=== PATIENT | female | born 1935 | race Caucasian/White ===

== ENCOUNTER 2020-08-21 10:43 | Inpatient (IN) | payer MEDICARE ==
[~2020-08-21] VITALS: Ht 160 cm; Wt 81.0 kg
[2020-08-21] MEDS ORDERED: ASPIRIN 81 MG CHEW (CHILDREN'S ASA) ONE (10:57)
[2020-08-21] MEDS ORDERED: NITROGLYCERIN 0.4 MG SL TABS BTL 25'S SL ONE (10:57)
--- NOTE | 2020-08-21 11:13 | ED Dyspnea ---
General Stated Complaint: SHORTNESS OF BREATH Source of Information: Patient Exam Limitations: No Limitations History of Present Illness Date Seen by Provider: Aug 21, 2020 Time Seen by Provider: 11:09 Initial Comments to ER by EMS from home with reports of shortness of breath getting progressively worse over the past 1 week. She has a history of congestive heart failure and states that she gets fluid on her lungs and has to have it drained. Typically her care is at [facility]. She has a history of COPD. She wears oxygen at 4 L per nasal cannula around the clock. No fevers. She has had nausea for the past week. But no vomiting. No cough. She has been to [email or web address] in [facility]. Timing/Duration: 1 Week Severity: Moderate Allergies and Home Medications Allergies Coded Allergies: Tetracyclines (Verified Allergy, Unknown, 08/21/20) Uncoded Allergies: PCN (Allergy, Unknown, 08/21/20) Patient Home Medication List Home Medication List Reviewed: Yes Review of Systems Review of Systems Constitutional: see HPI; No chills, No fever; weakness EENTM: see HPI Respiratory: see HPI, dyspnea on exertion Cardiovascular: see HPI; No chest pain, No edema, No Hx of Intervention, No syncope, No vascular heart diseas Gastrointestinal: No abdominal pain, No diarrhea; nausea; No vomiting Genitourinary: no symptoms reported Musculoskeletal: no symptoms reported Skin: no symptoms reported Psychiatric/Neurological: No Symptoms Reported Endocrine: No Symptoms Reported Physical Exam Vital Signs Vital Signs - First Documented 08/21/20 10:50 Temp 36.3 Pulse 78 Resp 32 B/P (MAP) 209/117 (147) Pulse Ox 98 Capillary Refill : Height, Weight, BMI Height: '" Weight: lbs. oz. kg; BMI Method: General Appearance: No Apparent Distress, WD/WN, Other (speaks in full sentences, alert and oriented very pleasant. Converses appropriately. No distress no accessory muscle use. Diminished and crackles bibasilar. Oxygen saturation 97% on 3 L (her baseline is 4 L). She is afebrile. She is quite hypertensive at about 210/120.) Neck: Full Range of Motion, Normal Inspection Respiratory: No Accessory Muscle Use, No Respiratory Distress Cardiovascular: Regular Rate, Rhythm Gastrointestinal: Non Tender, Soft Neurologic/Psychiatric: Alert, Oriented x3 Skin: Normal Color, Warm/Dry Progress/Results/Core Measures Results/Orders Lab Results Laboratory Tests Test 08/21/20 10:54 Range/Units White Blood Count 7.3 4.3-11.0 10^3/uL Red Blood Count 3.95 3.80-5.11 10^6/uL Hemoglobin 10.8 L 11.5-16.0 g/dL Hematocrit 36 35-52 % Mean Corpuscular Volume 91 80-99 fL Mean Corpuscular Hemoglobin 27 25-34 pg Mean Corpuscular Hemoglobin Concent 30 L 32-36 g/dL Red Cell Distribution Width 14.5 10.0-14.5 % Platelet Count 258 130-400 10^3/uL Mean Platelet Volume 10.1 9.0-12.2 fL Immature Granulocyte % (Auto) 0 % Neutrophils (%) (Auto) 75 42-75 % Lymphocytes (%) (Auto) 20 12-44 % Monocytes (%) (Auto) 5 0-12 % Eosinophils (%) (Auto) 0 0-10 % Basophils (%) (Auto) 0 0-10 % Neutrophils # (Auto) 5.4 1.8-7.8 10^3/uL Lymphocytes # (Auto) 1.5 1.0-4.0 10^3/uL Monocytes # (Auto) 0.3 0.0-1.0 10^3/uL Eosinophils # (Auto) 0.0 0.0-0.3 10^3/uL Basophils # (Auto) 0.0 0.0-0.1 10^3/uL Immature Granulocyte # (Auto) 0.0 0.0-0.1 10^3/uL Sodium Level 137 135-145 MMOL/L Potassium Level 4.7 3.6-5.0 MMOL/L Chloride Level 102 98-107 MMOL/L Carbon Dioxide Level 23 21-32 MMOL/L Anion Gap 12 5-14 MMOL/L Blood Urea Nitrogen 12 7-18 MG/DL Creatinine 0.72 0.60-1.30 MG/DL Estimat Glomerular Filtration Rate > 60 BUN/Creatinine Ratio 17 Glucose Level 106 H 70-105 MG/DL Calcium Level 8.8 8.5-10.1 MG/DL Corrected Calcium 8.8 8.5-10.1 MG/DL Magnesium Level 1.8 1.6-2.4 MG/DL Total Bilirubin 0.6 0.1-1.0 MG/DL Aspartate Amino Transf (AST/SGOT) 36 H 5-34 U/L Alanine Aminotransferase (ALT/SGPT) 22 0-55 U/L Alkaline Phosphatase 81 40-136 U/L Troponin I < 0.028 <0.028 NG/ML B-Type Natriuretic Peptide 1168.9 H <100.0 PG/ML Total Protein 6.6 6.4-8.2 GM/DL Albumin 4.0 3.2-4.5 GM/DL Procalcitonin 0.01 <0.10 NG/ML Coronavirus 2018 (PAUL) Negative Negative My Orders Orders - COLIN DUMAS APRN Covid 19 Inhouse Test (08/21/20 11:07) Coronavirus Sars-Cov-2 So 2019 (08/21/20 11:07) Cbc With Automated Diff (08/21/20 11:07) Comprehensive Metabolic Panel (08/21/20 11:07) Troponin I (08/21/20 11:07) Ekg Tracing (08/21/20 11:07) BNP (08/21/20 11:07) Magnesium (08/21/20 11:07) Chest 1 View, Ap/Pa Only (08/21/20 11:07) Procalcitonin (Pct) (08/21/20 11:50) Hydralazine Injection (Apresoline Inject (08/21/20 12:30) Furosemide Injection (Lasix Injection) (08/21/20 12:30) Medications Given in ED Current Medications Medications Dose Ordered Sig/Duy Route Start Time Stop Time Status Last Admin Dose Admin Aspirin 81 mg STK-MED ONCE .ROUTE 08/21/20 10:57 08/21/20 11:02 DC 08/21/20 11:06 81 MG Nitroglycerin 0.4 mg STK-MED ONCE SL 08/21/20 10:57 08/21/20 11:02 DC 08/21/20 11:06 0.4 MG Vital Signs/I&O 08/21/20 10:50 Temp 36.3 Pulse 78 Resp 32 B/P (MAP) 209/117 (147) Pulse Ox 98 Departure Communication (Admissions) Time/Spoke to Admitting Phy: 12:[address] Edwards, we'll admit, spoke with Abigail from [facility] as Dr. Goodwin was in a procedure. Notified him of consult. I'll go ahead and write for an echocardiogram today since she's never been here before, Lasix 40 mg IV twice a day, supplemental potassium, prophylactic Lovenox, home dose of losartan and when necessary hydralazine. She does feel better after the nitroglycerin sublingual in regards to her shortness of breath. I will also consult Dr. Aguirre in case the right pleural effusion could be tapped. Impression Primary Impression: CHF (congestive heart failure) Qualified Codes: I50.9 - Heart failure, unspecified Disposition: ADMITTED INPATIENT Condition: Stable Admissions Decision to Admit Reason: Admit from ER (General) Decision to Admit/Date: Aug 21, 2020 Time/Decision to Admit Time: 12:47 COLIN DUMAS APRN Aug 21, 2020 11:13
[2020-08-21 11:18] LABS: BASOPHILS % (AUTO) 0 % (0-10); EOSINOPHILS % (AUTO) 0 % (0-10); HEMATOCRIT 36 % (35-52); HEMOGLOBIN 10.8 g/dL (11.5-16.0); LYMPHOCYTES # (AUTO) 1.5 10^3/uL (1.0-4.0); LYMPHOCYTES % (AUTO) 20 % (12-44); MEAN CORPUSCULAR HEMOGLOBIN 27 pg (25-34); MEAN CORPUSCULAR HGB CONC 30 g/dL (32-36); MEAN CORPUSCULAR VOLUME 91 fL (80-99); MEAN PLATELET VOLUME 10.1 fL (9.0-12.2); MONOCYTES # (AUTO) 0.3 10^3/uL (0.0-1.0); MONOCYTES % (AUTO) 5 % (0-12); NEUTROPHILS # (AUTO) 5.4 10^3/uL (1.8-7.8); NEUTROPHILS % (AUTO) 75 % (42-75); PLATELET COUNT 258 10^3/uL (130-400); WHITE BLOOD COUNT 7.3 10^3/uL (4.3-11.0)
[2020-08-21 11:22] LABS: CHLORIDE 102 MMOL/L (98-107); POTASSIUM 4.7 MMOL/L (3.6-5.0); SODIUM 137 MMOL/L (135-145)
[2020-08-21 11:23] LABS: CALCIUM 8.8 MG/DL (8.5-10.1)
[2020-08-21 11:24] LABS: GLUCOSE 106 MG/DL (70-105)
[2020-08-21 11:25] LABS: TOTAL PROTEIN 6.6 GM/DL (6.4-8.2)
[2020-08-21 11:26] LABS: CARBON DIOXIDE 23 MMOL/L (21-32)
[2020-08-21 11:27] LABS: BILIRUBIN,TOTAL 0.6 MG/DL (0.1-1.0)
[2020-08-21 11:28] LABS: ALKALINE PHOSPHATASE 81 U/L (40-136); CREATININE SERUM 0.72 MG/DL (0.60-1.30); GFR ESTIMATED > 60
[2020-08-21 11:29] LABS: BUN/CREATININE RATIO 17
[2020-08-21 11:31] LABS: ALANINE AMINOTRANSFERASE 22 U/L (0-55); MAGNESIUM 1.8 MG/DL (1.6-2.4)
[2020-08-21] MEDS ORDERED: hydrALAZINE (APESOLINE) 20 MG/ML VIAL IV ONE (12:30)
[2020-08-21] MEDS ORDERED: FUROSEMIDE 40 MG/4 ML INJ (LASIX) IVP ONE (12:30)
--- NOTE | 2020-08-21 12:36 | Diagnostic Imaging Report ---
INDICATION: Dyspnea. Shortness of air. COMPARISON: None. FINDINGS: Single frontal radiographic view of the chest was obtained and demonstrates mild cardiomegaly and pulmonary vascular congestion. Pulmonary interstitium is also diffusely prominent. Additionally, there are bibasilar effusions, mild to moderate on the right and small on the left. There is associated compressive atelectasis. No pneumothorax is seen. Osseous structures show no acute abnormalities. IMPRESSION: 1. Cardiomegaly with sequela of CHF including interstitial pulmonary edema and bibasilar pleural effusions, right greater than left. Dictated by: Dictated on workstation # [id number]
--- NOTE | 2020-08-21 12:45 | NUR ---
PT UP TO BSC W ASSISTANCE, O2 INPLACE CALL LIGHT IN PLACE
[2020-08-21] MEDS ORDERED: CATHETER FLUSH 10 ML SYR IV PRN (14:15)
[2020-08-21] MEDS ORDERED: hydrALAZINE (APESOLINE) 20 MG/ML VIAL IV PRN (14:15)
--- NOTE | 2020-08-21 14:20 | NUR ---
JOEL LOW admitted to room 420-1, with an admitting diagnosis of CHF, PLUERAL EFFUSIONS, PUI, on 08/21/20 from AM via , accompanied by STAFF .JOEL LOW introduced to surroundings, call light, bed controls, phone, TV, temperature control, lights, meal times, smoking policy, visitor policy, side rail policy, bathrooms and showers. Patient Rights given to patient in the handbook. JOEL LOW verbalizes understanding that [facility] is not responsible for the loss or damage to any personal effects or valuables that are kept in the patients posession during their hospitalization. JOEL LOW verbalizes understanding of Interdisciplinary Patient Education. Patient and/or family were informed about the Rapid Response Team and its purpose.
[2020-08-21 14:34] VITALS: BP 148/87
[2020-08-21] MEDS ORDERED: FLU QUAD HIGH DOSE 240 MCG/0.7 ML 2020-21 (FLUZONE) IM ONE (15:00)
[2020-08-21] MEDS ORDERED: ENOXAPARIN 40 MG/0.4 ML (LOVENOX) SYR SC SCH (15:00)
[2020-08-21 15:28] VITALS: BP 209/117
[2020-08-21] MEDS ORDERED: RT-ALBUTEROL INHALER HFA (VENTOLIN HFA) 18 GM IH PRN (16:00)
--- NOTE | 2020-08-21 16:02 | Consultation-Cardiology ---
HPI-Cardiology Cardiology Consultation: Date of Consultation 08/21/20 Date of Admission Attending Physician Lady Munoz MD Admitting Physician Consulting Physician Vivi GOODWIN MD HPI: Time Seen by a Provider: 16:02 Chief Complaint: shortness of breath this is a 85-year-old lady who has previous history of chronic diastolic c ongestive heart failure, COPD on oxygen therapy, hypertension, hypothyroidism. She presented to the ER with complains of shortness of breath and weakness. Symptoms were continuing for a week or so. She has previous history of pleural effusions requiring thoracentesis. She denies chest pain syncope, near-syncope. She is an active smoker. Family history is positive for diabetes. Review of Systems-Cardiology Review of Systems Constitutional: As described under HPI; No As described under HPI, No no symptoms reported, No chills, No fever, No lightheadedness; tiredness Eyes: No As described under HPI, No no symptoms reported, No blindness, No blurred vision, No contact lenses, No drainage, No decreased acuity, No foreign body sensation, No pain, No vision change Ears/Nose/Throat: No As described under HPI, No no symptoms reported, No chronic hearing loss, No ear discharge, No ear pain, No nasal drainage, No ulcerations Respiratory: No no symptoms reported; As described under HPI; No As described under HPI, No cough, No orthopnea; shortness of breath; No SOB with excertion Cardiovascular: No no symptoms reported; As described under HPI; No As described under HPI, No chest pain, No edema, No irregular heart rate, No lightheadedness, No palpitations Gastrointestinal: No no symptoms reported, No As described under HPI, No abdomen distended, No abdominal pain, No blood streaked bowels, No constipation, No diarrhea, No nausea, No vomiting, No stool coloration changes Genitourinary: No As described under HPI, No burning, No dysuria, No discharge, No frequency, No flank pain, No hematuria, No urgency : Yes : No Skin: No rash, No skin related problems, No ulcerations Psychiatric/Neurological: No anxiety, No depression, No seizure, No focal weakn ess, No syncope Hematologic: No bleeding abnormalities [id number] Hx Patient Social History Alcohol Use: Denies Use Recreational Drug Use: No Smoking Status: Former Smoker Recent Foreign Travel: No Recent Infectious Disease Expo: No Hospitalization with Isolation: Denies Immunizations Up To Date Date of Pneumonia Vaccine: Jul 29, 2019 Past Medical History PMH As described under Assessment. Allergies and Home Medications Allergies Coded Allergies: Tetracyclines (Verified Allergy, Unknown, 08/21/20) Uncoded Allergies: PCN (Allergy, Unknown, 08/21/20) Patient Home Medication List Home Medication List Reviewed: Yes Physical Exam-Cardiology Physical Exam Vital Signs/I&O 08/22/20 08/22/20 08/22/20 08/22/20 07:00 07:58 08:00 08:15 Temp 36.2 Pulse 65 76 Resp 18 B/P (MAP) 140/64 (89) Pulse Ox 97 95 95 O2 Delivery Nasal Cannula Nasal Cannula Nasal Cannula O2 Flow Rate 3.00 3.00 3.00 08/22/20 08/22/20 08/22/20 08/22/20 11:09 11:57 12:33 15:00 Temp 36.8 Pulse 74 86 Resp 18 B/P (MAP) 127/60 (82) Pulse Ox 94 94 95 O2 Delivery Nasal Cannula Nasal Cannula Nasal Cannula O2 Flow Rate 3.00 3.00 3.00 08/22/20 16:13 Temp 36.2 Pulse 69 Resp 22 B/P (MAP) 135/70 (91) Pulse Ox 96 O2 Delivery Nasal Cannula O2 Flow Rate 3.00 08/22/20 00:00 Intake Total 520 ml Output Total 2300 ml Balance -1780 ml Capillary Refill : Less Than 3 Seconds Constitutional: AAO x 3 HEENT: PERRL; No discharge; hearing is well preserved, oral hygience is good; No ulceration, No xanthelasmas are seen Neck: No carotid bruit; carotid pulses are 2 + bilaterally Respiratory: chest is bilaterally symmetric, lungs clear to auscultation Cardiovascular: regular rate-rhythm, S1 and S2; No diastolic murmur; systolic murmur Gastrointestinal: soft, audible bowel sounds; No spleenomegaly Rectal: deferred Extremities: normal range of motion, non-tender, normal inspection; No clubbing, No cyanosis; no lower extremity edema bilateral; No significant edema Neurologic/Psychiatric: no motor/sensory deficits, alert, normal mood/affect, oriented x 3, power is 5/5 both on sides Skin: normal color, warm/dry; No rash, No ulcerations Data Review Labs Laboratory Tests 08/21/20 18:18: Troponin I < 0.028 08/22/20 00:00: White Blood Count 7.6, Red Blood Count 4.21, Hemoglobin 11.5, Hematocrit 37, Mean Corpuscular Volume 88, Mean Corpuscular Hemoglobin 27, Mean Corpuscular Hemoglobin Concent 31L, Red Cell Distribution Width 14.4, Platelet Count 263, Mean Platelet Volume 9.5, Immature Granulocyte % (Auto) 0, Neutrophils (%) (Auto) 63, Lymphocytes (%) (Auto) 29, Monocytes (%) (Auto) 7, Eosinophils (%) (Auto) 1, Basophils (%) (Auto) 0, Neutrophils # (Auto) 4.8, Lymphocytes # (Auto) 2.2, Monocytes # (Auto) 0.6, Eosinophils # (Auto) 0.1, Basophils # (Auto) 0.0, Immature Granulocyte # (Auto) 0.0, Sodium Level 140, Potassium Level 3.7, Chloride Level 98, Carbon Dioxide Level 31, Anion Gap 11, Blood Urea Nitrogen 16, Creatinine 0.83, Estimat Glomerular Filtration Rate > 60, BUN/Creatinine Ratio 19, Glucose Level 96, Calcium Level 9.2, Corrected Calcium 9.5, Total Bilirubin 0.6, Aspartate Amino Transf (AST/SGOT) 25, Alanine Aminotransferase (ALT/SGPT) 18, Alkaline Phosphatase 69, Total Protein 6.4, Albumin 3.6 A/P-Cardiology Assessment/Admission Diagnosis shortness of breath, weakness, COPD exacerbation, Pleural effusion, acute on Chronic diastolic congestive heart failure, Active smoking, Plan shortness of breath, likely multifactorial with COPD and acute on chronic diastolic congestive heart failure. We'll give Lasix. weakness,defer to the primary team. COPD exacerbation,inhalers. Pleural effusion,general surgery has been consulted for possible thoracentesis if required. acute on Chronic diastolic congestive heart failure,request Lasix. Echocardiogram. Active smoking, Thank you for your consultation. Please call me if you have any questions. Donald Goodwin MD, FACP, FACC, FSCAI, FHRS, CCDS Interventional Cardiology Cardiac Electrophysiology Vascular Medicine and Endovascular Interventions Clinical Quality Measures DVT/VTE Risk/Contraindication: Risk Factor Score Per Nursin RFS Level Per Nursing on Admit: 4+=Very High Vivi GOODWIN MD Aug 21, 2020 16:02
[2020-08-21 16:15] VITALS: BP 148/87
[2020-08-21] MEDS: RT-ALBUTEROL INHALER HFA (VENTOLIN HFA) 18 GM IH SCH ×2 (18:53→21:57)
[2020-08-21] MEDS ORDERED: FUROSEMIDE 40 MG/4 ML INJ (LASIX) IV SCH (19:00)
[2020-08-21 19:14] VITALS: BP 133/83
[2020-08-21] MEDS: ENOXAPARIN 40 MG/0.4 ML (LOVENOX) SYR SC SCH (19:49)
[2020-08-21] MEDS: FUROSEMIDE 40 MG/4 ML INJ (LASIX) IV SCH (19:50)
[2020-08-21] MEDS ORDERED: ONDANSETRON 4 MG/2 ML (SDV) Z0FRAN IV PRN (21:45)
[2020-08-21] MEDS ORDERED: MILK OF MAGNESIA 400 MG/5 ML 30 ML UDC PO PRN (21:45)
[2020-08-21] MEDS ORDERED: ANTACID SUSP 30 ML UDC (MYLANTA) PO PRN (21:45)
[2020-08-21] MEDS ORDERED: ACETAMINOPHEN 325 MG TABLET PO PRN (21:45)
[2020-08-21] MEDS ORDERED: BENZONATATE 100 MG (TESSALON) CAPSULE PO PRN (21:45)
[2020-08-21] MEDS: CATHETER FLUSH 10 ML SYR IV SCH (22:00)
[2020-08-22] VITALS (7 sets, daily range): BP systolic 127–194; BP diastolic 60–84
[2020-08-22] MEDS: MELATONIN 3 MG TABLET PO PRN ×2 (01:28→20:51)
[2020-08-22] MEDS: RT-ALBUTEROL INHALER HFA (VENTOLIN HFA) 18 GM IH SCH ×6 (02:11→23:13)
[2020-08-22] MEDS: LEVOTHYROXINE 88 MCG (LEVOTHORID) TAB PO SCH (06:04)
[2020-08-22] MEDS: KCL 20 MEQ TAB (K-DUR) PO SCH (06:04)
[2020-08-22] MEDS: FUROSEMIDE 40 MG/4 ML INJ (LASIX) IV SCH (06:05)
[2020-08-22] MEDS: CATHETER FLUSH 10 ML SYR IV SCH ×3 (06:05→21:00)
[2020-08-22 06:17] LABS: BASOPHILS % (AUTO) 0 % (0-10); EOSINOPHILS # (AUTO) 0.1 10^3/uL (0.0-0.3); EOSINOPHILS % (AUTO) 1 % (0-10); HEMATOCRIT 37 % (35-52); HEMOGLOBIN 11.5 g/dL (11.5-16.0); LYMPHOCYTES # (AUTO) 2.2 10^3/uL (1.0-4.0); LYMPHOCYTES % (AUTO) 29 % (12-44); MEAN CORPUSCULAR HEMOGLOBIN 27 pg (25-34); MEAN CORPUSCULAR HGB CONC 31 g/dL (32-36); MEAN CORPUSCULAR VOLUME 88 fL (80-99); MEAN PLATELET VOLUME 9.5 fL (9.0-12.2); MONOCYTES # (AUTO) 0.6 10^3/uL (0.0-1.0); MONOCYTES % (AUTO) 7 % (0-12); NEUTROPHILS # (AUTO) 4.8 10^3/uL (1.8-7.8); NEUTROPHILS % (AUTO) 63 % (42-75); PLATELET COUNT 263 10^3/uL (130-400); WHITE BLOOD COUNT 7.6 10^3/uL (4.3-11.0)
[2020-08-22 06:21] LABS: ALBUMIN 3.6 GM/DL (3.2-4.5)
[2020-08-22 06:22] LABS: CHLORIDE 98 MMOL/L (98-107); POTASSIUM 3.7 MMOL/L (3.6-5.0); SODIUM 140 MMOL/L (135-145)
[2020-08-22 06:23] LABS: CALCIUM 9.2 MG/DL (8.5-10.1)
[2020-08-22 06:24] LABS: GLUCOSE 96 MG/DL (70-105); TOTAL PROTEIN 6.4 GM/DL (6.4-8.2)
[2020-08-22 06:25] LABS: CARBON DIOXIDE 31 MMOL/L (21-32)
[2020-08-22 06:26] LABS: BILIRUBIN,TOTAL 0.6 MG/DL (0.1-1.0)
[2020-08-22 06:27] LABS: ALKALINE PHOSPHATASE 69 U/L (40-136)
[2020-08-22 06:28] LABS: CREATININE SERUM 0.83 MG/DL (0.60-1.30); GFR ESTIMATED > 60
[2020-08-22 06:29] LABS: BUN/CREATININE RATIO 19
[2020-08-22 06:31] LABS: ALANINE AMINOTRANSFERASE 18 U/L (0-55)
[2020-08-22] MEDS: LOSARTAN 50 MG (COZAAR) TAB PO SCH (09:03)
[2020-08-22] MEDS ORDERED: BACLOFEN 10 MG (LIORESAL) TAB PO PRN (11:00)
--- NOTE | 2020-08-22 11:32 | Consultation - Surgery ---
History of Present Illness History of Present Illness Patient Consulted On(lita/time) 08/22/20 11:27 Time Seen by Provider: 10:18 History of Present Illness Surgery asked to consult regarding pulmonary effusion, possible thoracentesis. HPI per ED: to ER by EMS from home with reports of shortness of breath getting progressively worse over the past 1 week. She has a history of congestive heart failure and states that she gets fluid on her lungs and has to have it drained. Typically her care is at [place]. She has a history of COPD. She wears oxygen at 4 L per nasal cannula around the clock. No fevers. She has had nausea for the past week. But no vomiting. No cough. [facility]. Timing/Duration: 1 Week Severity: Moderate When I spoke to pt this morning she kept saying she felt so much better when they cara fluid off in [place]; "they got off 800ml and I felt better right away". She states she doesn't want to wait for Lasix to fix the problem. She thinks her breathing is ok today, better than yesterday but slightly worse than normal. She denies chest pain. Allergies and Home Medications Allergies Coded Allergies: Tetracyclines (Verified Allergy, Unknown, 08/21/20) Uncoded Allergies: PCN (Allergy, Unknown, 08/21/20) Patient Home Medication List Home Medication List Reviewed: Yes Past [id number]-[id number]-Ltlbbb Hx Patient Social History Alcohol Use: Denies Use Recreational Drug Use: No Smoking Status: Former Smoker Former Smoker, Quit: Nov 27, 1999 Recent Foreign Travel: No Contact w/Someone Who Travel: No Recent Infectious Disease Expo: No Recent Hopitalizations: No Immunizations Up To Date Date of Pneumonia Vaccine: Jul 29, 2019 Surgeries History of Surgeries: Yes Respiratory History of Respiratory Disorde: Yes Respiratory Disorders: COPD Cardiovascular History of Cardiac Disorders: Yes (CHF) Cardiac Disorders: Atrial Fibrillation, Hypertension Neurological History of Neurological Disord: No Genitourinary History of Genitourinary Disor: No Gastrointestinal History of Gastrointestinal Di: No Musculoskeletal History of Musculoskeletal Dis: No Endocrine History of Endocrine Disorders: No HEENT History of HEENT Disorders: Yes HEENT Disorders: Macular Degeneration Cancer History of Cancer: No Psychosocial History of Psychiatric Problem: No Integumentary History of Skin or Integumenta: No Family Medical History Significant Family History: Diabetes (brother and son) Review of Systems-General Constitutional: malaise, weakness EENTM: No blurred vision, No double vision, No mouth pain, No mouth swelling, No epistaxis Respiratory: No cough; dyspnea on exertion; No hemoptysis; short of breath Cardiovascular: No chest pain; palpitations Gastrointestinal: No abdominal pain, No nausea, No vomiting Genitourinary: No dysuria, No frequency, No hematuria Musculoskeletal: joint pain, joint swelling, muscle stiffness Skin: No change in color, No change in hair/nails Psychiatric/Neurological: Denies Anxiety, Denies Depressed, Denies Seizure; Weakness Other pt denies any hx of abnormal bleeding or bruising Physical Exam-General Problems Physical Exam Vital Signs Vital Signs - First Documented 08/21/20 08/21/20 08/21/20 10:50 13:52 15:28 Temp 36.3 Pulse 78 Resp 32 B/P (MAP) 209/117 (147) Pulse Ox 98 O2 Delivery Nasal Cannula O2 Flow Rate 4.00 FiO2 32 Capillary Refill : Less Than 3 Seconds General Appearance: no apparent distress, thin Eyes: Bilateral Eye PERRL, Bilateral Eye EOMI HEENT: pharynx normal; No scleral icterus (R), No scleral icterus (L) Neck: non-tender, supple Respiratory: no respiratory distress, no accessory muscle use, decreased breath sounds (right base), crackles (right base) Cardiovascular: regular rate, rhythm, no JVD Gastrointestinal: non tender, soft, no organomegaly, no pulsatile mass Back: no CVA tenderness, no vertebral tenderness Extremities: no pedal edema, no calf tenderness, normal capillary refill Neurologic/Psychiatric: dextrine mixer II-XII nml as tested, no motor/sensory deficits, alert, normal mood/affect, oriented x 3 Skin: normal color, warm/dry Lymphatic: no adenopathy (neck, axilla or groin) Data Review Labs Laboratory Tests 08/21/20 18:18: Troponin I < 0.028 08/22/20 00:00: White Blood Count 7.6, Red Blood Count 4.21, Hemoglobin 11.5, Hematocrit 37, Mean Corpuscular Volume 88, Mean Corpuscular Hemoglobin 27, Mean Corpuscular Hemoglobin Concent 31L, Red Cell Distribution Width 14.4, Platelet Count 263, Mean Platelet Volume 9.5, Immature Granulocyte % (Auto) 0, Neutrophils (%) (Auto) 63, Lymphocytes (%) (Auto) 29, Monocytes (%) (Auto) 7, Eosinophils (%) (Auto) 1, Basophils (%) (Auto) 0, Neutrophils # (Auto) 4.8, Lymphocytes # (Auto) 2.2, Monocytes # (Auto) 0.6, Eosinophils # (Auto) 0.1, Basophils # (Auto) 0.0, Immature Granulocyte # (Auto) 0.0, Sodium Level 140, Potassium Level 3.7, Chloride Level 98, Carbon Dioxide Level 31, Anion Gap 11, Blood Urea Nitrogen 16, Creatinine 0.83, Estimat Glomerular Filtration Rate > 60, BUN/Creatinine Rat io 19, Glucose Level 96, Calcium Level 9.2, Corrected Calcium 9.5, Total Bilirubin 0.6, Aspartate Amino Transf (AST/SGOT) 25, Alanine Aminotransferase (ALT/SGPT) 18, Alkaline Phosphatase 69, Total Protein 6.4, Albumin 3.6 Radiology Date of Exam:08/21/20 CHEST 1 VIEW, AP/PA ONLY INDICATION: Dyspnea. Shortness of air. COMPARISON: None. FINDINGS: Single frontal radiographic view of the chest was obtained and demonstrates mild cardiomegaly and pulmonary vascular congestion. Pulmonary interstitium is also diffusely prominent. Additionally, there are bibasilar effusions, mild to moderate on the right and small on the left. There is associated compressive atelectasis. No pneumothorax is seen. Osseous structures show no acute abnormalities. IMPRESSION: 1. Cardiomegaly with sequela of CHF including interstitial pulmonary edema and bibasilar pleural effusions, right greater than left. Dictated by: Dictated on workstation # [id number] Dict: 08/21/20 1233 Trans: 08/21/[address] [place] [id number] Interpreted by: JM DUNN MD Electronically signed by: JM DUNN MD 08/21/20 1030 Assessment/Plan Assessment/Plan Assessment/Plan CHF Pulmonary Effusion Pt does not appear to be in any respiratory distress and the CXR from this am looks better than yesterday. I believe the Lasix is working and feel it is best to avoid tapping pt because of the risk of Pneumothorax. I will follow along if anything changes. Clinical Quality Measures DVT/VTE Risk/Contraindication: Risk Factor Score Per Nursin RFS Level Per Nursing on Admit: 4+=Very High VÍCTOR KURTZ DO Aug 22, 2020 11:32
--- NOTE | 2020-08-22 11:35 | Diagnostic Imaging Report ---
INDICATION: Pleural effusion. TECHNIQUE: Single view chest 10:52 AM. CORRELATION STUDY: 08/21/2020 FINDINGS: Heart size is enlarged. Vasculature overall improved with only mild congestion remaining. There has been some generalized improvement in aeration of the lung nina, likely owing to decreased edema. Opacification in the right lung base, likely a combination of effusion along with consolidation or atelectasis, the lower lung distribution does remain. Small left pleural effusion. Prior kyphoplasty changes of the spine. IMPRESSION: 1. Overall, improved appearance about the chest with what appears to be a decrease in the severity of a congestive heart failure. Combination of effusion along with consolidation and/or edema at the right lung base does persist along with small left pleural effusion. Dictated on workstation # [id number]
--- NOTE | 2020-08-22 12:27 | History & Physical-Hospitalist ---
History of Present Illness HPI/Chief Complaint Pt is an 85yoCF with a PMH of CHF, COPD on chronic oxygen, HTN, hypothyroidism who presented to the ER due to weakness and SOB. She states that her symptoms have been going on for about a week. She had a previous similar episode in March and had a pleural effusion where 800mL was drained. She is requested repeat thoracentesis today. She is currently on 3lpm, down from her baseline of 4lpm. She has no specifics complaints today and thinks her breathing is better. She denies any fevers or cough. She reports compliance with her home medications. She is a former smoker who quit in 1999 but occasionally still smokes 'like Bill Chema, I don't inhale." Source: patient Date Seen 08/22/20 Time Seen by a Provider: 12:22 Attending Physician Dante Navarro MD PCP Referring Physician Date of Admission Aug 21, 2020 at 13:05 Home Medications & Allergies Home Medications Reviewed patient Home Medication Reconciliation performed by pharmacy medication reconciliations technician chemical cleaning and/or nursing. Patients Allergies have been reviewed. Allergies Allergies Coded Allergies Tetracyclines (Verified Allergy, Unknown, 08/21/20) Uncoded Allergies PCN ( Allergy, Unknown, 08/21/20) Past Tlibifb-Oovlgp-Ybzouf Hx Past Med/Social Hx: Reviewed Nursing Past Med/Soc Hx Patient Social History Employed/Student: retired Alcohol Use: Denies Use Recreational Drug Use: No Smoking Status: Current Someday Smoker Former Smoker, Quit: Nov 27, 1999 Recent Foreign Travel: No Contact w/other who traveled: No Recent Hopitalizations: No Recent Infectious Disease Expo: No Immunizations Up To Date Date of Pneumonia Vaccine: Jul 29, 2019 Past Medical History Respiratory: COPD Cardiac: Atrial Fibrillation, Hypertension Endocrine: Hypothyroidsim HEENT: Macular Degeneration Family History Diabetes Review of Systems Constitutional: No chills, No fever; malaise, weakness EENTM: no symptoms reported Respiratory: No cough; dyspnea on exertion, orthopnea; No phlegm; short of breath Cardiovascular: No chest pain, No edema, No palpitations Gastrointestinal: No abdominal pain, No constipation, No diarrhea; nausea; No vomiting Genitourinary: No decreased output, No dysuria Musculoskeletal: muscle cramps, muscle weakness Skin: no symptoms reported Psychiatric/Neurological: No Symptoms Reported Physical Exam Physical Exam Vital Signs Vital Signs - First Documented 08/21/20 08/21/20 08/21/20 10:50 13:52 15:28 Temp 36.3 Pulse 78 Resp 32 B/P (MAP) 209/117 (147) Pulse Ox 98 O2 Delivery Nasal Cannula O2 Flow Rate 4.00 FiO2 32 Capillary Refill : Less Than 3 Seconds Height, Weight, BMI Height: '" Weight: lbs. oz. kg; 31.64 BMI Method: General Appearance: No Apparent Distress, Chronically ill HEENT: PERRL/EOMI, Moist Mucous Membranes Neck: Normal Inspection, Supple; No JVD Respiratory: No Accessory Muscle Use, Decreased Breath Sounds, Other (on 3lpm NC) Cardiovascular: Regular Rate, Rhythm, No Murmur, Normal Peripheral Pulses Gastrointestinal: Normal Bowel Sounds, Non Tender, Soft Extremity: Normal Capillary Refill, No Calf Tenderness, No Pedal Edema Neurologic/Psychiatric: Alert, Oriented x3, Normal Mood/Affect Skin: Normal Color, Warm/Dry Results Results/Procedures Labs Laboratory Tests 08/21/20 10:54 08/22/20 00:00 Patient resulted labs reviewed. Imaging: Reviewed Imaging Films, Reviewed Imaging Report Imaging [facility], [place] NAME: JOEL LOW [facility] REC#: [id number] PT STATUS: ADM IN : 1935 PHYSICIAN: COLIN DUMAS APRN ADMIT DATE: 08/21/20/ Signed Date of Exam:08/21/20 CHEST 1 VIEW, AP/PA ONLY INDICATION: Dyspnea. Shortness of air. COMPARISON: None. FINDINGS: Single frontal radiographic view of the chest was obtained and demonstrates mild cardiomegaly and pulmonary vascular congestion. Pulmonary interstitium is also diffusely prominent. Additionally, there are bibasilar effusions, mild to moderate on the right and small on the left. There is associated compressive atelectasis. No pneumothorax is seen. Osseous structures show no acute abnormalities. IMPRESSION: 1. Cardiomegaly with sequela of CHF including interstitial pulmonary edema and bibasilar pleural effusions, right greater than left. Dictated by: Dictated on workstation # [id number] Dict: 08/21/20 1233 Trans: 08/21/20 6778 [facility] [id number] Interpreted by: JM DUNN MD Electronically signed by: JM DUNN MD 08/21/20 4451 Assessment/Plan Admission Diagnosis CHF exacerbation Admission Status: Inpatient Order (span 2 midnights) Reason for Inpatient Admission: see below Assessment and Plan Acute decompendated CHF Chronic respiratory failure pleural effusion HTN BNP elevated, subjectively SOB CXR with moderate pleural effusion Continue lasix Repeat CXR this morning to assess response to Lasix Discussed with Dr Aguirre- hopefully will be able to hold off on thoracentesis if good response to Lasix Cardiology consulted, appreciate recs Troponin neg x2 Echo pending COVID PCR negative COPD without acute exacerbation Chronic Respiratory Failure Continue home oxygen- actually on less then normal dose Resume home inhalers when med rec done Hypothyroidism Continue home synthroid DVT ppx: Lovenox Diagnosis/Problems Diagnosis/Problems (1) Respiratory failure Qualifiers: Chronicity: chronic Respiratory failure complication: hypoxia Qualified Codes: J96.11 - Chronic respiratory failure with hypoxia (2) Hypothyroidism Status: Chronic Qualifiers: Hypothyroidism type: unspecified Qualified Codes: E03.9 - Hypothyroidism, unspecified (3) Pleural effusion Status: Acute (4) CHF (congestive heart failure) Status: Acute Qualifiers: Heart failure type: unspecified Heart failure chronicity: acute Qualified Codes: I50.9 - Heart failure, unspecified (5) Essential (primary) hypertension (6) Person under investigation for COVID-19 Clinical Quality Measures DVT/VTE Risk/Contraindication: Risk Factor Score Per Nursin RFS Level Per Nursing on Admit: 4+=Very High DANTE NAVARRO MD Aug 22, 2020 12:27
--- NOTE | 2020-08-22 17:25 | Cardiology Progress Note ---
Cardiology SOAP Progress Note Subjective: improved shortness of breath. She does not like Lasix. Objective: I&O/Vital Signs 08/22/20 08/22/20 08/22/20 08/22/20 07:00 07:58 08:00 08:15 Temp 36.2 Pulse 65 76 Resp 18 B/P (MAP) 140/64 (89) Pulse Ox 97 95 95 O2 Delivery Nasal Cannula Nasal Cannula Nasal Cannula O2 Flow Rate 3.00 3.00 3.00 08/22/20 08/22/20 08/22/20 08/22/20 11:09 11:57 12:33 15:00 Temp 36.8 Pulse 74 86 Resp 18 B/P (MAP) 127/60 (82) Pulse Ox 94 94 95 O2 Delivery Nasal Cannula Nasal Cannula Nasal Cannula O2 Flow Rate 3.00 3.00 3.00 08/22/20 16:13 Temp 36.2 Pulse 69 Resp 22 B/P (MAP) 135/70 (91) Pulse Ox 96 O2 Delivery Nasal Cannula O2 Flow Rate 3.00 08/22/20 00:00 Intake Total 520 ml Output Total 2300 ml Balance -1780 ml Constitutional: AAO x 3 Respiratory: chest is bilaterally symmetric, lungs clear to auscultation Cardiovascular: regular rate-rhythm, S1 and S2; No diastolic murmur; systolic murmur Gastrointestional: soft, audible bowel sounds; No spleenomegaly Extremities: normal range of motion, non-tender, normal inspection; No clubbing, No cyanosis; no lower extremity edema bilateral; No significant edema Neurologic/Psychiatric: no motor/sensory deficits, alert, normal mood/affect, oriented x 3, power is 5/5 both on sides Skin: normal color, warm/dry; No rash, No ulcerations Results/Procedures: Labs Laboratory Tests 08/21/20 18:18: Troponin I < 0.028 08/22/20 00:00: White Blood Count 7.6, Red Blood Count 4.21, Hemoglobin 11.5, Hematocrit 37, Mean Corpuscular Volume 88, Mean Corpuscular Hemoglobin 27, Mean Corpuscular Hemoglobin Concent 31L, Red Cell Distribution Width 14.4, Platelet Count 263, Mean Platelet Volume 9.5, Immature Granulocyte % (Auto) 0, Neutrophils (%) (Auto) 63, Lymphocytes (%) (Auto) 29, Monocytes (%) (Auto) 7, Eosinophils (%) (Auto) 1, Basophils (%) (Auto) 0, Neutrophils # (Auto) 4.8, Lymphocytes # (Auto) 2.2, Monocytes # (Auto) 0.6, Eosinophils # (Auto) 0.1, Basophils # (Auto) 0.0, Immature Granulocyte # (Auto) 0.0, Sodium Level 140, Potassium Level 3.7, Chloride Level 98, Carbon Dioxide Level 31, Anion Gap 11, Blood Urea Nitrogen 16, Creatinine 0.83, Estimat Glomerular Filtration Rate > 60, BUN/Creatinine Ratio 19, Glucose Level 96, Calcium Level 9.2, Corrected Calcium 9.5, Total Bilirubin 0.6, Aspartate Amino Transf (AST/SGOT) 25, Alanine Aminotransferase (ALT/SGPT) 18, Alkaline Phosphatase 69, Total Protein 6.4, Albumin 3.6 A/P: Assessment/Dx: shortness of breath, weakness, COPD exacerbation, Pleural effusion, acute on Chronic diastolic congestive heart failure, Active smoking, hypokalemia Plan: shortness of breath, likely multifactorial with COPD and acute on chronic diastolic congestive heart failure. improved with Lasix. weakness,defer to the primary team. COPD exacerbation,inhalers. Pleural effusion,general surgery has been consulted for possible thoracentesis if required. acute on Chronic diastolic congestive heart failure,request Lasix. Echocardiogram shows normal LV function with mild diastolic dysfunction. patient is requesting not to be given Lasix. She is not in florid congestive heart failure. I will hold Lasix for now. Active smoking, hypokalemia, replace. Thank you for your consultation. Please call me if you have any questions. Donald Goodwin MD, FACP, FACC, FSCAI, FHRS, CCDS Interventional Cardiology Cardiac Electrophysiology Vascular Medicine and Endovascular Interventions Vivi GOODWIN MD Aug 22, 2020 17:25
[2020-08-22] MEDS: ENOXAPARIN 40 MG/0.4 ML (LOVENOX) SYR SC SCH (20:52)
[2020-08-23] VITALS (7 sets, daily range): BP systolic 126–164; BP diastolic 48–76
[2020-08-23] MEDS: RT-ALBUTEROL INHALER HFA (VENTOLIN HFA) 18 GM IH SCH ×4 (02:37→19:17)
[2020-08-23] MEDS: KCL 20 MEQ TAB (K-DUR) PO SCH (06:11)
[2020-08-23] MEDS: LEVOTHYROXINE 88 MCG (LEVOTHORID) TAB PO SCH (06:11)
[2020-08-23] MEDS: CATHETER FLUSH 10 ML SYR IV SCH ×3 (06:12→19:34)
[2020-08-23] MEDS: LOSARTAN 50 MG (COZAAR) TAB PO SCH (08:40)
--- NOTE | 2020-08-23 10:14 | Progress Note - Surgery ---
Subjective Time Seen by a Provider: 09:21 Subjective/Events-last exam Pt seen and examined, states she is breathing fine; but still asks about draining the fluid. She also wants to know if she is going home today. Review of Systems General: Fatigue, Malaise Pulmonary: Dyspnea; No Cough Cardiovascular: No: Chest Pain, Palpitations Gastrointestinal: No: Nausea, Vomiting, Abdominal Pain Objective Exam Vital Signs Date Time Temp Pulse Resp B/P (MAP) Pulse Ox O2 Delivery O2 Flow Rate FiO2 08/23/20 08:00 36.2 76 20 158/76 (103) 98 Nasal Cannula 3.00 08/23/20 08:00 Nasal Cannula 3.00 08/23/20 07:00 76 08/23/20 06:33 95 Nasal Cannula 3.00 08/23/20 05:55 36.2 68 98 32 08/23/20 04:00 36.2 68 18 150/68 (95) 98 Nasal Cannula 3.00 08/23/20 02:39 96 Nasal Cannula 3.00 08/23/20 01:00 75 08/22/20 23:30 36.5 70 18 140/68 (92) 96 Nasal Cannula 3.00 08/22/20 23:14 Nasal Cannula 3.00 08/22/20 20:00 96 Nasal Cannula 3.00 08/22/20 19:39 36.5 80 16 167/74 (105) 95 Nasal Cannula 3.00 08/22/20 19:00 80 08/22/20 18:22 98 Nasal Cannula 3.00 08/22/20 16:13 36.2 69 22 135/70 (91) 96 Nasal Cannula 3.00 08/22/20 15:00 95 Nasal Cannula 3.00 08/22/20 12:33 86 08/22/20 11:57 36.8 74 18 127/60 (82) 94 Nasal Cannula 3.00 08/22/20 11:09 94 Nasal Cannula 3.00 I & O 08/23/20 07:00 Intake Total 520 ml Output Total 950 ml Balance -430 ml Capillary Refill : Less Than 3 Seconds General Appearance: No Apparent Distress, Chronically ill HEENT: PERRL/EOMI, Moist Mucous Membranes Respiratory: No Accessory Muscle Use, Crackles, Decreased Breath Sounds (right base), Wheezing Cardiovascular: Regular Rate, Rhythm, No Murmur Gastrointestinal: non tender, soft, no organomegaly, no pulsatile mass Extremity: No Calf Tenderness, No Pedal Edema Neurologic/Psychiatric: Alert, Oriented x3, Normal Mood/Affect Skin: Normal Color, Warm/Dry Assessment/Plan Assessment/Plan Assessment/Plan CHF Pulmonary Effusion Pt does not appear to be in any respiratory distress and the CXR from this am looks better than yesterday. I believe the Lasix is working and feel it is best to avoid tapping pt because of the risk of Pneumothorax. I will sign off. Clinical Quality Measures DVT/VTE Risk/Contraindication: Risk Factor Score Per Nursin RFS Level Per Nursing on Admit: 4+=Very High VÍCTOR KRUTZ DO Aug 23, 2020 10:14
--- NOTE | 2020-08-23 13:12 | Progress Note - Hospitalist ---
Subjective HPI/CC On Admission Date Seen by Provider: Aug 23, 2020 Time Seen by Provider: 13:07 Pt is an 85yoCF with a PMH of CHF, COPD on chronic oxygen, HTN, hypothyroidism who presented to the ER due to weakness and SOB. She states that her symptoms have been going on for about a week. She had a previous similar episode in March and had a pleural effusion where 800mL was drained. She is requested repeat thoracentesis today. She is currently on 3lpm, down from her baseline of 4lpm. She has no specifics complaints today and thinks her breathing is better. She denies any fevers or cough. She reports compliance with her home medications. She is a former smoker who quit in 1999 but occasionally still smokes 'like Bill Chema, I don't inhale. Subjective/Events-last exam Pt reports doing well today. Would actually like to DC home today. Lives alone. has not yet been up much in her room and still has [place]. Objective Exam Vital Signs Vital Signs Date Time Temp Pulse Resp B/P (MAP) Pulse Ox O2 Delivery O2 Flow Rate FiO2 08/23/20 12:31 83 08/23/20 12:00 36.2 20 145/66 (92) 97 Nasal Cannula 3.00 08/23/20 05:55 32 Capillary Refill : Less Than 3 Seconds General Appearance: No Apparent Distress, WD/WN, Chronically ill Respiratory: Lungs Clear, No Accessory Muscle Use, Other (NC 3lpm) Cardiovascular: Regular Rate, Rhythm, No Murmur Neurologic/Psychiatric: Alert, Oriented x3 Results/Procedures Lab Patient resulted labs reviewed. Imaging: Reviewed Imaging Films, Reviewed Imaging Report Assessment/Plan Assessment and Plan Assess & Plan/Chief Complaint Acutely decompensated dCHF Chronic respiratory failure pleural effusion HTN SOB improving, requesting no IV lasix, will give oral CXR improved Repeat CXR in the morning to assess response to Lasix Cardiology consulted, appreciate recs Troponin neg x2 Echo with preserved EF and diastolic function noted COVID PCR negative COPD without acute exacerbation Chronic Respiratory Failure Continue home oxygen- actually on less then normal dose Resume home inhalers Hypothyroidism Continue home synthroid Weakness PT/OT in AM Discussed home health but patient does not seem interested Medical Transcription Radiology DVT ppx: Lovenox Diagnosis/Problems Diagnosis/Problems (1) Respiratory failure Qualifiers: Chronicity: chronic Respiratory failure complication: hypoxia Qualified Codes: J96.11 - Chronic respiratory failure with hypoxia (2) Hypothyroidism Status: Chronic Qualifiers: Hypothyroidism type: unspecified Qualified Codes: E03.9 - Hypothyroidism, unspecified (3) Pleural effusion Status: Acute (4) CHF (congestive heart failure) Status: Acute Qualifiers: Heart failure type: unspecified Heart failure chronicity: acute Qualified Codes: I50.9 - Heart failure, unspecified (5) Essential (primary) hypertension (6) Person under investigation for COVID-19 Clinical Quality Measures DVT/VTE Risk/Contraindication: Risk Factor Score Per Nursin RFS Level Per Nursing on Admit: 4+=Very High DANTE NAVARRO MD Aug 23, 2020 13:12
--- NOTE | 2020-08-23 15:42 | Cardiology Progress Note ---
Cardiology SOAP Progress Note Subjective: no significant shortness of breath. Objective: I&O/Vital Signs 08/23/20 08/23/20 08/23/20 08/23/20 04:00 05:55 06:33 07:00 Temp 36.2 36.2 Pulse 68 68 76 Resp 18 B/P (MAP) 150/68 (95) Pulse Ox 98 98 95 O2 Delivery Nasal Cannula Nasal Cannula O2 Flow Rate 3.00 3.00 FiO2 32 08/23/20 08/23/20 08/23/20 08/23/20 08:00 08:00 12:00 12:31 Temp 36.2 36.2 Pulse 76 75 83 Resp 20 20 B/P (MAP) 158/76 (103) 145/66 (92) Pulse Ox 98 97 O2 Delivery Nasal Cannula Nasal Cannula Nasal Cannula O2 Flow Rate 3.00 3.00 3.00 08/23/20 08/23/20 14:36 15:22 Temp 36.9 Pulse 81 Resp 22 B/P (MAP) 126/59 (81) Pulse Ox 95 94 O2 Delivery Nasal Cannula Nasal Cannula O2 Flow Rate 3.00 3.00 08/23/20 00:00 Intake Total 470 ml Output Total 800 ml Balance -330 ml Constitutional: AAO x 3 Respiratory: chest is bilaterally symmetric, lungs clear to auscultation Cardiovascular: regular rate-rhythm, S1 and S2; No diastolic murmur; systolic murmur Gastrointestional: soft, audible bowel sounds; No spleenomegaly Extremities: normal range of motion, non-tender, normal inspection; No clubbing, No cyanosis; no lower extremity edema bilateral; No significant edema Neurologic/Psychiatric: no motor/sensory deficits, alert, normal mood/affect, oriented x 3, power is 5/5 both on sides Skin: normal color, warm/dry; No rash, No ulcerations A/P: Assessment/Dx: shortness of breath, weakness, COPD exacerbation, Pleural effusion, acute on Chronic diastolic congestive heart failure, Active smoking, hypokalemia Plan: shortness of breath, likely multifactorial with COPD and acute on chronic diastolic congestive heart failure. improved with Lasix. weakness,defer to the primary team. COPD exacerbation,inhalers. Pleural effusion,general surgery has been consulted for possible thoracentesis if required. acute on Chronic diastolic congestive heart failure,request Lasix. Echocardiogram shows normal LV function with mild diastolic dysfunction. patient is requesting not to be given Lasix. She is not in florid congestive heart failure. I will hold Lasix for now. Active smoking, hypokalemia, replace. Thank you for your consultation. Please call me if you have any questions. Donald Goodwin MD, FACP, FACC, FSCAI, FHRS, CCDS Interventional Cardiology Cardiac Electrophysiology Vascular Medicine and Endovascular Interventions Vivi GOODWIN MD Aug 23, 2020 15:42
[2020-08-23] MEDS: ENOXAPARIN 40 MG/0.4 ML (LOVENOX) SYR SC SCH (19:33)
[2020-08-24] MEDS: RT-ALBUTEROL INHALER HFA (VENTOLIN HFA) 18 GM IH SCH ×3 (02:09→14:33)
[2020-08-24] MEDS: LEVOTHYROXINE 88 MCG (LEVOTHORID) TAB PO SCH (05:51)
[2020-08-24] MEDS: KCL 20 MEQ TAB (K-DUR) PO SCH (05:51)
[2020-08-24] MEDS: CATHETER FLUSH 10 ML SYR IV SCH (05:52)
--- NOTE | 2020-08-24 07:30 | Diagnostic Imaging Report ---
EXAMINATION: Chest 1 view HISTORY: Heart failure COMPARISON: 08/22/2020 FINDINGS: There are small pleural effusions with small lung volumes. There is mild edema. Heart is mildly enlarged. No pneumothorax. IMPRESSION: 1. Mild edema and small pleural effusions. Dictated by: Dictated on workstation # [id number]
[2020-08-24 08:00] VITALS: BP 140/70
[2020-08-24] MEDS: LOSARTAN 50 MG (COZAAR) TAB PO SCH (09:05)
--- NOTE | 2020-08-24 09:24 | Cardiology Progress Note ---
Subjective Date Seen by Provider: Aug 24, 2020 Time Seen by Provider: 09:00 Subjective/Events-last exam Patient is sitting up in chair, denies any chest pain or dyspnea. Review of Systems General: No Chills, No Night Sweats, No Fatigue, No Malaise, No Appetite, No Other HEENT: No Head Aches, No Visual Changes, No Eye Pain, No Ear Pain, No Dysphasia, No Sinus Congestion, No Post Nasal Drip, No Sore Throat, No Other Pulmonary: Dyspnea Cardiovascular: No: Chest Pain, Palpitations, Orthopnea, Paroxysmal Noc. Dyspnea, Edema, Lt Headedness, Other Objective-Cardiology Exam Last Set of Vital Signs Vital Signs 08/23/20 08/24/20 08/24/20 05:55 08:00 09:00 Temp 35.8 Pulse 68 Resp 16 B/P (MAP) 140/70 (93) Pulse Ox 98 O2 Delivery Nasal Cannula O2 Flow Rate 3.00 FiO2 32 Capillary Refill : Less Than 3 Seconds I&O Intake and Output 08/24/20 00:00 Intake Total 2515 ml Output Total 1400 ml Balance 1115 ml Intake Oral 2515 ml Output Urine Total 1400 ml # Voids 2 General: Alert, Oriented X3, Cooperative HEENT: Atraumatic, PERRLA Neck: Supple, No JVD, No Thyromegaly Lungs: Other (decreased breath sounds bibasilarly) Heart: Regular Rate, Normal S1, Normal S2 Abdomen: Normal Bowel Sounds, Soft Extremities: No Clubbing, No Edema Skin: No Rashes, No Significant Lesion Neuro: Normal Speech, Cranial Nerves 3-12 NL Psych/Mental Status: Mental Status NL, Mood NL A/P-Cardiology Admission Diagnosis Diastolic CHF AE COPD Pleural effusion HTN Assessment/Plan Shortness of breath, likely multifactorial with COPD and acute on chronic diastolic congestive heart failure. improved with Lasix. Continue to monitor COPD exacerbation, improved, continue to monitor. Pleural effusion, improving. Continue Lasix. Acute on Chronic diastolic congestive heart failure. Echocardiogram shows normal LV function with mild diastolic dysfunction. Responded well to Lasix HTN- continue to monitor. Tobaccoism, Active smoking, discussed smoking cessation Hypokalemia, replaced and improved, continue to monitor. Patient was seen and evaluated with Alicia, examination performed, management plan was discussed, agree with the current scribed note, I made few changes to the note using Italic font Patient is sitting in a chair, using oxygen, reporting that she has been using oxygen at home. Feeling better at this time, breathing is better Discussed with rosana Freeman for discharge, will need to be on Lasix as an outpatient. Clinical Quality Measures DVT/VTE Risk/Contraindication: Risk Factor Score Per Nursin RFS Level Per Nursing on Admit: 4+=Very High ALICIA COPE Aug 24, 2020 09:24 KYRA QUIROZ MD Aug 24, 2020 11:30
--- NOTE | 2020-08-24 09:49 | NUR ---
CM/SS visited with the patient for social service consult. Plan: The patient will return home at time of discharge. No needs. Home: The patient reports that she lives in a 3-level home. She states that she has a electric wheelchair for the stairs that helps her. The patient lives alone and has for the past 2 years. She does not feel that she needs assistance in the home due to her large support system. Home Health: Home health was suggested by physician to patient. The patient denies the need for home health. She states that she had [facility] in the past and was discharged from their services. The patient reports that she does not feel that she needs it at this time. Equipment: The patient reports that she has multiple walkers and has 3 wheelchairs in the home. She does not use them all the time but has them there if she needs it. The patient wears oxygen at baseline. She is unsure of the company name but it is located in [place]. She states that she has multiple tanks, 2 concentrators, and an emergency tank. Supports: The patient reports that she has her younger siblings, grand children, and great grand children that are willing and able to assist when needed. She states that she cannot drive but her grandson lives a couple miles down the road drives her along with her sister Nettie. The patient states that her [employer]ha[employer]-sm-sti Sharon is also involved with her care. Her son passed but she is still close with Sharon. Meals: Patient denies the need for a meal delivery service at this time. She states that family helps with getting groceries and writing out recipes due to her eye condition. No further needs at this time. Addendum: 08/24/20 at 1015 by KOJO CASPER The patient reports that her sister Nettie will bring her portable oxygen tank for discharge. Addendum: 08/24/20 at 1526 by KOJO CASPER MEGHAN/TREMAYNE spoke with Dr. Mac's office. They will approve patient and her appointment is set up for Monday at 1:00 p.m.
--- NOTE | 2020-08-24 10:21 | Physical Therapy Evaluation ---
PT Evaluation-General Medical Diagnosis Admission Date Aug 21, 2020 at 13:05 Medical Diagnosis: CHF/pleural effusion Onset Date: Aug 21, 2020 Therapy Diagnosis Therapy Diagnosis: debility Precautions Precautions/Isolations: Fall Prevention, Standard Precautions Referral Physician: Tammy Reason for Referral: Evaluation/Treatment Medical History Pertinent Medical History: COPD, Heart Failure, HTN, Hypothroidism Current History EMS from home secondary to SOB x 1 week Reviewed History: Yes Social History Home: Multilevel Current Living Status: Alone Entry Into Home: Stairs With Railing PT Steps Into Home: 5 PT Steps Inside Home: 15 Prior Prior Level of Function SCALE: Activities may be completed with or without assistive devices. 9-Xhsxgtposl-zsigycz completes the activity by him/herself with no assistance from a helper. 5-Set-up or Clean-up Assistance-helper sets up or cleans up; patient completes activity. Fowler assists only prior to or following the activity. 4-Supervision or Touching Assistance-helper provides verbal cues and/or touching/steadying and/or contact guard assistance as patient completes activity. Assistance may be provided throughout the activity or intermittently. 3-Partial/Moderate Assistance-helper does LESS THAN HALF the effort. Fowler lifts, holds or supports trunk or limbs, but provides less than half the effort. 2-Substantial/Maximal Assistance-helper does MORE THAN HALF the effort. Fowler lifts or holds trunk or limbs and provides more than half the effort. 4-Fazvaxwcd-symxft does ALL the effort. Patient does none of the effort to complete the activity. Or, the assistance of 2 or more helpers is required for the patient to complete the activity. If activity was not attempted, code reason: 7-Patient Refused. 9-Not Applicable-not attempted and the patient did not perform the activity before the current illness, exacerbation or injury. 10-Not Attempted due to Environmental Limitations-(lack of equipment, weather restraints, etc.). 88-Not Attempted due to Medical Conditions or Safety Concerns. Bed Mobility: 6 Transfers (B,C,W/C): 6 Gait: 6 Stairs: 6 Indoor Mobility (Ambulation): Independent Stairs: Independent Prior Devices Use: Walker Prior Device Use: 4WW occasionally PT Evaluation-Current Subjective Patient agrees to PT. Is up ad cory in room. Objective Patient Orientation: Normal For Age Attachments: Oxygen (4L NC ) ROM/Strength ROM Lower Extremities bilateral LE WFL Strength Lower Extremities 4/5 grossly bilateral LE Integumentary/Posture Integumentary refer to nursing notes Bowel Incontinence: No Bladder Incontinence: No Posture WFL Neuromuscular (Tone, Coordination, Reflexes) grossly intact Sensory Vision: impaired Hearing: Impaired Transfers Roll Left to Right (QC): 6 Sit to Lying (QC): 6 Lying to Sitting/Side of Bed(Q: 6 Sit to Stand (QC): 6 Chair/Baj-zu-Gqioo Xfer(QC): 6 Toilet Transfer (QC): 6 Gait Does the Patient Walk?: Yes Mode of Locomotion: Walk Anticipated Mode of Locomotion: Walk Walk 10 feet (QC): 6 Walk 50 ft with 2 Turns(QC): 6 Walk 150 ft (QC): 6 Distance: 200' Gait Assistive Device: FWW Comments/Gait Description safe and functional with no deviation Stairs #of Steps: 15 1 Step (curb) (QC): 6 4 Steps (QC): 6 12 Steps (QC): 6 step to ascending and descending Balance Sitting Static: Normal Sitting Dynamic: Normal Standing Static: Normal Standing Dynamic: Normal Assessment/Needs 85 y.o. female, is currently at [facility] with all gross motor skills and does not require skilled therapy intervention. Rehab Potential: Fair PT Plan Treatment/Plan Treatment Plan: Discontinue PT, goals met Treatment Duration: Aug 24, 2020 Frequency: 1 time per week Estimated Hrs Per Day: .25 hour per day Patient and/or Family Agrees t: Yes Time/GCodes Time In: 845 Time Out: 901 Total Billed Treatment Time: 16 Total Billed Treatment [facility] min TERENCE KANG PT Aug 24, 2020 10:21
[2020-08-24] MEDS ORDERED: FURO40TA4 PO (11:02)
[2020-08-24] MEDS ORDERED: ALBU1.25 INH (11:02)
[2020-08-24] MEDS ORDERED: LEVO88TA68 PO (11:02)
[2020-08-24] MEDS ORDERED: POTA10TA52 PO (11:02)
[2020-08-24] MEDS ORDERED: LOSA50TA63 PO (11:02)
[2020-08-24] MEDS ORDERED: ASPI-999 PO (11:03)
[2020-08-24] MEDS ORDERED: CALC-250 PO (11:03)
[2020-08-24] MEDS ORDERED: CALC-783 PO (11:03)
[2020-08-24] MEDS ORDERED: ACET160O13 PO (11:03)
[2020-08-24] MEDS ORDERED: ASCO250T55 PO (11:03)
[2020-08-24] MEDS ORDERED: FOLI200T11 PO (11:03)
[2020-08-24] MEDS ORDERED: MELA5TAB14 PO (11:03)
--- NOTE | 2020-08-24 14:35 | NUR ---
I SPOKE WITH THE PATIENT AND WENT THROUGH THE EXTERNAL MED HISTORY TO COMPLETE THE MED REC. PATIENT TRIES TO TAKE CHEWABLE OR GUMMY VITAMINS WHENEVER POSSIBLE OTC: CALCIUM GUMMY VITAMIN C VITAMIN D3 WOMEN'S DAILY VITAMIN MELATONIN TYLENOL LIQUID BABY ASPIRIN
[2020-08-24 15:23] VITALS: BP 140/70
--- NOTE | 2020-08-24 18:14 | Discharge Summary ---
Discharge Summary Hospital Course Was the Problem List Reviewed?: Yes Problems/Dx: (1) CHF (congestive heart failure) Status: Acute Qualifiers: Qualified Codes: I50.33 - Acute on chronic diastolic (congestive) heart failure (2) Respiratory failure Qualifiers: Qualified Codes: J96.11 - Chronic respiratory failure with hypoxia (3) Hypothyroidism Status: Chronic Qualifiers: Qualified Codes: E03.9 - Hypothyroidism, unspecified (4) Pleural effusion Status: Acute (5) Essential (primary) hypertension Hospital Course Date of Admission: Aug 21, 2020 at 13:05 Admission Diagnosis : acute on chronic heart failure with preserved ejection fraction Family Physician/Provider: Date of Discharge: 08/24/20 Discharge Diagnosis: acute on chronic heart failure with preserved ejection fraction Hospital Course: Flakita Chan is an 85-year-old female who presented with shortness of breath and was admitted with acute on chronic heart failure with preserved ejection fraction. Cardiology was consulted and assisted with her care. She underwent an echocardiogram which revealed a normal ejection fraction with type I diastolic dysfunction. She was treated with Lasix and improved. Her oxygen req uirement remained at her baseline. She was tested for COVID and was negative. She will continue Lasix at home. She was encouraged to weigh herself daily. She should follow-up with her primary care physician in about a week. Labs and Pending Lab Test: Home Meds Active Reported Aspirin 81 Mg Tab.chew 81 Mg PO DAILY Children's Tylenol (Acetaminophen) 160 Mg/5 Ml Oral.susp 5 Ml PO PRN PRN Melatonin 5 Mg Tablet 5 Mg PO HS Women's Multivitamin Gummies (Folic Acid/Multivit-Minerals) 200 Mcg Tab.chew 200 Mcg PO DAILY Vitamin D3 (Cholecalciferol (Vitamin D3)) 125 Mcg Tablet 125 Mcg PO DAILY Vitamin C 250 mg Tablet Chew (Ascorbic Acid/Ascorbate Sodium) 250 Mg Tab.chew 250 Mg PO DAILY Calcium Gummies (Calcium Phosphate Trib/Vit D3) 1 Each Tab.chew 1 Each PO DAILY Albuterol Sulfate 1.25 Mg/3 Ml Vial.neb 1.25 Mg INH BID Losartan Potassium 50 Mg Tablet 50 Mg PO 1200 Euthyrox (Levothyroxine Sodium) 88 Mcg Tablet 88 Mcg PO DAILY Furosemide 40 Mg Tablet 40 Mg PO 1200 Effer-K 10 Meq Tablet Eff (Potassium Bicarbonate/Cit AC) 10 Meq Tablet.eff 10 Meq PO Q48H DISSOLVE 1 TABLET IN 3-4 OUNCES OF COLD WATER Assessment/Pt Instructions take medications as prescribed. Continue to take Lasix. Weight herself daily. If you're weight is increasing, contact her primary care physician to consider increasing your Lasix. Follow-up with your primary care physician in about a week. Discharge Planning: <30 minutes discharge planning Discharge Instructions Discharge Diet: Low Sodium Diet Activity as Tolerated: Yes Consultations Cardiology Discharge Physical Examination Vital Signs Vital Signs Date Time Temp Pulse Resp B/P (MAP) Pulse Ox O2 Delivery O2 Flow Rate FiO2 08/24/20 15:23 35.8 68 16 140/70 96 Nasal Cannula 3.00 08/23/20 05:55 32 General Appearance: No Apparent Distress, Obese Respiratory: Lungs Clear, Normal Breath Sounds, No Respiratory Distress Cardiovascular: Regular Rate, Rhythm, No Murmur Gastrointestinal: Normal Bowel Sounds, Non Tender, Soft Extremity: Normal Inspection, Non Tender, Pedal Edema Skin: Normal Color, Warm/Dry Neurologic/Psychiatric: Alert, Oriented x3, No Motor/Sensory Deficits, Normal Mood/Affect Allergies: Coded Allergies: Tetracyclines (Verified Allergy, Unknown, 08/21/20) Uncoded Allergies: PCN (Allergy, Unknown, 08/21/20) Discharge Summary Date of Admission Aug 21, 2020 at 13:05 Date of Discharge Aug 24, 2020 at 15:23 Discharge Date: Aug 24, 2020 Discharge Time: 15:23 Admission Diagnosis CHF exacerbation Consults/Procedures Consulations cardiology Discharge Diagnosis (1) CHF (congestive heart failure) Status: Acute Qualifiers: Qualified Codes: I50.33 - Acute on chronic diastolic (congestive) heart failure (2) Respiratory failure Qualifiers: Qualified Codes: J96.11 - Chronic respiratory failure with hypoxia (3) Hypothyroidism Status: Chronic Qualifiers: Qualified Codes: E03.9 - Hypothyroidism, unspecified (4) Pleural effusion Status: Acute (5) Essential (primary) hypertension Clinical Quality Measures DVT/VTE Risk/Contraindication: Risk Factor Score Per Nursin RFS Level Per Nursing on Admit: 4+=Very High YE DANIELLE MD Aug 24, 2020 18:12
== END 2020-08-24 15:23 | disposition home or self-care (01) | DRG 292 ==
LOC: EDBD 10:47 → ER 10:47 → 4TH 13:05
PROVIDERS: ADMIT Family Medicine; ATTEND Family Medicine
DX: I11.0 Hypertensive heart disease with heart failure (principal); J44.1 Chronic obstructive pulmonary disease with (acute) exacerbation; J96.10 Chronic respiratory failure, unspecified whether with hypoxia or hypercapnia; I50.33 Acute on chronic diastolic (congestive) heart failure; F17.200 Nicotine dependence, unspecified, uncomplicated; I48.91 Unspecified atrial fibrillation; E03.9 Hypothyroidism, unspecified; Z20.828 Contact with and (suspected) exposure to other viral communicable diseases; E87.6 Hypokalemia; F17.210 Nicotine dependence, cigarettes, uncomplicated; H35.30 Unspecified macular degeneration; Z99.81 Dependence on supplemental oxygen; Z83.3 Family history of diabetes mellitus
CPT/HCPCS: 36415; 71045; 80053; 83735; 83880; 84145; 84484; 85025; 87635; 90662; 93005; 93306; 94640; 94760

== ENCOUNTER 2020-12-17 23:28 | Inpatient (IN) | payer MEDICARE ==
[~2020-12-17] VITALS: Ht 160 cm; Wt 84.2 kg
[~2020-12-17 23:28] MED LIST: ACET160O13 PO; ALBU1.25 INH; ASCO250T55 PO; ASPI-999 PO; CALC-250 PO; CALC-783 PO; CETI10TA17 PO; FOLI200T11 PO; FURO40TA4 PO; LEVO125T6 PO; LEVO88TA68 PO; LOSA50TA63 PO; MELA5TAB14 PO; POTA10TA52 PO
[2020-12-17] MEDS ORDERED: ASPIRIN 81 MG CHEW (CHILDREN'S ASA) ONE (23:35)
[2020-12-17] MEDS ORDERED: NITROGLYCERIN 2% OINT 1 GM UNIT DOSE PACKET ONE (23:35)
[2020-12-17] MEDS ORDERED: LORazepam INJ 2 MG/ML (ATIVAN) VIAL ONE (23:49)
[2020-12-18 00:06] LABS: ABG BASE EXCESS -0.2 MMOL/L (-2.5-2.5); ABG OXYGEN SATURATION 90 % (94-100); ABG PCO2 54 MMHG (35-45); ABG PO2 81 MMHG (79-93); ABG TCO2 27.7 MMOL/L (21.0-31.0)
--- NOTE | 2020-12-18 00:06 | ED Respiratory ---
General Chief Complaint: Respiratory Problems Stated Complaint: NAUSEA,COPD Nursing Triage Note: brougth in by [facility] for nausea, increased soa. Source: patient (LIMITED HISTORIAN), old records (ONLY 2 PREVIOUS VISITS HERE --08/21/20 AND 10/24/20 FOR CHF / DYSPNEA / PLEURAL EFFUSIONS) History of Present Illness Date Seen by Provider: Dec 17, 2020 Time Seen by Provider: 23:30 Initial Comments PT AR[facility]IV[facility]--PT LIVES ALONE. C/O NAUSEA, AND DRY HEAVES--EMS GAVE ZOFRAN AND THIS HAS RESOLVED, BEGAN APPROXIMATELY 1 1/2 HOURS AGO C/O SEVERE SHORTNESS OF BREATH--PT HAS COPD AND NORMALLY WEARS HOME O2 AT 4L/NC. PT IS UNABLE TO STATE WHEN HER SHORTNESS OF BREATH GOT WORSE O2 SAT WAS 84% ON 4L/NC AT SCENE--EMS INCREASED TO 6L/NC AND O2 SATS UP TO 94%, BUT STILL WITH LABORED BREATHING C/O CHEST TIGHTNESS C/O LEG SWELLING --IS CHRONIC PROBLEM OFF AND ON, IS UNABLE TO STATE WHEN SWELLING BEGAN THIS TIME PT DENIES FEVER DENIES SIGNIFICANT COUGH DENIES LOSS OF TASTE OR SMELL DENIES HEADACHE DENIES ANY KNOWN SICK CONTACTS OR KNOWN EXPOSURE TO COVID-19 IN ADDITION TO COPD, PT HAS CHF AND HTN PT STATES SHE TOOK ALL OF HER MEDICATIONS TODAY, AND USED ALBUTEROL ONCE THIS MORNING AND IT HELPED, BUT HAS NOT USED IT AGAIN. HAS NOT TAKEN ANYTHING ELSE FOR SYMPTOMS PT VERBALIZED EMPHATICALLY THAT SHE DOES NOT WANT TO BE RESUSCITATED OR PLACED ON VENTILATOR. PCP: DR. BEACH Allergies and Home Medications Allergies Coded Allergies: Tetracyclines (Verified Allergy, Unknown, 08/21/20) Uncoded Allergies: PCN (Allergy, Unknown, 08/21/20) Home Medications Albuterol Sulfate 1.25 Mg/3 Ml Vial.neb, 1.25 MG INH Q4H PRN for SHORTNESS OF BREATH, (Reported) Ascorbic Acid/Ascorbate Sodium 250 Mg Tab.chew, 250 MG PO DAILY, (Reported) Aspirin 81 Mg Tab.chew, 81 MG PO DAILY, (Reported) Calcium Phosphate Trib/Vit D3 1 Each Tab.chew, 1 EACH PO DAILY, (Reported) Cetirizine HCl 10 Mg Tablet, 10 MG PO DAILY, (Reported) Cholecalciferol (Vitamin D3) 125 Mcg Tablet, 125 MCG PO DAILY, (Reported) Folic Acid/Multivit-Minerals 200 Mcg Tab.chew, 200 MCG PO DAILY, (Reported) Furosemide 40 Mg Tablet, 40 MG PO UD 1 TAB MORNING AND 1/2 TAB 4PM Prescribed by: RACHID BEACH on 10/27/20919 Levothyroxine Sodium 125 Mcg Tablet, 125 MCG PO DAILY, (Reported) Losartan Potassium 50 Mg Tablet, 50 MG PO 1200, (Reported) Melatonin 5 Mg Tablet, 5 MG PO HS PRN for SLEEP, (Reported) Potassium Bicarbonate/Cit AC 10 Meq Tablet.eff, 10 MEQ PO DAILY DISSOLVE 1 TABLET IN 3-4 OUNCES OF COLD WATER Prescribed by: RACHID BEACH on 10/27/20919 Patient Home Medication List Home Medication List Reviewed: Yes Review of Systems Review of Systems Constitutional: No chills, No diaphoresis, No fever EENTM: no symptoms reported Respiratory: see HPI, short of breath Cardiovascular: see HPI, chest pain, edema Gastrointestinal: see HPI; No abdominal pain, No diarrhea; nausea Musculoskeletal: no symptoms reported Psychiatric/Neurological: Anxiety Past Hmracdi-Vfglce-Dnivyf Hx Past Med/Social Hx: Reviewed and Corrections made Patient Social History Alcohol Use: Denies Use Smoking Status: Current Everyday Smoker 2nd Hand Smoke Exposure: No Recent Infectious Disease Expo: No Recent Hopitalizations: No Immunizations Up To Date Tetanus Booster (TDap): Unknown Date of Pneumonia Vaccine: Jul 29, 2019 Date of Influenza Vaccine: Aug 24, 2020 Seasonal Allergies Seasonal Allergies: No Past Medical History Surgeries: Yes (THORACENTESIS) Neurological Respiratory: Yes (PLEURAL EFFUSIONS WITH THORACENTESIS) COPD Cardiac: Yes (CHF) Atrial Fibrillation, Chronic Edema/Swelling, Hypertension Neurological: No : No 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 oz. kg; 31.00 BMI Method: General Appearance: moderate distress (VERY DYSPNEIC, ABLE TO TALK IN 2-3 WORD PHRASES. ) Neck: normal inspection Respiratory: respiratory distress, decreased breath sounds, accessory muscle use, rales, other (DECREASED AERATION IN ALL LUNG TAYLOR, RALES IN BILATERAL BASES) Cardiovascular: tachycardia, irregularly irregular Gastrointestinal: non tender, soft Extremities: normal capillary refill, pedal edema (2+ BILATERALLY) Neurologic/Psychiatric: emergency department coordinator II-XII nml as tested, no motor/sensory deficits, alert, oriented x 3, other (ANXIOUS) Skin: normal color, warm/dry Progress/Results/Core Measures Suspected Sepsis Recent Fever Within 48 Hours: No Infection Criteria Present: None New/Unexplained Altered Menta: No Sepsis Screen: No Definite Risk SIRS Temperature: Pulse: 115 Respiratory Rate: 28 Laboratory Tests 12/17/20 23:45: White Blood Count 9.1 Blood Pressure 192 /134 Mean: 153 Laboratory Tests 12/17/20 23:45: Creatinine 0.75, INR Comment 0.9, Platelet Count 171, Total Bilirubin 0.4 Results/Orders Lab Results Laboratory Tests Test 12/17/20 23:45 12/18/20 00:08 Range/Units White Blood Count 9.1 4.3-11.0 10^3/uL Red Blood Count 3.71 L 3.80-5.11 10^6/uL Hemoglobin 10.3 L 11.5-16.0 g/dL Hematocrit 34 L 35-52 % Mean Corpuscular Volume 92 80-99 fL Mean Corpuscular Hemoglobin 28 25-34 pg Mean Corpuscular Hemoglobin Concent 30 L 32-36 g/dL Red Cell Distribution Width 14.8 H 10.0-14.5 % Platelet Count 171 130-400 10^3/uL Mean Platelet Volume 10.0 9.0-12.2 fL Immature Granulocyte % (Auto) 1 % Neutrophils (%) (Auto) 81 H 42-75 % Lymphocytes (%) (Auto) 10 L 12-44 % Monocytes (%) (Auto) 7 0-12 % Eosinophils (%) (Auto) 1 0-10 % Basophils (%) (Auto) 0 0-10 % Neutrophils # (Auto) 7.4 1.8-7.8 10^3/uL Lymphocytes # (Auto) 0.9 L 1.0-4.0 10^3/uL Monocytes # (Auto) 0.6 0.0-1.0 10^3/uL Eosinophils # (Auto) 0.1 0.0-0.3 10^3/uL Basophils # (Auto) 0.0 0.0-0.1 10^3/uL Immature Granulocyte # (Auto) 0.1 0.0-0.1 10^3/uL Erythrocyte Sedimentation Rate 29 0-30 MM/HR Prothrombin Time 12.8 12.2-14.7 SEC INR Comment 0.9 0.8-1.4 Activated Partial Thromboplast Time 20 L 24-35 SEC D-Dimer 2.08 H 0.00-0.49 UG/ML Blood Gas Puncture Site RIGHT RADIAL Blood Gas Patient Temperature 35.2 Arterial Blood pH 7.29 *L 7.37-7.43 Arterial Blood Partial Pressure CO2 54 H 35-45 MMHG Arterial Blood Partial Pressure O2 81 79-93 MMHG Arterial Blood HCO3 26 23-27 MMOL/L Arterial Blood Total CO2 27.7 21.0-31.0 MMOL/L Arterial Blood Oxygen Saturation 90 L 94-100 % Arterial Blood Base Excess -0.2 -2.5-2.5 MMOL/L Zachariah Test YES-POS Blood Gas Ventilator Setting NO Blood Gas Inspired Oxygen 6L Sodium Level 137 135-145 MMOL/L Potassium Level 4.1 3.6-5.0 MMOL/L Chloride Level 103 98-107 MMOL/L Carbon Dioxide Level 24 21-32 MMOL/L Anion Gap 10 5-14 MMOL/L Blood Urea Nitrogen 16 7-18 MG/DL Creatinine 0.75 0.60-1.30 MG/DL Estimat Glomerular Filtration Rate > 60 BUN/Creatinine Ratio 21 Glucose Level 123 H 70-105 MG/DL Calcium Level 8.5 8.5-10.1 MG/DL Corrected Calcium 8.9 8.5-10.1 MG/DL Magnesium Level 2.1 1.6-2.4 MG/DL Total Bilirubin 0.4 0.1-1.0 MG/DL Aspartate Amino Transf (AST/SGOT) 79 H 5-34 U/L Alanine Aminotransferase (ALT/SGPT) 40 0-55 U/L Alkaline Phosphatase 83 40-136 U/L Lactate Dehydrogenase 616 H 125-220 U/L Total Creatine Kinase 67 29-168 U/L Creatine Kinase MB 1.7 <6.6 NG/ML Myoglobin 59.1 10.0-92.0 NG/ML Troponin I 0.039 H <0.028 NG/ML C-Reactive Protein High Sensitivity 0.14 0.00-0.50 MG/DL B-Type Natriuretic Peptide 417.1 H <100.0 PG/ML Total Protein 7.5 6.4-8.2 GM/DL Albumin 3.5 3.2-4.5 GM/DL Amylase Level 71 25-125 U/L Lipase 18 8-78 U/L Procalcitonin 0.01 <0.10 NG/ML Coronavirus 2019 (PAUL) Negative Negative Urine Color YELLOW Urine Clarity CLEAR Urine pH 5.5 5-9 Urine Specific [place] >=1.030 1.016-1.022 Urine Protein 2+ H NEGATIVE Urine Glucose (UA) NEGATIVE NEGATIVE Urine Ketones NEGATIVE NEGATIVE Urine Nitrite NEGATIVE NEGATIVE Urine Bilirubin NEGATIVE NEGATIVE Urine Urobilinogen 1.0 < = 1.0 MG/DL Urine Leukocyte Esterase NEGATIVE NEGATIVE Urine RBC (Auto) NEGATIVE NEGATIVE Urine RBC NONE /HPF Urine WBC NONE /HPF Urine Squamous Epithelial Cells 0-2 /HPF Urine Crystals NONE /LPF Urine Bacteria FEW H /HPF Urine Casts PRESENT /LPF Urine Hyaline Casts 2-5 H /LPF Urine Mucus SMALL H /LPF Urine Yeast FEW H /HPF Urine Culture Indicated YES Micro Results Microbiology 12/17/20 Influenza Types A,B Antigen (AURELIO) - Final, Complete My Orders Orders - KIMBERLY FINNEY DO Ed Iv/Invasive Line Start (12/17/20 23:31) Ekg Tracing (12/17/20 23:31) O2 (12/17/20 23:31) Monitor-Rhythm Ecg Trace Only (12/17/20 23:31) Straight Cath For Spec.-Adult (12/17/20 23:31) Cbc With Automated Diff (12/17/20 23:31) Comprehensive Metabolic Panel (12/17/20 23:31) Fibrin Degradation Products (12/17/20 23:31) Procalcitonin (Pct) (12/17/20 23:31) Hs C Reactive Protein (12/17/20 23:31) Erythrocyte Sedimentation Rate (12/17/20 23:31) LDH (12/17/20 23:31) Blood Culture (12/17/20 23:31) Influenza A And B Antigens (12/17/20 23:31) Coronavirus Sars-Cov-2 So 2019 (12/17/20 23:31) Covid 19 Inhouse Test (12/17/20 23:31) Amylase (12/17/20 23:31) BNP (12/17/20 23:31) Creatine Kinase (12/17/20 23:31) Creatine Kinase Mb (12/17/20 23:31) Lipase (12/17/20 23:31) Magnesium (12/17/20 23:31) Protime With Inr (12/17/20 23:31) Partial Thromboplastin Time (12/17/20 23:31) Ua Culture If Indicated (12/17/20 23:31) Myoglobin Serum (12/17/20 23:31) Troponin I (12/17/20 23:31) Aspirin Chewable Tablet (Baby Aspirin Ch (12/17/20 23:35) Nitroglycerin Ointment (Nitrobid Ointme (12/17/20 23:35) Arterial Blood Gas (12/17/20 23:53) Lorazepam Injection (Ativan Injection) (12/17/20 23:49) Chest 1 View, Ap/Pa Only (12/18/20 00:10) Hydralazine Injection (Apresoline Inject (12/18/20 00:15) Hydralazine Injection (Apresoline Inject (12/18/20 00:08) Ekg Tracing (12/18/20 00:13) Catheter(Urinary) Insert & Ass 03,15 (12/18/20 00:13) Furosemide Injection (Lasix Injection) (12/18/20 00:30) Aspirin Chewable Tablet (Baby Aspirin Ch (12/18/20 00:30) Nitroglycerin Ointment (Nitrobid Ointme (12/18/20 00:30) Lorazepam Injection (Ativan Injection) (12/18/20 00:30) Furosemide Injection (Lasix Injection) (12/18/20 00:25) Urine Culture (12/18/20 00:08) Enoxaparin Injection (Lovenox Injection) (12/18/20 01:00) Medications Given in ED Current Medications Medications Dose Ordered Sig/Duy Route Start Time Stop Time Status Last Admin Dose Admin Aspirin 324 mg ONCE ONCE PO 12/18/20 00:30 12/18/20 00:43 DC 12/17/20 23:50 324 MG Furosemide 80 mg ONCE ONCE IVP 12/18/20 00:30 12/18/20 00:31 DC 12/18/20 00:29 80 MG Hydralazine HCl 10 mg ONCE ONCE IV 12/18/20 00:15 12/18/20 00:16 DC 12/18/20 00:23 10 MG Lorazepam 0.5 mg ONCE ONCE IVP 12/18/20 00:30 12/18/20 00:43 DC 12/17/20 23:53 0.5 MG Nitroglycerin 1 inch ONCE ONCE TOP 12/18/20 00:30 12/18/20 00:43 DC 12/17/20 23:40 1 INCH Vital Signs/I&O 12/17/20 12/17/20 12/17/20 12/18/20 23:30 23:30 23:45 00:02 Temp 35.2 Pulse 115 114 Resp 28 29 B/P (MAP) 192/134 (153) Pulse Ox 96 96 98 97 O2 Delivery Nasal Cannula Nasal Cannula NIV Bilevel O2 Flow Rate 6.00 6.00 40.00 Capillary Refill : Less Than 3 Seconds Blood Pressure Mean: 153 Progress Note : Progress Note PLACED IN ISOLATION ROOM PPE WORN AT ALL TIMES COVID-19 TESTING PERFORMED PLACED ON O2 AT 6L/NC AND O2 SATS IN UPPER 90'S BUT PT C/O INCREASED SHORTNESS OF BREATH AND WAS BECOMING MORE ANXIOUS AND MORE DYSPNEIC PLACED ON BIPAP, WHICH SHE FOUGHT--GAVE SMALL DOSE OF ATIVAN WHICH HELPED RELAX PT, AND TOLERATED THE BIPAP BETTER GIVEN ASPIRIN AND NITROPASTE FOR ELEVATED BLOOD PRESSURE AND FOR CHEST DISCOMFORT. GIVEN HYDRALAZINE FOR ELEVATED BLOOD PRESSURE GIVEN LASIX FOR CHF AND PLEURAL EFFUSION ALL SYMPTOMS IMPROVED AT TIME OF ADMIT. PT RESTING WITH NON-LABORED BREATHING ON BIPAP NO COMPLAINTS OF CHEST PAIN FOR REMAINDER OF ER STAY O2 SATS REMAIN IN HIGH 90'S PULSE RATE DOWN TO 90'S BP DOWN TO 130'S SYSTOLIC. UNABLE TO OBTAIN IV ACCESS LARGE ENOUGH TO OBTAIN CT CHEST ANGIOGRAM AT THIS TIME, VEINS REPEATEDLY BLOW WITH LARGER IV'S. WILL TREAT WITH FULL DOSE LOVENOX AT THIS TIME, DUE TO ELEVATED D-DIMER AND ELEVATED TROPONIN ECG Initial ECG Impression Date: Dec 17, 2020 Initial ECG Impression Time: 23:37 Initial ECG Rate: 119 Initial ECG Rhythm: S.Tach (WITH MULTIFOCAL PAC'S, DIFFUSE ST DEPRESSION ) EKG : EKG Time: 00:04 Rate: 106 Rhythm: S.Tach ECG Impression: Nonspecific Changes Diagnostic Imaging Comments CXR--CHF, RIGHT PLEURAL EFFUSION, PENDING RADIOLOGIST REVIEW Reviewed: Reviewed by Me Departure Communication (Admissions) 0050--SPOKE WITH DR. BEACH, ACCEPTS PT FOR ADMIT. WILL CONSULT CARDIOLOGY IN AM. Impression Primary Impression: Acute on chronic respiratory failure Additional Impressions: CHF (congestive heart failure) COPD (chronic obstructive pulmonary disease) Recurrent right pleural effusion Uncontrolled hypertension Person under investigation for COVID-19 Elevated troponin Disposition: ADMITTED INPATIENT (ERASED) Condition: Improved Admissions Decision to Admit Reason: Admit from ER (General) Decision to Admit/Date: Dec 18, 2020 Time/Decision to Admit Time: 00:50 Departure-Patient Inst. Referrals: RACHID BEACH MD (PCP) Primary Care Physician MARIA ISABEL GALLEGOS (Family) Primary Care Physician KIMBERLY FINNEY DO Dec 18, 2020 00:06
[2020-12-18] MEDS ORDERED: hydrALAZINE (APESOLINE) 20 MG/ML VIAL ONE (00:08)
[2020-12-18 00:11] LABS: ABG PH 7.29 (7.37-7.43); ALLENS TEST YES-POS; INSPIRED O2 6L; VENTILATOR NO
[2020-12-18 00:12] LABS: PATIENT TEMP 35.2
[2020-12-18] MEDS ORDERED: hydrALAZINE (APESOLINE) 20 MG/ML VIAL IV ONE (00:15)
[2020-12-18 00:18] LABS: BILIRUBIN,URINE NEGATIVE (NEGATIVE); CLARITY,URINE CLEAR; COLOR,URINE YELLOW; GLUCOSE, URINE (UA) NEGATIVE (NEGATIVE); KETONES,URINE NEGATIVE (NEGATIVE); LEUKOCYTE ESTERASE ,URINE NEGATIVE (NEGATIVE); NITRITE,URINE NEGATIVE (NEGATIVE); PH,URINE 5.5 (5-9); PROTEIN,URINE 2+ (NEGATIVE)
[2020-12-18 00:19] LABS: ALBUMIN 3.5 GM/DL (3.2-4.5); CHLORIDE 103 MMOL/L (98-107); SODIUM 137 MMOL/L (135-145)
[2020-12-18 00:20] LABS: AMYLASE 71 U/L (25-125); CALCIUM 8.5 MG/DL (8.5-10.1)
[2020-12-18 00:21] LABS: GLUCOSE 123 MG/DL (70-105); TOTAL PROTEIN 7.5 GM/DL (6.4-8.2)
[2020-12-18 00:22] LABS: CARBON DIOXIDE 24 MMOL/L (21-32)
[2020-12-18 00:23] LABS: BASOPHILS % (AUTO) 0 % (0-10); BILIRUBIN,TOTAL 0.4 MG/DL (0.1-1.0); EOSINOPHILS # (AUTO) 0.1 10^3/uL (0.0-0.3); EOSINOPHILS % (AUTO) 1 % (0-10); HEMATOCRIT 34 % (35-52); HEMOGLOBIN 10.3 g/dL (11.5-16.0); LYMPHOCYTES # (AUTO) 0.9 10^3/uL (1.0-4.0); LYMPHOCYTES % (AUTO) 10 % (12-44); MEAN CORPUSCULAR HEMOGLOBIN 28 pg (25-34); MEAN CORPUSCULAR HGB CONC 30 g/dL (32-36); MEAN CORPUSCULAR VOLUME 92 fL (80-99); MONOCYTES # (AUTO) 0.6 10^3/uL (0.0-1.0); MONOCYTES % (AUTO) 7 % (0-12); NEUTROPHILS # (AUTO) 7.4 10^3/uL (1.8-7.8); NEUTROPHILS % (AUTO) 81 % (42-75); PLATELET COUNT 171 10^3/uL (130-400); WHITE BLOOD COUNT 9.1 10^3/uL (4.3-11.0)
[2020-12-18 00:25] LABS: ALKALINE PHOSPHATASE 83 U/L (40-136); CREATININE SERUM 0.75 MG/DL (0.60-1.30); GFR ESTIMATED > 60
[2020-12-18] MEDS ORDERED: FUROSEMIDE 40 MG/4 ML INJ (LASIX) ONE (00:25)
[2020-12-18 00:26] LABS: BUN/CREATININE RATIO 21
[2020-12-18 00:28] LABS: ALANINE AMINOTRANSFERASE 40 U/L (0-55); MAGNESIUM 2.1 MG/DL (1.6-2.4)
[2020-12-18 00:29] LABS: CREATINE KINASE 67 U/L (29-168); LIPASE 18 U/L (8-78)
[2020-12-18] MEDS ORDERED: FUROSEMIDE 40 MG/4 ML INJ (LASIX) IVP ONE (00:30)
[2020-12-18] MEDS ORDERED: NITROGLYCERIN 2% OINT 1 GM UNIT DOSE PACKET TOP ONE (00:30)
[2020-12-18] MEDS ORDERED: ASPIRIN 81 MG CHEW (CHILDREN'S ASA) PO ONE (00:30)
[2020-12-18] MEDS ORDERED: LORazepam INJ 2 MG/ML (ATIVAN) VIAL IVP ONE (00:30)
[2020-12-18 00:32] LABS: FIBRIN DEGRADATION PRODUCTS 2.08 UG/ML (0.00-0.49); INR 0.9 (0.8-1.4); PROTHROMBIN TIME PATIENT 12.8 SEC (12.2-14.7)
[2020-12-18 00:36] LABS: BACTERIA,URINE FEW /HPF; SQUAMOUS EPITHELIAL CELL,UR 0-2 /HPF
[2020-12-18 00:37] LABS: YEAST,URINE FEW /HPF
[2020-12-18 00:37] LABS: CREATINE KINASE MB 1.7 NG/ML (<6.6)
[2020-12-18 00:46] LABS: ERYTHROCYTE SEDIMENTATION RATE 29 MM/HR (0-30)
[2020-12-18] MEDS ORDERED: ENOXAPARIN 80 MG/0.8 ML (LOVENOX) SYR SC ONE (01:00)
[2020-12-18 01:23] LABS: POTASSIUM 4.1 MMOL/L (3.6-5.0)
[2020-12-18 03:31] VITALS: BP 192/134
[2020-12-18] MEDS ORDERED: CATHETER FLUSH 10 ML SYR IV PRN (03:45)
[2020-12-18] MEDS ORDERED: ONDANSETRON 4 MG/2 ML (SDV) Z0FRAN IVP PRN (03:45)
--- NOTE | 2020-12-18 03:52 | Pulmonary Consultation ---
History of Present Illness History of Present Illness Date Seen by Provider: Dec 18, 2020 Time Seen by Provider: 03:47 Date of Admission Allergies and Home Medications Allergies Coded Allergies: Tetracyclines (Verified Allergy, Unknown, 08/21/20) Uncoded Allergies: PCN (Allergy, Unknown, 08/21/20) Home Medications Albuterol Sulfate 1.25 Mg/3 Ml Vial.neb, 1.25 MG INH Q4H PRN for SHORTNESS OF BREATH, (Reported) Ascorbic Acid/Ascorbate Sodium 250 Mg Tab.chew, 250 MG PO DAILY, (Reported) Aspirin 81 Mg Tab.chew, 81 MG PO DAILY, (Reported) Calcium Phosphate Trib/Vit D3 1 Each Tab.chew, 1 EACH PO DAILY, (Reported) Cetirizine HCl 10 Mg Tablet, 10 MG PO DAILY, (Reported) Cholecalciferol (Vitamin D3) 125 Mcg Tablet, 125 MCG PO DAILY, (Reported) Folic Acid/Multivit-Minerals 200 Mcg Tab.chew, 200 MCG PO DAILY, (Reported) Furosemide 40 Mg Tablet, 40 MG PO UD 1 TAB MORNING AND 1/2 TAB 4PM Prescribed by: RACHID MAC on 10/27/20 0920 Levothyroxine Sodium 125 Mcg Tablet, 125 MCG PO DAILY, (Reported) Losartan Potassium 50 Mg Tablet, 50 MG PO 1200, (Reported) Melatonin 5 Mg Tablet, 5 MG PO HS PRN for SLEEP, (Reported) Potassium Bicarbonate/Cit AC 10 Meq Tablet.eff, 10 MEQ PO DAILY DISSOLVE 1 TABLET IN 3-4 OUNCES OF COLD WATER Prescribed by: RACHID MAC on 10/27/20 0920 Past Zxhwtav-Gilveg-Amzfca Hx Past Med/Social Hx: Reviewed and Corrections made Patient Social History Alcohol Use: Denies Use Smoking Status: Current Everyday Smoker 2nd Hand Smoke Exposure: No Recent Infectious Disease Expo: No Recent Hopitalizations: No Immunizations Up To Date Tetanus Booster (TDap): Unknown Date of Pneumonia Vaccine: Jul 29, 2019 Date of Influenza Vaccine: Aug 24, 2020 Seasonal Allergies Seasonal Allergies: No Past Medical History Surgeries: Yes (THORACENTESIS) Neurological Respiratory: Yes (PLEURAL EFFUSIONS WITH THORACENTESIS) COPD Cardiac: Yes (CHF) Atrial Fibrillation, Chronic Edema/Swelling, Hypertension Neurological: No : 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 oz. kg; 31.00 BMI Method: Exam Exam Vital Signs Date Time Temp Pulse Resp B/P (MAP) Pulse Ox O2 Delivery O2 Flow Rate FiO2 12/18/20 02:15 36.0 92 22 141/82 (153) 98 NIV Bilevel 12/18/20 00:02 114 29 97 40.00 12/17/20 23:45 98 NIV Bilevel 12/17/20 23:30 35.2 115 28 192/134 (153) 96 Nasal Cannula 6.00 12/17/20 23:30 96 Nasal Cannula 6.00 Height & Weight Height: '" Weight: lbs. oz. kg; 31.00 BMI Method: Capillary Refill: Less Than 3 Seconds Gastrointestinal: non tender, soft Results Lab Laboratory Tests 12/17/20 23:45 Assessment/Plan Assessment/Plan Acute CHFAE with hypoxia -Continue Lasix -Pt is on home oxygen at 4 liters with Sp02 97% -Lasix given in ED -No fever, No leukocytosis - Doubt PNA -IVF SL -PT is DNR/DNI Uncontrolled hypertension- Currently controlled NSTEMI -Cardiology following - Repeat Troponin pending [facility] if ok with Dr. Mac and Cardiology. GERALDINE ROBLES DO Dec 18, 2020 03:52
--- NOTE | 2020-12-18 03:58 | NUR ---
INITIATE O2 TKS > 90%/BIPAP ON STANDBY PER DR BEACH. START ALBUTEROL MDI 2 PUFFS Q4 AND Q2 PRN FOR SOA. START AEROBIKA QID AND PRN. IS QID AND PRN. RT TO REASSESS IN 72H OR SOONER IF INDICATED. Addendum: 12/18/20 at 0359 by GORGE JUAREZ RT Amended: Links added.
[2020-12-18] MEDS ORDERED: hydrALAZINE (APESOLINE) 20 MG/ML VIAL IV PRN (04:00)
[2020-12-18] MEDS ORDERED: RT-ALBUTEROL INHALER HFA (VENTOLIN HFA) 18 GM IH PRN (04:00)
[2020-12-18] MEDS ORDERED: ONDANSETRON 4 MG/2 ML (SDV) Z0FRAN IV PRN (04:00)
[2020-12-18] MEDS ORDERED: LORazepam INJ 2 MG/ML (ATIVAN) VIAL IVP PRN (04:00)
[2020-12-18] MEDS ORDERED: morphine INJ 4 MG/ML 1 ML (VIAL/SYRINGE) IV PRN (04:15)
[2020-12-18] MEDS: CATHETER FLUSH 10 ML SYR IV SCH ×3 (05:26→20:20)
[2020-12-18] MEDS ORDERED: FUROSEMIDE 40 MG/4 ML INJ (LASIX) IV NR (06:00)
[2020-12-18] MEDS ORDERED: NITROGLYCERIN 2% OINT 1 GM UNIT DOSE PACKET TOP SCH (06:00)
[2020-12-18 06:02] LABS: BASOPHILS % (AUTO) 0 % (0-10); EOSINOPHILS % (AUTO) 0 % (0-10); HEMATOCRIT 33 % (35-52); HEMOGLOBIN 10.1 g/dL (11.5-16.0); LYMPHOCYTES % (AUTO) 23 % (12-44); MEAN CORPUSCULAR HEMOGLOBIN 28 pg (25-34); MEAN CORPUSCULAR HGB CONC 30 g/dL (32-36); MEAN CORPUSCULAR VOLUME 91 fL (80-99); MEAN PLATELET VOLUME 9.5 fL (9.0-12.2); MONOCYTES # (AUTO) 0.6 10^3/uL (0.0-1.0); MONOCYTES % (AUTO) 7 % (0-12); NEUTROPHILS # (AUTO) 6.1 10^3/uL (1.8-7.8); NEUTROPHILS % (AUTO) 70 % (42-75); PLATELET COUNT 286 10^3/uL (130-400); WHITE BLOOD COUNT 8.8 10^3/uL (4.3-11.0)
[2020-12-18 06:03] LABS: CHLORIDE 103 MMOL/L (98-107); POTASSIUM 4.6 MMOL/L (3.6-5.0); SODIUM 141 MMOL/L (135-145)
[2020-12-18 06:04] LABS: ALBUMIN 3.4 GM/DL (3.2-4.5)
[2020-12-18 06:05] LABS: CALCIUM 8.8 MG/DL (8.5-10.1)
[2020-12-18 06:06] LABS: TRIGLYCERIDES 62 MG/DL (<150); VLDL CHOLESTEROL 12 MG/DL (5-40)
[2020-12-18 06:07] LABS: GLUCOSE 102 MG/DL (70-105); TOTAL PROTEIN 6.3 GM/DL (6.4-8.2)
[2020-12-18 06:08] LABS: BILIRUBIN,TOTAL 0.6 MG/DL (0.1-1.0); CARBON DIOXIDE 28 MMOL/L (21-32)
[2020-12-18 06:10] LABS: ALKALINE PHOSPHATASE 81 U/L (40-136); CREATININE SERUM 0.75 MG/DL (0.60-1.30); GFR ESTIMATED > 60; PHOSPHORUS 4.3 MG/DL (2.3-4.7)
[2020-12-18 06:11] LABS: BUN/CREATININE RATIO 20; CHOLESTEROL 185 MG/DL (< 200)
[2020-12-18 06:12] LABS: HDL CHOLESTEROL 49 MG/DL (40-60)
[2020-12-18 06:13] LABS: ALANINE AMINOTRANSFERASE 31 U/L (0-55)
--- NOTE | 2020-12-18 06:40 | Diagnostic Imaging Report ---
EXAMINATION: Chest radiograph, portable AP view. DATE: 12/18/2020 12:28 AM INDICATION: 85-year-old female, dyspnea, hypoxia. COMPARISON: October 27, 2020. FINDINGS: Stable overall appearance of the cardiomediastinal silhouette. There is no identified pneumothorax. There is nonspecific right basilar airspace consolidation. There is also nonspecific left basilar airspace consolidation. There are bilateral interstitial opacities. There are linear opacities in the right midlung. IMPRESSION: 1. Largely unchanged nonspecific bibasilar airspace consolidation with probable right pleural effusion. 2. Bilateral interstitial opacities which may reflect interstitial edema or atypical infectious etiology. Dictated by: Dictated on workstation # [id number]
--- NOTE | 2020-12-18 07:45 | History & Physical ---
History of Present Illness History of Present Illness Reason for visit/HPI PT IS AN 85 Y/O FEMALE WHO IS KNOWN TO ME FROM CLINIC A NEW PATIENT IN MY PRACTICE. SHE STARTED TO HAVE A LOT OF SHORTNESS OF BREATH, AND FELT LIKE HER HEART WAS POUNDING, SHE WAS ALSO ACUTELY NAUSEATED. SHE REPORTS THAT HER OXYGEN LEVEL WAS LOW DESPITE BEING ON 4L O2 AT HOME. SHE WAS ADMITTED FOR CHF WITH ELEVATED TROPONIN Date of Admission Dec 18, 2020 at 00:50 Date Seen by a Provider: Dec 18, 2020 Time Seen by a Provider: 07:10 I consulted on this patient on 12/18/20 07:45 Attending Physician Rachid Mac MD Admitting Physician Rachid Mac MD Consult CARDIOLOGY Allergies and Home Medications Allergies Coded Allergies: Tetracyclines (Verified Allergy, Unknown, 08/21/20) Uncoded Allergies: PCN (Allergy, Unknown, 08/21/20) Home Medications Albuterol Sulfate 1.25 Mg/3 Ml Vial.neb, 1.25 MG INH Q4H PRN for SHORTNESS OF BREATH, (Reported) Ascorbic Acid/Ascorbate Sodium 250 Mg Tab.chew, 250 MG PO DAILY, (Reported) Aspirin 81 Mg Tab.chew, 81 MG PO DAILY, (Reported) Calcium Phosphate Trib/Vit D3 1 Each Tab.chew, 1 EACH PO DAILY, (Reported) Cetirizine HCl 10 Mg Tablet, 10 MG PO DAILY, (Reported) Cholecalciferol (Vitamin D3) 125 Mcg Tablet, 125 MCG PO DAILY, (Reported) Folic Acid/Multivit-Minerals 200 Mcg Tab.chew, 200 MCG PO DAILY, (Reported) Furosemide 40 Mg Tablet, 40 MG PO BID, (Reported) Levothyroxine Sodium 125 Mcg Tablet, 125 MCG PO DAILY, (Reported) Losartan Potassium 50 Mg Tablet, 50 MG PO 1200, (Reported) Melatonin 5 Mg Tablet, 5 MG PO HS PRN for SLEEP, (Reported) Potassium Bicarbonate/Cit AC 10 Meq Tablet.eff, 10 MEQ PO DAILY, (Reported) DISSOLVE IN 3-4 OUNCES Patient Home Medication List Home Medication List Reviewed: Yes Past Nixvoku-Jlepbn-Hnuqos Hx Past Med/Social Hx: Reviewed and Corrections made Patient Social History Marrital Status: Living Status: LIVES AT HOME ALONE Employed/Student: retired Alcohol Use: Denies Use Recreational Drug Use: No Smoking Status: Current Everyday Smoker 2nd Hand Smoke Exposure: No Physical Abuse Screen: No Sexual Abuse: No Recent Foreign Travel: No Contact w/other who traveled: No Recent Hopitalizations: No Recent Infectious Disease Expo: No Immunizations Up To Date Tetanus Booster (TDap): Unknown Date of Pneumonia Vaccine: Jul 29, 2019 Date of Influenza Vaccine: Aug 24, 2021 Seasonal Allergies Seasonal Allergies: No Past Medical History Surgeries: Neurological Respiratory: COPD Cardiac: Atrial Fibrillation, Chronic Edema/Swelling, Hypertension : No Reproductive: No Sexually Transmitted Disease: No HIV/AIDS: No Menopausal Musculoskeletal: Arthritis Endocrine: Hypothyroidsim HEENT: Macular Degeneration Loss of Vision: Denies Hearing Impairment: Hard of Hearing History of Blood Disorders: No Family History Reviewed Nursing Family Hx Heart Disease, Cancer, Diabetes, Hypertension Review of Systems Constitutional: No chills, No fever; malaise, weakness EENTM: hearing loss; No hoarseness, No throat pain Respiratory: No cough; dyspnea on exertion, short of breath Cardiovascular: No chest pain; palpitations Gastrointestinal: No constipation, No diarrhea, No loss of appetite, No melena; nausea; No vomiting Genitourinary: no symptoms reported Musculoskeletal: muscle weakness Skin: no symptoms reported Psychiatric/Neurological: Denies Anxiety, Denies Depressed; Weakness All Other Systems Reviewed Negative Unless Noted: Yes Physical Exam Vital Signs Vital Signs - First Documented 12/17/20 12/18/20 23:30 03:31 Temp 35.2 Pulse 115 Resp 28 B/P (MAP) 192/134 (153) Pulse Ox 96 O2 Delivery Nasal Cannula O2 Flow Rate 6.00 FiO2 28 Capillary Refill : Less Than 3 Seconds Height, Weight, BMI Height: '" Weight: lbs. oz. kg; 33.59 BMI Method: General Appearance: No Apparent Distress, WD/WN Eyes: Bilateral Eye Normal Inspection, Bilateral Eye PERRL, Bilateral Eye EOMI HEENT: PERRL/EOMI, Pharynx Normal Neck: Full Range of Motion, Non Tender, Supple Respiratory: Chest Non Tender, Lungs Clear, Normal Breath Sounds, No Accessory Muscle Use, No Respiratory Distress Cardiovascular: Irregularly Irregular, Tachycardia Gastrointestinal: Normal Bowel Sounds, No Organomegaly, No Pulsatile Mass, Non Tender, Soft Rectal: Deferred Back: Normal Inspection, No Vertebral Tenderness Extremity: Normal Capillary Refill, Normal Inspection, Normal Range of Motion, Non Tender, No Calf Tenderness, Pedal Edema Neurologic/Psychiatric: Alert, Oriented x3, No Motor/Sensory Deficits, Normal 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 HYPOTHYROIDISM - RESUME HOME REGIMEN NSTEMI - DEFER TO CARDIOLOGY - - ELEVATED TROPONIN DUE TO HER SEVERE HYPOXIC EVENT PULMONARY EDEMA - SHOULD IMPROVE WITH LASIX DVT PROPHYLAXIS WITH LOVENOX GI PROPHYLAXIS WITH PPI Admission Diagnosis SINUS TACHYCARDIA HYPERTENSION HYPOXIA COPD HYPOTHYROIDISM NSTEMI PULMONARY EDEMA Admission Status: Inpatient Order (span 2 midnights) Reason for Inpatient Admission: INPT ADMISSION FOR CHF, HYPOXIA AND NSTEMI - ANTICIPATE ADMISSION FOR AT LEAST 72 HOURS FOR MEDICATION ADJUSTMENT RACHID MAC MD Dec 18, 2020 07:45
[2020-12-18] MEDS ORDERED: KCL 20 MEQ TAB (K-DUR) PO ONE (08:00)
--- NOTE | 2020-12-18 08:00 | Consultation-Cardiology ---
HPI-Cardiology Cardiology Consultation: Date of Consultation 12/18/20 Time Seen by a Provider: 08:30 Date of Admission 12-17-20 Attending Physician Rachid Mac MD Admitting Physician Rachid Mac MD Consulting Physician Humphrey Moyer MD HPI: Chief Complaint: Progressive dyspnea Palpitations Ms. Chan is an 85 yr old female admitted to ICU 8 from the ED with increasing SOB. She states she is oxygen dependant at home. She reports 2 days ago she began to have increasing SOB, palpitations, chest heaviness and gen weakness. She reports she was unable to get out of her chair at [facility] and had to call her sister to come help her. She reports the chest discomfort felt like a heaviness across her chest which was mild to mod. It lasted for hours. She reports feeling nauseated. She denies any syncope or near syncope. She states she was unable to walk even across the room d/t worsening SOB. No c/o LE swelling. No c/o fever or chills. She reports chest discomfort and palpitations have resolved. Review of Systems-Cardiology Review of Systems Constitutional: No chills, No fever; malaise, tiredness Eyes: No vision change Ears/Nose/Throat: No epistaxis, No nasal drainage Respiratory: As described under HPI Cardiovascular: As described under HPI Gastrointestinal: No constipation, No diarrhea; nausea; No vomiting Genitourinary: No dysuria, No hematuria Musculoskeletal: no symptoms reported, other (states she uses a cane or walker) Skin: No rash on exposed areas, No ulcerations on exposed areas Psychiatric/Neurological: No anxiety, No depression, No seizure, No focal weakness, No syncope Hematologic: No bleeding abnormalities FZC-Qobiky-Jdjcnp Hx Patient Social History Smoking Status: Current Everyday Smoker 2nd Hand Smoke Exposure: No Have you traveled recently?: No Alcohol Use?: No Pt feels they are or have been: No Tobacco type used: Cigarettes Immunizations Up To Date Tetanus Booster (TDap): Unknown Date of Pneumonia Vaccine: Jul 29, 2019 Date of Influenza Vaccine: Aug 24, 2021 Past Medical History PMH As described under Assessment. Family Medical History Family Medical History: janet Smith reports her mother and father both had "heart trouble" as well as her siblings, but does not know the details. She reports her mother and father both had lung cancer as well. Allergies and Home Medications Allergies Coded Allergies: Tetracyclines (Verified Allergy, Unknown, 08/21/20) Uncoded Allergies: PCN (Allergy, Unknown, 08/21/20) Home Medications Albuterol Sulfate 1.25 Mg/3 Ml Vial.neb, 1.25 MG INH Q4H PRN for SHORTNESS OF BREATH, (Reported) Albuterol Sulfate 18 Gm Hfa.aer.ad, 1 PUFF IH QID Prescribed by: RACHID MAC on 12/21/20911 Ascorbic Acid/Ascorbate Sodium 250 Mg Tab.chew, 250 MG PO DAILY, (Reported) Aspirin 81 Mg Tab.chew, 81 MG PO DAILY, (Reported) Calcium Phosphate Trib/Vit D3 1 Each Tab.chew, 1 EACH PO DAILY, (Reported) Cefdinir 300 Mg Capsule, 300 MG PO BID Prescribed by: RACHID MAC on 12/21/20911 Cetirizine HCl 10 Mg Tablet, 10 MG PO DAILY, (Reported) Cholecalciferol (Vitamin D3) 125 Mcg Tablet, 125 MCG PO DAILY, (Reported) Folic Acid/Multivit-Minerals 200 Mcg Tab.chew, 200 MCG PO DAILY, (Reported) Furosemide 20 Mg Tablet, 20 MG PO DAILY Prescribed by: RACHID MAC on 12/21/20911 Levothyroxine Sodium 125 Mcg Tablet, 125 MCG PO DAILY, (Reported) Melatonin 5 Mg Tablet, 5 MG PO HS PRN for SLEEP, (Reported) Metoprolol Succinate 25 Mg Tab.er.24h, 25 MG PO DAILY Prescribed by: RACHID MAC on 12/21/20911 Potassium Bicarbonate/Cit AC 10 Meq Tablet.eff, 10 MEQ PO DAILY, (Reported) DISSOLVE IN 3-4 OUNCES Physical Exam-Cardiology Physical Exam Vital Signs/I&O Capillary Refill : Less Than 3 Seconds Constitutional: AAO x 3, well-developed, well-nourished HEENT: PERRL, hard of hearing Neck: No carotid bruit; carotid pulses are 2 + bilaterally Respiratory: No accessory muscle use, No respiratory distress; chest expansion is symmetric, chest is bilaterally symmetric, other (diminished lower lobes) Cardiovascular: irregularly irregular; No JVD; S1 and S2 Gastrointestinal: No tender; soft, round, audible bowel sounds Extremities: no lower extremity edema bilateral Neurologic/Psychiatric: grossly intact (moves all extremities) Skin: No rash on exposed areas, No ulcerations on exposed areas Data Review Labs Microbiology 12/18/20 MRSA Screen - Final, Complete MRSA not isolated 12/18/20 Urine Culture - Final, Complete Klebsiella pneumoniae 12/18/20 Blood Culture - Preliminary, Resulted No growth Radiology NAME: JOEL CHAN [facility] REC#: [id number] PT STATUS: ADM IN : 1935 PHYSICIAN: KIMBERLY FINNEY DO ADMIT DATE: 12/18/20/ICU Draft Date of Exam:12/18/20 CHEST 1 VIEW, AP/PA ONLY EXAMINATION: Chest radiograph, portable AP view. DATE: 12/18/2020 12:28 AM INDICATION: 85-year-old female, dyspnea, hypoxia. COMPARISON: October 27, 2020. FINDINGS: Stable overall appearance of the cardiomediastinal silhouette. There is no identified pneumothorax. There is nonspecific right basilar airspace consolidation. There is also nonspecific left basilar airspace consolidation. There are bilateral interstitial opacities. There are linear opacities in the right midlung. IMPRESSION: 1. Largely unchanged nonspecific bibasilar airspace consolidation with probable right pleural effusion. 2. Bilateral interstitial opacities which may reflect interstitial edema or atypical infectious etiology. Dictated on workstation # [id number] Dict: 12/18/20 0637 Trans: 12/18/20 0639 [facility] [phone] Interpreted by: LAY DENNIS MD Electronically signed by: ECG Impression ECG Comment sinus tachycardia with PAC's, PVC's A/P-Cardiology Assessment/Admission Diagnosis Hypoxia - likely multi-factorial r/t pleural effusion, acute on chronic diastolic CHF and acute exacerbation of COPD Mildly elevated troponin, NSTEMI vs Type 2 SD secondary to hypoxia and tachycardia Sinus tachycardia Acute on Chronic diastolic congestive heart failure Echocardiogram in July [address] Goodwin as normal left ventricular size and function, EF 55-65 percent, grade 1 diastolic dysfunction, mildly dilated left atrium, PA pressure 40 mmHg. H/O right pleural effusion in September and October 2020 for which she underwent throracentesis in Sep [address] Newton Acute on chronic exacerbation of COPD Hypertension - uncontrolled Tobaccoism - reports quit last year Discussion and Recomendations Hypoxia - likely multi-factorial (as noted above) Mildly elevated troponin, NSTEMI vs Type 2 SD secondary to hypoxia and tachy cardia Continue ASA Uncontrolled hypertension with sinus tachycardia - add BB Acute on chronic diastolic CHF - treat with diuretics Ac exacerbation of COPD - management per medical/pulmonary services Monitor lab closely Replace electrolytes as indicated We would like to thank medical services for this consult BIPIN MENDEZ Dec 18, 2020 08:00
[2020-12-18] MEDS: FAMOTIDINE 20 MG (PEPCID) TABLET PO SCH ×2 (08:45→20:20)
[2020-12-18] MEDS ORDERED: FUROSEMIDE 40 MG/4 ML INJ (LASIX) IVP SCH (09:00)
[2020-12-18] MEDS ORDERED: ASPIRIN 325 MG (5 GR) TABLET PO SCH (09:00)
[2020-12-18] MEDS: RT-ALBUTEROL INHALER HFA (VENTOLIN HFA) 18 GM IH SCH ×4 (10:49→19:08)
[2020-12-18] MEDS: ENOXAPARIN 80 MG/0.8 ML (LOVENOX) SYR SC SCH (13:21)
[2020-12-18] MEDS ORDERED: ENOXAPARIN 80 MG/0.8 ML (LOVENOX) SYR SC SCH (14:00)
[2020-12-18] MEDS ORDERED: FURO40TA4 PO (15:34)
[2020-12-18] MEDS ORDERED: POTA10TA52 PO (15:34)
--- NOTE | 2020-12-18 15:35 | NUR ---
SPOKE WITH THE PTS SISTER (VICTOR MANUEL) AND WENT THRU THE EXT MED HISTORY TO COMPLETE THE MED REC VICTOR MANUEL WAS ABLE TO NAME ALL THE PTS MEDICATIONS (RX AND OTC) OTC MEDS: VIT C ASPIRIN 81 CALCIUM CETIRIZINE VIT D WM MTV MELATONIN
--- NOTE | 2020-12-18 15:48 | NUR ---
Orders received from Dr. Mac to transfer pt to 4th floor and okay to place in standard precautions. Report called to Mae CARRION. Pt placed on tele box and transferred to [facility] without incident. All belongings sent with pt.
[2020-12-18] MEDS ORDERED: NON-FORMULARY MEDICATION 1 EA EA (Melatonin 5 MG) PO PRN (16:30)
[2020-12-18] MEDS ORDERED: MELATONIN 10 MG TABLET PO PRN (17:00)
--- NOTE | 2020-12-18 17:15 | Consultation-Cardiology ---
HPI-Cardiology Cardiology Consultation: Date of Consultation 12/18/20 Time Seen by a Provider: 17:00 Date of Admission Attending Physician Shantal Mac MD Admitting Physician Shantal Mac MD Consulting Physician ALYSE PAGE MD, MA, FACP, FACC, FSCAI, CCDS HPI: Chief Complaint: CC: Progressive dyspnea, Palpitations HPI Ms. Chan is an 85 yr old female admitted to ICU 8 from the ED with increasing SOB. She states she is oxygen dependant at home. She reports 2 days ago she began to have increasing SOB, palpitations, chest heaviness and gen weakness. She reports she was unable to get out of her chair at [facility] and had to call her sister to come help her. She reports the chest discomfort felt like a heaviness across her chest which was mild to mod. It lasted for hours. She reports feeling nauseated. She denies any syncope or near syncope. She states she was unable to walk even across the room d/t worsening SOB. No c/o LE swelling. No c/o fever or chills. She reports chest discomfort and palpitations have resolved. Review of Systems-Cardiology Review of Systems Constitutional: No chills, No fever; malaise, tiredness Eyes: No vision change Ears/Nose/Throat: No epistaxis, No nasal drainage Respiratory: As described under HPI Cardiovascular: As described under HPI Gastrointestinal: No constipation, No diarrhea; nausea; No vomiting Genitourinary: No dysuria, No hematuria Musculoskeletal: no symptoms reported, other (states she uses a cane or walker) Skin: No rash on exposed areas, No ulcerations on exposed areas Psychiatric/Neurological: No anxiety, No depression, No seizure, No focal weakness, No syncope Hematologic: No bleeding abnormalities All Other Systems Reviewed Negative Unless Noted: Yes [id number] Hx Patient Social History Marrital Status: Living Status: LIVES AT HOME ALONE Employed/Student: retired Smoking Status: Current Everyday Smoker 2nd Hand Smoke Exposure: No Have you traveled recently?: No Alcohol Use?: No Pt feels they are or have been: No Tobacco type used: Cigarettes Immunizations Up To Date Tetanus Booster (TDap): Unknown Date of Pneumonia Vaccine: Jul 29, 2019 Date of Influenza Vaccine: Aug 24, 2021 Past Medical History PMH As described under Assessment. Family Medical History Family Medical History: janet Smith reports her mother and father both had "heart trouble" as well as her siblings, but does not know the details. She reports her mother and father both had lung cancer as well. Allergies and Home Medications Allergies Coded Allergies: Tetracyclines (Verified Allergy, Unknown, 08/21/20) Uncoded Allergies: PCN (Allergy, Unknown, 08/21/20) Home Medications Albuterol Sulfate 1.25 Mg/3 Ml Vial.neb, 1.25 MG INH Q4H PRN for SHORTNESS OF BREATH, (Reported) Ascorbic Acid/Ascorbate Sodium 250 Mg Tab.chew, 250 MG PO DAILY, (Reported) Aspirin 81 Mg Tab.chew, 81 MG PO DAILY, (Reported) Calcium Phosphate Trib/Vit D3 1 Each Tab.chew, 1 EACH PO DAILY, (Reported) Cetirizine HCl 10 Mg Tablet, 10 MG PO DAILY, (Reported) Cholecalciferol (Vitamin D3) 125 Mcg Tablet, 125 MCG PO DAILY, (Reported) Folic Acid/Multivit-Minerals 200 Mcg Tab.chew, 200 MCG PO DAILY, (Reported) Furosemide 40 Mg Tablet, 40 MG PO BID, (Reported) Levothyroxine Sodium 125 Mcg Tablet, 125 MCG PO DAILY, (Reported) Losartan Potassium 50 Mg Tablet, 50 MG PO 1200, (Reported) Melatonin 5 Mg Tablet, 5 MG PO HS PRN for SLEEP, (Reported) Potassium Bicarbonate/Cit AC 10 Meq Tablet.eff, 10 MEQ PO DAILY, (Reported) DISSOLVE IN 3-4 OUNCES Patient Home Medication List Home Medication List Reviewed: Yes Physical Exam-Cardiology Physical Exam Vital Signs/I&O 12/18/20 12/18/20 12/18/20 12/18/20 06:00 07:00 07:00 08:00 Temp 35.2 Pulse 84 76 79 Resp 16 16 B/P (MAP) 129/81 (97) 121/63 (82) Pulse Ox 98 97 O2 Delivery Nasal Cannula Nasal Cannula O2 Flow Rate 4.00 4.00 12/18/20 12/18/20 12/18/20 12/18/20 08:00 09:00 10:00 10:50 Pulse 81 95 88 Resp 11 16 15 B/P (MAP) 124/75 (91) 125/69 (87) 120/70 (87) Pulse Ox 96 100 98 97 O2 Delivery Nasal Cannula Nasal Cannula Nasal Cannula Nasal Cannula O2 Flow Rate 4.00 4.00 4.00 4.00 12/18/20 12/18/20 12/18/20 12/18/20 11:00 12:00 12:33 13:00 Pulse 85 75 90 79 Resp 24 27 16 B/P (MAP) 123/68 (86) 137/73 (94) 135/71 (92) Pulse Ox 95 97 100 O2 Delivery Nasal Cannula Nasal Cannula Nasal Cannula O2 Flow Rate 4.00 4.00 4.00 12/18/20 12/18/20 12/18/20 14:00 15:21 16:36 Temp 36.2 Pulse 75 77 Resp 11 16 B/P (MAP) 119/78 (92) 150/72 (98) Pulse Ox 99 98 94 O2 Delivery Nasal Cannula Nasal Cannula Nasal Cannula O2 Flow Rate 4.00 4.00 4.00 Capillary Refill : Less Than 3 Seconds Constitutional: AAO x 3, well-developed, well-nourished HEENT: PERRL, hard of hearing Neck: No carotid bruit; carotid pulses are 2 + bilaterally Respiratory: No accessory muscle use, No respiratory distress; chest expansion is symmetric, chest is bilaterally symmetric, other (diminished lower lobes) Cardiovascular: irregularly irregular; No JVD; S1 and S2 Gastrointestinal: No tender; soft, round, audible bowel sounds Extremities: no lower extremity edema bilateral Neurologic/Psychiatric: grossly intact (moves all extremities) Skin: No rash on exposed areas, No ulcerations on exposed areas Data Review Labs Laboratory Tests 12/17/20 23:45: White Blood Count 9.1, Red Blood Count 3.71L, Hemoglobin 10.3L, Hematocrit 34L, Mean Corpuscular Volume 92, Mean Corpuscular Hemoglobin 28, Mean Corpuscular Hemoglobin Concent 30L, Red Cell Distribution Width 14.8H, Platelet Count 171, Mean Platelet Volume 10.0, Immature Granulocyte % (Auto) 1, Neutrophils (%) (Auto) 81H, Lymphocytes (%) (Auto) 10L, Monocytes (%) (Auto) 7, Eosinophils (%) (Auto) 1, Basophils (%) (Auto) 0, Neutrophils # (Auto) 7.4, Lymphocytes # (Auto) 0.9L, Monocytes # (Auto) 0.6, Eosinophils # (Auto) 0.1, Basophils # (Auto) 0.0, Immature Granulocyte # (Auto) 0.1, Erythrocyte Sedimentation Rate 29, Prothrombin Time 12.8, INR Comment 0.9, Activated Partial Thromboplast Time 20L, D-Dimer 2.08H, Blood Gas Puncture Site RIGHT RADIAL, Blood Gas Patient Temperature 35.2, Arterial Blood pH 7.29*L, Arterial Blood Partial Pressure CO2 54H, Arterial Blood Partial Pressure O2 81, Arterial Blood HCO3 26, Arterial Blood Total CO2 27.7, Arterial Blood Oxygen Saturation 90L, Arterial Blood Base Excess -0.2, Zachariah Test YES-POS, Blood Gas Ventilator Setting NO, Blood Gas Inspired Oxygen 6L, Sodium Level 137, Potassium Level 4.1, Chloride Level 103, Carbon Dioxide Level 24, Anion Gap 10, Blood Urea Nitrogen 16, Creatinine 0.75, Estimat Glomerular Filtration Rate > 60, BUN/Creatinine Ratio 21, Glucose Level 123H, Calcium Level 8.5, Corrected Calcium 8.9, Magnesium Level 2.1, Total Bilirubin 0.4, Aspartate Amino Transf (AST/SGOT) 79H, Alanine Aminotransferase (ALT/SGPT) 40, Alkaline Phosphatase 83, Lactate Dehydrogenase 616H, Total Creatine Kinase 67, Creatine Kinase MB 1.7, Myoglobin 59.1, Troponin I 0.039H, C-Reactive Protein High Sensitivity 0.14, B-Type Natriuretic Peptide 417.1H, Total Protein 7.5, Albumin 3.5, Amylase Level 71, Lipase 18, Procalcitonin 0.01, Coronavirus (COVID-19)(PCR) Negative, Coronavirus 2019 (PAUL) Negative 12/18/20 00:08: Urine Color YELLOW, Urine Clarity CLEAR, Urine pH 5.5, Urine Specific Crockett >=1.030, Urine Protein 2+H, Urine Glucose (UA) NEGATIVE, Urine Ketones NEGATIVE, Urine Nitrite NEGATIVE, Urine Bilirubin NEGATIVE, Urine Urobilinogen 1.0, Urine Leukocyte Esterase NEGATIVE, Urine RBC (Auto) NEGATIVE, Urine RBC NONE, Urine WBC NONE, Urine Squamous Epithelial Cells 0-2, Urine Crystals NONE, Urine Bacteria FEWH, Urine Casts PRESENT, Urine Hyaline Casts 2-5H, Urine Mucus SMALLH , Urine Yeast FEWH, Urine Culture Indicated YES 12/18/20 05:45: White Blood Count 8.8, Red Blood Count 3.67L, Hemoglobin 10.1L, Hematocrit 33L, Mean Corpuscular Volume 91, Mean Corpuscular Hemoglobin 28, Mean Corpuscular Hemoglobin Concent 30L, Red Cell Distribution Width 14.7H, Platelet Count 286, Mean Platelet Volume 9.5, Immature Granulocyte % (Auto) 0, Neutrophils (%) (Auto) 70, Lymphocytes (%) (Auto) 23, Monocytes (%) (Auto) 7, Eosinophils (%) (Auto) 0, Basophils (%) (Auto) 0, Neutrophils # (Auto) 6.1, Lymphocytes # (Auto) 2.0, Monocytes # (Auto) 0.6, Eosinophils # (Auto) 0.0, Basophils # (Auto) 0.0, Immature Granulocyte # (Auto) 0.0, Sodium Level 141, Potassium Level 4.6, Chloride Level 103, Carbon Dioxide Level 28, Anion Gap 10, Blood Urea Nitrogen 15, Creatinine 0.75, Estimat Glomerular Filtration Rate > 60, BUN/Creatinine Ratio 20, Glucose Level 102, Calcium Level 8.8, Corrected Calcium 9.3, Magnesium Level 2.0, Total Bilirubin 0.6, Aspartate Amino Transf (AST/SGOT) 47H, Alanine Aminotransferase (ALT/SGPT) 31, Alkaline Phosphatase 81, Troponin I 0.290H, Total Protein 6.3L, Albumin 3.4, Phosphorus Level 4.3, Triglycerides Level 62, Cholesterol Level 185, LDL Cholesterol Direct 136H, VLDL Cholesterol 12, HDL Cholesterol 49 Microbiology 12/17/20 Influenza Types A,B Antigen (AURELIO) - Final, Complete A/P-Cardiology Assessment/Admission Diagnosis Hypoxia - likely multi-factorial r/t pleural effusion, acute on chronic diastolic CHF and acute exacerbation of COPD Mildly elevated troponin, Type 2 PA secondary to hypoxia and tachycardia Sinus tachycardia Acute on Chronic diastolic congestive heart failure Echocardiogram in July [address] Goodwin as normal left ventricular size and function, EF 55-65 percent, grade 1 diastolic dysfunction, mildly dilated left atrium, PA pressure 40 mmHg. H/O right pleural effusion in September and October 2020 for which she underwent throracentesis in Sep [address] Newton Acute on chronic exacerbation of COPD Hypertension - uncontrolled Tobaccoism - reports quit last year Discussion and Recomendations Continue ASA Uncontrolled hypertension with sinus tachycardia - add BB Acute on chronic diastolic CHF - treat with diuretics Ac exacerbation of COPD - management per medical/pulmonary services Monitor lab closely Replace electrolytes as indicated We would like to thank medical services for this consult ALYSE PAGE MD FACP FAC CCDS Dec 18, 2020 17:15
[2020-12-18 19:15] VITALS: BP 150/72
[2020-12-19] MEDS: ENOXAPARIN 80 MG/0.8 ML (LOVENOX) SYR SC SCH (02:30)
[2020-12-19] MEDS: LEVOTHYROXINE 125 MCG (LEVOTHROID) TABLET PO SCH (05:57)
[2020-12-19] MEDS: CATHETER FLUSH 10 ML SYR IV SCH ×3 (05:57→19:34)
[2020-12-19 06:20] LABS: BASOPHILS % (AUTO) 0 % (0-10); EOSINOPHILS # (AUTO) 0.2 10^3/uL (0.0-0.3); EOSINOPHILS % (AUTO) 3 % (0-10); HEMATOCRIT 32 % (35-52); HEMOGLOBIN 9.8 g/dL (11.5-16.0); LYMPHOCYTES # (AUTO) 2.5 10^3/uL (1.0-4.0); LYMPHOCYTES % (AUTO) 37 % (12-44); MEAN CORPUSCULAR HEMOGLOBIN 28 pg (25-34); MEAN CORPUSCULAR HGB CONC 31 g/dL (32-36); MEAN CORPUSCULAR VOLUME 90 fL (80-99); MEAN PLATELET VOLUME 10.2 fL (9.0-12.2); MONOCYTES # (AUTO) 0.6 10^3/uL (0.0-1.0); MONOCYTES % (AUTO) 9 % (0-12); NEUTROPHILS # (AUTO) 3.6 10^3/uL (1.8-7.8); NEUTROPHILS % (AUTO) 51 % (42-75); PLATELET COUNT 272 10^3/uL (130-400); WHITE BLOOD COUNT 6.9 10^3/uL (4.3-11.0)
[2020-12-19 06:31] LABS: CHLORIDE 100 MMOL/L (98-107); POTASSIUM 3.8 MMOL/L (3.6-5.0); SODIUM 140 MMOL/L (135-145)
[2020-12-19 06:32] LABS: CALCIUM 9.1 MG/DL (8.5-10.1)
[2020-12-19 06:33] LABS: GLUCOSE 85 MG/DL (70-105)
[2020-12-19 06:34] LABS: CARBON DIOXIDE 29 MMOL/L (21-32)
[2020-12-19 06:36] LABS: PHOSPHORUS 4.5 MG/DL (2.3-4.7)
[2020-12-19 06:37] LABS: CREATININE SERUM 0.79 MG/DL (0.60-1.30); GFR ESTIMATED > 60
[2020-12-19 06:38] LABS: BUN/CREATININE RATIO 19
[2020-12-19] MEDS: RT-ALBUTEROL INHALER HFA (VENTOLIN HFA) 18 GM IH SCH ×4 (08:00→21:56)
--- NOTE | 2020-12-19 08:11 | Diagnostic Imaging Report ---
INDICATION: Respiratory failure EXAMINATION: Chest 12/19/2020 COMPARISON: 12/18/2020 FINDINGS: The heart is enlarged. The pulmonary vasculature is congested. There are findings of edema throughout both lungs with bibasilar infiltrates and effusions. No pneumothorax. IMPRESSION: 1. Pulmonary edema 2. Bibasilar atelectasis or infiltrate with adjacent effusions. Dictated by: Dictated on workstation # [id number]
[2020-12-19] MEDS: ASPIRIN 81 MG CHEW (CHILDREN'S ASA) PO SCH (08:18)
[2020-12-19] MEDS: FAMOTIDINE 20 MG (PEPCID) TABLET PO SCH ×2 (08:18→19:34)
--- NOTE | 2020-12-19 08:33 | Progress Note ---
Subjective Subjective Date Seen by Provider: Dec 19, 2020 Time Seen by Provider: 08:38 PT ADMITTED TO THE HOSPITAL FOR CHF/SINUS TACHYCARDIA, NSTEMI SHE IS IMPROVED, FLUID OUTPUT HAS BEEN ROBUST AND SHE IS FEELING BETTER TODAY. SHE COMPLAINS OF FEELING WEAK. Review of Systems General: Fatigue; No Malaise HEENT: No Head Aches Pulmonary: No Dyspnea, No Cough Cardiovascular: Edema; No: Chest Pain, Palpitations Gastrointestinal: No: Nausea, Abdominal Pain Genitourinary: No Dysuria; Other (MCLAIN IN PLACE) Neurological: Weakness; No: Confusion All Other Systems Reviewed All Other Systems Reviewed: Yes Objective Exam Vital Signs Vital Signs - First Documented 12/17/20 12/18/20 23:30 03:31 Temp 35.2 Pulse 115 Resp 28 B/P (MAP) 192/134 (153) Pulse Ox 96 O2 Delivery Nasal Cannula O2 Flow Rate 6.00 FiO2 28 Capillary Refill : Less Than 3 Seconds General Appearance: No Apparent Distress, WD/WN Eyes: Bilateral Eye Normal Inspection, Bilateral Eye PERRL, Bilateral Eye EOMI HEENT: PERRL/EOMI, Pharynx Normal Neck: Full Range of Motion, Non Tender, Supple Respiratory: Chest Non Tender, No Respiratory Distress, Crackles (RIGHT BASE) Cardiovascular: Irregularly Irregular, Tachycardia Gastrointestinal: Normal Bowel Sounds, No Organomegaly, No Pulsatile Mass, Non Tender, Soft Rectal: Deferred Back: Normal Inspection, No Vertebral Tenderness Extremity: Normal Capillary Refill, Normal Inspection, Normal Range of Motion, Non Tender, No Calf Tenderness, Pedal Edema Neurologic/Psychiatric: Alert, Oriented x3, No Motor/Sensory Deficits, Normal Mood/Affect, bill cutter II-XII Norm as Tested Skin: Warm/Dry Lymphatic: No Adenopathy Results Lab Laboratory Tests 12/19/20 05:28: White Blood Count 6.9, Red Blood Count 3.56L, Hemoglobin 9.8L, Hematocrit 32L, Mean Corpuscular Volume 90, Mean Corpuscular Hemoglobin 28, Mean Corpuscular Hemoglobin Concent 31L, Red Cell Distribution Width 15.0H, Platelet Count 272, Mean Platelet Volume 10.2, Immature Granulocyte % (Auto) 0, Neutrophils (%) (Auto) 51, Lymphocytes (%) (Auto) 37, Monocytes (%) (Auto) 9, Eosinophils (%) (Auto) 3, Basophils (%) (Auto) 0, Neutrophils # (Auto) 3.6, Lymphocytes # (Auto) 2.5, Monocytes # (Auto) 0.6, Eosinophils # (Auto) 0.2, Basophils # (Auto) 0.0, Immature Granulocyte # (Auto) 0.0, Sodium Level 140, Potassium Level 3.8, Chloride Level 100, Carbon Dioxide Level 29, Anion Gap 11, Blood Urea Nitrogen 15, Creatinine 0.79, Estimat Glomerular Filtration Rate > 60, BUN/Creatinine Ratio 19, Glucose Level 85, Calcium Level 9.1, Phosphorus Level 4.5, Magnesium Level 2.0 Microbiology 12/18/20 MRSA Screen - Final, Complete MRSA not isolated 12/18/20 Urine Culture - Preliminary, Resulted Klebsiella pneumoniae 12/18/20 Blood Culture - Preliminary, Resulted No growth Assessment/Plan Assessment/Plan Admission Dx SINUS TACHYCARDIA HYPERTENSION HYPOXIA COPD HYPOTHYROIDISM NSTEMI PULMONARY EDEMA PNEUMONIA SINUS TACHYCARDIA WITH CHF - DEFER TO CARDIOLOGY - - PT ON LOVENOX AT THIS TIME - LOW DOSE OF LASIX HYPERTENSION - RESUME HOME REGIMEN, ADDED BETABLOCKER THERAPY HYPOXIA WITH COPD - MONITOR SYMPTOMS ON OXYGEN THERAPY AFTER DOSING OF LASIX. HYPOTHYROIDISM - RESUME HOME REGIMEN NSTEMI - DEFER TO CARDIOLOGY - - ELEVATED TROPONIN DUE TO HER SEVERE HYPOXIC EVENT PULMONARY EDEMA - SHOULD IMPROVE WITH LASIX COMMUNITY ACQUIRED PNEUMONIA - START ON ROCEPHIN/AZITHROMYCIN THERAPY DVT PROPHYLAXIS WITH LOVENOX GI PROPHYLAXIS WITH PPI Admission Dx ATRIAL FIBRILLATION HYPERTENSION HYPOXIA COPD HYPOTHYROIDISM NSTEMI PULMONARY EDEMA ATRIAL FIBRILLATION - DEFER TO CARDIOLOGY - - PT ON LOVENOX AT THIS TIME HYPERTENSION HYPOXIA COPD HYPOTHYROIDISM NSTEMI PULMONARY EDEMA Clinical Quality Measures Admission Status Admission Dx ATRIAL FIBRILLATION HYPERTENSION HYPOXIA COPD HYPOTHYROIDISM NSTEMI PULMONARY EDEMA ATRIAL FIBRILLATION - DEFER TO CARDIOLOGY - - PT ON LOVENOX AT THIS TIME HYPERTENSION HYPOXIA COPD HYPOTHYROIDISM NSTEMI PULMONARY EDEMA RACHID BEACH MD Dec 19, 2020 08:33
[2020-12-19] MEDS ORDERED: AZITHROMYCIN INJECTION 500 MG in NS (IVPB) 250 ML IV NR (08:45)
[2020-12-19] MEDS ORDERED: ASPIRIN 81 MG CHEW (CHILDREN'S ASA) PO SCH (09:00)
[2020-12-19] MEDS: cefTRIAXone FOR IV USE 1,000 MG in WATER (STERILE) FOR INJECTION 10 ML IV SCH (09:02)
--- NOTE | 2020-12-19 13:55 | Progress Note - Cardiology ---
Cardiology SOAP Progress Note Subjective: Gen malaise and weakness No shortness of breath at rest No cp or palp or syncope No n/v/d Objective: I&O/Vital Signs 12/19/20 12/19/20 12/19/20 12/19/20 04:00 05:35 07:00 08:00 Temp 36.5 36.0 Pulse 71 62 108 Resp 17 19 B/P (MAP) 160/77 (104) 160/77 (104) Pulse Ox 96 95 90 O2 Delivery Nasal Cannula Nasal Cannula Nasal Cannula O2 Flow Rate 4.00 4.00 2.00 12/19/20 12/19/20 12/19/20 12/19/20 08:00 08:00 10:59 11:50 Temp 36.2 36.1 Pulse 84 66 Resp 16 16 B/P (MAP) 129/63 (85) 144/67 (92) Pulse Ox 97 97 99 O2 Delivery Nasal Cannula Nasal Cannula Nasal Cannula Nasal Cannula O2 Flow Rate 2.00 2.00 2.00 2.00 12/19/20 13:00 Pulse 68 12/19/20 00:00 Intake Total 1280 ml Output Total 775 ml Balance 505 ml Constitutional: AAO x 3, well-developed, well-nourished Respiratory: No accessory muscle use, No respiratory distress; chest expansion is symmetric, chest is bilaterally symmetric, other (diminished lower lobes) Cardiovascular: irregularly irregular; No JVD; S1 and S2 Gastrointestional: No tender; soft, round, audible bowel sounds Extremities: no lower extremity edema bilateral Neurologic/Psychiatric: grossly intact (moves all extremities) Skin: No rash on exposed areas, No ulcerations on exposed areas Results/Procedures: Labs Laboratory Tests 12/19/20 05:28: White Blood Count 6.9, Red Blood Count 3.56L, Hemoglobin 9.8L, Hematocrit 32L, Mean Corpuscular Volume 90, Mean Corpuscular Hemoglobin 28, Mean Corpuscular Hemoglobin Concent 31L, Red Cell Distribution Width 15.0H, Platelet Count 272, Mean Platelet Volume 10.2, Immature Granulocyte % (Auto) 0, Neutrophils (%) (Auto) 51, Lymphocytes (%) (Auto) 37, Monocytes (%) (Auto) 9, Eosinophils (%) (Auto) 3, Basophils (%) (Auto) 0, Neutrophils # (Auto) 3.6, Lymphocytes # (Auto) 2.5, Monocytes # (Auto) 0.6, Eosinophils # (Auto) 0.2, Basophils # (Auto) 0.0, Immature Granulocyte # (Auto) 0.0, Sodium Level 140, Potassium Level 3.8, Chloride Level 100, Carbon Dioxide Level 29, Anion Gap 11, Blood Urea Nitrogen 15, Creatinine 0.79, Estimat Glomerular Filtration Rate > 60, BUN/Creatinine Ratio 19, Glucose Level 85, Calcium Level 9.1, Phosphorus Level 4.5, Magnesium Level 2.0 Microbiology 12/18/20 MRSA Screen - Final, Complete MRSA not isolated 12/18/20 Urine Culture - Preliminary, Resulted Klebsiella pneumoniae 12/18/20 Blood Culture - Preliminary, Resulted No growth Laboratory Tests 12/17/20 23:45 12/18/20 05:45 12/19/20 05:28 A/P: Assessment: Hypoxia - likely multi-factorial r/t pleural effusion, acute on chronic diastolic CHF and acute exacerbation of COPD Mildly elevated troponin, Type 2 [place] secondary to hypoxia and tachycardia Acute on chronic diastolic congestive heart failure Echocardiogram in July [address] Goodwin as normal left ventricular size and function, EF 55-65 percent, grade 1 diastolic dysfunction, mildly dilated left atrium, PA pressure 40 mmHg. H/O right pleural effusion in September and October 2020 for which she underwent throracentesis in Sep [address] Newton Acute on chronic exacerbation of COPD Hypertension Tobaccoism - reports quit last year Plan: BP and heart rate are better on bb Continue treatment Monitor lab closely Replace electrolytes as indicated ALYSE PAGE MD FACP FAC CCDS Dec 19, 2020 13:55
[2020-12-20 04:49] LABS: BASOPHILS % (AUTO) 0 % (0-10); EOSINOPHILS # (AUTO) 0.3 10^3/uL (0.0-0.3); EOSINOPHILS % (AUTO) 4 % (0-10); HEMATOCRIT 31 % (35-52); HEMOGLOBIN 9.6 g/dL (11.5-16.0); LYMPHOCYTES # (AUTO) 1.5 10^3/uL (1.0-4.0); LYMPHOCYTES % (AUTO) 19 % (12-44); MEAN CORPUSCULAR HEMOGLOBIN 28 pg (25-34); MEAN CORPUSCULAR HGB CONC 31 g/dL (32-36); MEAN CORPUSCULAR VOLUME 89 fL (80-99); MEAN PLATELET VOLUME 9.9 fL (9.0-12.2); MONOCYTES # (AUTO) 0.7 10^3/uL (0.0-1.0); MONOCYTES % (AUTO) 10 % (0-12); NEUTROPHILS # (AUTO) 5.1 10^3/uL (1.8-7.8); NEUTROPHILS % (AUTO) 67 % (42-75); PLATELET COUNT 267 10^3/uL (130-400); WHITE BLOOD COUNT 7.6 10^3/uL (4.3-11.0)
[2020-12-20 05:04] LABS: CHLORIDE 103 MMOL/L (98-107); POTASSIUM 4.2 MMOL/L (3.6-5.0); SODIUM 138 MMOL/L (135-145)
[2020-12-20 05:05] LABS: CALCIUM 8.6 MG/DL (8.5-10.1)
[2020-12-20 05:06] LABS: GLUCOSE 95 MG/DL (70-105)
[2020-12-20 05:07] LABS: CARBON DIOXIDE 27 MMOL/L (21-32)
[2020-12-20 05:09] LABS: CREATININE SERUM 0.88 MG/DL (0.60-1.30); GFR ESTIMATED > 60; PHOSPHORUS 4.2 MG/DL (2.3-4.7)
[2020-12-20 05:10] LABS: BUN/CREATININE RATIO 28
[2020-12-20 05:12] LABS: MAGNESIUM 2.1 MG/DL (1.6-2.4)
[2020-12-20] MEDS: LEVOTHYROXINE 125 MCG (LEVOTHROID) TABLET PO SCH (06:38)
[2020-12-20] MEDS: CATHETER FLUSH 10 ML SYR IV SCH ×3 (06:38→19:27)
[2020-12-20] MEDS: RT-ALBUTEROL INHALER HFA (VENTOLIN HFA) 18 GM IH SCH ×4 (07:28→18:37)
[2020-12-20] MEDS: ENOXAPARIN 40 MG/0.4 ML (LOVENOX) SYR SC SCH (08:14)
[2020-12-20] MEDS: ASPIRIN 81 MG CHEW (CHILDREN'S ASA) PO SCH (08:14)
[2020-12-20] MEDS: AZITHROMYCIN 250 MG TAB (ZITHROMAX) PO SCH (08:14)
[2020-12-20] MEDS: FAMOTIDINE 20 MG (PEPCID) TABLET PO SCH ×2 (08:14→19:27)
[2020-12-20] MEDS: cefTRIAXone FOR IV USE 1,000 MG in WATER (STERILE) FOR INJECTION 10 ML IV SCH (08:14)
[2020-12-20] MEDS ORDERED: ENOXAPARIN 80 MG/0.8 ML (LOVENOX) SYR SC SCH (09:00)
--- NOTE | 2020-12-20 09:23 | Progress Note ---
Subjective Subjective Date Seen by Provider: Dec 20, 2020 Time Seen by Provider: 09:08 PT ADMITTED TO THE HOSPITAL FOR CHF/SINUS TACHYCARDIA, NSTEMI AND UTI PT REPORTS THAT SHE IS FEELING BETTER TODAY, SHE DENIES CHEST PAIN, SHORTNESS OF BREATH BEYOND HER USUAL. SHE HAD A SHOWER THIS MORNING AND FEELS MUCH BETTER. SHE IS WONDERING ABOUT DISCHARGE TO HOME. Review of Systems General: Fatigue; No Malaise HEENT: No Head Aches Pulmonary: Dyspnea; No Cough Cardiovascular: Edema; No: Chest Pain, Palpitations Gastrointestinal: No: Nausea, Abdominal Pain Genitourinary: No Dysuria; Other (MCLAIN IN PLACE) Neurological: Weakness; No: Confusion All Other Systems Reviewed All Other Systems Reviewed: Yes Objective Exam Vital Signs Vital Signs - First Documented 12/17/20 12/18/20 23:30 03:31 Temp 35.2 Pulse 115 Resp 28 B/P (MAP) 192/134 (153) Pulse Ox 96 O2 Delivery Nasal Cannula O2 Flow Rate 6.00 FiO2 28 Capillary Refill : Less Than 3 Seconds General Appearance: No Apparent Distress, WD/WN Eyes: Bilateral Eye Normal Inspection, Bilateral Eye PERRL, Bilateral Eye EOMI HEENT: PERRL/EOMI, Pharynx Normal Neck: Full Range of Motion, Non Tender, Supple Respiratory: Chest Non Tender, No Accessory Muscle Use, No Respiratory Distress, Crackles (RIGHT BASE) Cardiovascular: Tachycardia Gastrointestinal: Normal Bowel Sounds, No Organomegaly, No Pulsatile Mass, Non Tender, Soft Rectal: Deferred Back: Normal Inspection, No Vertebral Tenderness Extremity: Normal Capillary Refill, Normal Inspection, Normal Range of Motion, Non Tender, No Calf Tenderness, Pedal Edema Neurologic/Psychiatric: Alert, Oriented x3, No Motor/Sensory Deficits, Normal Mood/Affect Skin: Normal Color, Warm/Dry Lymphatic: No Adenopathy Results Lab Laboratory Tests 12/20/20 04:15: White Blood Count 7.6, Red Blood Count 3.49L, Hemoglobin 9.6L, Hematocrit 31L, Mean Corpuscular Volume 89, Mean Corpuscular Hemoglobin 28, Mean Corpuscular Hemoglobin Concent 31L, Red Cell Distribution Width 15.0H, Platelet Count 267, Mean Platelet Volume 9.9, Immature Granulocyte % (Auto) 0, Neutrophils (%) (Auto) 67, Lymphocytes (%) (Auto) 19, Monocytes (%) (Auto) 10, Eosinophils (%) (Auto) 4, Basophils (%) (Auto) 0, Neutrophils # (Auto) 5.1, Lymphocytes # (Auto) 1.5, Monocytes # (Auto) 0.7, Eosinophils # (Auto) 0.3, Basophils # (Auto) 0.0, Immature Granulocyte # (Auto) 0.0, Sodium Level 138, Potassium Level 4.2, Chloride Level 103, Carbon Dioxide Level 27, Anion Gap 8, Blood Urea Nitrogen 25H, Creatinine 0.88, Estimat Glomerular Filtration Rate > 60, BUN/Creatinine Ratio 28, Glucose Level 95, Calcium Level 8.6, Phosphorus Level 4.2, Magnesium Level 2.1 Microbiology 12/18/20 MRSA Screen - Final, Complete MRSA not isolated 12/18/20 Urine Culture - Preliminary, Resulted Klebsiella pneumoniae 12/18/20 Blood Culture - Preliminary, Resulted No growth Assessment/Plan Assessment/Plan Admission Dx SINUS TACHYCARDIA HYPERTENSION HYPOXIA COPD HYPOTHYROIDISM NSTEMI PULMONARY EDEMA PNEUMONIA SINUS TACHYCARDIA WITH CHF - DEFER TO CARDIOLOGY - - PT ON LOVENOX AT THIS TIME - LOW DOSE OF LASIX HYPERTENSION - RESUME HOME REGIMEN, ADDED BETABLOCKER THERAPY HYPOXIA WITH COPD - MONITOR SYMPTOMS ON OXYGEN THERAPY AFTER DOSING OF LASIX. HYPOTHYROIDISM - RESUME HOME REGIMEN NSTEMI - DEFER TO CARDIOLOGY - - ELEVATED TROPONIN DUE TO HER SEVERE HYPOXIC EVENT PULMONARY EDEMA - SHOULD IMPROVE WITH LASIX COMMUNITY ACQUIRED PNEUMONIA - START ON ROCEPHIN/AZITHROMYCIN THERAPY DVT PROPHYLAXIS WITH LOVENOX GI PROPHYLAXIS WITH PPI Assessment and Plan SINUS TACHYCARDIA HYPERTENSION HYPOXIA COPD HYPOTHYROIDISM NSTEMI PULMONARY EDEMA PNEUMONIA KLEBSIELLA UTI SINUS TACHYCARDIA WITH CHF - DEFER TO CARDIOLOGY - - PT ON LOVENOX AT THIS TIME - LOW DOSE OF LASIX HYPERTENSION - RESUME HOME REGIMEN, ADDED BETABLOCKER THERAPY HYPOXIA WITH COPD - MONITOR SYMPTOMS ON OXYGEN THERAPY AFTER DOSING OF LASIX. HYPOTHYROIDISM - RESUME HOME REGIMEN NSTEMI - DEFER TO CARDIOLOGY - - ELEVATED TROPONIN DUE TO HER SEVERE HYPOXIC EVENT PULMONARY EDEMA - IMPROVING WITH LASIX. COMMUNITY ACQUIRED PNEUMONIA - STARTED ON ROCEPHIN/AZITHROMYCIN THERAPY KLEBSIELLA UTI - CONTINUE WITH ROCEPHIN DVT PROPHYLAXIS WITH LOVENOX GI PROPHYLAXIS WITH PPI Admission Dx SINUS TACHYCARDIA HYPERTENSION HYPOXIA COPD HYPOTHYROIDISM NSTEMI PULMONARY EDEMA PNEUMONIA SINUS TACHYCARDIA WITH CHF - DEFER TO CARDIOLOGY - - PT ON LOVENOX AT THIS TIME - LOW DOSE OF LASIX HYPERTENSION - RESUME HOME REGIMEN, ADDED BETABLOCKER THERAPY HYPOXIA WITH COPD - MONITOR SYMPTOMS ON OXYGEN THERAPY AFTER DOSING OF LASIX. HYPOTHYROIDISM - RESUME HOME REGIMEN NSTEMI - DEFER TO CARDIOLOGY - - ELEVATED TROPONIN DUE TO HER SEVERE HYPOXIC EVENT PULMONARY EDEMA - SHOULD IMPROVE WITH LASIX COMMUNITY ACQUIRED PNEUMONIA - START ON ROCEPHIN/AZITHROMYCIN THERAPY DVT PROPHYLAXIS WITH LOVENOX GI PROPHYLAXIS WITH PPI Clinical Quality Measures Admission Status Admission Dx SINUS TACHYCARDIA HYPERTENSION HYPOXIA COPD HYPOTHYROIDISM NSTEMI PULMONARY EDEMA PNEUMONIA SINUS TACHYCARDIA WITH CHF - DEFER TO CARDIOLOGY - - PT ON LOVENOX AT THIS TIME - LOW DOSE OF LASIX HYPERTENSION - RESUME HOME REGIMEN, ADDED BETABLOCKER THERAPY HYPOXIA WITH COPD - MONITOR SYMPTOMS ON OXYGEN THERAPY AFTER DOSING OF LASIX. HYPOTHYROIDISM - RESUME HOME REGIMEN NSTEMI - DEFER TO CARDIOLOGY - - ELEVATED TROPONIN DUE TO HER SEVERE HYPOXIC EVENT PULMONARY EDEMA - SHOULD IMPROVE WITH LASIX COMMUNITY ACQUIRED PNEUMONIA - START ON ROCEPHIN/AZITHROMYCIN THERAPY DVT PROPHYLAXIS WITH LOVENOX GI PROPHYLAXIS WITH PPI RACHID BEACH MD Dec 20, 2020 09:23
--- NOTE | 2020-12-20 09:24 | Progress Note ---
Subjective Subjective Time Seen by Provider: 09:25 PT ADMITTED TO THE HOSPITAL FOR CHF/SINUS TACHYCARDIA, NSTEMI Review of Systems General: Fatigue; No Malaise HEENT: No Head Aches Pulmonary: No Dyspnea, No Cough Cardiovascular: Edema; No: Chest Pain, Palpitations Gastrointestinal: No: Nausea, Abdominal Pain Genitourinary: No Dysuria; Other (MCLAIN IN PLACE) Neurological: Weakness; No: Confusion All Other Systems Reviewed All Other Systems Reviewed: Yes Objective Exam Vital Signs Vital Signs - First Documented 12/17/20 12/18/20 23:30 03:31 Temp 35.2 Pulse 115 Resp 28 B/P (MAP) 192/134 (153) Pulse Ox 96 O2 Delivery Nasal Cannula O2 Flow Rate 6.00 FiO2 28 Capillary Refill : Less Than 3 Seconds General Appearance: No Apparent Distress, WD/WN Eyes: Bilateral Eye Normal Inspection, Bilateral Eye PERRL, Bilateral Eye EOMI HEENT: PERRL/EOMI, Pharynx Normal Neck: Full Range of Motion, Non Tender, Supple Respiratory: Chest Non Tender, No Respiratory Distress, Crackles (RIGHT BASE) Cardiovascular: Irregularly Irregular, Tachycardia Gastrointestinal: Normal Bowel Sounds, No Organomegaly, No Pulsatile Mass, Non Tender, Soft Rectal: Deferred Back: Normal Inspection, No Vertebral Tenderness Extremity: Normal Capillary Refill, Normal Inspection, Normal Range of Motion, Non Tender, No Calf Tenderness, Pedal Edema Neurologic/Psychiatric: Alert, Oriented x3, No Motor/Sensory Deficits, Normal 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, 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 Norm as Tested Skin: Warm/Dry Lymphatic: No Adenopathy Results Lab Laboratory Tests 12/20/20 04:15: White Blood Count 7.6, Red Blood Count 3.49L, Hemoglobin 9.6L, Hematocrit 31L, Mean Corpuscular Volume 89, Mean Corpuscular Hemoglobin 28, Mean Corpuscular Hemoglobin Concent 31L, Red Cell Distribution Width 15.0H, Platelet Count 267, Mean Platelet Volume 9.9, Immature Granulocyte % (Auto) 0, Neutrophils (%) (Auto) 67, Lymphocytes (%) (Auto) 19, Monocytes (%) (Auto) 10, Eosinophils (%) (Auto) 4, Basophils (%) (Auto) 0, Neutrophils # (Auto) 5.1, Lymphocytes # (Auto) 1.5, Monocytes # (Auto) 0.7, Eosinophils # (Auto) 0.3, Basophils # (Auto) 0.0, Immature Granulocyte # (Auto) 0.0, Sodium Level 138, Potassium Level 4.2, Chloride Level 103, Carbon Dioxide Level 27, Anion Gap 8, Blood Urea Nitrogen 25H, Creatinine 0.88, Estimat Glomerular Filtration Rate > 60, BUN/Creatinine Ratio 28, Glucose Level 95, Calcium Level 8.6, Phosphorus Level 4.2, Magnesium Level 2.1 Microbiology 12/18/20 MRSA Screen - Final, Complete MRSA not isolated 12/18/20 Urine Culture - Preliminary, Resulted Klebsiella pneumoniae 12/18/20 Blood Culture - Preliminary, Resulted No growth Assessment/Plan Assessment/Plan Admission Dx SINUS TACHYCARDIA HYPERTENSION HYPOXIA COPD HYPOTHYROIDISM NSTEMI PULMONARY EDEMA PNEUMONIA SINUS TACHYCARDIA WITH CHF - DEFER TO CARDIOLOGY - - PT ON LOVENOX AT THIS TIME - LOW DOSE OF LASIX HYPERTENSION - RESUME HOME REGIMEN, ADDED BETABLOCKER THERAPY HYPOXIA WITH COPD - MONITOR SYMPTOMS ON OXYGEN THERAPY AFTER DOSING OF LASIX. HYPOTHYROIDISM - RESUME HOME REGIMEN NSTEMI - DEFER TO CARDIOLOGY - - ELEVATED TROPONIN DUE TO HER SEVERE HYPOXIC EVENT PULMONARY EDEMA - SHOULD IMPROVE WITH LASIX COMMUNITY ACQUIRED PNEUMONIA - START ON ROCEPHIN/AZITHROMYCIN THERAPY DVT PROPHYLAXIS WITH LOVENOX GI PROPHYLAXIS WITH PPI Admission Dx SINUS TACHYCARDIA HYPERTENSION HYPOXIA COPD HYPOTHYROIDISM NSTEMI PULMONARY EDEMA PNEUMONIA SINUS TACHYCARDIA WITH CHF - DEFER TO CARDIOLOGY - - PT ON LOVENOX AT THIS TIME - LOW DOSE OF LASIX HYPERTENSION - RESUME HOME REGIMEN, ADDED BETABLOCKER THERAPY HYPOXIA WITH COPD - MONITOR SYMPTOMS ON OXYGEN THERAPY AFTER DOSING OF LASIX. HYPOTHYROIDISM - RESUME HOME REGIMEN NSTEMI - DEFER TO CARDIOLOGY - - ELEVATED TROPONIN DUE TO HER SEVERE HYPOXIC EVENT PULMONARY EDEMA - SHOULD IMPROVE WITH LASIX COMMUNITY ACQUIRED PNEUMONIA - START ON ROCEPHIN/AZITHROMYCIN THERAPY DVT PROPHYLAXIS WITH LOVENOX GI PROPHYLAXIS WITH PPI Clinical Quality Measures Admission Status Admission Dx SINUS TACHYCARDIA HYPERTENSION HYPOXIA COPD HYPOTHYROIDISM NSTEMI PULMONARY EDEMA PNEUMONIA SINUS TACHYCARDIA WITH CHF - DEFER TO CARDIOLOGY - - PT ON LOVENOX AT THIS TIME - LOW DOSE OF LASIX HYPERTENSION - RESUME HOME REGIMEN, ADDED BETABLOCKER THERAPY HYPOXIA WITH COPD - MONITOR SYMPTOMS ON OXYGEN THERAPY AFTER DOSING OF LASIX. HYPOTHYROIDISM - RESUME HOME REGIMEN NSTEMI - DEFER TO CARDIOLOGY - - ELEVATED TROPONIN DUE TO HER SEVERE HYPOXIC EVENT PULMONARY EDEMA - SHOULD IMPROVE WITH LASIX COMMUNITY ACQUIRED PNEUMONIA - START ON ROCEPHIN/AZITHROMYCIN THERAPY DVT PROPHYLAXIS WITH LOVENOX GI PROPHYLAXIS WITH PPI RACHID BEACH MD Dec 20, 2020 09:24
--- NOTE | 2020-12-20 10:29 | Diagnostic Imaging Report ---
INDICATION: Pneumonia. Comparison made with prior examination of 12/19/2020. FINDINGS: There is cardiomegaly. There is bibasilar atelectasis and/or pneumonitis right greater than left. There are bilateral pleural effusion right greater than left. No pneumothorax. Mediastinum unremarkable IMPRESSION: Bibasilar atelectasis and/or pneumonitis and bilateral pleural effusions right greater than left. Cardiomegaly. Dictated by: Dictated on workstation # [id number]
--- NOTE | 2020-12-20 16:24 | NUR ---
THIS RT SUGGESTS THAT PATIENT SHOULD NOT HAVE INHALERS. WHILE IN THE HOSPITAL THERAPISTS CAN WATCH HOW MANY PUFFS SHE CAN HAVE. PATIENT HAS BEEN EDUCATED BY SEVERAL RTS ON USE OF INHALER AND THE PRO'S AND CON'S. PATIENT STATES THAT SHE TAKES 100 PUFFS EACH TIME SHE USES INHALER . AFTER FINDING OUT THE CON'S OF OVER USE OF INHALER. PATIENT STATES THAT SHE WILL ONLY USE 50 PUFFS EACH TIME NOW. PATIENT STATES THAT IT HELPS HER FEEL LIKE SHE CAN BE ABLE TO WALK UP STAIRS. Addendum: 12/20/20 at 1631 by JERMAINE ARROYO RT THIS RT SUGGESTS THAT PATIENT SHOULD NOT HAVE INHALERS. WHILE IN THE HOSPITAL THERAPISTS CAN WATCH HOW MANY PUFFS SHE CAN HAVE. PATIENT HAS BEEN EDUCATED BY SEVERAL RTS ON USE OF INHALER AND THE PRO'S AND CON'S. PATIENT STATES THAT SHE TAKES 100 PUFFS EACH TIME SHE USES INHALER . AFTER FINDING OUT THE CON'S OF OVER USE OF INHALER. PATIENT STATES THAT SHE WILL ONLY USE 50 PUFFS EACH TIME AT HOME. PATIENT STATES THAT IT HELPS HER FEEL LIKE SHE CAN BE ABLE TO WALK UP STAIRS.
--- NOTE | 2020-12-20 19:24 | Progress Note - Cardiology ---
Cardiology SOAP Progress Note Subjective: No cp or palp or syncope Shortness of breath improving Malaise improving No swelling No n/v/d Gen weakness present Objective: I&O/Vital Signs 12/20/20 12/20/20 12/20/20 12/20/20 07:29 07:45 08:00 10:52 Temp 35.4 Pulse 70 Resp 16 B/P (MAP) 175/80 (111) Pulse Ox 93 98 97 93 O2 Delivery Nasal Cannula Nasal Cannula Nasal Cannula Nasal Cannula O2 Flow Rate 2.00 2.00 2.00 2.00 2.00 12/20/20 12/20/20 12/20/20 12/20/20 12:00 15:00 15:44 18:37 Temp 36.1 35.9 Pulse 60 62 Resp 24 22 B/P (MAP) 161/70 (100) 151/67 (95) Pulse Ox 96 96 97 95 O2 Delivery Nasal Cannula Nasal Cannula Nasal Cannula Nasal Cannula O2 Flow Rate 2.00 2.00 2.00 2.00 2.00 2.00 12/20/20 00:00 Intake Total 1070 ml Output Total 350 ml Balance 720 ml Constitutional: AAO x 3, well-developed, well-nourished Respiratory: No accessory muscle use, No respiratory distress; chest expansion is symmetric, chest is bilaterally symmetric, other (diminished lower lobes) Cardiovascular: irregularly irregular; No JVD; S1 and S2 Gastrointestional: No tender; soft, round, audible bowel sounds Extremities: no lower extremity edema bilateral Neurologic/Psychiatric: grossly intact (moves all extremities) Skin: No rash on exposed areas, No ulcerations on exposed areas Results/Procedures: Labs Laboratory Tests 12/20/20 04:15: White Blood Count 7.6, Red Blood Count 3.49L, Hemoglobin 9.6L, Hematocrit 31L, Mean Corpuscular Volume 89, Mean Corpuscular Hemoglobin 28, Mean Corpuscular Hemoglobin Concent 31L, Red Cell Distribution Width 15.0H, Platelet Count 267, Mean Platelet Volume 9.9, Immature Granulocyte % (Auto) 0, Neutrophils (%) (Auto) 67, Lymphocytes (%) (Auto) 19, Monocytes (%) (Auto) 10, Eosinophils (%) (Auto) 4, Basophils (%) (Auto) 0, Neutrophils # (Auto) 5.1, Lymphocytes # (Auto) 1.5, Monocytes # (Auto) 0.7, Eosinophils # (Auto) 0.3, Basophils # (Auto) 0.0, Immature Granulocyte # (Auto) 0.0, Sodium Level 138, Potassium Level 4.2, Chloride Level 103, Carbon Dioxide Level 27, Anion Gap 8, Blood Urea Nitrogen 25H, Creatinine 0.88, Estimat Glomerular Filtration Rate > 60, BUN/Creatinine Ratio 28, Glucose Level 95, Calcium Level 8.6, Phosphorus Level 4.2, Magnesium Level 2.1 Microbiology 12/18/20 MRSA Screen - Final, Complete MRSA not isolated 12/18/20 Urine Culture - Final, Complete Klebsiella pneumoniae 12/18/20 Blood Culture - Preliminary, Resulted No growth Laboratory Tests 12/19/20 05:28 12/20/20 04:15 A/P: Assessment: Hypoxia - likely multi-factorial r/t pleural effusion, acute on chronic diastolic CHF and acute exacerbation of COPD Mildly elevated troponin, Type 2 GA secondary to hypoxia and tachycardia Acute on chronic diastolic congestive heart failure Echocardiogram in July [address] Goodwin as normal left ventricular size and function, EF 55-65 percent, grade 1 diastolic dysfunction, mildly dilated left atrium, PA pressure 40 mmHg. H/O right pleural effusion in September and October 2020 for which she underwent throracentesis in Sep [address] Newton Acute on chronic exacerbation of COPD Hypertension Tobaccoism - reports quit in 2020 Plan: BP and heart rate are better on bb Continue treatment Monitor lab closely ALYSE PAEG MD FACP [facility] Dec 20, 2020 19:24
[2020-12-21] MEDS: LEVOTHYROXINE 125 MCG (LEVOTHROID) TABLET PO SCH (05:52)
[2020-12-21] MEDS: CATHETER FLUSH 10 ML SYR IV SCH (05:52)
[2020-12-21 05:56] LABS: BASOPHILS % (AUTO) 0 % (0-10); EOSINOPHILS # (AUTO) 0.6 10^3/uL (0.0-0.3); EOSINOPHILS % (AUTO) 8 % (0-10); HEMATOCRIT 31 % (35-52); HEMOGLOBIN 9.5 g/dL (11.5-16.0); LYMPHOCYTES # (AUTO) 1.5 10^3/uL (1.0-4.0); LYMPHOCYTES % (AUTO) 21 % (12-44); MEAN CORPUSCULAR HEMOGLOBIN 27 pg (25-34); MEAN CORPUSCULAR HGB CONC 31 g/dL (32-36); MEAN CORPUSCULAR VOLUME 90 fL (80-99); MEAN PLATELET VOLUME 9.8 fL (9.0-12.2); MONOCYTES # (AUTO) 0.7 10^3/uL (0.0-1.0); MONOCYTES % (AUTO) 9 % (0-12); NEUTROPHILS # (AUTO) 4.3 10^3/uL (1.8-7.8); NEUTROPHILS % (AUTO) 61 % (42-75); PLATELET COUNT 243 10^3/uL (130-400)
[2020-12-21 06:03] LABS: POTASSIUM 4.3 MMOL/L (3.6-5.0)
[2020-12-21 06:04] LABS: CALCIUM 8.8 MG/DL (8.5-10.1)
[2020-12-21 06:08] LABS: CREATININE SERUM 0.92 MG/DL (0.60-1.30); PHOSPHORUS 3.8 MG/DL (2.3-4.7)
[2020-12-21 06:11] LABS: MAGNESIUM 2.2 MG/DL (1.6-2.4)
[2020-12-21] MEDS: RT-ALBUTEROL INHALER HFA (VENTOLIN HFA) 18 GM IH SCH ×2 (07:36→11:04)
[2020-12-21] MEDS: ASPIRIN 81 MG CHEW (CHILDREN'S ASA) PO SCH (09:01)
[2020-12-21] MEDS: FAMOTIDINE 20 MG (PEPCID) TABLET PO SCH (09:01)
[2020-12-21] MEDS: AZITHROMYCIN 250 MG TAB (ZITHROMAX) PO SCH (09:01)
[2020-12-21] MEDS: ENOXAPARIN 40 MG/0.4 ML (LOVENOX) SYR SC SCH (09:01)
[2020-12-21] MEDS: cefTRIAXone FOR IV USE 1,000 MG in WATER (STERILE) FOR INJECTION 10 ML IV SCH (09:01)
--- NOTE | 2020-12-21 09:07 | Discharge Summary ---
Diagnosis/Chief Complaint Date of Admission Dec 18, 2020 at 00:50 Date of Discharge Reason Hospital Visit PT IS AN 85 Y/O FEMALE WHO IS KNOWN TO ME FROM CLINIC A NEW PATIENT IN MY PRACTICE. SHE STARTED TO HAVE A LOT OF SHORTNESS OF BREATH, AND FELT LIKE HER HEART WAS POUNDING, SHE WAS ALSO ACUTELY NAUSEATED. SHE REPORTS THAT HER OXYGEN LEVEL WAS LOW DESPITE BEING ON 4L O2 AT HOME. SHE WAS ADMITTED FOR CHF WITH ELEVATED TROPONIN Discharge Summary Discharge Physical Examination Allergies: Coded Allergies: Tetracyclines (Verified Allergy, Unknown, 08/21/20) Uncoded Allergies: PCN (Allergy, Unknown, 08/21/20) Vitals & I&Os Vital Signs Date Time Temp Pulse Resp B/P (MAP) Pulse Ox O2 Delivery O2 Flow Rate FiO2 12/21/20 07:40 98 Nasal Cannula 2.00 12/21/20 00:03 35.9 58 20 148/72 (97) 12/18/20 03:31 28 Hospital Course Pending Labs Laboratory Tests 12/21/20 05:34: White Blood Count 7.0, Red Blood Count 3.47, Hemoglobin 9.5, Hematocrit 31, Mean Corpuscular Volume 90, Mean Corpuscular Hemoglobin 27, Mean Corpuscular Hemoglobin Concent 31, Red Cell Distribution Width 14.8, Platelet Count 243, Mean Platelet Volume 9.8, Immature Granulocyte % (Auto) 0, Neutrophils (%) (Auto) 61, Lymphocytes (%) (Auto) 21, Monocytes (%) (Auto) 9, Eosinophils (%) (Auto) 8, Basophils (%) (Auto) 0, Neutrophils # (Auto) 4.3, Lymphocytes # (Auto) 1.5, Monocytes # (Auto) 0.7, Eosinophils # (Auto) 0.6, Basophils # (Auto) 0.0, Immature Granulocyte # (Auto) 0.0, Sodium Level 138, Potassium Level 4.3, Chloride Level 103, Carbon Dioxide Level 27, Anion Gap 8, Blood Urea Nitrogen 24, Creatinine 0.92, Estimat Glomerular Filtration Rate 58, BUN/Creatinine Ratio 26, Glucose Level 89, Calcium Level 8.8, Phosphorus Level 3.8, Magnesium Level 2.2 Discharge Instructions to patient/family Please see electronic discharge instructions given to patient. Discharge Medications Reviewed and agree with Discharge Medication list on patient's Discharge Instruction sheet RACHID BEACH MD Dec 21, 2020 09:07
[2020-12-21] MEDS ORDERED: MTP25TSR PO (09:12)
[2020-12-21] MEDS ORDERED: FURO-125 PO (09:12)
[2020-12-21] MEDS ORDERED: CEFD300C3 PO (09:12)
[2020-12-21] MEDS ORDERED: ALBU18HF2 IH (09:12)
--- NOTE | 2020-12-21 09:15 | D/C HH Face to Face Order ---
D/C Face to Face Orders Reconcile Patient Problems Problems Reviewed?: Yes Instructions for Patient Via [facility] Wearable Security, Patient Instructions/FollowUp: [facility] Physician to follow Patient: [facility] Discharge Diet for Home: Low Sodium Diet Patient Problems: HYPERTENSION CHF, COPD, ADVANCED AGE, HYPOXIA, PNEUMONIA Goals for Patient: IMPROVED STRENGTH, IMPROVED STAMINA Patient Data-Allergies,Ht & Wt Patient Allergies: Coded Allergies: Tetracyclines (Verified Allergy, Unknown, 08/21/20) Uncoded Allergies: PCN (Allergy, Unknown, 08/21/20) Home Health Need/Face to Face Date of Face to Face: Dec 21, 2020 Clinical Findings: Generalized weakness and fatigue, Muscle weakness, Shortness of breath, Unsteady gait I have seen Pt [id number]: Yes Discharged To: Home Diagnosis/Conditions: HYPERTENSION CHF, COPD, ADVANCED AGE, HYPOXIA, PNEUMONIA Patient is Homebound due to: Muscle weakness, Shortness of breath/distress Homebound Status Due to the above stated illness, injury or surgical procedure (medical condition or diagnosis) and associated clinical findings, the patient is homebound because of his/her inability to leave home except with aid of a supportive device and/or person AND leaving the home requires a considerable and taxing effort or is medically contraindicated. Pt req the following assistanc: [facility] Nursing Orders Home Health Services Order: Nursing Services, Physical Therapy-Evaluate & Treat CBC AND CMP ONE DAY PRIOR TO NEXT APPT IN A WEEK Therapy Orders Therapy Orders: Physical Therapy, PT to assess for OT Therapy Specific Orders: Teach enviro modifications/safety, Increase strength/endurance Certify Stmt I certify that this patient is under my care and that I, a nurse practitioner or a physician; a licensed loan officer assistant working with me, had a face to face encounter that - meets the physician face to face encounter requirements with this patient as dated. RACHID BEACH MD Dec 21, 2020 09:15
--- NOTE | 2020-12-21 12:38 | Diagnostic Imaging Report ---
Indication: Followup pneumonia and effusions. Time of exam: 10:54 AM Correlation is made with prior chest from one day earlier. Bilateral effusions, right greater persists. Lungs appear to be fairly clear. A rounded density in the right base is unchanged. Mid and upper lung nina are clear. No pneumothorax is detected. Impression: Stable chest since exam one day earlier. Dictated by: Dictated on workstation # [id number]
--- NOTE | 2020-12-21 13:07 | NUR ---
CM/SS visited with patient for discharge planning. Plan: The patient will discharge home today 12/21/20 with home health. Home Health: The patient is on service with [facility]. MEGHAN/TREMAYNE contacted the agency and spoke with Janeth to inform them of discharge today and faxed finalized home health orders. Oxygen: The patient uses a DME in [place] for her oxygen. The patient wears 4L at baseline. She has 2 concentrators at home. Her sister Nettie is bringing portable to the hospital. No further needs at this time.
[2020-12-22] MEDS ORDERED: FAMOTIDINE 20 MG (PEPCID) TABLET PO SCH (09:00)
== END 2020-12-21 12:30 | disposition home health service (06) | DRG 280 ==
LOC: EDUNIT# 23:28 → ER 23:30 → ICU 12-18 00:50 → 4TH 12-18 15:46
PROVIDERS: ADMIT Family Medicine; ATTEND Family Medicine
DX: I11.0 Hypertensive heart disease with heart failure (principal); J18.9 Pneumonia, unspecified organism; I21.A1 Myocardial infarction type 2; J96.21 Acute and chronic respiratory failure with hypoxia; J44.0 Chronic obstructive pulmonary disease with (acute) lower respiratory infection; J81.1 Chronic pulmonary edema; J44.1 Chronic obstructive pulmonary disease with (acute) exacerbation; N39.0 Urinary tract infection, site not specified; I50.33 Acute on chronic diastolic (congestive) heart failure; Z20.822 Contact with and (suspected) exposure to COVID-19; R00.0 Tachycardia, unspecified; E03.9 Hypothyroidism, unspecified; I48.91 Unspecified atrial fibrillation; F17.210 Nicotine dependence, cigarettes, uncomplicated; Z79.01 Long term (current) use of anticoagulants; Z88.7 Allergy status to serum and vaccine; Z79.82 Long term (current) use of aspirin
CPT/HCPCS: 36415; 51702; 71045; 71046; 80048; 80053; 80061; 81000; 82150; 82550; 82553; 82805; 83615; 83690; 83735; 83874; 83880; 84100; 84145; 84484; 85025; 85379; 85610; 85652; 85730; 86141; 87040; 87077; 87081; 87088; 87186; 87635; 87804; 93005; 93041; 94640; 94660; 94664; 94760; 99291

== ENCOUNTER 2021-09-13 14:57 | Emergency (ER) | payer MEDICARE ==
[~2021-09-13] VITALS: Ht 160 cm; Wt 86.0 kg
[~2021-09-13 14:57] MED LIST changes: +ALBU18HF2 IH; +CEFD300C3 PO; +FURO-125 PO; +MTP25TSR PO
--- OUTSIDE RECORDS SUMMARY | 2021-09-13 15:04 | XMS REPORT | CCD ---
Author Author Flakita Andino Organization Shantal Mac MD, [facility] Address [address] [place] [address] Phone Care Team Providers Care Gizzard Skin Remover Name Role Phone Shantal Mac PP Unavailable CCM Unavailable Summary Purpose Interface Exchange Insurance Providers Payer name Policy type / Coverage type Covered alliance party ID Effective Begin Date Effective End Date WPS Medicare Part B Medicare Part B [id number] Unknown Unkno wn [facility] Medicare Part B [id number] Unkno wn Unknown Family history Sister Diagnosis Age At Onset Arthritis Unknown Hypertension Unknown Anemia Unknown Diabetes mellitus Type 2 Unknown Osteoporosis Unknown Son Diagnosis Age At Onset Myocardial infarction Unknown Hypertension Unknown Diabetes mellitus Type 2 Unknown Father Diagnosis Age At Onset Cancer Unknown Alcoholism Unknown kidney disease Unknown Mother Diagnosis Age At Onset Cancer Unknown Brother Diagnosis Age At Onset Hypertension Unknown Cancer Unknown Alcoholism Unknown Diabetes mellitus Type 2 Unknown kidney disease Unknown Myocardial infarction Unknown Social History Social History Element Codes Description Effective Dates Marital status Unknown 08/26/2020 Employment Unknown Retired 08/26/[address]: 2968514 Quit over 10 years a go 199908/26/[address]: 460897494 Never drinks alcohol 2019 Allergies, Adverse Reactions, Alerts Substance Reaction Codes Entered Date Inactivated Date Status Penicillin rash, Unknown 08/26/2020 No Inactive Date Active * OTHER REACTION - SEE ANSWER BOX Tetracycline- Rash Unknown 0 08/26/2020 No Inactive Date Active Problems Condition Codes Effective Dates Condition Status CHF (congestive heart failure) ICD-10: I50.9 ICD-9: 428.0 08/26/2020 Active On supplemental oxygen therapy ICD-10: Z99.81 ICD-9: V46.2 09/10/2020 Active 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 ICD-9: 244.8 09/10/2020 Active Essential (primary) hypertension ICD-10: I10 ICD-9: 401.1 09/10/2020 Active Vitamin B12 deficiency (dietary) anemia ICD-10: D51.8 ICD-9: 281.1 01/25/2021 Active Localized edema ICD-10: R60.0 ICD-9: 782.3 05/11/2021 Active Acute on chronic diastolic congestive heart failure IC D-10: I50.33 ICD-9: 428.33 12/28/2020 Active Anemia ICD-10: D64.9 ICD-9: 285.9 12/28/2020 Active Dementia without behavioral disturbance, unspecified d ementia type ICD-10: F03.90 ICD-9: 294.20 08/26/2020 Active Medications Medication Codes Instructions Start Date Stop Date Status Fill Instructions levothyroxine 112 mcg tablet RxNorm: 911451 1 Tablet(s) Oral ev vinny day 09/02/2021 09/02/2021 Inactive levothyroxine 112 mcg tablet RxNorm: 480034 1 Tablet(s) Oral ev vinny day 08/20/2021 09/02/2021 Inactive cyanocobalamin (vit B-12) 1,000 mcg/mL injection solution Rx Norm: 513054 Take Milliliter(s) Injection 08/10/2021 08/10/2021 Inactive cyanocobalamin (vit B-12) 1,000 mcg/mL injection solution Rx Norm: 620418 Take Milliliter(s) Injection 06/30/2021 06/30/2021 Inactive albuterol sulfate 2.5 mg/3 mL (0.083 %) solution for n ebulization RxNorm: 609807 1 Unit Dose Inhalation two times a day DX J43.1 04/19/20212020 Inactive losartan 50 mg tablet RxNorm: 840463 1 Tablet(s) Oral two times a day 03/22/2021 03/17/2022 Active albuterol sulfate 2.5 mg/3 mL (0.083 %) solution for n ebulization RxNorm: 515713 1 Unit Dose Inhalation two times a day DX J43.1 03/22/20212020 Inactive albuterol sulfate 2.5 mg/3 mL (0.083 %) solution for n ebulization RxNorm: 937585 1 Unit Dose Inhalation two times a day 03/17/2021 03/16/2021 In active albuterol sulfate 2.5 mg/3 mL (0.083 %) solution for n ebulization RxNorm: 920425 1 Unit Dose Inhalation two times a day 03/17/2021 03/21/2021 In active Norvasc 5 mg tablet RxNorm: 726277 1 Tablet(s) Oral every day 12/3112/26/2021 Active Norvasc 5 mg tablet RxNorm: 958485 1 Tablet(s) Oral every day 12/3112/30/2020 Inactive metoprolol succinate ER 25 mg tablet,extended release 24 hr RxNorm: 956842 1 Tablet(s) Oral every day 12/28/2020 No Stop Date Active Ventolin HFA 90 mcg/actuation aerosol inhaler RxNorm: 536195 1-2 Puff(s) Inhalation Every 4 hrs as needed 12/28/2020 No Stop Date Active furosemide 20 mg tablet RxNorm: 108476 1 Tablet(s) Oral every day 0 12/28/2020 No Stop Date Active furosemide 40 mg tablet RxNorm: 073187 1 Tablet(s) Oral as directed 40mg BID x 5 days then 40mg in am and 20mg afternoon thereafter 11/18/2020 Inactive give qty sufficient potassium chloride ER 10 mEq tablet,extended release RxNorm: 836043 1 Tablet(s) Oral as directed 1 tab bid x 5 days then resume daily 11/18/20202020 Inactive qty sufficient potassium bicarbonate-citric acid 10 mEq effervescent tablet RxNorm: 5891040 1 Tablet(s) Oral every day 09/10/2020 11/17/2020 Inactive levothyroxine 125 mcg tablet RxNorm: 694910 1 Tablet(s) Oral ev vinny day 09/10/2020 08/19/2021 Inactive losartan 50 mg tablet RxNorm: 503205 1 Tablet(s) Oral two times a day 09/10/2020 12/27/2020 Inactive furosemide 40 mg tablet RxNorm: 914181 1 Tablet(s) Oral every day 1 11/17/2020 Inactive Zyrtec 10 mg tablet RxNorm: 5974414 1 Tablet(s) Oral every day 03/202012/28/2020 Inactive levothyroxine 125 mcg tablet RxNorm: 795805 1 Tablet(s) Oral ev vinny day 08/31/2020 09/09/2020 Inactive Zyrtec 10 mg tablet RxNorm: 8064150 1 Tablet(s) Oral every day 03/202008/30/2020 Inactive aspirin 81 mg tablet,delayed release RxNorm: 333531 1 Tablet(s) Oral every day 08/26/2020 No Stop Date Active Vitamin C 250 mg tablet RxNorm: 468868 1 Tablet(s) Oral every day 0 08/26/2020 No Stop Date Active Vitamin D3 50 mcg (2,000 unit) tablet RxNorm: 648981 1 Tablet(s ) Oral every day 08/26/2020 No Stop Date Active levothyroxine 88 mcg tablet RxNorm: 202174 1 Tablet(s) Oral micheal ry day 08/26/2020 08/30/2020 Inactive losartan 50 mg tablet RxNorm: 372582 1 Tablet(s) Oral every day 09/09/2020 Inactive furosemide 40 mg tablet RxNorm: 999304 1 Tablet(s) Oral every day 0 08/26/2020 09/09/2020 Inactive potassium bicarbonate-citric acid 10 mEq effervescent tablet RxNorm: 4029514 1 Tablet(s) Oral every day 08/26/2020 09/09/2020 Inactive Women's Multivitamin oral RxNorm: oral 08/26/2020 Act césar Calcium 600 oral RxNorm: 1897 oral 08/26/2020 Active albuterol sulfate inhalation RxNorm: 480290 inhalation 08/26/2020 Active Medication Administered Medication Codes Instructions Start Date Status cyanocobalamin (vit B-12) 1,000 mcg/mL injection solution Rx Norm: 505604 Milliliter 08/10/2021 No longer Active cyanocobalamin (vit B-12) 1,000 mcg/mL injection solution Rx Norm: 796692 Milliliter 06/30/2021 No longer Active Immunizations Vaccine Codes Date Status Covid-19 CVX: 207 03/06/2021 Covid-19 CVX: 207 02/06/2021 Pneumococcal (Adult) Unknown 05/27/2019 Zoster CVX: 121 05/27/2017 Results Observation Observation Code Item Item Code Result Date S ervice Location Cbc With Differential Ord2 WBC 8.64 K/ul 08/10/20 21 Unknown Cbc With Differential Ord2 RBC 3.76 M/ul 08/10/20 21 Unknown Cbc With Differential Ord2 HGB 9.9 g/dl 08/10/20 21 Unknown Cbc With Differential Ord2 Neut% 61.9 % 08/10/20 21 Unknown Cbc With Differential Ord2 HCT 33.4 % 08/10/20 21 Unknown Cbc With Differential Ord2 MCV 88.8 fl 08/10/20 21 Unknown Cbc With Differential Ord2 Lymph% 28.1 % 08/10/20 21 Unknown Cbc With Differential Ord2 [place]% 8.0 % 08/10/20 21 Unknown Cbc With Differential Ord2 MCH 26.3 pg 08/10/20 21 Unknown Cbc With Differential Ord2 MCHC 29.6 pg 08/10/20 21 Unknown Cbc With Differential Ord2 Eos% 1.9 % 08/10/20 21 Unknown Cbc With Differential Ord2 PLT 332 K/ul 08/10/20 21 Unknown Cbc With Differential Ord2 Baso% 0.1 % 08/10/20 21 Unknown Cbc With Differential Ord2 RDW 15.2 % 08/10/20 21 Unknown Cbc With Differential Ord2 Neut ABS# 5.35 K/ul 08/10/20 21 Unknown Cbc With Differential Ord2 Lymph ABS# 2.43 K/ul 021 Unknown Cbc With Differential Ord2 [place] ABS# 0.7 K/ul 08/10/20 21 Unknown Cbc With Differential Ord2 Eos ABS# 0.2 K/ul 08/10/20 21 Unknown Cbc With Differential Ord2 Baso ABS# 0.0 K/ul 08/10/20 21 Unknown Tsh Ord6 TSH (3rd IS) 0.21 uIU/mL 08/10/2021 Unkn own Comp Metabolic Sic226 NA 141 mEq/L 08/10/2021 Unkn own Comp Metabolic Zdw647 K 4.1 mEq/L 08/10/2021 Unkn own Comp Metabolic Fpv250 CL 104 mEq/L 08/10/2021 Unkn own Comp Metabolic Kdn261 CO2 28.0 mEq/L 08/10/2021 Unk nown Comp Metabolic Piz299 ANION GAP 13 08/10/2021 Unkn own Comp Metabolic Wwj808 GLUCOSE 78 mg/dL 08/10/2021 Unkn own Comp Metabolic Zen144 Creat 0.8 mg/dL 08/10/2021 Unkn own Comp Metabolic Dip632 eGFR 71 ml/min/1.73m2 08/10/20 21 Unknown Comp Metabolic Ktg714 BUN 25 mg/dL 08/10/2021 Unkn own Comp Metabolic Eaa196 B/C Ratio 30.9 Ratio 08/10/2021 Unk nown Comp Metabolic Fxm807 CALCIUM 8.7 mg/dL 08/10/2021 Unkn own Comp Metabolic Ama293 ALK PHOS 61 U/L 08/10/2021 Unkn own Comp Metabolic Tjb384 AST(SGOT) 17 U/L 08/10/2021 Unkn own Comp Metabolic Nys753 ALT(SGPT) 10 U/L 08/10/2021 Unkn own Comp Metabolic Xih091 BILI T 0.6 mg/dL 08/10/2021 Unkn own Comp Metabolic Omg565 ALBUMIN 3.7 g/dL 08/10/2021 Unkn own Comp Metabolic Lyz873 TPRO 6.1 g/dL 08/10/2021 Unkn own Comp Metabolic Gpo122 GLOB 2.4 g/dL 08/10/2021 Unkn own Comp Metabolic Mpr884 A/G Ratio 1.6 Ratio 08/10/2021 Unkn own Comp Metabolic Yqq193 Osmo 285 mOsmo 08/10/2021 Unkn own B12 Vtk791 B12 >1500.00 pg/ml 08/10/2021 Unkn own Free T4 Esm923 FREE T4 1.23 ng/dL 08/10/2021 Unknown Tibc Ord40 Iron 32 ug/dl 12/29/2020 Unknown Tibc Ord40 UIBC 402 ug/dL 12/29/2020 Unknown Tibc Ord40 TIBC 434 ug/dL 12/29/2020 Unknown Tibc Ord40 Fe-%Sat 7.4 % 12/29/2020 Unknown Ferritin Ord22 FERRITIN 27.6 ng/mL 12/29/2020 Unknown B12 Jny106 B12 187.00 pg/ml 12/29/2020 Unknow n Comp Metabolic Rcf428 NA 139 mEq/L 12/28/2020 Unkn own Comp Metabolic Cif634 K 4.1 mEq/L 12/28/2020 Unkn own Comp Metabolic Vbj421 CL 103 mEq/L 12/28/2020 Unkn own Comp Metabolic Ztg117 CO2 27.0 mEq/L 12/28/2020 Unk nown Comp Metabolic Ewa173 ANION GAP 13 12/28/2020 Unkn own Comp Metabolic Ntg396 GLUCOSE 79 mg/dL 12/28/2020 Unkn own Comp Metabolic Vlh672 Creat 0.7 mg/dL 12/28/2020 Unkn own Comp Metabolic Dmj169 eGFR 80 ml/min/1.73m2 12/28/19 21 Unknown Comp Metabolic Jxp153 BUN 21 mg/dL 12/28/2020 Unkn own Comp Metabolic Ggs418 B/C Ratio 28.8 Ratio 12/28/2020 Unk nown Comp Metabolic Imo454 CALCIUM 8.7 mg/dL 12/28/2020 Unkn own Comp Metabolic Oxc022 ALK PHOS 74 U/L 12/28/2020 Unkn own Comp Metabolic Mvm642 AST(SGOT) 15 U/L 12/28/2020 Unkn own Comp Metabolic Jfr950 ALT(SGPT) 17 U/L 12/28/2020 Unkn own Comp Metabolic Skk938 BILI T 0.4 mg/dL 12/28/2020 Unkn own Comp Metabolic Adp834 ALBUMIN 3.5 g/dL 12/28/2020 Unkn own Comp Metabolic Utl794 TPRO 5.9 g/dL 12/28/2020 Unkn own Comp Metabolic Llw506 GLOB 2.4 g/dL 12/28/2020 Unkn own Comp Metabolic Ibu255 A/G Ratio 1.4 Ratio 12/28/2020 Unkn own Comp Metabolic Xte725 Osmo 279 mOsmo 12/28/2020 Unkn own Cbc With Differential Ord2 WBC 7.63 K/ul 12/28/19 21 Unknown Cbc With Differential Ord2 RBC 3.38 M/ul 12/28/19 21 Unknown Cbc With Differential Ord2 HGB 9.4 g/dl 12/28/19 21 Unknown Cbc With Differential Ord2 Neut% 52.6 % 12/28/19 21 Unknown Cbc With Differential Ord2 HCT 31.5 % 12/28/19 21 Unknown Cbc With Differential Ord2 MCV 93.2 fl 12/28/19 21 Unknown Cbc With Differential Ord2 Lymph% 33.8 % 12/28/19 21 Unknown Cbc With Differential Ord2 MCH 27.8 pg 12/28/19 21 Unknown Cbc With Differential Ord2 [place]% 7.9 % 12/28/19 21 Unknown Cbc With Differential Ord2 MCHC 29.8 pg 12/28/19 21 Unknown Cbc With Differential Ord2 Eos% 5.4 % 12/28/19 21 Unknown Cbc With Differential Ord2 Baso% 0.3 % 12/28/19 21 Unknown Cbc With Differential Ord2 PLT 329 K/ul 12/28/19 21 Unknown Cbc With Differential Ord2 Neut ABS# 4.02 K/ul 12/28/19 21 Unknown Cbc With Differential Ord2 RDW 15.2 % 12/28/19 21 Unknown Cbc With Differential Ord2 Lymph ABS# 2.58 K/ul 021 Unknown Cbc With Differential Ord2 [place] ABS# 0.6 K/ul 12/28/19 21 Unknown Cbc With Differential Ord2 Eos ABS# 0.4 K/ul 12/28/19 21 Unknown Cbc With Differential Ord2 Baso ABS# 0.0 K/ul 12/28/19 21 Unknown Procedures Procedure Codes Date THER/PROPH/DIAG INJ SC/IM CPT-4: 22158 08/10/2021 VITAMIN B12 INJECTION 1000 mcg CPT-4: J3420 THER/PROPH/DIAG INJ SC/IM CPT-4: 14236 06/30/2021 Vital Signs Date Vital 08/23/2021 SpO2: 96% SpO2: 87% SpO2: 94% 08/10/2021 Blood Pressure 1: 138/82 Code: 8480-6 BMI: 33.5 Code: 05310-3 Heart Rate 1: 74 bpm Height: 5'3" Code: 8302-2 SpO2: 98% Temperature: 3 6.2 (C) / 97.1 (F) Weight: 189 lbs Code: 77041-2 05/11/2021 Blood Pressure 1: 134/80 Code: 8480-6 Heart Rate 1: 77 bpm Height: 5'3" Code: 8302-2 SpO2: 93% Temperature: 36.3 (C) / 97.3 (F) 01/25/2021 Blood Pressure 1: 136/88 Code: 8480-6 Heart Rate 1: 60 bpm Height: Code: 8302-2 SpO2: 93% Temperature: 36.3 (C) / 97.3 (F) Weight: 174 lbs Code: 14597-3 12/28/2020 Blood Pressure 1: 164/92 Code: 8480-6 BMI: 31.4 Code: 16063-1 Heart Rate 1: 67 bpm Height: 5'3" Code: 8302-2 SpO2: 94% Temperature: 3 6.2 (C) / 97.1 (F) Weight: 177 lbs Code: 86725-9 12/10/2020 Blood Pressure 1: 134/72 Code: 8480-6 BMI: 30.8 Code: 80008-5 Heart Rate 1: 74 bpm Height: 5'3" Code: 8302-2 Respiratory Rate: 18 bpm SpO2: 95% Temperature: 36.3 (C) / 97.4 (F) Weight: 174 lbs Code: 72270-8 09/10/2020 Blood Pressure 1: 202/94 Code: 8480-6 BMI: 30.6 Code: 36296-4 Heart Rate 1: 73 bpm Height: 5'3" Code: 8302-2 Respiratory Rate: 17 bpm SpO2: 91% Temperature: 36.8 (C) / 98.2 (F) Weight: 173 lbs Code: 05603-6 08/26/2020 Blood Pressure 1: 144/90 Code: 8480-6 BMI: 29.4 Code: 54322-3 Heart Rate 1: 72 bpm Height: 5'3" Code: 8302-2 SpO2: 98% Temperature: 3 6.7 (C) / 98.0 (F) Weight: 166 lbs Code: 00702-9 Functional Status No Functional Status data Reason For Visit Reason For Visit Effective Dates Notes hypertension 08/10/2021 hypertension 05/11/2021 hypertension 01/25/2021 Hospital Follow Up 12/28/2020 shortness of breath 12/10/2020 shortness of breath 09/10/2020 Hospital Follow Up 08/26/2020 Encounters Encounter Performer Location Codes [id number] EST. PATIENT, LEVEL I Diagnosis: CHF (congestive heart failure)[ICD10: I50.9] Diagnosis: On supplemental oxygen therapy[ICD10: Z99.81] [facility] CPT-4: 29653 08/23/2021 [id number]) 19508 EST. PATIENT, LEVEL IV Diagnosis: Vitamin B12 deficiency (dietary) anemia[ICD10: D51.8] Diagnosis: Essential (primary) hypertension[ICD10: I10] Diagnosis: Atrophy of thyroid (acquired)[ICD10: E03.4] [facility] CPT-4: 05253 08/10/2021 ([id number]) 94465 EST. PATIENT, LEVEL IV Diagnosis: Essential (primary) hypertension[ICD10: I10] Diagnosis: Vitamin B12 deficiency (dietary) anemia[ICD10: D51.8] Diagnosis: Atrophy of thyroid (acquired)[ICD10: E03.4] Diagnosis: Localized edema[ICD10: R60.0] Rena white MD, [facility] CPT-4: 24350 05/11/2021 ([id number]) 85982 EST. PATIENT, LEVEL IV Diagnosis: CHF (congestive heart failure)[ICD10: I50.9] Diagnosis: Essential (primary) hypertension[ICD10: I10] Diagnosis: Vitamin B12 deficiency (dietary) anemia[ICD10: D51.8] Rena Mac MD, [facility] CPT-4: 62877 01/25/2021 ([id number]) 71287 EST. PATIENT, LEVEL IV Diagnosis: Acute on chronic diastolic congestive heart failure[ICD10: I50.33] Diagnosis: Anemia[ICD10: D64.9] Diagnosis: Essential (primary) hypertension[ICD10: I10] Rena Mac MD, [facility] CPT-4: 44786 12/28/2020 ([id number]) 55037 EST. PATIENT, LEVEL IV Diagnosis: Essential (primary) hypertension[ICD10: I10] Diagnosis: CHF (congestive heart failure)[ICD10: I50.9] Diagnosis: Atrophy of thyroid (acquired)[ICD10: E03.4] Shantal Mac MD, [facility] CPT-4: 70002 12/10/2020 ([id number]) 64394 EST. PATIENT, LEVEL IV Diagnosis: Essential (primary) hypertension[ICD10: I10] Diagnosis: CHF (congestive heart failure)[ICD10: I50.9] Diagnosis: On supplemental oxygen therapy[ICD10: Z99.81] Diagnosis: Atrophy of thyroid (acquired)[ICD10: E03.4] Shantal Mac MD, [facility] CPT-4: 05210 09/10/2020 OFFICE VISIT, NEW - LEVEL 3 Diagnosis: CHF (congestive heart failure)[ICD10: I50.9] Diagnosis: Dementia without behavioral disturbance, unspecified dementia type[ICD10: F03.90] [facility] CPT-4: 83394 08/26 Plan of Care Planned Activity Notes Codes Status Date Appointment: Nurse Visit 08/23/2021 Patient Education: Patient Medication Summary Completed 08/23/2021 Visit Plan: Hypertension - well controll ed - continue with current medications, continue with no added salt diet. Pt has been encouraged to exercise daily. The pt has been advised to call the office if there are any acute concerns about change in blood pressure readings at home. Hypothyroidism - pt with chronic hypothyroidism, continue with current medication, will monitor pt for signs or symptoms of lack of adequate supplementation. Pt is to continue with current dose of medication unless directed otherwise. Check labs at regular intervals q 3 months or q 6 months based on previous levels of control. B12 def -injection today 08/10/2021 Appointment: Rena Livingston WPtel: [facility] (30 min) Complex 08/10/2021 Patient Education: Patient Medication Summary Completed 08/10/2021 Appointment: Injection 06/30/2021 Patient Education: Patient Medication Summary Completed 06/30/2021 Patient Education: Patient Medication Summary Completed 2021 Care Plan: Cbc With Differential Pending 2021 Care Plan: Comp Metabolic Pending Care Plan: Tsh Pending 2021 Care Plan: Magnesium Pending 021 Care Plan: Free T4 Pending Visit Plan: Hypertension - well controll ed - continue with current medications, continue with no added salt diet. Pt has been encouraged to exercise daily. The pt has been advised to call the office if there are any acute concerns about change in blood pressure readings at home. Anemia- recheck labs -continue b12 injections Edema - pt has been advised to elevate legs to prevent dependent edema, compression has been recommended to help to naturally decrease peripheral edema. Diuretic use has been discussed and pt has been instructed in appropriate use of such medication as necessary to further attempt to reduce peripheral edema. Hypothyroidism -check levels with next labs 05/11/2021 Appointment: Rena Livingston WPtel: [address] [phone] (30 min) Complex 05/11/2021 Patient Education: Patient Medication Summary Completed 05/11/2021 [facility]ment: [phone] (30 min) Complex 04/27/2021 Appointment: [facility] (15 min) Moderate 03/11/2021 Visit Plan: Hypertension - well controll ed - continue with current medications, continue with no added salt diet. Pt has been encouraged to exercise daily. The pt has been advised to call the office if there are any acute concerns about change in blood pressure readings at home. CHF - congestive heart failure - Pt has Chronic congestive heart failure - and is currently fairly well maintained on the current medications. Today there is no change in the treatment course. If symptoms worsen, increase edema or more that 2-3 pound weight gain over a week without improvement in the symptoms with a decrease in the sodium of the diet, then the pt is to have the office alerted. Anemia- continue with B12 injections per 01/25/2021 Appointment: Rena Livingston WPtel: [address] [place], [place] [phone] (30 min) Complex 01/25/2021 Patient Education: Patient Medication Summary Completed 01/25/2021 Visit Plan: Acute on chronic CHF - patie nt refuses cardiology -continue with oxygen at all times- patient did not wear oxygen to appt- patient and sister verbalized understanding of plan. Did recommend follow up with cardiology due to recurrent hospitalizations for CHF and patient continues to refuse Anemia- repeat labs today HTN -controlled- no change in medications today 12/28/2020 Appointment: Rena Livingston WPtel: [phone] (30 min) Complex 12/28/2020 Patient Education: Patient Medication Summary Completed 12/28/2020 Patient Education: Patient Medication Summary Completed 12/28/2020 Visit Plan: Chronic Congestive heart han lure - symptoms stable on lasix -pt has refused referral to Cardiology - she is not interested in any other physician and will not go to another specialist per her report - pt to continue with chronic oxygen therapy. Hypertension - well controlled - continue with current medications, continue with no added salt diet. Pt has been encouraged to exercise daily. The pt has been advised to call the office if there are any acute concerns about change in blood pressure readings at home. Hypothyroidism - pt with chronic hypothyroidism, continue with current medication, will monitor pt for signs or symptoms of lack of adequate supplementation. Pt is to continue with current dose of medication unless directed otherwise. Check labs at regular intervals q 3 months or q 6 months based on previous levels of control. 12/10/2020 Patient Education: Patient Medication Summary Completed 12/10/2020 Appointment: Shantal Mac WPtel: [address] [place], [place] [phone] (30 min) Complex 11/03/2020 Visit Plan: Chronic Congestive heart han lure - symptoms stable on lasix - need to initiate referral to Dr. Sanchez - if not already done - pt to continue with chronic oxygen therapy - due to her weakness and need for easier to transport of the oxygen from place to place, I have recommended that she needs a portable oxygen concentrator. She is too weak to transport large oxygen bottles from place to place and is too weak to move them up the stairs in her home. She has tripped over her oxygen tubing from the large oxygen concentrator in her house, therefore the extra long tubing is not safe to have in her home. She also has trouble getting the oxygen tanks moved from house to vehicles and around places if she goes shopping. Hypertension - uncontrolled - the patient's medications have been modified as documented in the visit note. The patient has been counseled to cut back on salt in diet for a no added salt diet, low fat diet, start an exercise program with low weight bearing exercises and higher aerobic activity for heart health. The patient is to check blood pressure readings as an outpatient and either fax, call, or email the readings to the office next week for practitioner to review. The pt is to call for acute concerns. Increase losartan from 50mg daily to 50mg twice daily. Hypothyroidism - pt with chronic hypothyroidism, continue with current medication, will monitor pt for signs or symptoms of lack of adequate supplementation. Pt is to continue with current dose of medication unless directed otherwise. Check labs at regular intervals q 3 months or q 6 months based on previous levels of control. Fasting labs to be done to be drawn by home health. 09/10/2020 Appointment: Shantal Mac [facility]Ptel[phone] [facility] [place] (15 min) Moderate 09/10/2020 Patient Education: Patient Medication Summary Completed 09/10/2020 Visit Plan: CHF - congestive heart failu re - Pt has Chronic congestive heart failure - and is currently fairly well maintained on the current medications. Today there is no change in the treatment course. If symptoms worsen, increase edema or more that 2-3 pound weight gain over a week without improvement in the symptoms with a decrease in the sodium of the diet, then the pt is to have the office alerted. Dementia - Pt with slowly progressive pattern. I have discussed with pt and family the prognosis of this disease state and the need for the family to anticipate further decline with behavior changes. Continue with current plan of treatment. 08/26/2020 Patient Education: Patient Medication Summary Completed 08/26/2020 Instructions Comment . Hypertension - well controlled - chelsi nue with current medications, continue with no added salt diet. Pt has been encouraged to exercise daily. The pt has been advised to call the office if there are any acute concerns about change in blood pressure readings at home. Hypothyroidism - pt with chronic hypothyroidism, continue with current medication, will monitor pt for signs or symptoms of lack of adequate supplementation. Pt is to continue with current dose of medication unless directed otherwise. Check labs at regular intervals q 3 months or q 6 months based on previous levels of control. B12 def -injection today HAVE HOME HEALTH DRAW LABS WHEN THEY DO NEXT B12 INJECTION - CBC, CMP, TSH, FREE T4, BNP, MAGNESIUM . Hypertension - well controlled - continue with current medications, continue with no added salt diet. Pt has been encouraged to exercise daily. The pt has been advised to call the office if there are any acute concerns about change in blood pressure readings at home. Anemia- recheck labs -continue b12 injections Edema - pt has been advised to elevate legs to prevent dependent edema, compression has been recommended to help to naturally decrease peripheral edema. Diuretic use has been discussed and pt has been instructed in appropriate use of such medication as necessary to further attempt to reduce peripheral edema. Hypothyroidism -check levels with next labs CONTINUE LOW SODIUM DIET CONTINUE HOME HEALTH WITH ANDRÉS VITAMIN B12 INJECTIONS FOLLOW UP WITH DR ROBLES FOR PFTS AND CT SCAN . Hypertension - well controlled - chelsi nue with current medications, continue with no added salt diet. Pt has been encouraged to exercise daily. The pt has been advised to call the office if there are any acute concerns about change in blood pressure readings at home. CHF - congestive heart failure - Pt has Chronic congestive heart failure - and is currently fairly well maintained on the current medications. Today there is no change in the treatment course. If symptoms worsen, increase edema or more that 2-3 pound weight gain over a week without improvement in the symptoms with a decrease in the sodium of the diet, then the pt is to have the office alerted. Anemia- continue with B12 injections per . Acute on chronic CHF - patient refuses cardiology -continue with oxygen at all times- patient did not wear oxygen to appt- patient and sister verbalized understanding of plan. Did recommend follow up with cardiology due to recurrent hospitalizations for CHF and patient continues to refuse Anemia- repeat labs today HTN -controlled- no change in medications today . Chronic Congestive heart failure - sym ptoms stable on lasix -pt has refused referral to Cardiology - she is not interested in any other physician and will not go to another specialist per her report - pt to continue with chronic oxygen therapy. Hypertension - well controlled - continue with current medications, continue with no added salt diet. Pt has been encouraged to exercise daily. The pt has been advised to call the office if there are any acute concerns about change in blood pressure readings at home. Hypothyroidism - pt with chronic hypothyroidism, continue with current medication, will monitor pt for signs or symptoms of lack of adequate supplementation. Pt is to continue with current dose of medication unless directed otherwise. Check labs at regular intervals q 3 months or q 6 months based on previous levels of control. . Chronic Congestive heart failure - sym ptoms stable on lasix - need to initiate referral to Dr. Sanchez - if not already done - pt to continue with chronic oxygen therapy - due to her weakness and need for easier to transport of the oxygen from place to place, I have recommended that she needs a portable oxygen concentrator. She is too weak to transport large oxygen bottles from place to place and is too weak to move them up the stairs in her home. She has tripped over her oxygen tubing from the large oxygen concentrator in her house, therefore the extra long tubing is not safe to have in her home. She also has trouble getting the oxygen tanks moved from house to vehicles and around places if she goes shopping. Hypertension - uncontrolled - the patient's medications have been modified as documented in the visit note. The patient has been counseled to cut back on salt in diet for a no added salt diet, low fat diet, start an exercise program with low weight bearing exercises and higher aerobic activity for heart health. The patient is to check blood pressure readings as an outpatient and either fax, call, or email the readings to the office next week for practitioner to review. The pt is to call for acute concerns. Increase losartan from 50mg daily to 50mg twice daily. Hypothyroidism - pt with chronic hypothyroidism, continue with current medication, will monitor pt for signs or symptoms of lack of adequate supplementation. Pt is to continue with current dose of medication unless directed otherwise. Check labs at regular intervals q 3 months or q 6 months based on previous levels of control. Fasting labs to be done to be drawn by [facility]. Will set up with [facility] pt is to consider moving to assisted living pt is to get a life alert bracelet. CHF - congestive heart failure - Pt has Chronic congestive heart failure - and is currently fairly well maintained on the current medications. Today there is no change in the treatment course. If symptoms worsen, increase edema or more that 2-3 pound weight gain over a week without improvement in the symptoms with a decrease in the sodium of the diet, then the pt is to have the office alerted. Dementia - Pt with slowly progressive pattern. I have discussed with pt and family the prognosis of this disease state and the need for the family to anticipate further decline with behavior changes. Continue with current plan of treatment. Medical Equipment No Medical Equipment data Health Concerns Section Health Concerns data not found Goals Section Goals data not found Interventions Section Interventions data not found Health Status Evaluations/Outcomes Section Health Status Evaluations/Outcomes data not found Advance Directives No Advance Directive data
--- OUTSIDE RECORDS SUMMARY | 2021-09-13 15:04 | XMS REPORT | CCD ---
Author Author Flakita Andino Organization Shantal Mac MD, [facility] Address [address] [place] [address] Phone Care Team Providers Care Credit Front Office Developer Name Role Phone Shantal Mac PP Unavailable CCM Unavailable Summary Purpose Interface Exchange Insurance Providers Payer name Policy type / Coverage type Covered republican ID Effective Begin Date Effective End Date WPS Medicare Part B Medicare Part B [id number] Unknown Unkno wn [facility] Medicare Part B [id number] Unkno wn Unknown Family history Sister Diagnosis [...] Unknown Retired 08/26/[address]: 3763614 Quit over 10 years a go 199908/26/[address]: 156823704 Never drinks alcohol 2019 Allergies, Adverse Reactions, [...] Fill Instructions levothyroxine 112 mcg tablet RxNorm: 379992 1 Tablet(s) Oral 08/20/2021 No Stop Date Active cyanocobalamin (vit B-12) 1,000 mcg/mL injection solution Rx Norm: 317243 Take Milliliter(s) Injection 08/10/2021 08/10/2021 Inactive cyanocobalamin (vit B-12) 1,000 mcg/mL injection solution Rx Norm: 533964 Take Milliliter(s) Injection 06/30/2021 06/30/2021 Inactive albuterol sulfate 2.5 mg/3 mL (0.083 %) solution for n ebulization RxNorm: 630386 1 Unit Dose Inhalation two times a day DX J43.1 04/19/20212020 Inactive losartan 50 mg tablet RxNorm: 094707 1 Tablet(s) Oral two times a day 03/22/2021 03/17/2022 Active albuterol sulfate 2.5 mg/3 mL (0.083 %) solution for n ebulization RxNorm: 029631 1 Unit Dose Inhalation two times a day DX J43.1 03/22/20212020 Inactive albuterol sulfate 2.5 mg/3 mL (0.083 %) solution for n ebulization RxNorm: 038565 1 Unit Dose Inhalation two times a day 03/17/2021 03/16/2021 In active albuterol sulfate 2.5 mg/3 mL (0.083 %) solution for n ebulization RxNorm: 861296 1 Unit Dose Inhalation two times a day 03/17/2021 03/21/2021 In active Norvasc 5 mg tablet RxNorm: 999774 1 Tablet(s) Oral every day 12/3112/26/2021 Active Norvasc 5 mg tablet RxNorm: 432586 1 Tablet(s) Oral every day 12/3112/30/2020 Inactive metoprolol succinate ER 25 mg tablet,extended release 24 hr RxNorm: 861811 1 Tablet(s) Oral every day 12/28/2020 No Stop Date Active Ventolin HFA 90 mcg/actuation aerosol inhaler RxNorm: 530808 1-2 Puff(s) Inhalation Every 4 hrs as needed 12/28/2020 No Stop Date Active furosemide 20 mg tablet RxNorm: 415169 1 Tablet(s) Oral every day 0 12/28/2020 No Stop Date Active furosemide 40 mg tablet RxNorm: 400113 1 Tablet(s) Oral as directed 40mg BID x 5 days then 40mg in am and 20mg afternoon thereafter 11/18/2020 Inactive give qty sufficient potassium chloride ER 10 mEq tablet,extended release RxNorm: 884743 1 Tablet(s) Oral as directed 1 tab bid x 5 days then resume daily 11/18/20202020 Inactive qty sufficient potassium bicarbonate-citric acid 10 mEq effervescent tablet RxNorm: 8246721 1 Tablet(s) Oral every day 09/10/2020 11/17/2020 Inactive levothyroxine 125 mcg tablet RxNorm: 725228 1 Tablet(s) Oral ev vinny day 09/10/2020 08/19/2021 Inactive losartan 50 mg tablet RxNorm: 389807 1 Tablet(s) Oral two times a day 09/10/2020 12/27/2020 Inactive furosemide 40 mg tablet RxNorm: 973656 1 Tablet(s) Oral every day 1 11/17/2020 Inactive Zyrtec 10 mg tablet RxNorm: 1436843 1 Tablet(s) Oral every day 03/202012/28/2020 Inactive levothyroxine 125 mcg tablet RxNorm: 925887 1 Tablet(s) Oral ev vinny day 08/31/2020 09/09/2020 Inactive Zyrtec 10 mg tablet RxNorm: 4659740 1 Tablet(s) Oral every day 03/202008/30/2020 Inactive aspirin 81 mg tablet,delayed release RxNorm: 287830 1 Tablet(s) Oral every day 08/26/2020 No Stop Date Active Vitamin C 250 mg tablet RxNorm: 111607 1 Tablet(s) Oral every day 0 08/26/2020 No Stop Date Active Vitamin D3 50 mcg (2,000 unit) tablet RxNorm: 244855 1 Tablet(s ) Oral every day 08/26/2020 No Stop Date Active levothyroxine 88 mcg tablet RxNorm: 928841 1 Tablet(s) Oral micheal ry day 08/26/2020 08/30/2020 Inactive losartan 50 mg tablet RxNorm: 566312 1 Tablet(s) Oral every day 09/09/2020 Inactive furosemide 40 mg tablet RxNorm: 115318 1 Tablet(s) Oral every day 0 08/26/2020 09/09/2020 Inactive potassium bicarbonate-citric acid 10 mEq effervescent tablet RxNorm: 6516531 1 Tablet(s) Oral every day 08/26/2020 09/09/2020 Inactive Women's Multivitamin oral RxNorm: oral 08/26/2020 Act césar Calcium 600 oral RxNorm: 1897 oral 08/26/2020 Active albuterol sulfate inhalation RxNorm: 194579 inhalation 08/26/2020 Active Medication Administered Medication Codes Instructions Start Date Status cyanocobalamin (vit B-12) 1,000 mcg/mL injection solution Rx Norm: 119774 Milliliter 08/10/2021 No longer Active cyanocobalamin (vit B-12) 1,000 mcg/mL injection solution Rx Norm: 023645 Milliliter 06/30/2021 No longer Active Immunizations Vaccine Codes Date Status Covid-19 CVX: 03/06/2021 Covid-19 CVX: 207 02/06/2021 Pneumococcal (Adult) [...] 08/10/20 21 Unknown Cbc With Differential Ord2 Pine% 8.0 % 08/10/20 21 Unknown Cbc With [...] K/ul 021 Unknown Cbc With Differential Ord2 Pine ABS# 0.7 K/ul 08/10/20 21 Unknown Cbc With Differential Ord2 Eos ABS# 0.2 K/ul 08/10/20 21 Unknown Cbc With Differential Ord2 Baso ABS# 0.0 K/ul 08/10/20 21 Unknown Tsh Ord6 TSH (3rd IS) 0.21 uIU/mL 08/10/2021 Unkn own Comp Metabolic Pfe612 NA 141 mEq/L 08/10/2021 Unkn own Comp Metabolic Rdj114 K 4.1 mEq/L 08/10/2021 Unkn own Comp Metabolic Xmh001 CL 104 mEq/L 08/10/2021 Unkn own Comp Metabolic Mni699 CO2 28.0 mEq/L 08/10/2021 Unk nown Comp Metabolic Fkg409 ANION GAP 13 08/10/2021 Unkn own Comp Metabolic Rge247 GLUCOSE 78 mg/dL 08/10/2021 Unkn own Comp Metabolic Ons158 Creat 0.8 mg/dL 08/10/2021 Unkn own Comp Metabolic Vrp507 eGFR 71 ml/min/1.73m2 08/10/20 21 Unknown Comp Metabolic Jdl504 BUN 25 mg/dL 08/10/2021 Unkn own Comp Metabolic Rir745 B/C Ratio 30.9 Ratio 08/10/2021 Unk nown Comp Metabolic Lcw431 CALCIUM 8.7 mg/dL 08/10/2021 Unkn own Comp Metabolic Qfj568 ALK PHOS 61 U/L 08/10/2021 Unkn own Comp Metabolic Sdc375 AST(SGOT) 17 U/L 08/10/2021 Unkn own Comp Metabolic Qvq920 ALT(SGPT) 10 U/L 08/10/2021 Unkn own Comp Metabolic Iic756 BILI T 0.6 mg/dL 08/10/2021 Unkn own Comp Metabolic Chn335 ALBUMIN 3.7 g/dL 08/10/2021 Unkn own Comp Metabolic Rkc892 TPRO 6.1 g/dL 08/10/2021 Unkn own Comp Metabolic Ses209 GLOB 2.4 g/dL 08/10/2021 Unkn own Comp Metabolic Fzg996 A/G Ratio 1.6 Ratio 08/10/2021 Unkn own Comp Metabolic Clm002 Osmo 285 mOsmo 08/10/2021 Unkn own B12 Kpy021 B12 >1500.00 pg/ml 08/10/2021 Unkn own Free T4 Bec672 FREE T4 1.23 ng/dL 08/10/2021 Unknown Tibc Ord40 Iron 32 ug/dl 12/29/2020 Unknown Tibc Ord40 UIBC 402 ug/dL 12/29/2020 Unknown Tibc Ord40 TIBC 434 ug/dL 12/29/2020 Unknown Tibc Ord40 Fe-%Sat 7.4 % 12/29/2020 Unknown Ferritin Ord22 FERRITIN 27.6 ng/mL 12/29/2020 Unknown B12 Xkp934 B12 187.00 pg/ml 12/29/2020 Unknow n Comp Metabolic Yxu034 NA 139 mEq/L 12/28/2020 Unkn own Comp Metabolic Nzu482 K 4.1 mEq/L 12/28/2020 Unkn own Comp Metabolic Rcf327 CL 103 mEq/L 12/28/2020 Unkn own Comp Metabolic Maf125 CO2 27.0 mEq/L 12/28/2020 Unk nown Comp Metabolic Vlg098 ANION GAP 13 12/28/2020 Unkn own Comp Metabolic Ptv355 GLUCOSE 79 mg/dL 12/28/2020 Unkn own Comp Metabolic Rfo381 Creat 0.7 mg/dL 12/28/2020 Unkn own Comp Metabolic Eds581 eGFR 80 ml/min/1.73m2 12/28/19 21 Unknown Comp Metabolic Xxy816 BUN 21 mg/dL 12/28/2020 Unkn own Comp Metabolic Qou821 B/C Ratio 28.8 Ratio 12/28/2020 Unk nown Comp Metabolic Ruo491 CALCIUM 8.7 mg/dL 12/28/2020 Unkn own Comp Metabolic Tlz193 ALK PHOS 74 U/L 12/28/2020 Unkn own Comp Metabolic Lcj795 AST(SGOT) 15 U/L 12/28/2020 Unkn own Comp Metabolic Hcm947 ALT(SGPT) 17 U/L 12/28/2020 Unkn own Comp Metabolic Wre334 BILI T 0.4 mg/dL 12/28/2020 Unkn own Comp Metabolic Huw268 ALBUMIN 3.5 g/dL 12/28/2020 Unkn own Comp Metabolic Hvf660 TPRO 5.9 g/dL 12/28/2020 Unkn own Comp Metabolic Vsx868 GLOB 2.4 g/dL 12/28/2020 Unkn own Comp Metabolic Amf064 A/G Ratio 1.4 Ratio 12/28/2020 Unkn own Comp Metabolic Mpx685 Osmo 279 mOsmo 12/28/2020 Unkn own Cbc [...] 12/28/19 21 Unknown Cbc With Differential Ord2 Pine% 7.9 % 12/28/19 21 Unknown Cbc With [...] K/ul 021 Unknown Cbc With Differential Ord2 Pine ABS# 0.6 K/ul 12/28/19 21 Unknown Cbc With Differential Ord2 Eos ABS# 0.4 K/ul 12/28/19 21 Unknown Cbc With Differential Ord2 Baso ABS# 0.0 K/ul 12/28/19 21 Unknown Procedures Procedure Codes Date THER/PROPH/DIAG INJ SC/IM CPT-4: 29576 08/10/2021 VITAMIN B12 INJECTION 1000 mcg CPT-4: J3420 THER/PROPH/DIAG INJ SC/IM CPT-4: 47885 06/30/2021 Vital Signs Date Vital 08/23/2021 SpO2: 96% SpO2: 94% SpO2: 87% 08/10/2021 Blood Pressure 1: 138/82 Code: 8480-6 BMI: 33.5 Code: 40637-2 Heart Rate 1: 74 bpm Height: 5'3" Code: 8302-2 SpO2: 98% Temperature: 3 6.2 (C) / 97.1 (F) Weight: 189 lbs Code: 28706-2 05/11/2021 Blood Pressure 1: 134/80 Code: 8480-6 Heart Rate 1: 77 bpm Height: 5'3" Code: 8302-2 SpO2: 93% Temperature: 36.3 (C) / 97.3 (F) 01/25/2021 Blood Pressure 1: 136/88 Code: 8480-6 Heart Rate 1: 60 bpm Height: Code: 8302-2 SpO2: 93% Temperature: 36.3 (C) / 97.3 (F) Weight: 174 lbs Code: 89818-1 12/28/2020 Blood Pressure 1: 164/92 Code: 8480-6 BMI: 31.4 Code: 50125-3 Heart Rate 1: 67 bpm Height: 5'3" Code: 8302-2 SpO2: 94% Temperature: 3 6.2 (C) / 97.1 (F) Weight: 177 lbs Code: 56079-8 12/10/2020 Blood Pressure 1: 134/72 Code: 8480-6 BMI: 30.8 Code: 99588-6 Heart Rate 1: 74 bpm Height: 5'3" Code: 8302-2 Respiratory Rate: 18 bpm SpO2: 95% Temperature: 36.3 (C) / 97.4 (F) Weight: 174 lbs Code: 21184-5 09/10/2020 Blood Pressure 1: 202/94 Code: 8480-6 BMI: 30.6 Code: 60390-4 Heart Rate 1: 73 bpm Height: 5'3" Code: 8302-2 Respiratory Rate: 17 bpm SpO2: 91% Temperature: 36.8 (C) / 98.2 (F) Weight: 173 lbs Code: 70605-0 08/26/2020 Blood Pressure 1: 144/90 Code: 8480-6 BMI: 29.4 Code: 67405-2 Heart Rate 1: 72 bpm Height: 5'3" Code: 8302-2 SpO2: 98% Temperature: 3 6.7 (C) / 98.0 (F) Weight: 166 lbs Code: 32948-7 Functional Status No Functional Status data Reason For Visit Reason For Visit Effective Dates Notes hypertension 08/10/2021 hypertension 05/11/2021 hypertension 01/25/2021 Hospital Follow Up 12/28/2020 shortness of breath 12/10/2020 shortness of breath 09/10/2020 Hospital Follow Up 08/26/2020 Encounters Encounter Performer Location Codes Date ) 97916 EST. PATIENT, LEVEL I Diagnosis: CHF (congestive heart failure)[ICD10: I50.9] Diagnosis: On supplemental oxygen therapy[ICD10: Z99.81] Shantal Mac MD, [facility] CPT-4: 84331 08/23/2021 [id number]) 35930 EST. PATIENT, LEVEL IV Diagnosis: Vitamin B12 deficiency (dietary) anemia[ICD10: D51.8] Diagnosis: Essential (primary) hypertension[ICD10: I10] Diagnosis: Atrophy of thyroid (acquired)[ICD10: E03.4] [facility] CPT-4: 34770 08/10/2021 [id number]) 09191 EST. PATIENT, LEVEL IV Diagnosis: Essential (primary) hypertension[ICD10: I10] Diagnosis: Vitamin B12 deficiency (dietary) anemia[ICD10: D51.8] Diagnosis: Atrophy of thyroid (acquired)[ICD10: E03.4] Diagnosis: Localized edema[ICD10: R60.0] Rena white MD, [facility] CPT-4: 62229 05/11/2021 ([id number]) 55828 EST. PATIENT, LEVEL IV Diagnosis: CHF (congestive heart failure)[ICD10: I50.9] Diagnosis: Essential (primary) hypertension[ICD10: I10] Diagnosis: Vitamin B12 deficiency (dietary) anemia[ICD10: D51.8] Rena Mac MD, [facility] CPT-4: 13632 01/25/2021 ([id number]) 55165 EST. PATIENT, LEVEL IV Diagnosis: Acute on chronic diastolic congestive heart failure[ICD10: I50.33] Diagnosis: Anemia[ICD10: D64.9] Diagnosis: Essential (primary) hypertension[ICD10: I10] Rena Mac MD, [facility] CPT-4: 96110 12/28/2020 ([id number]) 20049 EST. PATIENT, LEVEL IV Diagnosis: Essential (primary) hypertension[ICD10: I10] Diagnosis: CHF (congestive heart failure)[ICD10: I50.9] Diagnosis: Atrophy of thyroid (acquired)[ICD10: E03.4] Shantal Mac MD, [facility] CPT-4: 59785 12/10/2020 ([id number]) 30412 EST. PATIENT, LEVEL IV Diagnosis: Essential (primary) hypertension[ICD10: I10] Diagnosis: CHF (congestive heart failure)[ICD10: I50.9] Diagnosis: On supplemental oxygen therapy[ICD10: Z99.81] Diagnosis: Atrophy of thyroid (acquired)[ICD10: E03.4] Shantal Mac MD, [facility] CPT-4: 65384 09/10/2020 OFFICE VISIT, NEW - LEVEL 3 Diagnosis: CHF (congestive heart failure)[ICD10: I50.9] Diagnosis: Dementia without behavioral disturbance, unspecified dementia type[ICD10: F03.90] Gabriela Mac MD, [facility] CPT-4: 47033 08/26 Plan of Care Planned Activity Notes Codes Status Date Patient Education: Patient Medication Summary Completed 08/23/2021 [...] -injection today 08/10/2021 [facility] [phone] [phone] [place] (30 min) Complex 08/10/2021 Patient Education: Patient [...] next labs 05/11/2021 [facility]ment[facility] [phone] [phone] [place] (30 min) Complex 05/11/2021 Patient Education: Patient Medication Summary Completed 05/11/2021 App[facility]ment: Rena Livingston [phone] (30 min) Complex 04/27/2021 [facility]ant[facility] Mac [facility] (15 min) Moderate 03/11/2021 Visit Plan: Hypertension [...] injections per 01/25/2021 Appointment: Rena Livingston [phone] (30 min) Complex 01/25/2021 Patient Education: Patient [...] medications today 12/28/2020 App[facility]ment: Rena Livingston [phone] (30 min) Complex 12/28/2020 Patient Education: Patient [...] Summary Completed 12/10/2020 Appointment: Shantal Mac [facility] ([facility] min) Complex 11/03/2020 Visit Plan: Chronic Congestive heart han donita - symptoms stable on lasix - need [...] to be done to be drawn by [facility]. 09/10/2020 App[facility]ment: [facility] [phone] [facility] [place] (15 min) Moderate 09/10/2020 Patient Education: [...] LOW SODIUM DIET CONTINUE HOME HEALTH WITH [place] VITAMIN B12 INJECTIONS FOLLOW UP WITH DR [...] alerted. Anemia- continue with B12 injections per HH . Acute on chronic CHF - patient [...] to be done to be drawn by [place] [facility]. Will set up with [facility] pt is to consider moving to assisted [...]
--- OUTSIDE RECORDS SUMMARY | 2021-09-13 15:04 | XMS REPORT | CCD ---
Author Author Flakita Andino Organization Shantal Mac MD, [facility] Address [address] [place] [address] Phone Care Team Providers Care Clerical Coordinator Name Role Phone Shantal Mac PP Unavailable CCM Unavailable Summary Purpose Interface Exchange Insurance Providers Payer name Policy type / Coverage type Covered alliance party ID Effective Begin Date Effective End Date WPS Medicare Part B Medicare Part B [id number] Unknown Unkno wn [facility] Medicare Part B [id number] Unkno wn Unknown Family history Sister Diagnosis [...] Unknown Retired 08/26/[address]: 7785641 Quit over 10 years a go 199908/26/[address]: 981212766 Never drinks alcohol 2019 Allergies, Adverse Reactions, [...] Fill Instructions levothyroxine 112 mcg tablet RxNorm: 317295 1 Tablet(s) Oral ev vinny day 09/02/2021 02/28/2022 Active levothyroxine 112 mcg tablet RxNorm: 886290 1 Tablet(s) Oral ev vinny day 09/02/2021 09/02/2021 Inactive levothyroxine 112 mcg tablet RxNorm: 523261 1 Tablet(s) Oral ev vinny day 08/20/2021 09/02/2021 Inactive cyanocobalamin (vit B-12) 1,000 mcg/mL injection solution Rx Norm: 501761 Take Milliliter(s) Injection 08/10/2021 08/10/2021 Inactive cyanocobalamin (vit B-12) 1,000 mcg/mL injection solution Rx Norm: 626014 Take Milliliter(s) Injection 06/30/2021 06/30/2021 Inactive albuterol sulfate 2.5 mg/3 mL (0.083 %) solution for n ebulization RxNorm: 360697 1 Unit Dose Inhalation two times a day DX J43.1 04/19/20212020 Inactive losartan 50 mg tablet RxNorm: 512679 1 Tablet(s) Oral two times a day 03/22/2021 03/17/2022 Active albuterol sulfate 2.5 mg/3 mL (0.083 %) solution for n ebulization RxNorm: 971766 1 Unit Dose Inhalation two times a day DX J43.1 03/22/20212020 Inactive albuterol sulfate 2.5 mg/3 mL (0.083 %) solution for n ebulization RxNorm: 944518 1 Unit Dose Inhalation two times a day 03/17/2021 03/16/2021 In active albuterol sulfate 2.5 mg/3 mL (0.083 %) solution for n ebulization RxNorm: 436063 1 Unit Dose Inhalation two times a day 03/17/2021 03/21/2021 In active Norvasc 5 mg tablet RxNorm: 664010 1 Tablet(s) Oral every day 12/3112/26/2021 Active Norvasc 5 mg tablet RxNorm: 616881 1 Tablet(s) Oral every day 12/3112/30/2020 Inactive metoprolol succinate ER 25 mg tablet,extended release 24 hr RxNorm: 161016 1 Tablet(s) Oral every day 12/28/2020 No Stop Date Active Ventolin HFA 90 mcg/actuation aerosol inhaler RxNorm: 945521 1-2 Puff(s) Inhalation Every 4 hrs as needed 12/28/2020 No Stop Date Active furosemide 20 mg tablet RxNorm: 298682 1 Tablet(s) Oral every day 0 12/28/2020 No Stop Date Active furosemide 40 mg tablet RxNorm: 835139 1 Tablet(s) Oral as directed 40mg BID x 5 days then 40mg in am and 20mg afternoon thereafter 11/18/2020 Inactive give qty sufficient potassium chloride ER 10 mEq tablet,extended release RxNorm: 698384 1 Tablet(s) Oral as directed 1 tab bid x 5 days then resume daily 11/18/20202020 Inactive qty sufficient potassium bicarbonate-citric acid 10 mEq effervescent tablet RxNorm: 4565011 1 Tablet(s) Oral every day 09/10/2020 11/17/2020 Inactive levothyroxine 125 mcg tablet RxNorm: 773280 1 Tablet(s) Oral ev vinny day 09/10/2020 08/19/2021 Inactive losartan 50 mg tablet RxNorm: 657893 1 Tablet(s) Oral two times a day 09/10/2020 12/27/2020 Inactive furosemide 40 mg tablet RxNorm: 458235 1 Tablet(s) Oral every day 1 11/17/2020 Inactive Zyrtec 10 mg tablet RxNorm: 1297103 1 Tablet(s) Oral every day 03/202012/28/2020 Inactive levothyroxine 125 mcg tablet RxNorm: 604607 1 Tablet(s) Oral ev vinny day 08/31/2020 09/09/2020 Inactive Zyrtec 10 mg tablet RxNorm: 4362070 1 Tablet(s) Oral every day 03/202008/30/2020 Inactive aspirin 81 mg tablet,delayed release RxNorm: 659842 1 Tablet(s) Oral every day 08/26/2020 No Stop Date Active Vitamin C 250 mg tablet RxNorm: 505154 1 Tablet(s) Oral every day 0 08/26/2020 No Stop Date Active Vitamin D3 50 mcg (2,000 unit) tablet RxNorm: 687989 1 Tablet(s ) Oral every day 08/26/2020 No Stop Date Active levothyroxine 88 mcg tablet RxNorm: 904656 1 Tablet(s) Oral micheal ry day 08/26/2020 08/30/2020 Inactive losartan 50 mg tablet RxNorm: 113921 1 Tablet(s) Oral every day 09/09/2020 Inactive furosemide 40 mg tablet RxNorm: 886782 1 Tablet(s) Oral every day 0 08/26/2020 09/09/2020 Inactive potassium bicarbonate-citric acid 10 mEq effervescent tablet RxNorm: 9825122 1 Tablet(s) Oral every day 08/26/2020 09/09/2020 Inactive Women's Multivitamin oral RxNorm: oral 08/26/2020 Act césar Calcium 600 oral RxNorm: 1897 oral 08/26/2020 Active albuterol sulfate inhalation RxNorm: 097675 inhalation 08/26/2020 Active Medication Administered Medication Codes Instructions Start Date Status cyanocobalamin (vit B-12) 1,000 mcg/mL injection solution Rx Norm: 308913 Milliliter 08/10/2021 No longer Active cyanocobalamin (vit B-12) 1,000 mcg/mL injection solution Rx Norm: 820033 Milliliter 06/30/2021 No longer Active Immunizations Vaccine [...] 08/10/20 21 Unknown Cbc With Differential Ord2 Harvey% 8.0 % 08/10/20 21 Unknown Cbc With [...] K/ul 021 Unknown Cbc With Differential Ord2 Harvey ABS# 0.7 K/ul 08/10/20 21 Unknown Cbc With Differential Ord2 Eos ABS# 0.2 K/ul 08/10/20 21 Unknown Cbc With Differential Ord2 Baso ABS# 0.0 K/ul 08/10/20 21 Unknown Tsh Ord6 TSH (3rd IS) 0.21 uIU/mL 08/10/2021 Unkn own Comp Metabolic Hwe636 NA 141 mEq/L 08/10/2021 Unkn own Comp Metabolic Qzb283 K 4.1 mEq/L 08/10/2021 Unkn own Comp Metabolic Ewk442 CL 104 mEq/L 08/10/2021 Unkn own Comp Metabolic Eqo844 CO2 28.0 mEq/L 08/10/2021 Unk nown Comp Metabolic Qsp187 ANION GAP 13 08/10/2021 Unkn own Comp Metabolic Juj938 GLUCOSE 78 mg/dL 08/10/2021 Unkn own Comp Metabolic Bib817 Creat 0.8 mg/dL 08/10/2021 Unkn own Comp Metabolic Qfe321 eGFR 71 ml/min/1.73m2 08/10/20 21 Unknown Comp Metabolic Ipz161 BUN 25 mg/dL 08/10/2021 Unkn own Comp Metabolic Wdr652 B/C Ratio 30.9 Ratio 08/10/2021 Unk nown Comp Metabolic Laq312 CALCIUM 8.7 mg/dL 08/10/2021 Unkn own Comp Metabolic Hfi727 ALK PHOS 61 U/L 08/10/2021 Unkn own Comp Metabolic Tba312 AST(SGOT) 17 U/L 08/10/2021 Unkn own Comp Metabolic Rcf626 ALT(SGPT) 10 U/L 08/10/2021 Unkn own Comp Metabolic Quh559 BILI T 0.6 mg/dL 08/10/2021 Unkn own Comp Metabolic Eef364 ALBUMIN 3.7 g/dL 08/10/2021 Unkn own Comp Metabolic Ofn909 TPRO 6.1 g/dL 08/10/2021 Unkn own Comp Metabolic Mzl544 GLOB 2.4 g/dL 08/10/2021 Unkn own Comp Metabolic Vsd408 A/G Ratio 1.6 Ratio 08/10/2021 Unkn own Comp Metabolic Abx029 Osmo 285 mOsmo 08/10/2021 Unkn own B12 Mad732 B12 >1500.00 pg/ml 08/10/2021 Unkn own Free T4 Anl083 FREE T4 1.23 ng/dL 08/10/2021 Unknown Tibc Ord40 Iron 32 ug/dl 12/29/2020 Unknown Tibc Ord40 UIBC 402 ug/dL 12/29/2020 Unknown Tibc Ord40 TIBC 434 ug/dL 12/29/2020 Unknown Tibc Ord40 Fe-%Sat 7.4 % 12/29/2020 Unknown Ferritin Ord22 FERRITIN 27.6 ng/mL 12/29/2020 Unknown B12 Qyq655 B12 187.00 pg/ml 12/29/2020 Unknow n Comp Metabolic Leg225 NA 139 mEq/L 12/28/2020 Unkn own Comp Metabolic Blj213 K 4.1 mEq/L 12/28/2020 Unkn own Comp Metabolic Mwv411 CL 103 mEq/L 12/28/2020 Unkn own Comp Metabolic Zmg363 CO2 27.0 mEq/L 12/28/2020 Unk nown Comp Metabolic Fsd011 ANION GAP 13 12/28/2020 Unkn own Comp Metabolic Yif366 GLUCOSE 79 mg/dL 12/28/2020 Unkn own Comp Metabolic Awc163 Creat 0.7 mg/dL 12/28/2020 Unkn own Comp Metabolic Swz175 eGFR 80 ml/min/1.73m2 12/28/19 21 Unknown Comp Metabolic Hyi917 BUN 21 mg/dL 12/28/2020 Unkn own Comp Metabolic Qwh270 B/C Ratio 28.8 Ratio 12/28/2020 Unk nown Comp Metabolic Qjz730 CALCIUM 8.7 mg/dL 12/28/2020 Unkn own Comp Metabolic Kgo612 ALK PHOS 74 U/L 12/28/2020 Unkn own Comp Metabolic Jpl889 AST(SGOT) 15 U/L 12/28/2020 Unkn own Comp Metabolic Twl636 ALT(SGPT) 17 U/L 12/28/2020 Unkn own Comp Metabolic Kva767 BILI T 0.4 mg/dL 12/28/2020 Unkn own Comp Metabolic Mly435 ALBUMIN 3.5 g/dL 12/28/2020 Unkn own Comp Metabolic Lso556 TPRO 5.9 g/dL 12/28/2020 Unkn own Comp Metabolic Ryh218 GLOB 2.4 g/dL 12/28/2020 Unkn own Comp Metabolic Ami674 A/G Ratio 1.4 Ratio 12/28/2020 Unkn own Comp Metabolic Qsx893 Osmo 279 mOsmo 12/28/2020 Unkn own Cbc [...] 12/28/19 21 Unknown Cbc With Differential Ord2 Harvey% 7.9 % 12/28/19 21 Unknown Cbc With [...] K/ul 021 Unknown Cbc With Differential Ord2 Harvey ABS# 0.6 K/ul 12/28/19 21 Unknown Cbc With Differential Ord2 Eos ABS# 0.4 K/ul 12/28/19 21 Unknown Cbc With Differential Ord2 Baso ABS# 0.0 K/ul 12/28/19 21 Unknown Procedures Procedure Codes Date THER/PROPH/DIAG INJ SC/IM CPT-4: 81605 08/10/2021 VITAMIN B12 INJECTION 1000 mcg CPT-4: J3420 THER/PROPH/DIAG INJ SC/IM CPT-4: 78238 06/30/2021 Vital Signs Date Vital 08/23/2021 SpO2: 96% SpO2: 87% SpO2: 94% 08/10/2021 Blood Pressure 1: 138/82 Code: 8480-6 BMI: 33.5 Code: 10677-8 Heart Rate 1: 74 bpm Height: 5'3" Code: 8302-2 SpO2: 98% Temperature: 3 6.2 (C) / 97.1 (F) Weight: 189 lbs Code: 28959-9 05/11/2021 Blood Pressure 1: 134/80 Code: 8480-6 Heart Rate 1: 77 bpm Height: 5'3" Code: 8302-2 SpO2: 93% Temperature: 36.3 (C) / 97.3 (F) 01/25/2021 Blood Pressure 1: 136/88 Code: 8480-6 Heart Rate 1: 60 bpm Height: Code: 8302-2 SpO2: 93% Temperature: 36.3 (C) / 97.3 (F) Weight: 174 lbs Code: 17936-3 12/28/2020 Blood Pressure 1: 164/92 Code: 8480-6 BMI: 31.4 Code: 64366-5 Heart Rate 1: 67 bpm Height: 5'3" Code: 8302-2 SpO2: 94% Temperature: 3 6.2 (C) / 97.1 (F) Weight: 177 lbs Code: 01628-6 12/10/2020 Blood Pressure 1: 134/72 Code: 8480-6 BMI: 30.8 Code: 69068-7 Heart Rate 1: 74 bpm Height: 5'3" Code: 8302-2 Respiratory Rate: 18 bpm SpO2: 95% Temperature: 36.3 (C) / 97.4 (F) Weight: 174 lbs Code: 37176-2 09/10/2020 Blood Pressure 1: 202/94 Code: 8480-6 BMI: 30.6 Code: 02436-9 Heart Rate 1: 73 bpm Height: 5'3" Code: 8302-2 Respiratory Rate: 17 bpm SpO2: 91% Temperature: 36.8 (C) / 98.2 (F) Weight: 173 lbs Code: 64843-8 08/26/2020 Blood Pressure 1: 144/90 Code: 8480-6 BMI: 29.4 Code: 77234-1 Heart Rate 1: 72 bpm Height: 5'3" Code: 8302-2 SpO2: 98% Temperature: 3 6.7 (C) / 98.0 (F) Weight: 166 lbs Code: 38408-9 Functional Status No Functional Status data Reason For Visit Reason For Visit Effective Dates Notes hypertension 08/10/2021 hypertension 05/11/2021 hypertension 01/25/2021 Hospital Follow Up 12/28/2020 shortness of breath 12/10/2020 shortness of breath 09/10/2020 Hospital Follow Up 08/26/2020 Encounters Encounter Performer Location Codes Date ([id number]) 10270 EST. PATIENT, LEVEL I Diagnosis: CHF (congestive heart failure)[ICD10: I50.9] Diagnosis: On supplemental oxygen therapy[ICD10: Z99.81] [facility] CPT-4: 67788 08/23/2021 [id number]) [id number] EST. PATIENT, LEVEL IV Diagnosis: Vitamin B12 deficiency (dietary) anemia[ICD10: D51.8] Diagnosis: Essential (primary) hypertension[ICD10: I10] Diagnosis: Atrophy of thyroid (acquired)[ICD10: E03.4] Rena Mac MD, [facility] CPT-4: 95428 08/10/2021 ([id number]) 51143 EST. PATIENT, LEVEL IV Diagnosis: Essential (primary) hypertension[ICD10: I10] Diagnosis: Vitamin B12 deficiency (dietary) anemia[ICD10: D51.8] Diagnosis: Atrophy of thyroid (acquired)[ICD10: E03.4] Diagnosis: Localized edema[ICD10: R60.0] Rena white MD, [facility] CPT-4: 85741 05/11/2021 ([id number]) 62906 EST. PATIENT, LEVEL IV Diagnosis: CHF (congestive heart failure)[ICD10: I50.9] Diagnosis: Essential (primary) hypertension[ICD10: I10] Diagnosis: Vitamin B12 deficiency (dietary) anemia[ICD10: D51.8] Rena Mac MD, [facility] CPT-4: 56861 01/25/2021 ([id number]) 32952 EST. PATIENT, LEVEL IV Diagnosis: Acute on chronic diastolic congestive heart failure[ICD10: I50.33] Diagnosis: Anemia[ICD10: D64.9] Diagnosis: Essential (primary) hypertension[ICD10: I10] Rena Mac MD, [facility] CPT-4: 57115 12/28/2020 ([id number]) 03889 EST. PATIENT, LEVEL IV Diagnosis: Essential (primary) hypertension[ICD10: I10] Diagnosis: CHF (congestive heart failure)[ICD10: I50.9] Diagnosis: Atrophy of thyroid (acquired)[ICD10: E03.4] Shantal Mac MD, [facility] CPT-4: 54594 12/10/2020 ([id number]) 37991 EST. PATIENT, LEVEL IV Diagnosis: Essential (primary) hypertension[ICD10: I10] Diagnosis: CHF (congestive heart failure)[ICD10: I50.9] Diagnosis: On supplemental oxygen therapy[ICD10: Z99.81] Diagnosis: Atrophy of thyroid (acquired)[ICD10: E03.4] Shantal Mac MD, [facility] CPT-4: 66573 09/10/2020 OFFICE VISIT, NEW - LEVEL 3 Diagnosis: CHF (congestive heart failure)[ICD10: I50.9] Diagnosis: Dementia without behavioral disturbance, unspecified dementia type[ICD10: F03.90] [facility] CPT-4: 77721 08/26 Plan of Care Planned Activity Notes [...] -injection today 08/10/2021 Appointment: Rena Livingston [facility]el[phone] [facility] 08/10/2021 Patient Education: Patient Medication Summary Completed [...] next labs 05/11/2021 Appointment: Rena Livingston WPtel: [phone] [phone] [place] (30 min) Complex 05/11/2021 Patient Education: Patient Medication Summary Completed 05/11/2021 Appointment: Rena Livingston WPtel: [phone] [phone] [place] (30 min) Complex 04/27/2021 [facility]ment[facility] [phone] [facility] [place] (15 min) Moderate 03/11/2021 Visit Plan: Hypertension [...] Anemia- continue with B12 injections per HH 01/25/2021 Appointment: [facility] [phone] [facility] [place] (30 min) Complex 01/25/2021 Patient Education: Patient [...] medications today 12/28/2020 App[facility]ment: [facility] [phone] [phone] [place] (30 min) Complex 12/28/2020 Patient Education: Patient [...] Summary Completed 12/10/2020 Appointment: Shantal Mac WPtel: [facility] ([facility] min) Complex 11/03/2020 Visit Plan: Chronic [...] home health. 09/10/2020 App[facility]ment: [facility] [phone] [facility] [place] (15 min) Moderate 09/10/2020 Patient Education: [...] to be done to be drawn by [place]. Will set up with [facility] pt is to consider moving to assisted [...]
--- OUTSIDE RECORDS SUMMARY | 2021-09-13 15:04 | XMS REPORT | CCD ---
Author Author Flakita Andino Organization Shantal Mac MD, [facility] Address [address] [place] [address] Phone Care Team Providers Care Financial Developer Name Role Phone Shantal Mac PP Unavailable CCM Unavailable Summary Purpose Interface Exchange Insurance Providers Payer name Policy type / Coverage type Covered green party ID Effective Begin Date Effective End Date WPS Medicare Part B Medicare Part B [id number] Unknown Unkno wn [facility] Medicare Part B [id number] Unkno wn Unknown Family history Sister Diagnosis [...] Unknown Retired 08/26/[address]: 9456436 Quit over 10 years a go 199908/26/[address]: 421561439 Never drinks alcohol 2019 Allergies, Adverse Reactions, Alerts Substance Reaction Codes Entered Date Inactivated Date Status Penicillin rash, Unknown 08/26/2020 No Inactive Date Active * OTHER REACTION - SEE ANSWER BOX Tetracycline- Rash Unknown 0 08/26/2020 No Inactive Date Active Problems Condition Codes Effective Dates Condition Status 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 ICD-9: 244.8 09/10/2020 Active Essential (primary) hypertension ICD-10: I10 ICD-9: 401.1 09/10/2020 Active Vitamin B12 deficiency (dietary) anemia ICD-10: D51.8 ICD-9: 281.1 01/25/2021 Active CHF (congestive heart failure) ICD-10: I50.9 ICD-9: 428.0 08/26/2020 Active Localized edema ICD-10: R60.0 ICD-9: 782.3 05/11/2021 Active Acute on chronic diastolic congestive heart failure IC D-10: I50.33 ICD-9: 428.33 12/28/2020 Active Anemia ICD-10: D64.9 ICD-9: 285.9 12/28/2020 Active On supplemental oxygen therapy ICD-10: Z99.81 ICD-9: V46.2 09/10/2020 Active Dementia without behavioral disturbance, unspecified d ementia type ICD-10: F03.90 ICD-9: 294.20 08/26/2020 Active Medications Medication Codes Instructions Start Date Stop Date Status Fill Instructions cyanocobalamin (vit B-12) 1,000 mcg/mL injection solution Rx Norm: 761031 Take Milliliter(s) Injection 08/10/2021 08/10/2021 Inactive cyanocobalamin (vit B-12) 1,000 mcg/mL injection solution Rx Norm: 581957 Take Milliliter(s) Injection 06/30/2021 06/30/2021 Inactive albuterol sulfate 2.5 mg/3 mL (0.083 %) solution for n ebulization RxNorm: 780989 1 Unit Dose Inhalation two times a day DX J43.1 04/19/20212020 Active losartan 50 mg tablet RxNorm: 500844 1 Tablet(s) Oral two times a day 03/22/2021 03/17/2022 Active albuterol sulfate 2.5 mg/3 mL (0.083 %) solution for n ebulization RxNorm: 682407 1 Unit Dose Inhalation two times a day DX J43.1 03/22/20212020 Inactive albuterol sulfate 2.5 mg/3 mL (0.083 %) solution for n ebulization RxNorm: 058781 1 Unit Dose Inhalation two times a day 03/17/2021 03/16/2021 In active albuterol sulfate 2.5 mg/3 mL (0.083 %) solution for n ebulization RxNorm: 918999 1 Unit Dose Inhalation two times a day 03/17/2021 03/21/2021 In active Norvasc 5 mg tablet RxNorm: 495840 1 Tablet(s) Oral every day 12/3112/26/2021 Active Norvasc 5 mg tablet RxNorm: 486501 1 Tablet(s) Oral every day 12/3112/30/2020 Inactive metoprolol succinate ER 25 mg tablet,extended release 24 hr RxNorm: 513621 1 Tablet(s) Oral every day 12/28/2020 No Stop Date Active Ventolin HFA 90 mcg/actuation aerosol inhaler RxNorm: 437099 1-2 Puff(s) Inhalation Every 4 hrs as needed 12/28/2020 No Stop Date Active furosemide 20 mg tablet RxNorm: 507132 1 Tablet(s) Oral every day 0 12/28/2020 No Stop Date Active furosemide 40 mg tablet RxNorm: 859323 1 Tablet(s) Oral as directed 40mg BID x 5 days then 40mg in am and 20mg afternoon thereafter 11/18/2020 Inactive give qty sufficient potassium chloride ER 10 mEq tablet,extended release RxNorm: 658872 1 Tablet(s) Oral as directed 1 tab bid x 5 days then resume daily 11/18/20202020 Inactive qty sufficient levothyroxine 125 mcg tablet RxNorm: 814674 1 Tablet(s) Oral ev vinny day 09/10/2020 09/05/2021 Active potassium bicarbonate-citric acid 10 mEq effervescent tablet RxNorm: 8320757 1 Tablet(s) Oral every day 09/10/2020 11/17/2020 Inactive losartan 50 mg tablet RxNorm: 891375 1 Tablet(s) Oral two times a day 09/10/2020 12/27/2020 Inactive furosemide 40 mg tablet RxNorm: 481799 1 Tablet(s) Oral every day 1 11/17/2020 Inactive Zyrtec 10 mg tablet RxNorm: 9170354 1 Tablet(s) Oral every day 03/202012/28/2020 Inactive levothyroxine 125 mcg tablet RxNorm: 632472 1 Tablet(s) Oral ev vinny day 08/31/2020 09/09/2020 Inactive Zyrtec 10 mg tablet RxNorm: 7910788 1 Tablet(s) Oral every day 03/202008/30/2020 Inactive aspirin 81 mg tablet,delayed release RxNorm: 950562 1 Tablet(s) Oral every day 08/26/2020 No Stop Date Active Vitamin C 250 mg tablet RxNorm: 993815 1 Tablet(s) Oral every day 0 08/26/2020 No Stop Date Active Vitamin D3 50 mcg (2,000 unit) tablet RxNorm: 513374 1 Tablet(s ) Oral every day 08/26/2020 No Stop Date Active levothyroxine 88 mcg tablet RxNorm: 509550 1 Tablet(s) Oral micheal ry day 08/26/2020 08/30/2020 Inactive losartan 50 mg tablet RxNorm: 014896 1 Tablet(s) Oral every day 09/09/2020 Inactive furosemide 40 mg tablet RxNorm: 828529 1 Tablet(s) Oral every day 0 08/26/2020 09/09/2020 Inactive potassium bicarbonate-citric acid 10 mEq effervescent tablet RxNorm: 5275802 1 Tablet(s) Oral every day 08/26/2020 09/09/2020 Inactive Women's Multivitamin oral RxNorm: oral 08/26/2020 Act césar Calcium 600 oral RxNorm: 1897 oral 08/26/2020 Active albuterol sulfate inhalation RxNorm: 968291 inhalation 08/26/2020 Active Medication Administered Medication Codes Instructions Start Date Status cyanocobalamin (vit B-12) 1,000 mcg/mL injection solution Rx Norm: 638474 Milliliter 08/10/2021 Active cyanocobalamin (vit B-12) 1,000 mcg/mL injection solution Rx Norm: 058986 Milliliter 06/30/2021 No longer Active Immunizations Vaccine Codes Date Status Covid-19 CVX: 207 03/06/2021 Covid-19 CVX: 207 02/06/2021 Pneumococcal (Adult) Unknown 05/27/2019 Zoster CVX: 121 05/27/2017 Results Observation Observation Code Item Item Code Result Date S ervice Location Tibc Ord40 Iron 32 ug/dl 12/29/2020 Unknown Tibc Ord40 UIBC 402 ug/dL 12/29/2020 Unknown Tibc Ord40 TIBC 434 ug/dL 12/29/2020 Unknown Tibc Ord40 Fe-%Sat 7.4 % 12/29/2020 Unknown Ferritin Ord22 FERRITIN 27.6 ng/mL 12/29/2020 Unknown B12 Tdl789 B12 187.00 pg/ml 12/29/2020 Unknow n Comp Metabolic Xti399 NA 139 mEq/L 12/28/2020 Unkn own Comp Metabolic Tdm924 K 4.1 mEq/L 12/28/2020 Unkn own Comp Metabolic Ors620 CL 103 mEq/L 12/28/2020 Unkn own Comp Metabolic Cle383 CO2 27.0 mEq/L 12/28/2020 Unk nown Comp Metabolic Cfx351 ANION GAP 13 12/28/2020 Unkn own Comp Metabolic Izs787 GLUCOSE 79 mg/dL 12/28/2020 Unkn own Comp Metabolic Isw021 Creat 0.7 mg/dL 12/28/2020 Unkn own Comp Metabolic Cxa809 eGFR 80 ml/min/1.73m2 12/28/19 21 Unknown Comp Metabolic Jxz105 BUN 21 mg/dL 12/28/2020 Unkn own Comp Metabolic Szx917 B/C Ratio 28.8 Ratio 12/28/2020 Unk nown Comp Metabolic Odx620 CALCIUM 8.7 mg/dL 12/28/2020 Unkn own Comp Metabolic Zdp239 ALK PHOS 74 U/L 12/28/2020 Unkn own Comp Metabolic Bze259 AST(SGOT) 15 U/L 12/28/2020 Unkn own Comp Metabolic Zus949 ALT(SGPT) 17 U/L 12/28/2020 Unkn own Comp Metabolic Kwm124 BILI T 0.4 mg/dL 12/28/2020 Unkn own Comp Metabolic Seu791 ALBUMIN 3.5 g/dL 12/28/2020 Unkn own Comp Metabolic Cjk423 TPRO 5.9 g/dL 12/28/2020 Unkn own Comp Metabolic Swe873 GLOB 2.4 g/dL 12/28/2020 Unkn own Comp Metabolic Ibp288 A/G Ratio 1.4 Ratio 12/28/2020 Unkn own Comp Metabolic Unf161 Osmo 279 mOsmo 12/28/2020 Unkn own Cbc [...] 12/28/19 21 Unknown Cbc With Differential Ord2 [place]% 7.9 % 12/28/19 21 Unknown Cbc With [...] K/ul 021 Unknown Cbc With Differential Ord2 [place] ABS# 0.6 K/ul 12/28/19 21 Unknown Cbc With Differential Ord2 Eos ABS# 0.4 K/ul 12/28/19 21 Unknown Cbc With Differential Ord2 Baso ABS# 0.0 K/ul 12/28/19 21 Unknown Procedures Procedure Codes Date THER/PROPH/DIAG INJ SC/IM CPT-4: 60930 08/10/2021 VITAMIN B12 INJECTION 1000 mcg CPT-4: J3420 THER/PROPH/DIAG INJ SC/IM CPT-4: 65887 06/30/2021 Vital Signs Date Vital 08/10/2021 Blood Pressure 1: 138/82 Code: 8480-6 BMI: 33.5 Code: 96467-9 Heart Rate 1: 74 bpm Height: 5'3" Code: 8302-2 SpO2: 98% Temperature: 3 6.2 (C) / 97.1 (F) Weight: 189 lbs Code: 31302-0 05/11/2021 Blood Pressure 1: 134/80 Code: 8480-6 Heart Rate 1: 77 bpm Height: 5'3" Code: 8302-2 SpO2: 93% Temperature: 36.3 (C) / 97.3 (F) 01/25/2021 Blood Pressure 1: 136/88 Code: 8480-6 Heart Rate 1: 60 bpm Height: Code: 8302-2 SpO2: 93% Temperature: 36.3 (C) / 97.3 (F) Weight: 174 lbs Code: 80824-5 12/28/2020 Blood Pressure 1: 164/92 Code: 8480-6 BMI: 31.4 Code: 99208-4 Heart Rate 1: 67 bpm Height: 5'3" Code: 8302-2 SpO2: 94% Temperature: 3 6.2 (C) / 97.1 (F) Weight: 177 lbs Code: 40054-7 12/10/2020 Blood Pressure 1: 134/72 Code: 8480-6 BMI: 30.8 Code: 97429-5 Heart Rate 1: 74 bpm Height: 5'3" Code: 8302-2 Respiratory Rate: 18 bpm SpO2: 95% Temperature: 36.3 (C) / 97.4 (F) Weight: 174 lbs Code: 70983-0 09/10/2020 Blood Pressure 1: 202/94 Code: 8480-6 BMI: 30.6 Code: 46029-7 Heart Rate 1: 73 bpm Height: 5'3" Code: 8302-2 Respiratory Rate: 17 bpm SpO2: 91% Temperature: 36.8 (C) / 98.2 (F) Weight: 173 lbs Code: 89596-3 08/26/2020 Blood Pressure 1: 144/90 Code: 8480-6 BMI: 29.4 Code: 06398-4 Heart Rate 1: 72 bpm Height: 5'3" Code: 8302-2 SpO2: 98% Temperature: 3 6.7 (C) / 98.0 (F) Weight: 166 lbs Code: 29641-9 Functional Status No Functional Status data Reason For Visit Reason For Visit Effective Dates Notes hypertension 08/10/2021 hypertension 05/11/2021 hypertension 01/25/2021 Hospital Follow Up 12/28/2020 shortness of breath 12/10/2020 shortness of breath 09/10/2020 Hospital Follow Up 08/26/2020 Encounters Encounter Performer Location Codes Date ([id number]) 11566 EST. PATIENT, LEVEL IV Diagnosis: Vitamin B12 deficiency (dietary) anemia[ICD10: D51.8] Diagnosis: Essential (primary) hypertension[ICD10: I10] Diagnosis: Atrophy of thyroid (acquired)[ICD10: E03.4] Rena Mac MD, [facility] CPT-4: 47201 08/10/2021 ([id number]) 49800 EST. PATIENT, LEVEL IV Diagnosis: Essential (primary) hypertension[ICD10: I10] Diagnosis: Vitamin B12 deficiency (dietary) anemia[ICD10: D51.8] Diagnosis: Atrophy of thyroid (acquired)[ICD10: E03.4] Diagnosis: Localized edema[ICD10: R60.0] Rena white MD, [facility] CPT-4: 10788 05/11/2021 ([id number]) 44435 EST. PATIENT, LEVEL IV Diagnosis: CHF (congestive heart failure)[ICD10: I50.9] Diagnosis: Essential (primary) hypertension[ICD10: I10] Diagnosis: Vitamin B12 deficiency (dietary) anemia[ICD10: D51.8] Rena Mac MD, [facility] CPT-4: 41213 01/25/2021 ([id number]) 22368 EST. PATIENT, LEVEL IV Diagnosis: Acute on chronic diastolic congestive heart failure[ICD10: I50.33] Diagnosis: Anemia[ICD10: D64.9] Diagnosis: Essential (primary) hypertension[ICD10: I10] Rena Mac MD, [facility] CPT-4: 01023 12/28/2020 ([id number]) 39256 EST. PATIENT, LEVEL IV Diagnosis: Essential (primary) hypertension[ICD10: I10] Diagnosis: CHF (congestive heart failure)[ICD10: I50.9] Diagnosis: Atrophy of thyroid (acquired)[ICD10: E03.4] Shantal Mac MD, [facility] CPT-4: 30545 12/10/2020 ([id number]) 16567 EST. PATIENT, LEVEL IV Diagnosis: Essential (primary) hypertension[ICD10: I10] Diagnosis: CHF (congestive heart failure)[ICD10: I50.9] Diagnosis: On supplemental oxygen therapy[ICD10: Z99.81] Diagnosis: Atrophy of thyroid (acquired)[ICD10: E03.4] Shantal Mac MD, [facility] CPT-4: 81471 09/10/2020 OFFICE VISIT, NEW - LEVEL 3 Diagnosis: CHF (congestive heart failure)[ICD10: I50.9] Diagnosis: Dementia without behavioral disturbance, unspecified dementia type[ICD10: F03.90] [facility] CPT-4: 54372 08/26 Plan of Care Planned Activity Notes Codes Status Date Visit Plan: Hypertension - well controll ed [...] of control. B12 def -injection today 08/10/2021 Patient Education: Patient Medication Summary Completed 08/10/2021 Care Plan: Cbc With Differential Pending 08/10/2021 Care Plan: Comp Metabolic Pending Care Plan: B12 Pending 08/10/2021 Care Plan: Tsh Pending 08/10/2021 Care Plan: Free T4 Pending Appointment: Injection 06/30/2021 Patient Education: Patient Medication [...] levels with next labs 05/11/2021 Appointment: Rena Livingstontel: [phone] [phone] [place] (30 min) Complex 05/11/2021 Patient Education: Patient Medication Summary Completed 05/11/2021 Appointment: Rena Livingston WPtel: [phone] [phone] [place] (30 min) Complex 04/27/2021 Appointment: Shantal Mac WPtel: [phone] [facility] [place] (15 min) Moderate 03/11/2021 Visit Plan: [...] per HH 01/25/2021 [phone] [place] ([place]) Complex 01/25/2021 Patient Education: [...] medications today 12/28/2020 [facility]ment: [facility] [phone] [phone] [place] (30 min) Complex 12/28/2020 Patient Education: [...] Summary Completed 12/10/2020 [facility] ([facility] Complex 11/03/2020 Visit Plan: [...] home health. 09/10/2020 App[facility]ment[facility]ant[facility] [place] (15 min) Moderate 09/10/2020 Patient [...] . Hypertension - well controlled - chelsi ambrocioe with current medications, continue with no added [...] to be done to be drawn by [facility] [employer]. Will set up with [employer] [facility] pt is to consider moving to assisted [...]
--- OUTSIDE RECORDS SUMMARY | 2021-09-13 15:04 | XMS REPORT | CCD ---
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 Name Role Phone Shantal Mac PP Unavailable CCM Unavailable Summary Purpose Interface Exchange Insurance Providers Payer name Policy type / Coverage type Covered republican ID Effective Begin Date Effective End Date WPS Medicare Part B Medicare Part B [id number] Unknown Unkno wn [facility] Medicare Part B [id number] Unkno wn Unknown Family history Sister Diagnosis [...] Unknown Retired 08/26/[address]: 8973877 Quit over 10 years a go 199908/26/[address]: 135929536 Never drinks alcohol 2019 Allergies, Adverse Reactions, [...] Fill Instructions levothyroxine 112 mcg tablet RxNorm: 403093 1 Tablet(s) Oral 08/20/2021 No Stop Date Active cyanocobalamin (vit B-12) 1,000 mcg/mL injection solution Rx Norm: 812883 Take Milliliter(s) Injection 08/10/2021 08/10/2021 Inactive cyanocobalamin (vit B-12) 1,000 mcg/mL injection solution Rx Norm: 170208 Take Milliliter(s) Injection 06/30/2021 06/30/2021 Inactive albuterol sulfate 2.5 mg/3 mL (0.083 %) solution for n ebulization RxNorm: 181728 1 Unit Dose Inhalation two times a day DX J43.1 04/19/20212020 Inactive losartan 50 mg tablet RxNorm: 161350 1 Tablet(s) Oral two times a day 03/22/2021 03/17/2022 Active albuterol sulfate 2.5 mg/3 mL (0.083 %) solution for n ebulization RxNorm: 588395 1 Unit Dose Inhalation two times a day DX J43.1 03/22/20212020 Inactive albuterol sulfate 2.5 mg/3 mL (0.083 %) solution for n ebulization RxNorm: 934672 1 Unit Dose Inhalation two times a day 03/17/2021 03/16/2021 In active albuterol sulfate 2.5 mg/3 mL (0.083 %) solution for n ebulization RxNorm: 766972 1 Unit Dose Inhalation two times a day 03/17/2021 03/21/2021 In active Norvasc 5 mg tablet RxNorm: 137360 1 Tablet(s) Oral every day 12/3112/26/2021 Active Norvasc 5 mg tablet RxNorm: 646024 1 Tablet(s) Oral every day 12/3112/30/2020 Inactive metoprolol succinate ER 25 mg tablet,extended release 24 hr RxNorm: 846053 1 Tablet(s) Oral every day 12/28/2020 No Stop Date Active Ventolin HFA 90 mcg/actuation aerosol inhaler RxNorm: 028756 1-2 Puff(s) Inhalation Every 4 hrs as needed 12/28/2020 No Stop Date Active furosemide 20 mg tablet RxNorm: 985761 1 Tablet(s) Oral every day 0 12/28/2020 No Stop Date Active furosemide 40 mg tablet RxNorm: 484959 1 Tablet(s) Oral as directed 40mg BID x 5 days then 40mg in am and 20mg afternoon thereafter 11/18/2020 Inactive give qty sufficient potassium chloride ER 10 mEq tablet,extended release RxNorm: 803809 1 Tablet(s) Oral as directed 1 tab bid x 5 days then resume daily 11/18/20202020 Inactive qty sufficient potassium bicarbonate-citric acid 10 mEq effervescent tablet RxNorm: 2960465 1 Tablet(s) Oral every day 09/10/2020 11/17/2020 Inactive levothyroxine 125 mcg tablet RxNorm: 846491 1 Tablet(s) Oral ev vinny day 09/10/2020 08/19/2021 Inactive losartan 50 mg tablet RxNorm: 296816 1 Tablet(s) Oral two times a day 09/10/2020 12/27/2020 Inactive furosemide 40 mg tablet RxNorm: 570755 1 Tablet(s) Oral every day 1 11/17/2020 Inactive Zyrtec 10 mg tablet RxNorm: 9377387 1 Tablet(s) Oral every day 03/202012/28/2020 Inactive levothyroxine 125 mcg tablet RxNorm: 829799 1 Tablet(s) Oral ev vinny day 08/31/2020 09/09/2020 Inactive Zyrtec 10 mg tablet RxNorm: 0424237 1 Tablet(s) Oral every day 03/202008/30/2020 Inactive aspirin 81 mg tablet,delayed release RxNorm: 337993 1 Tablet(s) Oral every day 08/26/2020 No Stop Date Active Vitamin C 250 mg tablet RxNorm: 218128 1 Tablet(s) Oral every day 0 08/26/2020 No Stop Date Active Vitamin D3 50 mcg (2,000 unit) tablet RxNorm: 162631 1 Tablet(s ) Oral every day 08/26/2020 No Stop Date Active levothyroxine 88 mcg tablet RxNorm: 666251 1 Tablet(s) Oral micheal ry day 08/26/2020 08/30/2020 Inactive losartan 50 mg tablet RxNorm: 003197 1 Tablet(s) Oral every day 09/09/2020 Inactive furosemide 40 mg tablet RxNorm: 953741 1 Tablet(s) Oral every day 0 08/26/2020 09/09/2020 Inactive potassium bicarbonate-citric acid 10 mEq effervescent tablet RxNorm: 4176429 1 Tablet(s) Oral every day 08/26/2020 09/09/2020 Inactive Women's Multivitamin oral RxNorm: oral 08/26/2020 Act césar Calcium 600 oral RxNorm: 1897 oral 08/26/2020 Active albuterol sulfate inhalation RxNorm: 589677 inhalation 08/26/2020 Active Medication Administered Medication Codes Instructions Start Date Status cyanocobalamin (vit B-12) 1,000 mcg/mL injection solution Rx Norm: 573428 Milliliter 08/10/2021 No longer Active cyanocobalamin (vit B-12) 1,000 mcg/mL injection solution Rx Norm: 152623 Milliliter 06/30/2021 No longer Active Immunizations Vaccine [...] 08/10/20 21 Unknown Cbc With Differential Ord2 [place]% 8.0 % 08/10/20 21 Unknown Cbc With [...] K/ul 021 Unknown Cbc With Differential Ord2 [place] ABS# 0.7 K/ul 08/10/20 21 Unknown Cbc With Differential Ord2 Eos ABS# 0.2 K/ul 08/10/20 21 Unknown Cbc With Differential Ord2 Baso ABS# 0.0 K/ul 08/10/20 21 Unknown Tsh Ord6 TSH (3rd IS) 0.21 uIU/mL 08/10/2021 Unkn own Comp Metabolic Chi448 NA 141 mEq/L 08/10/2021 Unkn own Comp Metabolic Mql783 K 4.1 mEq/L 08/10/2021 Unkn own Comp Metabolic Uut480 CL 104 mEq/L 08/10/2021 Unkn own Comp Metabolic Irk845 CO2 28.0 mEq/L 08/10/2021 Unk nown Comp Metabolic Buu779 ANION GAP 13 08/10/2021 Unkn own Comp Metabolic Uyn221 GLUCOSE 78 mg/dL 08/10/2021 Unkn own Comp Metabolic Kcv860 Creat 0.8 mg/dL 08/10/2021 Unkn own Comp Metabolic Kyw435 eGFR 71 ml/min/1.73m2 08/10/20 21 Unknown Comp Metabolic Jta097 BUN 25 mg/dL 08/10/2021 Unkn own Comp Metabolic Ema679 B/C Ratio 30.9 Ratio 08/10/2021 Unk nown Comp Metabolic Xtx762 CALCIUM 8.7 mg/dL 08/10/2021 Unkn own Comp Metabolic Csw233 ALK PHOS 61 U/L 08/10/2021 Unkn own Comp Metabolic Dqr030 AST(SGOT) 17 U/L 08/10/2021 Unkn own Comp Metabolic Lwa336 ALT(SGPT) 10 U/L 08/10/2021 Unkn own Comp Metabolic Xhf092 BILI T 0.6 mg/dL 08/10/2021 Unkn own Comp Metabolic Nvo123 ALBUMIN 3.7 g/dL 08/10/2021 Unkn own Comp Metabolic Hle258 TPRO 6.1 g/dL 08/10/2021 Unkn own Comp Metabolic Dvu140 GLOB 2.4 g/dL 08/10/2021 Unkn own Comp Metabolic Vod115 A/G Ratio 1.6 Ratio 08/10/2021 Unkn own Comp Metabolic Mkv005 Osmo 285 mOsmo 08/10/2021 Unkn own B12 Dcm846 B12 >1500.00 pg/ml 08/10/2021 Unkn own Free T4 Jkl470 FREE T4 1.23 ng/dL 08/10/2021 Unknown Tibc Ord40 Iron 32 ug/dl 12/29/2020 Unknown Tibc Ord40 UIBC 402 ug/dL 12/29/2020 Unknown Tibc Ord40 TIBC 434 ug/dL 12/29/2020 Unknown Tibc Ord40 Fe-%Sat 7.4 % 12/29/2020 Unknown Ferritin Ord22 FERRITIN 27.6 ng/mL 12/29/2020 Unknown B12 Grl352 B12 187.00 pg/ml 12/29/2020 Unknow n Comp Metabolic Jxi476 NA 139 mEq/L 12/28/2020 Unkn own Comp Metabolic Mzd354 K 4.1 mEq/L 12/28/2020 Unkn own Comp Metabolic Gpo400 CL 103 mEq/L 12/28/2020 Unkn own Comp Metabolic Fqc159 CO2 27.0 mEq/L 12/28/2020 Unk nown Comp Metabolic Nwh051 ANION GAP 13 12/28/2020 Unkn own Comp Metabolic Faa067 GLUCOSE 79 mg/dL 12/28/2020 Unkn own Comp Metabolic Egf811 Creat 0.7 mg/dL 12/28/2020 Unkn own Comp Metabolic Qva954 eGFR 80 ml/min/1.73m2 12/28/19 21 Unknown Comp Metabolic Fvj092 BUN 21 mg/dL 12/28/2020 Unkn own Comp Metabolic Ypx778 B/C Ratio 28.8 Ratio 12/28/2020 Unk nown Comp Metabolic Luy867 CALCIUM 8.7 mg/dL 12/28/2020 Unkn own Comp Metabolic Rhp023 ALK PHOS 74 U/L 12/28/2020 Unkn own Comp Metabolic Cav678 AST(SGOT) 15 U/L 12/28/2020 Unkn own Comp Metabolic Uco056 ALT(SGPT) 17 U/L 12/28/2020 Unkn own Comp Metabolic Jab116 BILI T 0.4 mg/dL 12/28/2020 Unkn own Comp Metabolic Keo399 ALBUMIN 3.5 g/dL 12/28/2020 Unkn own Comp Metabolic Jfm107 TPRO 5.9 g/dL 12/28/2020 Unkn own Comp Metabolic Btr913 GLOB 2.4 g/dL 12/28/2020 Unkn own Comp Metabolic Tja310 A/G Ratio 1.4 Ratio 12/28/2020 Unkn own Comp Metabolic Myg914 Osmo 279 mOsmo 12/28/2020 Unkn own Cbc [...] 12/28/19 21 Unknown Cbc With Differential Ord2 [place]% 7.9 % 12/28/19 21 Unknown Cbc With [...] K/ul 021 Unknown Cbc With Differential Ord2 [place] ABS# 0.6 K/ul 12/28/19 21 Unknown Cbc With Differential Ord2 Eos ABS# 0.4 K/ul 12/28/19 21 Unknown Cbc With Differential Ord2 Baso ABS# 0.0 K/ul 12/28/19 21 Unknown Procedures Procedure Codes Date THER/PROPH/DIAG INJ SC/IM CPT-4: 93905 08/10/2021 VITAMIN B12 INJECTION 1000 mcg CPT-4: J3420 THER/PROPH/DIAG INJ SC/IM CPT-4: 52429 06/30/2021 Vital Signs Date Vital 08/23/2021 SpO2: 96% SpO2: 87% SpO2: 94% 08/10/2021 Blood Pressure 1: 138/82 Code: 8480-6 BMI: 33.5 Code: 28511-8 Heart Rate 1: 74 bpm Height: 5'3" Code: 8302-2 SpO2: 98% Temperature: 3 6.2 (C) / 97.1 (F) Weight: 189 lbs Code: 75497-0 05/11/2021 Blood Pressure 1: 134/80 Code: 8480-6 Heart Rate 1: 77 bpm Height: 5'3" Code: 8302-2 SpO2: 93% Temperature: 36.3 (C) / 97.3 (F) 01/25/2021 Blood Pressure 1: 136/88 Code: 8480-6 Heart Rate 1: 60 bpm Height: Code: 8302-2 SpO2: 93% Temperature: 36.3 (C) / 97.3 (F) Weight: 174 lbs Code: 70467-4 12/28/2020 Blood Pressure 1: 164/92 Code: 8480-6 BMI: 31.4 Code: 54197-2 Heart Rate 1: 67 bpm Height: 5'3" Code: 8302-2 SpO2: 94% Temperature: 3 6.2 (C) / 97.1 (F) Weight: 177 lbs Code: 11076-5 12/10/2020 Blood Pressure 1: 134/72 Code: 8480-6 BMI: 30.8 Code: 33266-8 Heart Rate 1: 74 bpm Height: 5'3" Code: 8302-2 Respiratory Rate: 18 bpm SpO2: 95% Temperature: 36.3 (C) / 97.4 (F) Weight: 174 lbs Code: 21494-1 09/10/2020 Blood Pressure 1: 202/94 Code: 8480-6 BMI: 30.6 Code: 81714-7 Heart Rate 1: 73 bpm Height: 5'3" Code: 8302-2 Respiratory Rate: 17 bpm SpO2: 91% Temperature: 36.8 (C) / 98.2 (F) Weight: 173 lbs Code: 41848-9 08/26/2020 Blood Pressure 1: 144/90 Code: 8480-6 BMI: 29.4 Code: 06580-8 Heart Rate 1: 72 bpm Height: 5'3" Code: 8302-2 SpO2: 98% Temperature: 3 6.7 (C) / 98.0 (F) Weight: 166 lbs Code: 01016-8 Functional Status No Functional Status data Reason For Visit Reason For Visit Effective Dates Notes hypertension 08/10/2021 hypertension 05/11/2021 hypertension 01/25/2021 Hospital Follow Up 12/28/2020 shortness of breath 12/10/2020 shortness of breath 09/10/2020 Hospital Follow Up 08/26/2020 Encounters Encounter Performer Location Codes Date ) 12914 EST. PATIENT, LEVEL I Diagnosis: CHF (congestive heart failure)[ICD10: I50.9] Diagnosis: On supplemental oxygen therapy[ICD10: Z99.81] Shantal Mac MD, [facility] CPT-4: 06977 08/23/2021 [id number]) 94946 EST. PATIENT, LEVEL IV Diagnosis: Vitamin B12 deficiency (dietary) anemia[ICD10: D51.8] Diagnosis: Essential (primary) hypertension[ICD10: I10] Diagnosis: Atrophy of thyroid (acquired)[ICD10: E03.4] [facility] CPT-4: 31248 08/10/[id number]) 60597 EST. PATIENT, LEVEL IV Diagnosis: Essential (primary) hypertension[ICD10: I10] Diagnosis: Vitamin B12 deficiency (dietary) anemia[ICD10: D51.8] Diagnosis: Atrophy of thyroid (acquired)[ICD10: E03.4] Diagnosis: Localized edema[ICD10: R60.0] Rena white MD, [facility] CPT-4: 10920 05/11/2021 ([id number]) 47125 EST. PATIENT, LEVEL IV Diagnosis: CHF (congestive heart failure)[ICD10: I50.9] Diagnosis: Essential (primary) hypertension[ICD10: I10] Diagnosis: Vitamin B12 deficiency (dietary) anemia[ICD10: D51.8] Rena Mac MD, [facility] CPT-4: 99694 01/25/2021 ([id number]) 79904 EST. PATIENT, LEVEL IV Diagnosis: Acute on chronic diastolic congestive heart failure[ICD10: I50.33] Diagnosis: Anemia[ICD10: D64.9] Diagnosis: Essential (primary) hypertension[ICD10: I10] Rena Mac MD, [facility] CPT-4: 96417 12/28/2020 ([id number]) 03868 EST. PATIENT, LEVEL IV Diagnosis: Essential (primary) hypertension[ICD10: I10] Diagnosis: CHF (congestive heart failure)[ICD10: I50.9] Diagnosis: Atrophy of thyroid (acquired)[ICD10: E03.4] Shantal Mac MD, [facility] CPT-4: 90627 12/10/2020 ([id number]) 83730 EST. PATIENT, LEVEL IV Diagnosis: Essential (primary) hypertension[ICD10: I10] Diagnosis: CHF (congestive heart failure)[ICD10: I50.9] Diagnosis: On supplemental oxygen therapy[ICD10: Z99.81] Diagnosis: Atrophy of thyroid (acquired)[ICD10: E03.4] Shantal Mac MD, [facility] CPT-4: 88309 09/10/2020 OFFICE VISIT, NEW - LEVEL 3 Diagnosis: CHF (congestive heart failure)[ICD10: I50.9] Diagnosis: Dementia without behavioral disturbance, unspecified dementia type[ICD10: F03.90] Gabriela Mac MD, [facility] CPT-4: 51176 08/26 Plan of Care Planned Activity Notes [...] -injection today 08/10/2021 Appointment: Rena Livingston WPtel: [phone] [phone] (30 min) Complex 08/10/2021 Patient Education: Patient [...] next labs 05/11/2021 Appointment: Rena Livingston WPtel: [phone] [phone] (30 min) Complex 05/11/2021 Patient Education: Patient Medication Summary Completed 05/11/2021 App[facility]ment: [phone] ([facility] min[facility] Complex 04/27/2021 [facility] [phone] [facility] (15 min) Moderate 03/11/2021 Visit Plan: Hypertension [...] injections per 01/25/2021 Appointment: Rena Livingston WPtel: [phone] (30 min) Complex 01/25/2021 Patient Education: Patient [...] medications today 12/28/2020 Appointment: Rena Livingston WPtel: [phone] (30 min) Complex 12/28/2020 Patient Education: Patient [...] Summary Completed 12/10/2020 Appointment: Shantal Mac [facility]el[facility] ([facility] min) Complex 11/03/2020 Visit Plan: [...] to be done to be drawn by [facility]. 09/10/2020 Appointment: [facility]antal [facility] [phone] [facility] [place] (15 min) Moderate 09/10/2020 Patient [...] to be done to be drawn by [facility]. Will set up with [facility] pt is to consider moving to assisted [...]
[2021-09-13] MEDS ORDERED: KETOROLAC 30 MG/ML VIAL IM ONE (15:15)
[2021-09-13] MEDS ORDERED: HYDROcodone/APAP 5 MG/325 MG (LORTAB) TAB PO ONE (15:15)
--- NOTE | 2021-09-13 15:23 | ED Back Pain ---
General Chief Complaint: Back Problems Stated Complaint: BACK PAIN Source of Information: Patient Exam Limitations: No Limitations History of Present Illness Date Seen by Provider: Sep 13, 2021 Time Seen by Provider: 15:00 Initial Comments To ER with reports of mid back pain and low back pain since of last week. No fall or known injury. She does have a history about 1.5 years ago of kyphoplasty by Dr. Ca from neurosurgery at [facility] in [place]. Has been taking Tylenol without much relief. The pain does not radiate. No fever or chills. No abdominal pain. She has been using some topical lidocaine patches to the low back over the sacrum. No loss of bowel or bladder control no loss of sensation of genitals. She states that she just wants to get her pain under control and go home. She is agreeable to imaging. Location: Lumbar Spine Timing/Duration: 1-2 Days Severity: Moderate Method of Injury: Unknown Associated Symptoms: lower back pain Allergies and Home Medications Allergies Coded Allergies: Tetracyclines (Verified Allergy, Unknown, 08/21/20) Uncoded Allergies: PCN (Allergy, Unknown, 08/21/20) Patient Home Medication List Home Medication List Reviewed: Yes Albuterol Sulfate (Albuterol Sulfate) 1.25 Mg/3 Ml Vial.neb, 1.25 MG INH Q4H PRN for SHORTNESS OF BREATH, (Reported) Entered as Reported by: CONSTANTINE CHURCH on 08/24/20 110 Albuterol Sulfate (Ventolin Hfa) 18 Gm Hfa.aer.ad, 1 PUFF IH QID Prescribed by: RACHID MAC on 12/21/20 0912 Ascorbic Acid/Ascorbate Sodium (Vitamin C 250 mg Tablet Chew) 250 Mg Tab.chew, 250 MG PO DAILY, (Reported) Entered as Reported by: CONSTANTINE CHURCH on 08/24/20 1103 Aspirin (Aspirin) 81 Mg Tab.chew, 81 MG PO DAILY, (Reported) Entered as Reported by: CONSTANTINE CHURCH on 08/24/20 1103 Calcium Phosphate Trib/Vit D3 (Calcium Gummies) 1 Each Tab.chew, 1 EACH PO DAILY, (Reported) Entered as Reported by: CONSTANTINE CHURCH on 08/24/20 1103 Cefdinir (Cefdinir) 300 Mg Capsule, 300 MG PO BID Prescribed by: RACHID MAC on 12/21/20 0912 Cetirizine HCl (Cetirizine HCl) 10 Mg Tablet, 10 MG PO DAILY, (Reported) Entered as Reported by: CONSTANTINE CHURCH on 10/26/20 1013 Cholecalciferol (Vitamin D3) (Vitamin D3) 125 Mcg Tablet, 125 MCG PO DAILY, (Reported) Entered as Reported by: CONSTANTINE CHURCH on 08/24/20 1103 Folic Acid/Multivit-Minerals (Women's Multivitamin Gummies) 200 Mcg Tab.chew, 200 MCG PO DAILY, (Reported) Entered as Reported by: CONSTANTINE CHURCH on 08/24/20 1103 Furosemide (Lasix) 20 Mg Tablet, 20 MG PO DAILY Prescribed by: RACHID MAC on 12/21/20 09 Levothyroxine Sodium (Levothyroxine Sodium) 125 Mcg Tablet, 125 MCG PO DAILY, (Reported) Entered as Reported by: CONSTANTINE CHURCH on 10/26/20 1013 Melatonin (Melatonin) 5 Mg Tablet, 5 MG PO HS PRN for SLEEP, (Reported) Entered as Reported by: CONSTANTINE CHURCH on 08/24/20 1103 Metoprolol Succinate (Metoprolol Succinate) 25 Mg Tab.er.24h, 25 MG PO DAILY Prescribed by: RACHID MAC on 12/21/20 09 Potassium Bicarbonate/Cit AC (Effer-K 10 Meq Tablet Eff) 10 Meq Tablet.eff, 10 MEQ PO DAILY, (Reported) Entered as Reported by: PAIGE FUENTES on 12/18/20 1534 Review of Systems Constitutional: see HPI EENTM: see HPI Respiratory: no symptoms reported Cardiovascular: no symptoms reported Genitourinary: no symptoms reported Musculoskeletal: see HPI, back pain Skin: no symptoms reported Psychiatric/Neurological: No Symptoms Reported Past Zxcudtf-Nitkuj-Apfdam Hx Immunizations Up To Date Tetanus Booster (TDap): Unknown 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 Disorders: No 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 oz. kg; 33.59 BMI Method: General Appearance: No Apparent Distress, WD/WN Neck: Full Range of Motion, Normal Inspection Respiratory: No Accessory Muscle Use, No Respiratory Distress Gastrointestinal: Normal Bowel Sounds, Non Tender, Soft Back: Normal Inspection, Vertebral Tenderness Extremity: Normal Capillary Refill, Normal Inspection Neurologic/Psychiatric: Alert, Oriented x3 Skin: Normal Color, Warm/Dry Progress/Results/Core Measures Results/Orders Lab Results Laboratory Tests Test 09/13/21 16:20 Range/Units Urine Color YELLOW Urine Clarity SL CLOUDY Urine pH 6.0 5-9 Urine Specific [place] 1.025 H 1.016-1.022 Urine Protein NEGATIVE NEGATIVE Urine Glucose (UA) NEGATIVE NEGATIVE Urine Ketones NEGATIVE NEGATIVE Urine Nitrite NEGATIVE NEGATIVE Urine Bilirubin NEGATIVE NEGATIVE Urine Urobilinogen 1.0 < = 1.0 MG/DL Urine Leukocyte Esterase NEGATIVE NEGATIVE Urine RBC (Auto) NEGATIVE NEGATIVE Urine RBC NONE /HPF Urine WBC NONE /HPF Urine Squamous Epithelial Cells 2-5 /HPF Urine Crystals NONE /LPF Urine Bacteria MODERATE H /HPF Urine Casts NONE /LPF Urine Mucus SMALL H /LPF Urine Culture Indicated NO My Orders Orders - COLIN DUMAS APRN Ct Thoracic/Lumbar Spine Wo (09/13/21 15:14) Ketorolac Injection (Toradol Injection) (09/13/21 15:15) Hydrocodone/Apap 5/325 Tablet (Lortab 5 (09/13/21 15:15) Ua Culture If Indicated (09/13/21 16:12) Clonidine Tablet (Catapres Tablet) (09/13/21 16:30) Medications Given in ED Current Medications Medications Dose Ordered Sig/Duy Route Start Time Stop Time Status Last Admin Dose Admin Acetaminophen/ Hydrocodone Bitart 1 ea ONCE ONCE PO 09/13/21 15:15 09/13/21 15:19 DC 10/18/21 15:25 1 EA Clonidine HCl 0.1 mg ONCE ONCE PO 09/13/21 16:30 09/13/21 16:31 DC 09/13/21 16:26 0.1 MG Ketorolac Tromethamine 30 mg ONCE ONCE IM 09/13/21 15:15 09/13/21 15:19 DC 09/13/21 15:25 30 MG Vital Signs/I&O 09/13/21 15:07 Temp 36.0 Pulse 78 Resp 20 B/P (MAP) 201/106 (137) Pulse Ox 97 O2 Delivery Room Air Departure Communication (Admissions) NAME: [facility] REC#: [id number] PT STATUS: REG ER : 1935 PHYSICIAN: COLIN DUMAS APRN ADMIT DATE: 09/13/21/ER Draft Date of Exam:09/13/21 CT THORACIC/LUMBAR SPINE WO PROCEDURE: CT thoracic and lumbar spine without contrast. TECHNIQUE: Multiple contiguous axial images were obtained through the thoracic and lumbar spine without the use of intravenous contrast. Sagittal and coronal reformations were then performed. All CT scans use one or more of the following dose optimizing techniques: Automated exposure control, MA and/or KvP adjustment based on a patient size and exam type, or iterative reconstruction. INDICATION: Back pain. No known injury. COMPARISON: None available. FINDINGS: THORACIC SPINE: Normal kyphosis of the thoracic spine. No vertebral body compression. Diffuse osseous demineralization is present and likely due to osteoporosis. No fracture within the posterior elements. Small right pleural effusion is present. Emphysema is noted in the lung apices. Otherwise, lungs are clear. LUMBAR SPINE: Status post vertebral augmentation of L4 superior endplate fracture which involves two columns as there is disruption of the posterior endplate. No acute fracture within the lumbar spine. Diffuse osseous demineralization is compatible with osteoporosis. The retropulsed endplate of L2 causes zgbe-ym-yyukxybr spinal stenosis. At L4-L5, there is disc bulge, facet osteoarthritis, and ligamentum flavum hypertrophy causing dnmtsyqu-sa-gobepu spinal stenosis. No sacral insufficiency fracture. IMPRESSION: 1. Osteoporosis without acute compression fracture in the thoracic or lumbar spine. 2. Prior vertebral augmentation of the two-column fracture of L2. The retropulsed fragment causes nvui-bs-qalcyvsw spinal stenosis. 3. Utcyctpn-dm-ajrmlr spinal stenosis at L4-L5 due to disc bulge, facet osteoarthritis, and ligamentum flavum hypertrophy. Dictated on workstation # [id number] Dict: 09/13/21 1602 Trans: 09/13/21 1609 [id number] Interpreted by: JENNIFER MOYA MD Electronically signed by: Impression Primary Impression: Back pain Disposition: 01 HOME, SELF-CARE Condition: Stable Departure-Patient Inst. Decision time for Depature: 16:12 Referrals: RACHID MAC MD (PCP/Family) Primary Care Physician Patient Instructions: Low Back Pain (DC) Add. Discharge Instructions: 1. Take the pain medication as directed. Follow-up with Dr. Mac next week. The pain medication can be constipating so take this as infrequently as possible and increase your water intake and take the stool softener with it. All discharge instructions reviewed with patient and/or family. Voiced understanding. Scripts Docusate Sodium (Colace) 100 Mg Capsule 100 MG PO DAILY, #10 CAP Prov: COLIN DUMAS APRN 09/13/21 Hydrocodone/Acetaminophen (Hydrocodone-Acetamin 5-325 mg) 1 Each Tablet 1 TAB PO Q4H PRN for PAIN-MODERATE (5-7), #10 TAB Prov: COLIN DUMAS APRN 09/13/21 COLIN DUMAS APRN Sep 13, 2021 15:23
--- NOTE | 2021-09-13 16:09 | Diagnostic Imaging Report ---
PROCEDURE: CT thoracic and lumbar spine without contrast. TECHNIQUE: Multiple contiguous axial images were obtained through the thoracic and lumbar spine without the use of intravenous contrast. Sagittal and coronal reformations were then performed. All CT scans use one or more of the following dose optimizing techniques: Automated exposure control, MA and/or KvP adjustment based on a patient size and exam type, or iterative reconstruction. INDICATION: Back pain. No known injury. COMPARISON: None available. FINDINGS: THORACIC SPINE: Normal kyphosis of the thoracic spine. No vertebral body compression. Diffuse osseous demineralization is present and likely due to osteoporosis. No fracture within the posterior elements. Small right pleural effusion is present. Emphysema is noted in the lung apices. Otherwise, lungs are clear. LUMBAR SPINE: Status post vertebral augmentation of L4 superior endplate fracture which involves two columns as there is disruption of the posterior endplate. No acute fracture within the lumbar spine. Diffuse osseous demineralization is compatible with osteoporosis. The retropulsed endplate of L2 causes poro-ou-ymbullln spinal stenosis. At L4-L5, there is disc bulge, facet osteoarthritis, and ligamentum flavum hypertrophy causing dtooeqlm-mu-qcteuy spinal stenosis. No sacral insufficiency fracture. IMPRESSION: 1. Osteoporosis without acute compression fracture in the thoracic or lumbar spine. 2. Prior vertebral augmentation of the two-column fracture of L2. The retropulsed fragment causes ivyr-sg-xhdksttl spinal stenosis. 3. Iahndasu-up-bhqutr spinal stenosis at L4-L5 due to disc bulge, facet osteoarthritis, and ligamentum flavum hypertrophy. Dictated by: Dictated on workstation # [id number]
[2021-09-13 16:28] LABS: BILIRUBIN,URINE NEGATIVE (NEGATIVE); CLARITY,URINE SL CLOUDY; COLOR,URINE YELLOW; GLUCOSE, URINE (UA) NEGATIVE (NEGATIVE); KETONES,URINE NEGATIVE (NEGATIVE); LEUKOCYTE ESTERASE ,URINE NEGATIVE (NEGATIVE); NITRITE,URINE NEGATIVE (NEGATIVE); PROTEIN,URINE NEGATIVE (NEGATIVE)
[2021-09-13] MEDS ORDERED: cloNIDine 0.1 MG (CATAPRES) TAB PO ONE (16:30)
[2021-09-13 16:36] LABS: BACTERIA,URINE MODERATE /HPF
[2021-09-13] MEDS ORDERED: ACHD5005 PO (16:43)
[2021-09-13] MEDS ORDERED: DOCU-143 PO (16:43)
[2021-09-13 17:02] VITALS: BP 167/94
== END 2021-09-13 16:55 | disposition home or self-care (01) ==
LOC: EDUNIT# 14:57 → ER 14:58
DX: M54.50 Low back pain, unspecified (principal); J44.9 Chronic obstructive pulmonary disease, unspecified; I11.0 Hypertensive heart disease with heart failure; I50.9 Heart failure, unspecified; E03.9 Hypothyroidism, unspecified; Z79.82 Long term (current) use of aspirin; Z79.890 Hormone replacement therapy; Z79.899 Other long term (current) drug therapy
CPT/HCPCS: 72128; 72131; 81000

== ENCOUNTER 2021-11-29 15:47 | Emergency (ER) | payer MEDICARE ==
[~2021-11-29] VITALS: Ht 162 cm; Wt 87.7 kg
[~2021-11-29 15:47] MED LIST changes: +ACHD5005 PO; +DOCU-143 PO
--- OUTSIDE RECORDS SUMMARY | 2021-11-29 16:00 | XMS REPORT | CCD ---
Author Author Flakita Andino Organization Shantal Mac MD, [facility] Address [address] [place] [address] Phone Care Team Providers Care Roller Skater Name Role Phone Shantal Mac PP Unavailable CCM Unavailable Summary Purpose Interface Exchange Insurance Providers Payer name Policy type / Coverage type Covered libertarian ID Effective Begin Date Effective End Date WPS Medicare Part B Medicare Part B [id number] Unknown Unkno wn [facility] Medicare Part B [id number] Unkno wn Unknown Family history Sister Diagnosis [...] Unknown Retired 08/26/[address]: 0712938 Quit over 10 years a go 199908/26/[address]: 396972110 Never drinks alcohol 2019 Allergies, Adverse Reactions, Alerts Substance Reaction Codes Entered Date Inactivated Date Status Penicillin rash, Unknown 08/26/2020 No Inactive Date Active * OTHER REACTION - SEE ANSWER BOX Tetracycline- Rash Unknown 0 08/26/2020 No Inactive Date Active Problems Condition Codes Effective Dates Condition Status Anemia ICD-10: D64.9 ICD-9: 285.9 12/28/2020 Active spinal stenosis Unknown 09/20/2021 Active 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 ICD-10: M48.062 ICD-9: 724.03 09/20/2021 Active CHF (congestive heart failure) ICD-10: I50.9 ICD-9: 428.0 08/26/2020 Active On supplemental oxygen therapy ICD-10: Z99.81 ICD-9: V46.2 09/10/2020 Active 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 ICD-9: 492.8 08/23/2021 Active 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 ICD-9: 244.8 09/10/2020 Active Essential (primary) hypertension ICD-10: I10 ICD-9: 401.1 09/10/2020 Active Vitamin B12 deficiency (dietary) anemia ICD-10: D51.8 ICD-9: 281.1 01/25/2021 Active Localized edema ICD-10: R60.0 ICD-9: 782.3 05/11/2021 Active Acute on chronic diastolic congestive heart failure IC D-10: I50.33 ICD-9: 428.33 12/28/2020 Active Dementia without behavioral disturbance, unspecified d ementia type ICD-10: F03.90 ICD-9: 294.20 08/26/2020 Active Medications Medication Codes Instructions Start Date Stop Date Status Fill Instructions losartan 50 mg tablet RxNorm: 869560 Take 1 Tablet(s) Oral two times a day 11/05/2021 10/30/2022 Active cyanocobalamin (vit B-12) 1,000 mcg/mL injection solution Rx Norm: 484098 1 Milliliter(s) Injection monthly 11/02/2021 12/01/2021 Active will need syringe/needle for monthly injection dx b12 deficiency levothyroxine 112 mcg tablet RxNorm: 329275 Take 1 Tablet(s) Or al every day 11/02/2021 01/30/2022 Active hydrocodone 5 mg-acetaminophen 325 mg tablet RxNorm: 867302 Take 1 Tablet(s) Oral three times a day as needed for pain 11/02/2021 12/01/2021 Active cyanocobalamin (vit B-12) 1,000 mcg/mL injection solution Rx Norm: 411570 1 Milliliter(s) Injection monthly 10/27/2021 10/27/2021 Inactive will need syringe/needle for monthly injection dx b12 deficiency cyanocobalamin (vit B-12) 1,000 mcg/mL injection solution Rx Norm: 531468 1 Milliliter(s) Injection monthly 10/27/2021 10/27/2021 Inactive will need syringe/needle for monthly injection dx b12 deficiency levothyroxine 112 mcg tablet RxNorm: 634240 1 Tablet(s) Oral ev vinny day 10/27/2021 10/27/2021 Inactive hydrocodone 5 mg-acetaminophen 325 mg tablet RxNorm: 087156 Take 1 Tablet(s) Oral three times a day as needed for pain 09/20/2021 09/20/2021 Inacti ve albuterol sulfate 2.5 mg/3 mL (0.083 %) solution for n ebulization RxNorm: 057601 USE 1 VIAL IN NEBULIZER TWICE DAILY 09/14/2021 11/04/2021 Inact césar albuterol sulfate 2.5 mg/3 mL (0.083 %) solution for n ebulization RxNorm: 632314 USE 1 VIAL IN NEBULIZER TWICE DAILY 09/14/2021 09/14/2021 Inact césar levothyroxine 112 mcg tablet RxNorm: 169459 1 Tablet(s) Oral ev vinny day 09/02/2021 09/02/2021 Inactive levothyroxine 112 mcg tablet RxNorm: 921707 1 Tablet(s) Oral ev vinny day 09/02/2021 09/02/2021 Inactive levothyroxine 112 mcg tablet RxNorm: 711469 1 Tablet(s) Oral ev vinny day 08/20/2021 09/02/2021 Inactive cyanocobalamin (vit B-12) 1,000 mcg/mL injection solution Rx Norm: 751067 Take Milliliter(s) Injection 08/10/2021 08/10/2021 Inactive cyanocobalamin (vit B-12) 1,000 mcg/mL injection solution Rx Norm: 350671 Take Milliliter(s) Injection 06/30/2021 06/30/2021 Inactive albuterol sulfate 2.5 mg/3 mL (0.083 %) solution for n ebulization RxNorm: 474356 1 Unit Dose Inhalation two times a day DX J43.1 04/19/20212020 Inactive losartan 50 mg tablet RxNorm: 566108 1 Tablet(s) Oral two times a day 03/22/2021 03/22/2021 Inactive albuterol sulfate 2.5 mg/3 mL (0.083 %) solution for n ebulization RxNorm: 148440 1 Unit Dose Inhalation two times a day DX J43.1 03/22/20212020 Inactive albuterol sulfate 2.5 mg/3 mL (0.083 %) solution for n ebulization RxNorm: 510939 1 Unit Dose Inhalation two times a day 03/17/2021 03/16/2021 In active albuterol sulfate 2.5 mg/3 mL (0.083 %) solution for n ebulization RxNorm: 703513 1 Unit Dose Inhalation two times a day 03/17/2021 03/21/2021 In active Norvasc 5 mg tablet RxNorm: 428035 1 Tablet(s) Oral every day 12/3112/26/2021 Active Norvasc 5 mg tablet RxNorm: 742624 1 Tablet(s) Oral every day 12/3112/30/2020 Inactive metoprolol succinate ER 25 mg tablet,extended release 24 hr RxNorm: 904352 1 Tablet(s) Oral every day 12/28/2020 No Stop Date Active Ventolin HFA 90 mcg/actuation aerosol inhaler RxNorm: 348097 1-2 Puff(s) Inhalation Every 4 hrs as needed 12/28/2020 No Stop Date Active furosemide 20 mg tablet RxNorm: 407823 1 Tablet(s) Oral every day 0 12/28/2020 No Stop Date Active furosemide 40 mg tablet RxNorm: 400516 1 Tablet(s) Oral as directed 40mg BID x 5 days then 40mg in am and 20mg afternoon thereafter 11/18/2020 Inactive give qty sufficient potassium chloride ER 10 mEq tablet,extended release RxNorm: 597953 1 Tablet(s) Oral as directed 1 tab bid x 5 days then resume daily 11/18/20202020 Inactive qty sufficient potassium bicarbonate-citric acid 10 mEq effervescent tablet RxNorm: 5624749 1 Tablet(s) Oral every day 09/10/2020 11/17/2020 Inactive levothyroxine 125 mcg tablet RxNorm: 290789 1 Tablet(s) Oral ev vinny day 09/10/2020 08/19/2021 Inactive losartan 50 mg tablet RxNorm: 944183 1 Tablet(s) Oral two times a day 09/10/2020 12/27/2020 Inactive furosemide 40 mg tablet RxNorm: 078868 1 Tablet(s) Oral every day 1 11/17/2020 Inactive Zyrtec 10 mg tablet RxNorm: 4178919 1 Tablet(s) Oral every day 03/202012/28/2020 Inactive levothyroxine 125 mcg tablet RxNorm: 274846 1 Tablet(s) Oral ev vinny day 08/31/2020 09/09/2020 Inactive Zyrtec 10 mg tablet RxNorm: 6782596 1 Tablet(s) Oral every day 03/202008/30/2020 Inactive aspirin 81 mg tablet,delayed release RxNorm: 570528 1 Tablet(s) Oral every day 08/26/2020 No Stop Date Active Vitamin C 250 mg tablet RxNorm: 339468 1 Tablet(s) Oral every day 0 08/26/2020 No Stop Date Active Vitamin D3 50 mcg (2,000 unit) tablet RxNorm: 419419 1 Tablet(s ) Oral every day 08/26/2020 No Stop Date Active levothyroxine 88 mcg tablet RxNorm: 383856 1 Tablet(s) Oral micheal ry day 08/26/2020 08/30/2020 Inactive losartan 50 mg tablet RxNorm: 613592 1 Tablet(s) Oral every day 09/09/2020 Inactive furosemide 40 mg tablet RxNorm: 619397 1 Tablet(s) Oral every day 0 08/26/2020 09/09/2020 Inactive potassium bicarbonate-citric acid 10 mEq effervescent tablet RxNorm: 5672358 1 Tablet(s) Oral every day 08/26/2020 09/09/2020 Inactive Women's Multivitamin oral RxNorm: oral 08/26/2020 Act césar Calcium 600 oral RxNorm: 1897 oral 08/26/2020 Active albuterol sulfate inhalation RxNorm: 422532 inhalation 08/26/2020 Active Medication Administered Medication Codes Instructions Start Date Status cyanocobalamin (vit B-12) 1,000 mcg/mL injection solution Rx Norm: 853729 Milliliter 08/10/2021 No longer Active cyanocobalamin (vit B-12) 1,000 mcg/mL injection solution Rx Norm: 632963 Milliliter 06/30/2021 No longer Active Immunizations Vaccine Codes Dose Date Status Covid-19 CVX: 03/06/2021 Covid-19 CVX: 02/06/2021 Pneumococcal (Adult) Unknown 05/27/2019 Zoster CVX: 121 05/27/2017 Results Observation Observation Code Item Item Code Result Date S ervice Location Cbc With Differential Ord2 WBC 8.78 K/ul 11/16/20 Unknown Cbc With Differential Ord2 RBC 3.36 M/ul 11/16/20 Unknown Cbc With Differential Ord2 HGB 8.8 g/dl 11/16/20 Unknown Cbc With Differential Ord2 Neut% 57.3 % 11/16/20 Unknown Cbc With Differential Ord2 HCT 29.6 % 11/16/20 Unknown Cbc With Differential Ord2 Lymph% 32.8 % 11/16/20 Unknown Cbc With Differential Ord2 MCV 88.1 fl 11/16/20 Unknown Cbc With Differential Ord2 MCH 26.2 pg 11/16/20 Unknown Cbc With Differential Ord2 Cataño% 7.2 % 11/16/20 Unknown Cbc With Differential Ord2 MCHC 29.7 pg 11/16/20 Unknown Cbc With Differential Ord2 Eos% 2.6 % 11/16/20 Unknown Cbc With Differential Ord2 PLT 343 K/ul 11/16/20 Unknown Cbc With Differential Ord2 Baso% 0.1 % 11/16/20 Unknown Cbc With Differential Ord2 RDW 14.8 % 11/16/20 Unknown Cbc With Differential Ord2 Neut ABS# 5.03 K/ul 11/16/20 Unknown Cbc With Differential Ord2 Lymph ABS# 2.88 K/ul 021 Unknown Cbc With Differential Ord2 [place]ata[place] ABS# 0.6 K/ul 11/16/20 Unknown Cbc With Differential Ord2 Eos ABS# 0.2 K/ul 11/16/20 Unknown Cbc With Differential Ord2 Baso ABS# 0.0 K/ul 11/16/20 Unknown Tsh Ord6 TSH (3rd IS) 1.03 uIU/mL 11/16/2021 Unkn own Free T4 Aaq281 FREE T4 1.11 ng/dL 11/16/2021 Unknown Cbc With Differential Ord2 WBC 8.64 K/ul [...] 08/10/20 21 Unknown Cbc With Differential Ord2 Cataño% 8.0 % 08/10/20 21 Unknown Cbc With [...] K/ul 021 Unknown Cbc With Differential Ord2 [place] ABS# 0.7 K/ul 08/10/20 21 Unknown Cbc With Differential Ord2 Eos ABS# 0.2 K/ul 08/10/20 21 Unknown Cbc With Differential Ord2 Baso ABS# 0.0 K/ul 08/10/20 21 Unknown Tsh Ord6 TSH (3rd IS) 0.21 uIU/mL 08/10/2021 Unkn own Comp Metabolic Nsf761 NA 141 mEq/L 08/10/2021 Unkn own Comp Metabolic Vzn878 K 4.1 mEq/L 08/10/2021 Unkn own Comp Metabolic Nhr626 CL 104 mEq/L 08/10/2021 Unkn own Comp Metabolic Chc911 CO2 28.0 mEq/L 08/10/2021 Unk nown Comp Metabolic Vdn205 ANION GAP 13 08/10/2021 Unkn own Comp Metabolic Swh554 GLUCOSE 78 mg/dL 08/10/2021 Unkn own Comp Metabolic Vca096 Creat 0.8 mg/dL 08/10/2021 Unkn own Comp Metabolic Byo237 eGFR 71 ml/min/1.73m2 08/10/20 21 Unknown Comp Metabolic Rbf495 BUN 25 mg/dL 08/10/2021 Unkn own Comp Metabolic Bqr450 B/C Ratio 30.9 Ratio 08/10/2021 Unk nown Comp Metabolic Fzo744 CALCIUM 8.7 mg/dL 08/10/2021 Unkn own Comp Metabolic Kfv725 ALK PHOS 61 U/L 08/10/2021 Unkn own Comp Metabolic Zvf598 AST(SGOT) 17 U/L 08/10/2021 Unkn own Comp Metabolic Aqo374 ALT(SGPT) 10 U/L 08/10/2021 Unkn own Comp Metabolic Gak258 BILI T 0.6 mg/dL 08/10/2021 Unkn own Comp Metabolic Mcg285 ALBUMIN 3.7 g/dL 08/10/2021 Unkn own Comp Metabolic Uao509 TPRO 6.1 g/dL 08/10/2021 Unkn own Comp Metabolic Udh258 GLOB 2.4 g/dL 08/10/2021 Unkn own Comp Metabolic Huo863 A/G Ratio 1.6 Ratio 08/10/2021 Unkn own Comp Metabolic Phv414 Osmo 285 mOsmo 08/10/2021 Unkn own B12 Wjv682 B12 >1500.00 pg/ml 08/10/2021 Unkn own Free T4 Gmj409 FREE T4 1.23 ng/dL 08/10/2021 Unknown Tibc Ord40 Iron 32 ug/dl 12/29/2020 Unknown Tibc Ord40 UIBC 402 ug/dL 12/29/2020 Unknown Tibc Ord40 TIBC 434 ug/dL 12/29/2020 Unknown Tibc Ord40 Fe-%Sat 7.4 % 12/29/2020 Unknown Ferritin Ord22 FERRITIN 27.6 ng/mL 12/29/2020 Unknown B12 Oby625 B12 187.00 pg/ml 12/29/2020 Unknow n Comp Metabolic Idx135 NA 139 mEq/L 12/28/2020 Unkn own Comp Metabolic Fqt472 K 4.1 mEq/L 12/28/2020 Unkn own Comp Metabolic Ujy217 CL 103 mEq/L 12/28/2020 Unkn own Comp Metabolic Aqg385 CO2 27.0 mEq/L 12/28/2020 Unk nown Comp Metabolic Srp956 ANION GAP 13 12/28/2020 Unkn own Comp Metabolic Wvb299 GLUCOSE 79 mg/dL 12/28/2020 Unkn own Comp Metabolic Ztt724 Creat 0.7 mg/dL 12/28/2020 Unkn own Comp Metabolic Swh908 eGFR 80 ml/min/1.73m2 12/28/19 21 Unknown Comp Metabolic Nzp242 BUN 21 mg/dL 12/28/2020 Unkn own Comp Metabolic Ief571 B/C Ratio 28.8 Ratio 12/28/2020 Unk nown Comp Metabolic Pfd062 CALCIUM 8.7 mg/dL 12/28/2020 Unkn own Comp Metabolic Axd480 ALK PHOS 74 U/L 12/28/2020 Unkn own Comp Metabolic Sii014 AST(SGOT) 15 U/L 12/28/2020 Unkn own Comp Metabolic Ewx214 ALT(SGPT) 17 U/L 12/28/2020 Unkn own Comp Metabolic Xcj037 BILI T 0.4 mg/dL 12/28/2020 Unkn own Comp Metabolic Tsh962 ALBUMIN 3.5 g/dL 12/28/2020 Unkn own Comp Metabolic Qpu565 TPRO 5.9 g/dL 12/28/2020 Unkn own Comp Metabolic Lho312 GLOB 2.4 g/dL 12/28/2020 Unkn own Comp Metabolic Xdu648 A/G Ratio 1.4 Ratio 12/28/2020 Unkn own Comp Metabolic Efo873 Osmo 279 mOsmo 12/28/2020 Unkn own Cbc [...] 12/28/19 21 Unknown Cbc With Differential Ord2 [place]ata[place]% 7.9 % 12/28/19 21 Unknown Cbc With [...] K/ul 021 Unknown Cbc With Differential Ord2 [place]ata[place] ABS# 0.6 K/ul 12/28/19 21 Unknown Cbc With Differential Ord2 Eos ABS# 0.4 K/ul 12/28/19 21 Unknown Cbc With Differential Ord2 Baso ABS# 0.0 K/ul 12/28/19 21 Unknown Procedures Procedure Codes Date THER/PROPH/DIAG INJ SC/IM CPT-4: 20866 08/10/2021 VITAMIN B12 INJECTION 1000 mcg CPT-4: J3420 THER/PROPH/DIAG INJ SC/IM CPT-4: 96404 06/30/2021 Vital Signs Date Vital 08/23/2021 SpO2: 94% SpO2: 87% SpO2: 96% 08/10/2021 Blood Pressure 1: 138/82 Code: 8480-6 BMI: 33.5 Code: 06830-9 Heart Rate 1: 74 bpm Height: 5'3" Code: 8302-2 SpO2: 98% Temperature: 3 6.2 (C) / 97.1 (F) Weight: 189 lbs Code: 56055-7 05/11/2021 Blood Pressure 1: 134/80 Code: 8480-6 Heart Rate 1: 77 bpm Height: 5'3" Code: 8302-2 SpO2: 93% Temperature: 36.3 (C) / 97.3 (F) 01/25/2021 Blood Pressure 1: 136/88 Code: 8480-6 Heart Rate 1: 60 bpm Height: Code: 8302-2 SpO2: 93% Temperature: 36.3 (C) / 97.3 (F) Weight: 174 lbs Code: 83429-3 12/28/2020 Blood Pressure 1: 164/92 Code: 8480-6 BMI: 31.4 Code: 71876-6 Heart Rate 1: 67 bpm Height: 5'3" Code: 8302-2 SpO2: 94% Temperature: 3 6.2 (C) / 97.1 (F) Weight: 177 lbs Code: 61527-5 12/10/2020 Blood Pressure 1: 134/72 Code: 8480-6 BMI: 30.8 Code: 65394-1 Heart Rate 1: 74 bpm Height: 5'3" Code: 8302-2 Respiratory Rate: 18 bpm SpO2: 95% Temperature: 36.3 (C) / 97.4 (F) Weight: 174 lbs Code: 72731-1 09/10/2020 Blood Pressure 1: 202/94 Code: 8480-6 BMI: 30.6 Code: 40332-1 Heart Rate 1: 73 bpm Height: 5'3" Code: 8302-2 Respiratory Rate: 17 bpm SpO2: 91% Temperature: 36.8 (C) / 98.2 (F) Weight: 173 lbs Code: 41181-9 08/26/2020 Blood Pressure 1: 144/90 Code: 8480-6 BMI: 29.4 Code: 09917-5 Heart Rate 1: 72 bpm Height: 5'3" Code: 8302-2 SpO2: 98% Temperature: 3 6.7 (C) / 98.0 (F) Weight: 166 lbs Code: 07257-6 Functional Status No Functional Status data Reason For Visit Reason For Visit Effective Dates Notes hypertension 08/10/2021 hypertension 05/11/2021 hypertension 01/25/2021 Hospital Follow Up 12/28/2020 shortness of breath 12/10/2020 shortness of breath 09/10/2020 Hospital Follow Up 08/26/2020 Encounters Encounter Performer Location Codes Date ([id number]) 23083 EST. PATIENT, LEVEL I Diagnosis: CHF (congestive heart failure)[ICD10: I50.9] Diagnosis: On supplemental oxygen therapy[ICD10: Z99.81] Diagnosis: Panlobular emphysema[ICD10: J43.1] [facility] CPT-4: 40540 08/23/2021 ([id number]) 87400 EST. PATIENT, LEVEL IV Diagnosis: Vitamin B12 deficiency (dietary) anemia[ICD10: D51.8] Diagnosis: Essential (primary) hypertension[ICD10: I10] Diagnosis: Atrophy of thyroid (acquired)[ICD10: E03.4] [facility] CPT-4: 71185 08/10/2021 ([id number]) 14783 EST. PATIENT, LEVEL IV Diagnosis: Essential (primary) hypertension[ICD10: I10] Diagnosis: Vitamin B12 deficiency (dietary) anemia[ICD10: D51.8] Diagnosis: Atrophy of thyroid (acquired)[ICD10: E03.4] Diagnosis: Localized edema[ICD10: R60.0] Rena white MD, [facility] CPT-4: 27462 05/11/2021 ([id number]) 11259 EST. PATIENT, LEVEL IV Diagnosis: CHF (congestive heart failure)[ICD10: I50.9] Diagnosis: Essential (primary) hypertension[ICD10: I10] Diagnosis: Vitamin B12 deficiency (dietary) anemia[ICD10: D51.8] Rena Mac MD, [facility] CPT-4: 68874 01/25/2021 ([id number]) 86546 EST. PATIENT, LEVEL IV Diagnosis: Acute on chronic diastolic congestive heart failure[ICD10: I50.33] Diagnosis: Anemia[ICD10: D64.9] Diagnosis: Essential (primary) hypertension[ICD10: I10] Rena Mac MD, [facility] CPT-4: 11796 12/28/2020 ([id number]) 77258 EST. PATIENT, LEVEL IV Diagnosis: Essential (primary) hypertension[ICD10: I10] Diagnosis: CHF (congestive heart failure)[ICD10: I50.9] Diagnosis: Atrophy of thyroid (acquired)[ICD10: E03.4] Shantal Mac MD, [facility] CPT-4: 76389 12/10/2020 ([id number]) 28568 EST. PATIENT, LEVEL IV Diagnosis: Essential (primary) hypertension[ICD10: I10] Diagnosis: CHF (congestive heart failure)[ICD10: I50.9] Diagnosis: On supplemental oxygen therapy[ICD10: Z99.81] Diagnosis: Atrophy of thyroid (acquired)[ICD10: E03.4] Shantal Mac MD, [facility] CPT-4: 55282 09/10/2020 OFFICE VISIT, NEW - LEVEL 3 Diagnosis: CHF (congestive heart failure)[ICD10: I50.9] Diagnosis: Dementia without behavioral disturbance, unspecified dementia type[ICD10: F03.90] [facility] CPT-4: 70029 08/26 Plan of Care Planned Activity Notes Codes Status Date Patient Education: Patient Medication Summary Completed 11/17/2021 Care Plan: Ferritin Pending 11/17/20 Care Plan: TIBC (This includes FE) Pendin g 11/17/2021 Patient Education: Patient Medication Summary Completed 09/20/2021 Appointment: Nurse Visit 08/23/2021 Patient Education: Patient [...] -injection today 08/10/2021 Appointment[phone] [facility] 08/10/2021 Patient Education: Patient Medication Summary Completed [...] next labs 05/11/2021 Appointment: Rena Livingston WPtel: [phone] [phone] (30 min) Complex 05/11/2021 Patient Education: Patient Medication Summary Completed 05/11/2021 Appointment: Rena Livingston WPtel: [phone] [phone] [place] (30 min) Complex 04/27/2021 Appointment: Shantal Mac WPtel: [phone] [facility] [place] (15 min) Moderate 03/11/2021 Visit Plan: [...] HH 01/25/2021 Appointment: Rena Livingston WPtel: [phone] [phone] (30 min) Complex 01/25/2021 Patient Education: Patient [...] medications today 12/28/2020 Appointment: Rena Livingston WPtel: [phone] [phone] [place] (30 min) Complex 12/28/2020 Patient Education: [...] Summary Completed 12/10/2020 [phone] [facility] ([facility] 11/03/2020 Visit Plan: Chronic [...] health. 09/10/2020 Appointment: [phone] [facility] [place] (15 min) Moderate 09/10/2020 Patient Education: [...] Patient Medication Summary Completed 08/26/2020 Instructions Comment Date . Hypertension - well controlled - chelsi [...] of control. B12 def -injection today 08/10/2021 HAVE HOME HEALTH DRAW LABS WHEN THEY [...] Hypothyroidism -check levels with next labs 05/11/2021 CONTINUE LOW SODIUM DIET CONTINUE HOME HEALTH [...] Anemia- continue with B12 injections per 01/25/2021 . Acute on chronic CHF - patient refuses cardiology -continue with oxygen at all times- patient did not wear oxygen to appt- patient and sister verbalized understanding of plan. Did recommend follow up with cardiology due to recurrent hospitalizations for CHF and patient continues to refuse Anemia- repeat labs today HTN -controlled- no change in medications today 12/28/2020 . Chronic Congestive heart failure - sym [...] based on previous levels of control. 12/10/2020 . Chronic Congestive heart failure - sym [...] to be done to be drawn by [facility]. 09/10/2020 Will set up with [facility] pt is to consider moving to assisted [...] Continue with current plan of treatment. 08/26/2020 Medical Equipment No Medical Equipment data Health Concerns Section Health Concerns data not found Goals Section Goals data not found Interventions Section Interventions data not found Health Status Evaluations/Outcomes Section Health Status Evaluations/Outcomes data not found Advance Directives No Advance Directive data
--- OUTSIDE RECORDS SUMMARY | 2021-11-29 16:00 | XMS REPORT | CCD ---
Author Author Flakita Andino Organization Shantal Mac MD, [facility] Address [address] [place] [address] Phone Care Team Providers Care Test Preparer Name Role Phone Shantal Mac PP Unavailable CCM Unavailable Summary Purpose Interface Exchange Insurance Providers Payer name Policy type / Coverage type Covered green party ID Effective Begin Date Effective End Date WPS Medicare Part B Medicare Part B [id number] Unknown Unkno wn [facility] Medicare Part B [id number] Unkno wn Unknown Family history Sister Diagnosis [...] Unknown Retired 08/26/[address]: 4065199 Quit over 10 years a go 199908/26/[address]: 482979687 Never drinks alcohol 2019 Allergies, Adverse Reactions, [...] Start Date Stop Date Status Fill Instructions albuterol sulfate 2.5 mg/3 mL (0.083 %) solution for n ebulization RxNorm: 183167 USE 1 VIAL IN NEBULIZER TWICE DAILY 11/25/2021 12/07/2021 Activ e albuterol sulfate 2.5 mg/3 mL (0.083 %) solution for n ebulization RxNorm: 908718 USE 1 VIAL IN NEBULIZER TWICE DAILY 11/25/2021 12/07/2021 Activ e losartan 50 mg tablet RxNorm: 648668 Take 1 Tablet(s) Oral two times a day 11/05/2021 10/30/2022 Active cyanocobalamin (vit B-12) 1,000 mcg/mL injection solution Rx Norm: 469816 1 Milliliter(s) Injection monthly 11/02/2021 12/01/2021 Active will need syringe/needle for monthly injection dx b12 deficiency levothyroxine 112 mcg tablet RxNorm: 623325 Take 1 Tablet(s) Or al every day 11/02/2021 01/30/2022 Active hydrocodone 5 mg-acetaminophen 325 mg tablet RxNorm: 799871 Take 1 Tablet(s) Oral three times a day as needed for pain 11/02/2021 12/01/2021 Active cyanocobalamin (vit B-12) 1,000 mcg/mL injection solution Rx Norm: 701512 1 Milliliter(s) Injection monthly 10/27/2021 10/27/2021 Inactive will need syringe/needle for monthly injection dx b12 deficiency cyanocobalamin (vit B-12) 1,000 mcg/mL injection solution Rx Norm: 050877 1 Milliliter(s) Injection monthly 10/27/2021 10/27/2021 Inactive will need syringe/needle for monthly injection dx b12 deficiency levothyroxine 112 mcg tablet RxNorm: 046975 1 Tablet(s) Oral ev vinny day 10/27/2021 10/27/2021 Inactive hydrocodone 5 mg-acetaminophen 325 mg tablet RxNorm: 731539 Take 1 Tablet(s) Oral three times a day as needed for pain 09/20/2021 09/20/2021 Inacti ve albuterol sulfate 2.5 mg/3 mL (0.083 %) solution for n ebulization RxNorm: 797339 USE 1 VIAL IN NEBULIZER TWICE DAILY 09/14/2021 09/14/2021 Inact césar albuterol sulfate 2.5 mg/3 mL (0.083 %) solution for n ebulization RxNorm: 708663 USE 1 VIAL IN NEBULIZER TWICE DAILY 09/14/2021 09/14/2021 Inact césar levothyroxine 112 mcg tablet RxNorm: 206707 1 Tablet(s) Oral ev vinny day 09/02/2021 09/02/2021 Inactive levothyroxine 112 mcg tablet RxNorm: 979253 1 Tablet(s) Oral ev vinny day 09/02/2021 09/02/2021 Inactive levothyroxine 112 mcg tablet RxNorm: 245983 1 Tablet(s) Oral ev vinny day 08/20/2021 09/02/2021 Inactive cyanocobalamin (vit B-12) 1,000 mcg/mL injection solution Rx Norm: 450455 Take Milliliter(s) Injection 08/10/2021 08/10/2021 Inactive cyanocobalamin (vit B-12) 1,000 mcg/mL injection solution Rx Norm: 893353 Take Milliliter(s) Injection 06/30/2021 06/30/2021 Inactive albuterol sulfate 2.5 mg/3 mL (0.083 %) solution for n ebulization RxNorm: 994690 1 Unit Dose Inhalation two times a day DX J43.1 04/19/20212020 Inactive losartan 50 mg tablet RxNorm: 224255 1 Tablet(s) Oral two times a day 03/22/2021 03/22/2021 Inactive albuterol sulfate 2.5 mg/3 mL (0.083 %) solution for n ebulization RxNorm: 930948 1 Unit Dose Inhalation two times a day DX J43.1 03/22/20212020 Inactive albuterol sulfate 2.5 mg/3 mL (0.083 %) solution for n ebulization RxNorm: 258557 1 Unit Dose Inhalation two times a day 03/17/2021 03/16/2021 In active albuterol sulfate 2.5 mg/3 mL (0.083 %) solution for n ebulization RxNorm: 362954 1 Unit Dose Inhalation two times a day 03/17/2021 03/21/2021 In active Norvasc 5 mg tablet RxNorm: 049190 1 Tablet(s) Oral every day 12/3112/26/2021 Active Norvasc 5 mg tablet RxNorm: 656266 1 Tablet(s) Oral every day 12/3112/30/2020 Inactive metoprolol succinate ER 25 mg tablet,extended release 24 hr RxNorm: 379726 1 Tablet(s) Oral every day 12/28/2020 No Stop Date Active Ventolin HFA 90 mcg/actuation aerosol inhaler RxNorm: 829796 1-2 Puff(s) Inhalation Every 4 hrs as needed 12/28/2020 No Stop Date Active furosemide 20 mg tablet RxNorm: 516409 1 Tablet(s) Oral every day 0 12/28/2020 No Stop Date Active furosemide 40 mg tablet RxNorm: 348811 1 Tablet(s) Oral as directed 40mg BID x 5 days then 40mg in am and 20mg afternoon thereafter 11/18/2020 Inactive give qty sufficient potassium chloride ER 10 mEq tablet,extended release RxNorm: 649215 1 Tablet(s) Oral as directed 1 tab bid x 5 days then resume daily 11/18/20202020 Inactive qty sufficient potassium bicarbonate-citric acid 10 mEq effervescent tablet RxNorm: 6232684 1 Tablet(s) Oral every day 09/10/2020 11/17/2020 Inactive levothyroxine 125 mcg tablet RxNorm: 584382 1 Tablet(s) Oral ev vinny day 09/10/2020 08/19/2021 Inactive losartan 50 mg tablet RxNorm: 224349 1 Tablet(s) Oral two times a day 09/10/2020 12/27/2020 Inactive furosemide 40 mg tablet RxNorm: 483229 1 Tablet(s) Oral every day 1 11/17/2020 Inactive Zyrtec 10 mg tablet RxNorm: 0297157 1 Tablet(s) Oral every day 03/202012/28/2020 Inactive levothyroxine 125 mcg tablet RxNorm: 315072 1 Tablet(s) Oral ev vinny day 08/31/2020 09/09/2020 Inactive Zyrtec 10 mg tablet RxNorm: 3828722 1 Tablet(s) Oral every day 03/202008/30/2020 Inactive aspirin 81 mg tablet,delayed release RxNorm: 379683 1 Tablet(s) Oral every day 08/26/2020 No Stop Date Active Vitamin C 250 mg tablet RxNorm: 149928 1 Tablet(s) Oral every day 0 08/26/2020 No Stop Date Active Vitamin D3 50 mcg (2,000 unit) tablet RxNorm: 578963 1 Tablet(s ) Oral every day 08/26/2020 No Stop Date Active levothyroxine 88 mcg tablet RxNorm: 336987 1 Tablet(s) Oral micheal ry day 08/26/2020 08/30/2020 Inactive losartan 50 mg tablet RxNorm: 498732 1 Tablet(s) Oral every day 09/09/2020 Inactive furosemide 40 mg tablet RxNorm: 245074 1 Tablet(s) Oral every day 0 08/26/2020 09/09/2020 Inactive potassium bicarbonate-citric acid 10 mEq effervescent tablet RxNorm: 2279036 1 Tablet(s) Oral every day 08/26/2020 09/09/2020 Inactive Women's Multivitamin oral RxNorm: oral 08/26/2020 Act césar Calcium 600 oral RxNorm: 1897 oral 08/26/2020 Active albuterol sulfate inhalation RxNorm: 890447 inhalation 08/26/2020 Active Medication Administered Medication Codes Instructions Start Date Status cyanocobalamin (vit B-12) 1,000 mcg/mL injection solution Rx Norm: 147282 Milliliter 08/10/2021 No longer Active cyanocobalamin (vit B-12) 1,000 mcg/mL injection solution Rx Norm: 305944 Milliliter 06/30/2021 No longer Active Immunizations Vaccine Codes Dose Date Status Covid-19 CVX: 03/06/2021 Covid-19 CVX: 207 02/06/2021 Pneumococcal (Adult) Unknown 05/27/2019 Zoster CVX: 121 05/27/2017 Results Observation Observation Code Item Item Code Result Date S ervice Location Ferritin Ord22 FERRITIN 16.7 ng/mL 11/17/2021 Unknown Tibc Ord40 Iron 28 ug/dl 11/17/2021 Unknown Tibc Ord40 UIBC 491 ug/dL 11/17/2021 Unknown Tibc Ord40 TIBC 519 ug/dL 11/17/2021 Unknown Tibc Ord40 Fe-%Sat 5.4 % 11/17/2021 Unknown Cbc With Differential Ord2 WBC 8.78 K/ul [...] pg 11/16/20 Unknown Cbc With Differential Ord2 [place]% 7.2 % 11/16/20 Unknown Cbc With Differential Ord2 MCHC 29.7 pg 11/16/20 Unknown Cbc With Differential Ord2 Eos% 2.6 % 11/16/20 Unknown Cbc With Differential Ord2 PLT 343 K/ul 12/21/20 21 Unknown Cbc With Differential Ord2 Baso% 0.1 % 11/16/20 21 Unknown Cbc With Differential Ord2 RDW 14.8 % 11/16/20 21 Unknown Cbc With Differential Ord2 Neut ABS# 5.03 K/ul 11/16/20 21 Unknown Cbc With Differential Ord2 Lymph ABS# 2.88 K/ul 021 Unknown Cbc With Differential Ord2 [place] ABS# 0.6 K/ul 11/16/20 21 Unknown Cbc With Differential Ord2 Eos ABS# 0.2 K/ul 11/16/20 21 Unknown Cbc With Differential Ord2 Baso ABS# 0.0 K/ul 11/16/20 21 Unknown Tsh Ord6 TSH (3rd IS) 1.03 uIU/mL 11/16/2021 Unkn own Free T4 Wao459 FREE T4 1.11 ng/dL 11/16/2021 Unknown Cbc [...] 08/10/20 21 Unknown Cbc With Differential Ord2 [place]% 8.0 % 08/10/20 21 Unknown Cbc With [...] K/ul 021 Unknown Cbc With Differential Ord2 [place] ABS# 0.7 K/ul 08/10/20 21 Unknown Cbc With Differential Ord2 Eos ABS# 0.2 K/ul 08/10/20 21 Unknown Cbc With Differential Ord2 Baso ABS# 0.0 K/ul 08/10/20 21 Unknown Tsh Ord6 TSH (3rd IS) 0.21 uIU/mL 08/10/2021 Unkn own Comp Metabolic Xyy035 NA 141 mEq/L 08/10/2021 Unkn own Comp Metabolic Wmc290 K 4.1 mEq/L 08/10/2021 Unkn own Comp Metabolic Uwb875 CL 104 mEq/L 08/10/2021 Unkn own Comp Metabolic Blq174 CO2 28.0 mEq/L 08/10/2021 Unk nown Comp Metabolic Usx007 ANION GAP 13 08/10/2021 Unkn own Comp Metabolic Mxf144 GLUCOSE 78 mg/dL 08/10/2021 Unkn own Comp Metabolic Irn151 Creat 0.8 mg/dL 08/10/2021 Unkn own Comp Metabolic Ngn989 eGFR 71 ml/min/1.73m2 08/10/20 21 Unknown Comp Metabolic Hfv429 BUN 25 mg/dL 08/10/2021 Unkn own Comp Metabolic Lua301 B/C Ratio 30.9 Ratio 08/10/2021 Unk nown Comp Metabolic Eyx362 CALCIUM 8.7 mg/dL 08/10/2021 Unkn own Comp Metabolic Wwn346 ALK PHOS 61 U/L 08/10/2021 Unkn own Comp Metabolic Skb366 AST(SGOT) 17 U/L 08/10/2021 Unkn own Comp Metabolic Luf503 ALT(SGPT) 10 U/L 08/10/2021 Unkn own Comp Metabolic Nxj216 BILI T 0.6 mg/dL 08/10/2021 Unkn own Comp Metabolic Nih027 ALBUMIN 3.7 g/dL 08/10/2021 Unkn own Comp Metabolic Sje981 TPRO 6.1 g/dL 08/10/2021 Unkn own Comp Metabolic Vrp462 GLOB 2.4 g/dL 08/10/2021 Unkn own Comp Metabolic Bqr143 A/G Ratio 1.6 Ratio 08/10/2021 Unkn own Comp Metabolic Qbm109 Osmo 285 mOsmo 08/10/2021 Unkn own B12 Jaq785 B12 >1500.00 pg/ml 08/10/2021 Unkn own Free T4 Qyr518 FREE T4 1.23 ng/dL 08/10/2021 Unknown Tibc Ord40 Iron 32 ug/dl 12/29/2020 Unknown Tibc Ord40 UIBC 402 ug/dL 12/29/2020 Unknown Tibc Ord40 TIBC 434 ug/dL 12/29/2020 Unknown Tibc Ord40 Fe-%Sat 7.4 % 12/29/2020 Unknown Ferritin Ord22 FERRITIN 27.6 ng/mL 12/29/2020 Unknown B12 Ivj402 B12 187.00 pg/ml 12/29/2020 Unknow n Comp Metabolic Utm175 NA 139 mEq/L 12/28/2020 Unkn own Comp Metabolic Mhf826 K 4.1 mEq/L 12/28/2020 Unkn own Comp Metabolic Zwy476 CL 103 mEq/L 12/28/2020 Unkn own Comp Metabolic Iea346 CO2 27.0 mEq/L 12/28/2020 Unk nown Comp Metabolic Rso057 ANION GAP 13 12/28/2020 Unkn own Comp Metabolic Czn076 GLUCOSE 79 mg/dL 12/28/2020 Unkn own Comp Metabolic Cwf206 Creat 0.7 mg/dL 12/28/2020 Unkn own Comp Metabolic Kvj060 eGFR 80 ml/min/1.73m2 12/28/19 21 Unknown Comp Metabolic Art640 BUN 21 mg/dL 12/28/2020 Unkn own Comp Metabolic Jdl210 B/C Ratio 28.8 Ratio 12/28/2020 Unk nown Comp Metabolic Mrg390 CALCIUM 8.7 mg/dL 12/28/2020 Unkn own Comp Metabolic Ljt803 ALK PHOS 74 U/L 12/28/2020 Unkn own Comp Metabolic Auz491 AST(SGOT) 15 U/L 12/28/2020 Unkn own Comp Metabolic Odb669 ALT(SGPT) 17 U/L 12/28/2020 Unkn own Comp Metabolic Akz432 BILI T 0.4 mg/dL 12/28/2020 Unkn own Comp Metabolic Dlg571 ALBUMIN 3.5 g/dL 12/28/2020 Unkn own Comp Metabolic Avi424 TPRO 5.9 g/dL 12/28/2020 Unkn own Comp Metabolic Qwk946 GLOB 2.4 g/dL 12/28/2020 Unkn own Comp Metabolic Rqw419 A/G Ratio 1.4 Ratio 12/28/2020 Unkn own Comp Metabolic Ewo545 Osmo 279 mOsmo 12/28/2020 Unkn own Cbc [...] 12/28/19 21 Unknown Cbc With Differential Ord2 [place]% 7.9 % 12/28/19 21 Unknown Cbc With [...] K/ul 021 Unknown Cbc With Differential Ord2 [place] ABS# 0.6 K/ul 12/28/19 21 Unknown Cbc With Differential Ord2 Eos ABS# 0.4 K/ul 12/28/19 21 Unknown Cbc With Differential Ord2 Baso ABS# 0.0 K/ul 12/28/19 21 Unknown Procedures Procedure Codes Date THER/PROPH/DIAG INJ SC/IM CPT-4: 04705 08/10/2021 VITAMIN B12 INJECTION 1000 mcg CPT-4: J3420 THER/PROPH/DIAG INJ SC/IM CPT-4: 94343 06/30/2021 Vital Signs Date Vital 08/23/2021 SpO2: 96% SpO2: 87% SpO2: 94% 08/10/2021 Blood Pressure 1: 138/82 Code: 8480-6 BMI: 33.5 Code: 97998-3 Heart Rate 1: 74 bpm Height: 5'3" Code: 8302-2 SpO2: 98% Temperature: 3 6.2 (C) / 97.1 (F) Weight: 189 lbs Code: 51807-9 05/11/2021 Blood Pressure 1: 134/80 Code: 8480-6 Heart Rate 1: 77 bpm Height: 5'3" Code: 8302-2 SpO2: 93% Temperature: 36.3 (C) / 97.3 (F) 01/25/2021 Blood Pressure 1: 136/88 Code: 8480-6 Heart Rate 1: 60 bpm Height: Code: 8302-2 SpO2: 93% Temperature: 36.3 (C) / 97.3 (F) Weight: 174 lbs Code: 23812-7 12/28/2020 Blood Pressure 1: 164/92 Code: 8480-6 BMI: 31.4 Code: 75624-0 Heart Rate 1: 67 bpm Height: 5'3" Code: 8302-2 SpO2: 94% Temperature: 3 6.2 (C) / 97.1 (F) Weight: 177 lbs Code: 10778-3 12/10/2020 Blood Pressure 1: 134/72 Code: 8480-6 BMI: 30.8 Code: 93947-8 Heart Rate 1: 74 bpm Height: 5'3" Code: 8302-2 Respiratory Rate: 18 bpm SpO2: 95% Temperature: 36.3 (C) / 97.4 (F) Weight: 174 lbs Code: 46459-8 09/10/2020 Blood Pressure 1: 202/94 Code: 8480-6 BMI: 30.6 Code: 99033-8 Heart Rate 1: 73 bpm Height: 5'3" Code: 8302-2 Respiratory Rate: 17 bpm SpO2: 91% Temperature: 36.8 (C) / 98.2 (F) Weight: 173 lbs Code: 52058-3 08/26/2020 Blood Pressure 1: 144/90 Code: 8480-6 BMI: 29.4 Code: 40560-2 Heart Rate 1: 72 bpm Height: 5'3" Code: 8302-2 SpO2: 98% Temperature: 3 6.7 (C) / 98.0 (F) Weight: 166 lbs Code: 77028-8 Functional Status No Functional Status data Reason For Visit Reason For Visit Effective Dates Notes hypertension 08/10/2021 hypertension 05/11/2021 hypertension 01/25/2021 Hospital Follow Up 12/28/2020 shortness of breath 12/10/2020 shortness of breath 09/10/2020 Hospital Follow Up 08/26/2020 Encounters Encounter Performer Location Codes Date EST. 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 PATIENT, LEVEL IV Diagnosis: Vitamin B12 deficiency (dietary) anemia[ICD10: D51.8] Diagnosis: Essential (primary) hypertension[ICD10: I10] Diagnosis: Atrophy of thyroid (acquired)[ICD10: E03.4] Rena Mac MD, [facility] CPT-4: 90566 08/10/2021 ([id number]) [id number] EST. PATIENT, LEVEL IV Diagnosis: Essential (primary) hypertension[ICD10: I10] Diagnosis: Vitamin B12 deficiency (dietary) anemia[ICD10: D51.8] Diagnosis: Atrophy of thyroid (acquired)[ICD10: E03.4] Diagnosis: Localized edema[ICD10: R60.0] Rnea white MD, [facility] CPT-4: 46289 05/11/2021 ([id number]) [id number] EST. PATIENT, LEVEL IV Diagnosis: CHF (congestive heart failure)[ICD10: I50.9] Diagnosis: Essential (primary) hypertension[ICD10: I10] Diagnosis: Vitamin B12 deficiency (dietary) anemia[ICD10: D51.8] Rena Mac MD, [facility] CPT-4: 46756 01/25/2021 ([id number]) [id number] EST. PATIENT, LEVEL IV Diagnosis: Acute on chronic diastolic congestive heart failure[ICD10: I50.33] Diagnosis: Anemia[ICD10: D64.9] Diagnosis: Essential (primary) hypertension[ICD10: I10] Rena Mac MD, [facility] CPT-4: 19217 12/28/2020 ([id number]) 78214 EST. PATIENT, LEVEL IV Diagnosis: Essential (primary) hypertension[ICD10: I10] Diagnosis: CHF (congestive heart failure)[ICD10: I50.9] Diagnosis: Atrophy of thyroid (acquired)[ICD10: E03.4] [facility] CPT-4: 01277 12/10/2020 ([id number] EST. PATIENT, LEVEL IV Diagnosis: Essential (primary) hypertension[ICD10: I10] Diagnosis: CHF (congestive heart failure)[ICD10: I50.9] Diagnosis: On supplemental oxygen therapy[ICD10: Z99.81] Diagnosis: Atrophy of thyroid (acquired)[ICD10: E03.4] [facility] CPT-4: 36986 09/10/2020 OFFICE VISIT, NEW - LEVEL 3 Diagnosis: CHF (congestive heart failure)[ICD10: I50.9] Diagnosis: Dementia without behavioral disturbance, unspecified dementia type[ICD10: F03.90] [facility] CPT-4: 22273 08/26 Plan of Care Planned Activity Notes Codes Status Date Patient Education: Patient Medication Summary Completed 11/17/2021 Patient Education: Patient Medication Summary Completed [...] -injection today 08/10/2021 Appointment: Rena [facility]ston [facility]el[phone] ([facility] 08/10/2021 Patient Education: Patient Medication Summary Completed [...] labs 05/11/2021 Appointment: Rena Livingston WPtel: [phone] [phone] (30 min) Complex 05/11/2021 Patient Education: Patient Medication Summary Completed 05/11/2021 App[facility]ment: [phone] [phone] (30 min) Complex 04/27/2021 [phone] ([facility] Moderate 03/11/2021 Visit Plan: [...] injections per 01/25/2021 App[facility]ment: [facility] [phone] [phone] (30 min) Complex 01/25/2021 Patient Education: [...] medications today 12/28/2020 [facility]ment: [facility] [phone] [phone] (30 min) Complex 12/28/2020 Patient Education: [...] Summary Completed 12/10/2020 [facility] [phone] [facility] [place] (30 min) Complex 11/03/2020 Visit Plan: Chronic [...] to be done to be drawn by [facility]. 09/10/2020 Appointment: Shantal Mac WPtel: [address] [place], [place] [id number] (15 min) Moderate 09/10/2020 Patient Education: Patient [...] to be done to be drawn by [employer] 09/10/2020 Will set up with [facility] pt is to consider moving to assisted [...]
--- OUTSIDE RECORDS SUMMARY | 2021-11-29 16:00 | XMS REPORT | CCD ---
Author Author Flakita Andino Organization Shantal Mac MD, [facility] Address [address] [place] [address] Phone Care Team Providers Care Triage Rn Name Role Phone Shantal Mac PP Unavailable CCM Unavailable Summary Purpose Interface Exchange Insurance Providers Payer name Policy type / Coverage type Covered republican ID Effective Begin Date Effective End Date WPS Medicare Part B Medicare Part B [id number] Unknown Unkno wn [facility] Medicare Part B [id number] Unkno wn Unknown Family history Sister Diagnosis [...] Unknown Retired 08/26/[address]: 7822847 Quit over 10 years a go 199908/26/[address]: 868917495 Never drinks alcohol 2019 Allergies, Adverse Reactions, [...] (0.083 %) solution for n ebulization RxNorm: 083831 USE 1 VIAL IN NEBULIZER TWICE DAILY 11/26/2021 04/30/2022 Activ e albuterol sulfate 2.5 mg/3 mL (0.083 %) solution for n ebulization RxNorm: 927409 USE 1 VIAL IN NEBULIZER TWICE DAILY 11/25/2021 12/07/2021 Activ e albuterol sulfate 2.5 mg/3 mL (0.083 %) solution for n ebulization RxNorm: 994412 USE 1 VIAL IN NEBULIZER TWICE DAILY 11/25/2021 12/07/2021 Activ e losartan 50 mg tablet RxNorm: 212701 Take 1 Tablet(s) Oral two times a day 11/05/2021 10/30/2022 Active cyanocobalamin (vit B-12) 1,000 mcg/mL injection solution Rx Norm: 359597 1 Milliliter(s) Injection monthly 11/02/2021 12/01/2021 Active will need syringe/needle for monthly injection dx b12 deficiency levothyroxine 112 mcg tablet RxNorm: 006205 Take 1 Tablet(s) Or al every day 11/02/2021 01/30/2022 Active hydrocodone 5 mg-acetaminophen 325 mg tablet RxNorm: 281269 Take 1 Tablet(s) Oral three times a day as needed for pain 11/02/2021 12/01/2021 Active cyanocobalamin (vit B-12) 1,000 mcg/mL injection solution Rx Norm: 956892 1 Milliliter(s) Injection monthly 10/27/2021 10/27/2021 Inactive will need syringe/needle for monthly injection dx b12 deficiency cyanocobalamin (vit B-12) 1,000 mcg/mL injection solution Rx Norm: 680472 1 Milliliter(s) Injection monthly 10/27/2021 10/27/2021 Inactive will need syringe/needle for monthly injection dx b12 deficiency levothyroxine 112 mcg tablet RxNorm: 209686 1 Tablet(s) Oral ev vinny day 10/27/2021 10/27/2021 Inactive hydrocodone 5 mg-acetaminophen 325 mg tablet RxNorm: 016976 Take 1 Tablet(s) Oral three times a day as needed for pain 09/20/2021 09/20/2021 Inacti ve albuterol sulfate 2.5 mg/3 mL (0.083 %) solution for n ebulization RxNorm: 754168 USE 1 VIAL IN NEBULIZER TWICE DAILY 09/14/2021 09/14/2021 Inact césar albuterol sulfate 2.5 mg/3 mL (0.083 %) solution for n ebulization RxNorm: 197875 USE 1 VIAL IN NEBULIZER TWICE DAILY 09/14/2021 09/14/2021 Inact césar levothyroxine 112 mcg tablet RxNorm: 610427 1 Tablet(s) Oral ev vinny day 09/02/2021 09/02/2021 Inactive levothyroxine 112 mcg tablet RxNorm: 328558 1 Tablet(s) Oral ev vinny day 09/02/2021 09/02/2021 Inactive levothyroxine 112 mcg tablet RxNorm: 697002 1 Tablet(s) Oral ev vinny day 08/20/2021 09/02/2021 Inactive cyanocobalamin (vit B-12) 1,000 mcg/mL injection solution Rx Norm: 777751 Take Milliliter(s) Injection 08/10/2021 08/10/2021 Inactive cyanocobalamin (vit B-12) 1,000 mcg/mL injection solution Rx Norm: 532746 Take Milliliter(s) Injection 06/30/2021 06/30/2021 Inactive albuterol sulfate 2.5 mg/3 mL (0.083 %) solution for n ebulization RxNorm: 699154 1 Unit Dose Inhalation two times a day DX J43.1 04/19/20212020 Inactive losartan 50 mg tablet RxNorm: 736254 1 Tablet(s) Oral two times a day 03/22/2021 03/22/2021 Inactive albuterol sulfate 2.5 mg/3 mL (0.083 %) solution for n ebulization RxNorm: 307261 1 Unit Dose Inhalation two times a day DX J43.1 03/22/20212020 Inactive albuterol sulfate 2.5 mg/3 mL (0.083 %) solution for n ebulization RxNorm: 796523 1 Unit Dose Inhalation two times a day 03/17/2021 03/16/2021 In active albuterol sulfate 2.5 mg/3 mL (0.083 %) solution for n ebulization RxNorm: 500361 1 Unit Dose Inhalation two times a day 03/17/2021 03/21/2021 In active Norvasc 5 mg tablet RxNorm: 671499 1 Tablet(s) Oral every day 12/3112/26/2021 Active Norvasc 5 mg tablet RxNorm: 897192 1 Tablet(s) Oral every day 12/3112/30/2020 Inactive metoprolol succinate ER 25 mg tablet,extended release 24 hr RxNorm: 260784 1 Tablet(s) Oral every day 12/28/2020 No Stop Date Active Ventolin HFA 90 mcg/actuation aerosol inhaler RxNorm: 573747 1-2 Puff(s) Inhalation Every 4 hrs as needed 12/28/2020 No Stop Date Active furosemide 20 mg tablet RxNorm: 306172 1 Tablet(s) Oral every day 0 12/28/2020 No Stop Date Active furosemide 40 mg tablet RxNorm: 142113 1 Tablet(s) Oral as directed 40mg BID x 5 days then 40mg in am and 20mg afternoon thereafter 11/18/2020 Inactive give qty sufficient potassium chloride ER 10 mEq tablet,extended release RxNorm: 477812 1 Tablet(s) Oral as directed 1 tab bid x 5 days then resume daily 11/18/20202020 Inactive qty sufficient potassium bicarbonate-citric acid 10 mEq effervescent tablet RxNorm: 7338537 1 Tablet(s) Oral every day 09/10/2020 11/17/2020 Inactive levothyroxine 125 mcg tablet RxNorm: 974651 1 Tablet(s) Oral ev vinny day 09/10/2020 08/19/2021 Inactive losartan 50 mg tablet RxNorm: 823961 1 Tablet(s) Oral two times a day 09/10/2020 12/27/2020 Inactive furosemide 40 mg tablet RxNorm: 400706 1 Tablet(s) Oral every day 1 11/17/2020 Inactive Zyrtec 10 mg tablet RxNorm: 0066679 1 Tablet(s) Oral every day 03/202012/28/2020 Inactive levothyroxine 125 mcg tablet RxNorm: 274128 1 Tablet(s) Oral ev vinny day 08/31/2020 09/09/2020 Inactive Zyrtec 10 mg tablet RxNorm: 3874922 1 Tablet(s) Oral every day 03/202008/30/2020 Inactive aspirin 81 mg tablet,delayed release RxNorm: 708965 1 Tablet(s) Oral every day 08/26/2020 No Stop Date Active Vitamin C 250 mg tablet RxNorm: 789066 1 Tablet(s) Oral every day 0 08/26/2020 No Stop Date Active Vitamin D3 50 mcg (2,000 unit) tablet RxNorm: 920620 1 Tablet(s ) Oral every day 08/26/2020 No Stop Date Active levothyroxine 88 mcg tablet RxNorm: 514692 1 Tablet(s) Oral micheal ry day 08/26/2020 08/30/2020 Inactive losartan 50 mg tablet RxNorm: 793987 1 Tablet(s) Oral every day 09/09/2020 Inactive furosemide 40 mg tablet RxNorm: 367607 1 Tablet(s) Oral every day 0 08/26/2020 09/09/2020 Inactive potassium bicarbonate-citric acid 10 mEq effervescent tablet RxNorm: 1254097 1 Tablet(s) Oral every day 08/26/2020 09/09/2020 Inactive Women's Multivitamin oral RxNorm: oral 08/26/2020 Act césar Calcium 600 oral RxNorm: 1897 oral 08/26/2020 Active albuterol sulfate inhalation RxNorm: 003171 inhalation 08/26/2020 Active Medication Administered Medication Codes Instructions Start Date Status cyanocobalamin (vit B-12) 1,000 mcg/mL injection solution Rx Norm: 974595 Milliliter 08/10/2021 No longer Active cyanocobalamin (vit B-12) 1,000 mcg/mL injection solution Rx Norm: 639493 Milliliter 06/30/2021 No longer Active Immunizations Vaccine Codes Dose Date Status Covid-19 CVX: 207 03/06/2021 Covid-19 [...] pg 11/16/20 Unknown Cbc With Differential Ord2 Elbert% 7.2 % 12/21/20 21 Unknown Cbc With Differential Ord2 Eos% 2.6 % 11/16/20 21 Unknown Cbc With Differential Ord2 MCHC 29.7 pg 11/16/20 21 Unknown Cbc With Differential Ord2 Baso% 0.1 % 11/16/20 21 Unknown Cbc With Differential Ord2 PLT 343 K/ul 11/16/20 21 Unknown Cbc With Differential Ord2 RDW 14.8 % 11/16/20 21 Unknown Cbc With Differential Ord2 Neut ABS# 5.03 K/ul 11/16/20 21 Unknown Cbc With Differential Ord2 Lymph ABS# 2.88 K/ul 021 Unknown Cbc With Differential Ord2 Elbert ABS# 0.6 K/ul 11/16/20 21 Unknown Cbc With Differential Ord2 Eos ABS# 0.2 K/ul 11/16/20 21 Unknown Cbc With Differential Ord2 Baso ABS# 0.0 K/ul 11/16/20 21 Unknown Tsh Ord6 TSH (3rd IS) 1.03 uIU/mL 11/16/2021 Unkn own Free T4 Fxk286 FREE T4 1.11 ng/dL 11/16/2021 Unknown Cbc [...] 08/10/20 21 Unknown Cbc With Differential Ord2 Elbert% 8.0 % 08/10/20 21 Unknown Cbc With [...] K/ul 021 Unknown Cbc With Differential Ord2 Elbert ABS# 0.7 K/ul 08/10/20 21 Unknown Cbc With Differential Ord2 Eos ABS# 0.2 K/ul 08/10/20 21 Unknown Cbc With Differential Ord2 Baso ABS# 0.0 K/ul 08/10/20 21 Unknown Tsh Ord6 TSH (3rd IS) 0.21 uIU/mL 08/10/2021 Unkn own Comp Metabolic Ubr674 NA 141 mEq/L 08/10/2021 Unkn own Comp Metabolic Fqx568 K 4.1 mEq/L 08/10/2021 Unkn own Comp Metabolic Pry253 CL 104 mEq/L 08/10/2021 Unkn own Comp Metabolic Rgo640 CO2 28.0 mEq/L 08/10/2021 Unk nown Comp Metabolic Mmx902 ANION GAP 13 08/10/2021 Unkn own Comp Metabolic Zdi602 GLUCOSE 78 mg/dL 08/10/2021 Unkn own Comp Metabolic Wtx781 Creat 0.8 mg/dL 08/10/2021 Unkn own Comp Metabolic Hgg529 eGFR 71 ml/min/1.73m2 08/10/20 21 Unknown Comp Metabolic Hby313 BUN 25 mg/dL 08/10/2021 Unkn own Comp Metabolic Jov072 B/C Ratio 30.9 Ratio 08/10/2021 Unk nown Comp Metabolic See644 CALCIUM 8.7 mg/dL 08/10/2021 Unkn own Comp Metabolic Ghn254 ALK PHOS 61 U/L 08/10/2021 Unkn own Comp Metabolic Eoe992 AST(SGOT) 17 U/L 08/10/2021 Unkn own Comp Metabolic Pkg385 ALT(SGPT) 10 U/L 08/10/2021 Unkn own Comp Metabolic Arf758 BILI T 0.6 mg/dL 08/10/2021 Unkn own Comp Metabolic Kgo440 ALBUMIN 3.7 g/dL 08/10/2021 Unkn own Comp Metabolic Hsr150 TPRO 6.1 g/dL 08/10/2021 Unkn own Comp Metabolic Dsh627 GLOB 2.4 g/dL 08/10/2021 Unkn own Comp Metabolic Hcb515 A/G Ratio 1.6 Ratio 08/10/2021 Unkn own Comp Metabolic Afy407 Osmo 285 mOsmo 08/10/2021 Unkn own B12 Npw183 B12 >1500.00 pg/ml 08/10/2021 Unkn own Free T4 Czn220 FREE T4 1.23 ng/dL 08/10/2021 Unknown Tibc Ord40 Iron 32 ug/dl 12/29/2020 Unknown Tibc Ord40 UIBC 402 ug/dL 12/29/2020 Unknown Tibc Ord40 TIBC 434 ug/dL 12/29/2020 Unknown Tibc Ord40 Fe-%Sat 7.4 % 12/29/2020 Unknown Ferritin Ord22 FERRITIN 27.6 ng/mL 12/29/2020 Unknown B12 Gzs641 B12 187.00 pg/ml 12/29/2020 Unknow n Comp Metabolic Xto957 NA 139 mEq/L 12/28/2020 Unkn own Comp Metabolic Qrx892 K 4.1 mEq/L 12/28/2020 Unkn own Comp Metabolic Ofh348 CL 103 mEq/L 12/28/2020 Unkn own Comp Metabolic Xaa701 CO2 27.0 mEq/L 12/28/2020 Unk nown Comp Metabolic Ane820 ANION GAP 13 12/28/2020 Unkn own Comp Metabolic Wdh601 GLUCOSE 79 mg/dL 12/28/2020 Unkn own Comp Metabolic Qiu304 Creat 0.7 mg/dL 12/28/2020 Unkn own Comp Metabolic Slf629 eGFR 80 ml/min/1.73m2 12/28/19 21 Unknown Comp Metabolic Rll695 BUN 21 mg/dL 12/28/2020 Unkn own Comp Metabolic Bdj475 B/C Ratio 28.8 Ratio 12/28/2020 Unk nown Comp Metabolic Vun541 CALCIUM 8.7 mg/dL 12/28/2020 Unkn own Comp Metabolic Hdo566 ALK PHOS 74 U/L 12/28/2020 Unkn own Comp Metabolic Zny971 AST(SGOT) 15 U/L 12/28/2020 Unkn own Comp Metabolic Ngt932 ALT(SGPT) 17 U/L 12/28/2020 Unkn own Comp Metabolic Mye555 BILI T 0.4 mg/dL 12/28/2020 Unkn own Comp Metabolic Rij046 ALBUMIN 3.5 g/dL 12/28/2020 Unkn own Comp Metabolic Azi407 TPRO 5.9 g/dL 12/28/2020 Unkn own Comp Metabolic Wby996 GLOB 2.4 g/dL 12/28/2020 Unkn own Comp Metabolic Rsq328 A/G Ratio 1.4 Ratio 12/28/2020 Unkn own Comp Metabolic Hsr661 Osmo 279 mOsmo 12/28/2020 Unkn own Cbc [...] 12/28/19 21 Unknown Cbc With Differential Ord2 Elbert% 7.9 % 12/28/19 21 Unknown Cbc With [...] K/ul 021 Unknown Cbc With Differential Ord2 Elbert ABS# 0.6 K/ul 12/28/19 21 Unknown Cbc With Differential Ord2 Eos ABS# 0.4 K/ul 12/28/19 21 Unknown Cbc With Differential Ord2 Baso ABS# 0.0 K/ul 12/28/19 21 Unknown Procedures Procedure Codes Date THER/PROPH/DIAG INJ SC/IM CPT-4: 80665 08/10/2021 VITAMIN B12 INJECTION 1000 mcg CPT-4: J3420 THER/PROPH/DIAG INJ SC/IM CPT-4: 79433 06/30/2021 Vital Signs Date Vital 08/23/2021 SpO2: 96% SpO2: 87% SpO2: 94% 08/10/2021 Blood Pressure 1: 138/82 Code: 8480-6 BMI: 33.5 Code: 60604-1 Heart Rate 1: 74 bpm Height: 5'3" Code: 8302-2 SpO2: 98% Temperature: 3 6.2 (C) / 97.1 (F) Weight: 189 lbs Code: 90539-3 05/11/2021 Blood Pressure 1: 134/80 Code: 8480-6 Heart Rate 1: 77 bpm Height: 5'3" Code: 8302-2 SpO2: 93% Temperature: 36.3 (C) / 97.3 (F) 01/25/2021 Blood Pressure 1: 136/88 Code: 8480-6 Heart Rate 1: 60 bpm Height: Code: 8302-2 SpO2: 93% Temperature: 36.3 (C) / 97.3 (F) Weight: 174 lbs Code: 51546-2 12/28/2020 Blood Pressure 1: 164/92 Code: 8480-6 BMI: 31.4 Code: 89360-4 Heart Rate 1: 67 bpm Height: 5'3" Code: 8302-2 SpO2: 94% Temperature: 3 6.2 (C) / 97.1 (F) Weight: 177 lbs Code: 84884-4 12/10/2020 Blood Pressure 1: 134/72 Code: 8480-6 BMI: 30.8 Code: 53329-7 Heart Rate 1: 74 bpm Height: 5'3" Code: 8302-2 Respiratory Rate: 18 bpm SpO2: 95% Temperature: 36.3 (C) / 97.4 (F) Weight: 174 lbs Code: 74295-2 09/10/2020 Blood Pressure 1: 202/94 Code: 8480-6 BMI: 30.6 Code: 48734-5 Heart Rate 1: 73 bpm Height: 5'3" Code: 8302-2 Respiratory Rate: 17 bpm SpO2: 91% Temperature: 36.8 (C) / 98.2 (F) Weight: 173 lbs Code: 57588-6 08/26/2020 Blood Pressure 1: 144/90 Code: 8480-6 BMI: 29.4 Code: 07790-7 Heart Rate 1: 72 bpm Height: 5'3" Code: 8302-2 SpO2: 98% Temperature: 3 6.7 (C) / 98.0 (F) Weight: 166 lbs Code: 35841-9 Functional Status No Functional Status data Reason [...] Diagnosis: Panlobular emphysema[ICD10: J43.1] Shantal tran MD, [facility] CPT-4: 67679 08/23/2021 ([id number]) [id number] EST. PATIENT, LEVEL IV Diagnosis: Vitamin B12 deficiency (dietary) anemia[ICD10: D51.8] Diagnosis: Essential (primary) hypertension[ICD10: I10] Diagnosis: Atrophy of thyroid (acquired)[ICD10: E03.4] Rena Mac MD, [facility] CPT-4: 98827 08/10/2021 ([id number]) [id number] EST. PATIENT, LEVEL IV Diagnosis: Essential (primary) hypertension[ICD10: I10] Diagnosis: Vitamin B12 deficiency (dietary) anemia[ICD10: D51.8] Diagnosis: Atrophy of thyroid (acquired)[ICD10: E03.4] Diagnosis: Localized edema[ICD10: R60.0] Rena white MD, [facility] CPT-4: 11753 05/11/2021 ([id number]) [id number] EST. PATIENT, LEVEL IV Diagnosis: CHF (congestive heart failure)[ICD10: I50.9] Diagnosis: Essential (primary) hypertension[ICD10: I10] Diagnosis: Vitamin B12 deficiency (dietary) anemia[ICD10: D51.8] Rena Mac MD, [facility] CPT-4: 49858 01/25/2021 ([id number]) 69376 EST. PATIENT, LEVEL IV Diagnosis: Acute on chronic diastolic congestive heart failure[ICD10: I50.33] Diagnosis: Anemia[ICD10: D64.9] Diagnosis: Essential (primary) hypertension[ICD10: I10] [facility] CPT-4: 03895 12/28/2020 [id number]) [id number] EST. PATIENT, LEVEL IV Diagnosis: Essential (primary) hypertension[ICD10: I10] Diagnosis: CHF (congestive heart failure)[ICD10: I50.9] Diagnosis: Atrophy of thyroid (acquired)[ICD10: E03.4] [facility] CPT-4: 58506 12/10/2020 ([id number] EST. PATIENT, LEVEL IV Diagnosis: Essential (primary) hypertension[ICD10: I10] Diagnosis: CHF (congestive heart failure)[ICD10: I50.9] Diagnosis: On supplemental oxygen therapy[ICD10: Z99.81] Diagnosis: Atrophy of thyroid (acquired)[ICD10: E03.4] [facility] CPT-4: 49643 09/10/2020 OFFICE VISIT, NEW - LEVEL 3 Diagnosis: CHF (congestive heart failure)[ICD10: I50.9] Diagnosis: Dementia without behavioral disturbance, unspecified dementia type[ICD10: F03.90] [facility] CPT-4: 81748 08/26 Plan of Care Planned Activity Notes [...] -injection today 08/10/2021 Appointment: Rena Livingston WPtel: [address] [place], [place] [phone] (30 min) Complex 08/10/2021 Patient Education: Patient [...] labs 05/11/2021 [facility] [phone] [phone] [place] (30 min) Complex 05/11/2021 Patient Education: Patient Medication Summary Completed 05/11/2021 [facility] [phone] [phone] [place] (30 min) Complex 04/27/2021 [facility] [phone] [facility] [place] (15 min) Moderate 03/11/2021 Visit Plan: [...] injections per 01/25/2021 Appointment: Rena Livingston WPtel: [phone] [phone] [place] (30 min) Complex 01/25/2021 Patient Education: [...] today 12/28/2020 Appointment: Rena Livingston WPtel: [phone] [phone] [place] (30 min) Complex 12/28/2020 Patient Education: [...] Completed 12/10/2020 [facility] [phone] [facility] [place] ([facility] min) Complex 11/03/2020 Visit Plan: [...] to be done to be drawn by [facility]. 09/10/2020 Appointment: Shantal Mac WPtel: [address] [place], [place] [phone] (15 min) Moderate 09/10/2020 Patient Education: Patient [...] to be done to be drawn by [facility]. 09/10/2020 Will set up with [facility] pt is to consider moving to [...]
--- OUTSIDE RECORDS SUMMARY | 2021-11-29 16:01 | XMS REPORT | CCD ---
Author Author Flakita Andino Organization Shantal Mac MD, [facility] Address [address] [place] [address] Phone Care Team Providers Care Social Work Professor Name Role Phone Shantal Mac PP Unavailable CCM Unavailable Summary Purpose Interface Exchange Insurance Providers Payer name Policy type / Coverage type Covered libertarian ID Effective Begin Date Effective End Date WPS Medicare Part B Medicare Part B [id number] Unknown Unkno wn [facility] Medicare Part B [id number] Unkno wn Unknown Family history Sister Diagnosis [...] Unknown Retired 08/26/[address]: 1719549 Quit over 10 years a go 199908/26/[address]: 925210451 Never drinks alcohol 2019 Allergies, Adverse Reactions, Alerts Substance Reaction Codes Entered Date Inactivated Date Status Penicillin rash, Unknown 08/26/2020 No Inactive Date Active * OTHER REACTION - SEE ANSWER BOX Tetracycline- Rash Unknown 0 08/26/2020 No Inactive Date Active Problems Condition Codes Effective Dates Condition Status spinal stenosis Unknown 09/20/2021 Active Spinal stenosis [...] Fill Instructions losartan 50 mg tablet RxNorm: 091462 Take 1 Tablet(s) Oral two times a day 11/05/2021 10/30/2022 Active cyanocobalamin (vit B-12) 1,000 mcg/mL injection solution Rx Norm: 138804 1 Milliliter(s) Injection monthly 11/02/2021 12/01/2021 Active will need syringe/needle for monthly injection dx b12 deficiency levothyroxine 112 mcg tablet RxNorm: 253769 Take 1 Tablet(s) Or al every day 11/02/2021 01/30/2022 Active hydrocodone 5 mg-acetaminophen 325 mg tablet RxNorm: 608677 Take 1 Tablet(s) Oral three times a day as needed for pain 11/02/2021 12/01/2021 Active cyanocobalamin (vit B-12) 1,000 mcg/mL injection solution Rx Norm: 046949 1 Milliliter(s) Injection monthly 10/27/2021 10/27/2021 Inactive will need syringe/needle for monthly injection dx b12 deficiency cyanocobalamin (vit B-12) 1,000 mcg/mL injection solution Rx Norm: 806514 1 Milliliter(s) Injection monthly 10/27/2021 10/27/2021 Inactive will need syringe/needle for monthly injection dx b12 deficiency levothyroxine 112 mcg tablet RxNorm: 843075 1 Tablet(s) Oral ev vinny day 10/27/2021 10/27/2021 Inactive hydrocodone 5 mg-acetaminophen 325 mg tablet RxNorm: 115337 Take 1 Tablet(s) Oral three times a day as needed for pain 09/20/2021 09/20/2021 Inacti ve albuterol sulfate 2.5 mg/3 mL (0.083 %) solution for n ebulization RxNorm: 571301 USE 1 VIAL IN NEBULIZER TWICE DAILY 09/14/2021 11/04/2021 Inact césar albuterol sulfate 2.5 mg/3 mL (0.083 %) solution for n ebulization RxNorm: 390003 USE 1 VIAL IN NEBULIZER TWICE DAILY 09/14/2021 09/14/2021 Inact césar levothyroxine 112 mcg tablet RxNorm: 912327 1 Tablet(s) Oral ev vinny day 09/02/2021 09/02/2021 Inactive levothyroxine 112 mcg tablet RxNorm: 571725 1 Tablet(s) Oral ev vinny day 09/02/2021 09/02/2021 Inactive levothyroxine 112 mcg tablet RxNorm: 970834 1 Tablet(s) Oral ev vinny day 08/20/2021 09/02/2021 Inactive cyanocobalamin (vit B-12) 1,000 mcg/mL injection solution Rx Norm: 365933 Take Milliliter(s) Injection 08/10/2021 08/10/2021 Inactive cyanocobalamin (vit B-12) 1,000 mcg/mL injection solution Rx Norm: 663659 Take Milliliter(s) Injection 06/30/2021 06/30/2021 Inactive albuterol sulfate 2.5 mg/3 mL (0.083 %) solution for n ebulization RxNorm: 942784 1 Unit Dose Inhalation two times a day DX J43.1 04/19/20212020 Inactive losartan 50 mg tablet RxNorm: 436963 1 Tablet(s) Oral two times a day 03/22/2021 03/22/2021 Inactive albuterol sulfate 2.5 mg/3 mL (0.083 %) solution for n ebulization RxNorm: 823530 1 Unit Dose Inhalation two times a day DX J43.1 03/22/20212020 Inactive albuterol sulfate 2.5 mg/3 mL (0.083 %) solution for n ebulization RxNorm: 828388 1 Unit Dose Inhalation two times a day 03/17/2021 03/16/2021 In active albuterol sulfate 2.5 mg/3 mL (0.083 %) solution for n ebulization RxNorm: 761722 1 Unit Dose Inhalation two times a day 03/17/2021 03/21/2021 In active Norvasc 5 mg tablet RxNorm: 154353 1 Tablet(s) Oral every day 12/3112/26/2021 Active Norvasc 5 mg tablet RxNorm: 173366 1 Tablet(s) Oral every day 12/3112/30/2020 Inactive metoprolol succinate ER 25 mg tablet,extended release 24 hr RxNorm: 894172 1 Tablet(s) Oral every day 12/28/2020 No Stop Date Active Ventolin HFA 90 mcg/actuation aerosol inhaler RxNorm: 938534 1-2 Puff(s) Inhalation Every 4 hrs as needed 12/28/2020 No Stop Date Active furosemide 20 mg tablet RxNorm: 735993 1 Tablet(s) Oral every day 0 12/28/2020 No Stop Date Active furosemide 40 mg tablet RxNorm: 445609 1 Tablet(s) Oral as directed 40mg BID x 5 days then 40mg in am and 20mg afternoon thereafter 11/18/2020 Inactive give qty sufficient potassium chloride ER 10 mEq tablet,extended release RxNorm: 533953 1 Tablet(s) Oral as directed 1 tab bid x 5 days then resume daily 11/18/20202020 Inactive qty sufficient potassium bicarbonate-citric acid 10 mEq effervescent tablet RxNorm: 1320754 1 Tablet(s) Oral every day 09/10/2020 11/17/2020 Inactive levothyroxine 125 mcg tablet RxNorm: 228024 1 Tablet(s) Oral ev vinny day 09/10/2020 08/19/2021 Inactive losartan 50 mg tablet RxNorm: 747895 1 Tablet(s) Oral two times a day 09/10/2020 12/27/2020 Inactive furosemide 40 mg tablet RxNorm: 971212 1 Tablet(s) Oral every day 1 11/17/2020 Inactive Zyrtec 10 mg tablet RxNorm: 3931288 1 Tablet(s) Oral every day 03/202012/28/2020 Inactive levothyroxine 125 mcg tablet RxNorm: 751115 1 Tablet(s) Oral ev vinny day 08/31/2020 09/09/2020 Inactive Zyrtec 10 mg tablet RxNorm: 6294256 1 Tablet(s) Oral every day 03/202008/30/2020 Inactive aspirin 81 mg tablet,delayed release RxNorm: 535936 1 Tablet(s) Oral every day 08/26/2020 No Stop Date Active Vitamin C 250 mg tablet RxNorm: 539190 1 Tablet(s) Oral every day 0 08/26/2020 No Stop Date Active Vitamin D3 50 mcg (2,000 unit) tablet RxNorm: 784476 1 Tablet(s ) Oral every day 08/26/2020 No Stop Date Active levothyroxine 88 mcg tablet RxNorm: 851765 1 Tablet(s) Oral micheal ry day 08/26/2020 08/30/2020 Inactive losartan 50 mg tablet RxNorm: 652611 1 Tablet(s) Oral every day 09/09/2020 Inactive furosemide 40 mg tablet RxNorm: 824017 1 Tablet(s) Oral every day 0 08/26/2020 09/09/2020 Inactive potassium bicarbonate-citric acid 10 mEq effervescent tablet RxNorm: 5568680 1 Tablet(s) Oral every day 08/26/2020 09/09/2020 Inactive Women's Multivitamin oral RxNorm: oral 08/26/2020 Act césar Calcium 600 oral RxNorm: 1897 oral 08/26/2020 Active albuterol sulfate inhalation RxNorm: 688359 inhalation 08/26/2020 Active Medication Administered Medication Codes Instructions Start Date Status cyanocobalamin (vit B-12) 1,000 mcg/mL injection solution Rx Norm: 469305 Milliliter 08/10/2021 No longer Active cyanocobalamin (vit B-12) 1,000 mcg/mL injection solution Rx Norm: 090417 Milliliter 06/30/2021 No longer Active Immunizations Vaccine [...] g/dl 11/16/20 Unknown Cbc With Differential Ord2 HCT 29.6 % 11/16/20 Unknown Cbc With Differential Ord2 Neut% 57.3 % 11/16/20 Unknown Cbc With Differential Ord2 MCV 88.1 fl 11/16/20 Unknown Cbc With Differential Ord2 Lymph% 32.8 % 11/16/20 Unknown Cbc With Differential Ord2 [place]% 7.2 % 11/16/20 Unknown Cbc With Differential Ord2 MCH 26.2 pg 11/16/20 Unknown Cbc With Differential Ord2 Eos% 2.6 % 11/16/20 Unknown Cbc With Differential Ord2 MCHC 29.7 pg 11/16/20 Unknown Cbc With Differential Ord2 PLT 343 K/ul 11/16/20 Unknown Cbc With Differential Ord2 Baso% 0.1 % 11/16/20 Unknown Cbc With Differential Ord2 Neut ABS# 5.03 K/ul 11/16/20 Unknown Cbc With Differential Ord2 RDW 14.8 % 11/16/20 Unknown Cbc With Differential Ord2 Lymph ABS# 2.88 K/ul 021 Unknown Cbc With Differential Ord2 [place] ABS# 0.6 K/ul 11/16/20 Unknown Cbc With Differential Ord2 Eos ABS# 0.2 K/ul 11/16/20 Unknown Cbc With Differential Ord2 Baso ABS# 0.0 K/ul 11/16/20 Unknown Tsh Ord6 TSH (3rd IS) 1.03 uIU/mL 11/16/2021 Unkn own Free T4 Olr932 FREE T4 1.11 ng/dL 11/16/2021 Unknown Cbc [...] 08/10/20 21 Unknown Cbc With Differential Ord2 [place]% 8.0 % 08/10/20 21 Unknown Cbc With [...] K/ul 021 Unknown Cbc With Differential Ord2 [place] ABS# 0.7 K/ul 08/10/20 21 Unknown Cbc With Differential Ord2 Eos ABS# 0.2 K/ul 08/10/20 21 Unknown Cbc With Differential Ord2 Baso ABS# 0.0 K/ul 08/10/20 21 Unknown Tsh Ord6 TSH (3rd IS) 0.21 uIU/mL 08/10/2021 Unkn own Comp Metabolic Vpw561 NA 141 mEq/L 08/10/2021 Unkn own Comp Metabolic Lxr660 K 4.1 mEq/L 08/10/2021 Unkn own Comp Metabolic Aqp251 CL 104 mEq/L 08/10/2021 Unkn own Comp Metabolic Eeu711 CO2 28.0 mEq/L 08/10/2021 Unk nown Comp Metabolic Qid392 ANION GAP 13 08/10/2021 Unkn own Comp Metabolic Umk247 GLUCOSE 78 mg/dL 08/10/2021 Unkn own Comp Metabolic Csy342 Creat 0.8 mg/dL 08/10/2021 Unkn own Comp Metabolic Ydd420 eGFR 71 ml/min/1.73m2 08/10/20 21 Unknown Comp Metabolic Okd175 BUN 25 mg/dL 08/10/2021 Unkn own Comp Metabolic Mdg605 B/C Ratio 30.9 Ratio 08/10/2021 Unk nown Comp Metabolic Lsh261 CALCIUM 8.7 mg/dL 08/10/2021 Unkn own Comp Metabolic Bek472 ALK PHOS 61 U/L 08/10/2021 Unkn own Comp Metabolic Rtg178 AST(SGOT) 17 U/L 08/10/2021 Unkn own Comp Metabolic Wtb886 ALT(SGPT) 10 U/L 08/10/2021 Unkn own Comp Metabolic Dkm970 BILI T 0.6 mg/dL 08/10/2021 Unkn own Comp Metabolic Hbi787 ALBUMIN 3.7 g/dL 08/10/2021 Unkn own Comp Metabolic Kyr848 TPRO 6.1 g/dL 08/10/2021 Unkn own Comp Metabolic Upx977 GLOB 2.4 g/dL 08/10/2021 Unkn own Comp Metabolic Itj381 A/G Ratio 1.6 Ratio 08/10/2021 Unkn own Comp Metabolic Dje393 Osmo 285 mOsmo 08/10/2021 Unkn own B12 Kot544 B12 >1500.00 pg/ml 08/10/2021 Unkn own Free T4 Hwo733 FREE T4 1.23 ng/dL 08/10/2021 Unknown Tibc Ord40 Iron 32 ug/dl 12/29/2020 Unknown Tibc Ord40 UIBC 402 ug/dL 12/29/2020 Unknown Tibc Ord40 TIBC 434 ug/dL 12/29/2020 Unknown Tibc Ord40 Fe-%Sat 7.4 % 12/29/2020 Unknown Ferritin Ord22 FERRITIN 27.6 ng/mL 12/29/2020 Unknown B12 Ytz155 B12 187.00 pg/ml 12/29/2020 Unknow n Comp Metabolic Kdf919 NA 139 mEq/L 12/28/2020 Unkn own Comp Metabolic Dmd376 K 4.1 mEq/L 12/28/2020 Unkn own Comp Metabolic Gmu678 CL 103 mEq/L 12/28/2020 Unkn own Comp Metabolic Kxu583 CO2 27.0 mEq/L 12/28/2020 Unk nown Comp Metabolic Ogu155 ANION GAP 13 12/28/2020 Unkn own Comp Metabolic Cqs450 GLUCOSE 79 mg/dL 12/28/2020 Unkn own Comp Metabolic Fcx519 Creat 0.7 mg/dL 12/28/2020 Unkn own Comp Metabolic Wwd039 eGFR 80 ml/min/1.73m2 12/28/19 21 Unknown Comp Metabolic Mdt518 BUN 21 mg/dL 12/28/2020 Unkn own Comp Metabolic Ywe887 B/C Ratio 28.8 Ratio 12/28/2020 Unk nown Comp Metabolic Ypv006 CALCIUM 8.7 mg/dL 12/28/2020 Unkn own Comp Metabolic Wja002 ALK PHOS 74 U/L 12/28/2020 Unkn own Comp Metabolic Rqr843 AST(SGOT) 15 U/L 12/28/2020 Unkn own Comp Metabolic Yto204 ALT(SGPT) 17 U/L 12/28/2020 Unkn own Comp Metabolic Hco786 BILI T 0.4 mg/dL 12/28/2020 Unkn own Comp Metabolic Mtv259 ALBUMIN 3.5 g/dL 12/28/2020 Unkn own Comp Metabolic Wfv470 TPRO 5.9 g/dL 12/28/2020 Unkn own Comp Metabolic Bcn560 GLOB 2.4 g/dL 12/28/2020 Unkn own Comp Metabolic Oje448 A/G Ratio 1.4 Ratio 12/28/2020 Unkn own Comp Metabolic Njm975 Osmo 279 mOsmo 12/28/2020 Unkn own Cbc [...] 12/28/19 21 Unknown Cbc With Differential Ord2 [place]% 7.9 % 12/28/19 21 Unknown Cbc With [...] K/ul 021 Unknown Cbc With Differential Ord2 [place] ABS# 0.6 K/ul 12/28/19 21 Unknown Cbc With Differential Ord2 Eos ABS# 0.4 K/ul 12/28/19 21 Unknown Cbc With Differential Ord2 Baso ABS# 0.0 K/ul 12/28/19 21 Unknown Procedures Procedure Codes Date THER/PROPH/DIAG INJ SC/IM CPT-4: 83894 08/10/2021 VITAMIN B12 INJECTION 1000 mcg CPT-4: J3420 THER/PROPH/DIAG INJ SC/IM CPT-4: 81877 06/30/2021 Vital Signs Date Vital 08/23/2021 SpO2: 96% SpO2: 87% SpO2: 94% 08/10/2021 Blood Pressure 1: 138/82 Code: 8480-6 BMI: 33.5 Code: 10796-8 Heart Rate 1: 74 bpm Height: 5'3" Code: 8302-2 SpO2: 98% Temperature: 3 6.2 (C) / 97.1 (F) Weight: 189 lbs Code: 79664-0 05/11/2021 Blood Pressure 1: 134/80 Code: 8480-6 Heart Rate 1: 77 bpm Height: 5'3" Code: 8302-2 SpO2: 93% Temperature: 36.3 (C) / 97.3 (F) 01/25/2021 Blood Pressure 1: 136/88 Code: 8480-6 Heart Rate 1: 60 bpm Height: Code: 8302-2 SpO2: 93% Temperature: 36.3 (C) / 97.3 (F) Weight: 174 lbs Code: 29311-6 12/28/2020 Blood Pressure 1: 164/92 Code: 8480-6 BMI: 31.4 Code: 88302-2 Heart Rate 1: 67 bpm Height: 5'3" Code: 8302-2 SpO2: 94% Temperature: 3 6.2 (C) / 97.1 (F) Weight: 177 lbs Code: 12466-0 12/10/2020 Blood Pressure 1: 134/72 Code: 8480-6 BMI: 30.8 Code: 29236-8 Heart Rate 1: 74 bpm Height: 5'3" Code: 8302-2 Respiratory Rate: 18 bpm SpO2: 95% Temperature: 36.3 (C) / 97.4 (F) Weight: 174 lbs Code: 94318-2 09/10/2020 Blood Pressure 1: 202/94 Code: 8480-6 BMI: 30.6 Code: 48457-7 Heart Rate 1: 73 bpm Height: 5'3" Code: 8302-2 Respiratory Rate: 17 bpm SpO2: 91% Temperature: 36.8 (C) / 98.2 (F) Weight: 173 lbs Code: 80145-1 08/26/2020 Blood Pressure 1: 144/90 Code: 8480-6 BMI: 29.4 Code: 35040-8 Heart Rate 1: 72 bpm Height: 5'3" Code: 8302-2 SpO2: 98% Temperature: 3 6.7 (C) / 98.0 (F) Weight: 166 lbs Code: 54350-3 Functional Status No Functional Status data Reason For Visit Reason For Visit Effective Dates Notes hypertension 08/10/2021 hypertension 05/11/2021 hypertension 01/25/2021 Hospital Follow Up 12/28/2020 shortness of breath 12/10/2020 shortness of breath 09/10/2020 Hospital Follow Up 08/26/2020 Encounters Encounter Performer Location Codes Date ([id number]) [id number] EST. 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 PATIENT, LEVEL IV Diagnosis: Vitamin B12 deficiency (dietary) anemia[ICD10: D51.8] Diagnosis: Essential (primary) hypertension[ICD10: I10] Diagnosis: Atrophy of thyroid (acquired)[ICD10: E03.4] [facility] CPT-4: 02518 08/10/2021 ([id number]) 65905 EST. PATIENT, LEVEL IV Diagnosis: Essential (primary) hypertension[ICD10: I10] Diagnosis: Vitamin B12 deficiency (dietary) anemia[ICD10: D51.8] Diagnosis: Atrophy of thyroid (acquired)[ICD10: E03.4] Diagnosis: Localized edema[ICD10: R60.0] Rena white MD, [facility] CPT-4: 12110 05/11/2021 ([id number]) 21809 EST. PATIENT, LEVEL IV Diagnosis: CHF (congestive heart failure)[ICD10: I50.9] Diagnosis: Essential (primary) hypertension[ICD10: I10] Diagnosis: Vitamin B12 deficiency (dietary) anemia[ICD10: D51.8] Rena Mac MD, [facility] CPT-4: 12043 01/25/2021 ([id number]) 90043 EST. PATIENT, LEVEL IV Diagnosis: Acute on chronic diastolic congestive heart failure[ICD10: I50.33] Diagnosis: Anemia[ICD10: D64.9] Diagnosis: Essential (primary) hypertension[ICD10: I10] Rena Mac MD, [facility] CPT-4: 92244 12/28/2020 ([id number]) 51650 EST. PATIENT, LEVEL IV Diagnosis: Essential (primary) hypertension[ICD10: I10] Diagnosis: CHF (congestive heart failure)[ICD10: I50.9] Diagnosis: Atrophy of thyroid (acquired)[ICD10: E03.4] Shantal Mac MD, [facility] CPT-4: 50572 12/10/2020 ([id number]) 75193 EST. PATIENT, LEVEL IV Diagnosis: Essential (primary) hypertension[ICD10: I10] Diagnosis: CHF (congestive heart failure)[ICD10: I50.9] Diagnosis: On supplemental oxygen therapy[ICD10: Z99.81] Diagnosis: Atrophy of thyroid (acquired)[ICD10: E03.4] Shantal Mac MD, [facility] CPT-4: 28925 09/10/2020 OFFICE VISIT, NEW - LEVEL 3 Diagnosis: CHF (congestive heart failure)[ICD10: I50.9] Diagnosis: Dementia without behavioral disturbance, unspecified dementia type[ICD10: F03.90] [facility] CPT-4: 49068 08/26 Plan of Care Planned Activity Notes Codes Status Date Patient Education: Patient Medication Summary Completed 09/20/2021 [...] -injection today 08/10/2021 Appointment: Rena [facility]el[phone] ([facility] min) Complex 08/10/2021 Patient Education: Patient [...] next labs 05/11/2021 Appointment: Rena Livingston WPtel: [phone] [phone] [place] (30 min) Complex 05/11/2021 Patient Education: Patient Medication Summary Completed 05/11/2021 Appointment: Rena Livingston WPtel: [phone] [phone] [place] (30 min) Complex 04/27/2021 Appointment: Shantal Mac WPtel: [phone] [facility] [place] (15 min) Moderate 03/11/2021 Visit Plan: [...] injections per 01/25/2021 Appointment: Rena Livingston WPtel[phone] [place] (30 min) Complex 01/25/2021 Patient [...] medications today 12/28/2020 [phone] [phone] [place] (30 min) Complex 12/28/2020 Patient [...] Summary Completed 12/10/2020 Appointment: Shantal Mac WPtel[phone] ([facility] Complex 11/03/2020 Visit Plan: Chronic [...] health. 09/10/2020 App[facility]ment[phone] [facility] [place] (15 min) Moderate 09/10/2020 Patient Education: [...] to be done to be drawn by [employer]. 09/10/2020 Will set up with [facility] [...]
--- OUTSIDE RECORDS SUMMARY | 2021-11-29 16:01 | XMS REPORT | CCD ---
Author Author Flakita Andino Organization Shantal Mac MD, [facility] Address [address] [place] [address] Phone Care Team Providers [facility] Manager Name Role Phone Shantal Mac PP Unavailable CCM Unavailable Summary Purpose Interface Exchange Insurance Providers Payer name Policy type / Coverage type Covered republican ID Effective Begin Date Effective End Date WPS Medicare Part B Medicare Part B [id number] Unknown Unkno wn [facility] Medicare Part B [id number] Unkno wn Unknown Family history Sister Diagnosis [...] Unknown Retired 08/26/[address]: 8298825 Quit over 10 years a go 199908/26/[address]: 709727531 Never drinks alcohol 2019 Allergies, Adverse Reactions, [...] B-12) 1,000 mcg/mL injection solution Rx Norm: 592944 1 Milliliter(s) Injection monthly 11/02/2021 12/01/2021 Active will need syringe/needle for monthly injection dx b12 deficiency hydrocodone 5 mg-acetaminophen 325 mg tablet RxNorm: 316124 Take 1 Tablet(s) Oral three times a day as needed for pain 11/02/2021 12/01/2021 Active levothyroxine 112 mcg tablet RxNorm: 226943 1 Tablet(s) Oral ev 10/27/2021 01/24/2022 Active cyanocobalamin (vit B-12) 1,000 mcg/mL injection solution Rx Norm: 915303 1 Milliliter(s) Injection monthly 10/27/2021 10/27/2021 Inactive will need syringe/needle for monthly injection dx b12 deficiency cyanocobalamin (vit B-12) 1,000 mcg/mL injection solution Rx Norm: 355931 1 Milliliter(s) Injection monthly 10/27/2021 10/27/2021 Inactive will need syringe/needle for monthly injection dx b12 deficiency hydrocodone 5 mg-acetaminophen 325 mg tablet RxNorm: 297961 Take 1 Tablet(s) Oral three times a day as needed for pain 09/20/2021 09/20/2021 Inacti ve albuterol sulfate 2.5 mg/3 mL (0.083 %) solution for n ebulization RxNorm: 364867 USE 1 VIAL IN NEBULIZER TWICE DAILY 09/14/2021 11/04/2021 Activ e albuterol sulfate 2.5 mg/3 mL (0.083 %) solution for n ebulization RxNorm: 659732 USE 1 VIAL IN NEBULIZER TWICE DAILY 09/14/2021 09/14/2021 Inact césar levothyroxine 112 mcg tablet RxNorm: 441534 1 Tablet(s) Oral ev vinny day 09/02/2021 09/02/2021 Inactive levothyroxine 112 mcg tablet RxNorm: 436094 1 Tablet(s) Oral ev vinny day 09/02/2021 09/02/2021 Inactive levothyroxine 112 mcg tablet RxNorm: 934289 1 Tablet(s) Oral ev vinny day 08/20/2021 09/02/2021 Inactive cyanocobalamin (vit B-12) 1,000 mcg/mL injection solution Rx Norm: 348952 Take Milliliter(s) Injection 08/10/2021 08/10/2021 Inactive cyanocobalamin (vit B-12) 1,000 mcg/mL injection solution Rx Norm: 108043 Take Milliliter(s) Injection 06/30/2021 06/30/2021 Inactive albuterol sulfate 2.5 mg/3 mL (0.083 %) solution for n ebulization RxNorm: 203723 1 Unit Dose Inhalation two times a day DX J43.1 04/19/20212020 Inactive losartan 50 mg tablet RxNorm: 828679 1 Tablet(s) Oral two times a day 03/22/2021 03/17/2022 Active albuterol sulfate 2.5 mg/3 mL (0.083 %) solution for n ebulization RxNorm: 974821 1 Unit Dose Inhalation two times a day DX J43.1 03/22/20212020 Inactive albuterol sulfate 2.5 mg/3 mL (0.083 %) solution for n ebulization RxNorm: 137177 1 Unit Dose Inhalation two times a day 03/17/2021 03/16/2021 In active albuterol sulfate 2.5 mg/3 mL (0.083 %) solution for n ebulization RxNorm: 425092 1 Unit Dose Inhalation two times a day 03/17/2021 03/21/2021 In active Norvasc 5 mg tablet RxNorm: 048106 1 Tablet(s) Oral every day 12/3112/26/2021 Active Norvasc 5 mg tablet RxNorm: 135844 1 Tablet(s) Oral every day 12/3112/30/2020 Inactive metoprolol succinate ER 25 mg tablet,extended release 24 hr RxNorm: 986506 1 Tablet(s) Oral every day 12/28/2020 No Stop Date Active Ventolin HFA 90 mcg/actuation aerosol inhaler RxNorm: 814594 1-2 Puff(s) Inhalation Every 4 hrs as needed 12/28/2020 No Stop Date Active furosemide 20 mg tablet RxNorm: 525675 1 Tablet(s) Oral every day 0 12/28/2020 No Stop Date Active furosemide 40 mg tablet RxNorm: 521262 1 Tablet(s) Oral as directed 40mg BID x 5 days then 40mg in am and 20mg afternoon thereafter 11/18/2020 Inactive give qty sufficient potassium chloride ER 10 mEq tablet,extended release RxNorm: 755448 1 Tablet(s) Oral as directed 1 tab bid x 5 days then resume daily 11/18/20202020 Inactive qty sufficient potassium bicarbonate-citric acid 10 mEq effervescent tablet RxNorm: 5759069 1 Tablet(s) Oral every day 09/10/2020 11/17/2020 Inactive levothyroxine 125 mcg tablet RxNorm: 954052 1 Tablet(s) Oral ev vinny day 09/10/2020 08/19/2021 Inactive losartan 50 mg tablet RxNorm: 944425 1 Tablet(s) Oral two times a day 09/10/2020 12/27/2020 Inactive furosemide 40 mg tablet RxNorm: 005474 1 Tablet(s) Oral every day 1 11/17/2020 Inactive Zyrtec 10 mg tablet RxNorm: 8551332 1 Tablet(s) Oral every day 03/202012/28/2020 Inactive levothyroxine 125 mcg tablet RxNorm: 706733 1 Tablet(s) Oral ev vinny day 08/31/2020 09/09/2020 Inactive Zyrtec 10 mg tablet RxNorm: 6467298 1 Tablet(s) Oral every day 03/202008/30/2020 Inactive aspirin 81 mg tablet,delayed release RxNorm: 191502 1 Tablet(s) Oral every day 08/26/2020 No Stop Date Active Vitamin C 250 mg tablet RxNorm: 806056 1 Tablet(s) Oral every day 0 08/26/2020 No Stop Date Active Vitamin D3 50 mcg (2,000 unit) tablet RxNorm: 394365 1 Tablet(s ) Oral every day 08/26/2020 No Stop Date Active levothyroxine 88 mcg tablet RxNorm: 516922 1 Tablet(s) Oral micheal ry day 08/26/2020 08/30/2020 Inactive losartan 50 mg tablet RxNorm: 163428 1 Tablet(s) Oral every day 09/09/2020 Inactive furosemide 40 mg tablet RxNorm: 322209 1 Tablet(s) Oral every day 0 08/26/2020 09/09/2020 Inactive potassium bicarbonate-citric acid 10 mEq effervescent tablet RxNorm: 5241892 1 Tablet(s) Oral every day 08/26/2020 09/09/2020 Inactive Women's Multivitamin oral RxNorm: oral 08/26/2020 Act césar Calcium 600 oral RxNorm: 1897 oral 08/26/2020 Active albuterol sulfate inhalation RxNorm: 701055 inhalation 08/26/2020 Active Medication Administered Medication Codes Instructions Start Date Status cyanocobalamin (vit B-12) 1,000 mcg/mL injection solution Rx Norm: 359844 Milliliter 08/10/2021 No longer Active cyanocobalamin (vit B-12) 1,000 mcg/mL injection solution Rx Norm: 388063 Milliliter 06/30/2021 No longer Active Immunizations Vaccine [...] 08/10/20 21 Unknown Cbc With Differential Ord2 Terrell% 8.0 % 08/10/20 21 Unknown Cbc With [...] K/ul 021 Unknown Cbc With Differential Ord2 Terrell ABS# 0.7 K/ul 08/10/20 21 Unknown Cbc With Differential Ord2 Eos ABS# 0.2 K/ul 08/10/20 21 Unknown Cbc With Differential Ord2 Baso ABS# 0.0 K/ul 08/10/20 21 Unknown Tsh Ord6 TSH (3rd IS) 0.21 uIU/mL 08/10/2021 Unkn own Comp Metabolic Ivw540 NA 141 mEq/L 08/10/2021 Unkn own Comp Metabolic Urj916 K 4.1 mEq/L 08/10/2021 Unkn own Comp Metabolic Ljw320 CL 104 mEq/L 08/10/2021 Unkn own Comp Metabolic Ggl392 CO2 28.0 mEq/L 08/10/2021 Unk nown Comp Metabolic Jty686 ANION GAP 13 08/10/2021 Unkn own Comp Metabolic Alk943 GLUCOSE 78 mg/dL 08/10/2021 Unkn own Comp Metabolic Ftr923 Creat 0.8 mg/dL 08/10/2021 Unkn own Comp Metabolic Uxd740 eGFR 71 ml/min/1.73m2 08/10/20 21 Unknown Comp Metabolic Sjq306 BUN 25 mg/dL 08/10/2021 Unkn own Comp Metabolic Rph440 B/C Ratio 30.9 Ratio 08/10/2021 Unk nown Comp Metabolic Uwv381 CALCIUM 8.7 mg/dL 08/10/2021 Unkn own Comp Metabolic Uyx989 ALK PHOS 61 U/L 08/10/2021 Unkn own Comp Metabolic Dgn158 AST(SGOT) 17 U/L 08/10/2021 Unkn own Comp Metabolic Xhu388 ALT(SGPT) 10 U/L 08/10/2021 Unkn own Comp Metabolic Htz211 BILI T 0.6 mg/dL 08/10/2021 Unkn own Comp Metabolic Gyd119 ALBUMIN 3.7 g/dL 08/10/2021 Unkn own Comp Metabolic Cwd512 TPRO 6.1 g/dL 08/10/2021 Unkn own Comp Metabolic Nzz715 GLOB 2.4 g/dL 08/10/2021 Unkn own Comp Metabolic Czp846 A/G Ratio 1.6 Ratio 08/10/2021 Unkn own Comp Metabolic Bxf992 Osmo 285 mOsmo 08/10/2021 Unkn own B12 Epg845 B12 >1500.00 pg/ml 08/10/2021 Unkn own Free T4 Ska580 FREE T4 1.23 ng/dL 08/10/2021 Unknown Tibc Ord40 Iron 32 ug/dl 12/29/2020 Unknown Tibc Ord40 UIBC 402 ug/dL 12/29/2020 Unknown Tibc Ord40 TIBC 434 ug/dL 12/29/2020 Unknown Tibc Ord40 Fe-%Sat 7.4 % 12/29/2020 Unknown Ferritin Ord22 FERRITIN 27.6 ng/mL 12/29/2020 Unknown B12 Lvs947 B12 187.00 pg/ml 12/29/2020 Unknow n Comp Metabolic Yrr091 NA 139 mEq/L 12/28/2020 Unkn own Comp Metabolic Ewp691 K 4.1 mEq/L 12/28/2020 Unkn own Comp Metabolic Vld238 CL 103 mEq/L 12/28/2020 Unkn own Comp Metabolic Phs637 CO2 27.0 mEq/L 12/28/2020 Unk nown Comp Metabolic Yzn892 ANION GAP 13 12/28/2020 Unkn own Comp Metabolic Ltq308 GLUCOSE 79 mg/dL 12/28/2020 Unkn own Comp Metabolic Csf890 Creat 0.7 mg/dL 12/28/2020 Unkn own Comp Metabolic Duu209 eGFR 80 ml/min/1.73m2 12/28/19 21 Unknown Comp Metabolic Uxl903 BUN 21 mg/dL 12/28/2020 Unkn own Comp Metabolic Vjv573 B/C Ratio 28.8 Ratio 12/28/2020 Unk nown Comp Metabolic Fcf823 CALCIUM 8.7 mg/dL 12/28/2020 Unkn own Comp Metabolic Toj062 ALK PHOS 74 U/L 12/28/2020 Unkn own Comp Metabolic Czp833 AST(SGOT) 15 U/L 12/28/2020 Unkn own Comp Metabolic Fak875 ALT(SGPT) 17 U/L 12/28/2020 Unkn own Comp Metabolic Jhx932 BILI T 0.4 mg/dL 12/28/2020 Unkn own Comp Metabolic Vfz929 ALBUMIN 3.5 g/dL 12/28/2020 Unkn own Comp Metabolic Ztk250 TPRO 5.9 g/dL 12/28/2020 Unkn own Comp Metabolic Vzq245 GLOB 2.4 g/dL 12/28/2020 Unkn own Comp Metabolic Spz367 A/G Ratio 1.4 Ratio 12/28/2020 Unkn own Comp Metabolic Ywe531 Osmo 279 mOsmo 12/28/2020 Unkn own Cbc [...] 12/28/19 21 Unknown Cbc With Differential Ord2 Terrell% 7.9 % 12/28/19 21 Unknown Cbc With [...] K/ul 021 Unknown Cbc With Differential Ord2 Terrell ABS# 0.6 K/ul 12/28/19 21 Unknown Cbc With Differential Ord2 Eos ABS# 0.4 K/ul 12/28/19 21 Unknown Cbc With Differential Ord2 Baso ABS# 0.0 K/ul 12/28/19 21 Unknown Procedures Procedure Codes Date THER/PROPH/DIAG INJ SC/IM CPT-4: 73531 08/10/2021 VITAMIN B12 INJECTION 1000 mcg CPT-4: J3420 THER/PROPH/DIAG INJ SC/IM CPT-4: 57499 06/30/2021 Vital Signs Date Vital 08/23/2021 SpO2: 96% SpO2: 94% SpO2: 87% 08/10/2021 Blood Pressure 1: 138/82 Code: 8480-6 BMI: 33.5 Code: 21781-5 Heart Rate 1: 74 bpm Height: 5'3" Code: 8302-2 SpO2: 98% Temperature: 3 6.2 (C) / 97.1 (F) Weight: 189 lbs Code: 07938-7 05/11/2021 Blood Pressure 1: 134/80 Code: 8480-6 Heart Rate 1: 77 bpm Height: 5'3" Code: 8302-2 SpO2: 93% Temperature: 36.3 (C) / 97.3 (F) 01/25/2021 Blood Pressure 1: 136/88 Code: 8480-6 Heart Rate 1: 60 bpm Height: Code: 8302-2 SpO2: 93% Temperature: 36.3 (C) / 97.3 (F) Weight: 174 lbs Code: 22020-5 12/28/2020 Blood Pressure 1: 164/92 Code: 8480-6 BMI: 31.4 Code: 04279-8 Heart Rate 1: 67 bpm Height: 5'3" Code: 8302-2 SpO2: 94% Temperature: 3 6.2 (C) / 97.1 (F) Weight: 177 lbs Code: 39889-4 12/10/2020 Blood Pressure 1: 134/72 Code: 8480-6 BMI: 30.8 Code: 38551-3 Heart Rate 1: 74 bpm Height: 5'3" Code: 8302-2 Respiratory Rate: 18 bpm SpO2: 95% Temperature: 36.3 (C) / 97.4 (F) Weight: 174 lbs Code: 14792-8 09/10/2020 Blood Pressure 1: 202/94 Code: 8480-6 BMI: 30.6 Code: 61018-7 Heart Rate 1: 73 bpm Height: 5'3" Code: 8302-2 Respiratory Rate: 17 bpm SpO2: 91% Temperature: 36.8 (C) / 98.2 (F) Weight: 173 lbs Code: 43792-3 08/26/2020 Blood Pressure 1: 144/90 Code: 8480-6 BMI: 29.4 Code: 01723-8 Heart Rate 1: 72 bpm Height: 5'3" Code: 8302-2 SpO2: 98% Temperature: 3 6.7 (C) / 98.0 (F) Weight: 166 lbs Code: 08790-2 Functional Status No Functional Status data Reason For Visit Reason For Visit Effective Dates Notes hypertension 08/10/2021 hypertension 05/11/2021 hypertension 01/25/2021 Hospital Follow Up 12/28/2020 shortness of breath 12/10/2020 shortness of breath 09/10/2020 Hospital Follow Up 08/26/2020 Encounters Encounter Performer Location Codes Date [id number] EST. 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 PATIENT, LEVEL IV Diagnosis: Vitamin B12 deficiency (dietary) anemia[ICD10: D51.8] Diagnosis: Essential (primary) hypertension[ICD10: I10] Diagnosis: Atrophy of thyroid (acquired)[ICD10: E03.4] Rena Mac MD, [facility] CPT-4: 76775 08/10/2021 ([id number]) 88932 EST. PATIENT, LEVEL IV Diagnosis: Essential (primary) hypertension[ICD10: I10] Diagnosis: Vitamin B12 deficiency (dietary) anemia[ICD10: D51.8] Diagnosis: Atrophy of thyroid (acquired)[ICD10: E03.4] Diagnosis: Localized edema[ICD10: R60.0] Rena white MD, [facility] CPT-4: 43962 05/11/2021 ([id number]) 32796 EST. PATIENT, LEVEL IV Diagnosis: CHF (congestive heart failure)[ICD10: I50.9] Diagnosis: Essential (primary) hypertension[ICD10: I10] Diagnosis: Vitamin B12 deficiency (dietary) anemia[ICD10: D51.8] Rena Mac MD, [facility] CPT-4: 02671 01/25/2021 ([id number]) 54822 EST. PATIENT, LEVEL IV Diagnosis: Acute on chronic diastolic congestive heart failure[ICD10: I50.33] Diagnosis: Anemia[ICD10: D64.9] Diagnosis: Essential (primary) hypertension[ICD10: I10] Rena Mac MD, [facility] CPT-4: 00884 12/28/2020 ([id number]) 74220 EST. PATIENT, LEVEL IV Diagnosis: Essential (primary) hypertension[ICD10: I10] Diagnosis: CHF (congestive heart failure)[ICD10: I50.9] Diagnosis: Atrophy of thyroid (acquired)[ICD10: E03.4] Shantal Mac MD, [facility] CPT-4: 23550 12/10/2020 ([id number]) 68792 EST. PATIENT, LEVEL IV Diagnosis: Essential (primary) hypertension[ICD10: I10] Diagnosis: CHF (congestive heart failure)[ICD10: I50.9] Diagnosis: On supplemental oxygen therapy[ICD10: Z99.81] Diagnosis: Atrophy of thyroid (acquired)[ICD10: E03.4] Shantal Mac MD, [facility] CPT-4: 81794 09/10/2020 OFFICE VISIT, NEW - LEVEL 3 Diagnosis: CHF (congestive heart failure)[ICD10: I50.9] Diagnosis: Dementia without behavioral disturbance, unspecified dementia type[ICD10: F03.90] [facility] CPT-4: 51172 08/26 Plan of Care Planned Activity Notes [...] Rena Livingston WPtel[phone] ([facility] min[facility] 08/10/2021 Patient Education: Patient Medication [...] labs 05/11/2021 Appointment: Rena Livingston WPtel: [phone] [phone] [place] (30 min) Complex 05/11/2021 Patient Education: Patient Medication Summary Completed 05/11/2021 Appointment: Rena Livingston WPtel: [phone] [phone] [place] (30 min) Complex 04/27/2021 Appointment: BubbaShantal WPtel: [phone] [facility] [place] (15 min) Moderate 03/11/2021 Visit [...] per HH 01/25/2021 Appointment: Rena Livingston WPtel: [phone] [phone] [place] (30 min) Complex 01/25/2021 Patient Education: [...] today 12/28/2020 Appointment: Rena Livingston WPtel: [phone] [phone] [place] (30 min) Complex 12/28/2020 Patient [...] Summary Completed 12/10/2020 Appointment: Shantal Mac WPtel: [address] [place], [place] [id number] (30 min) Complex 11/03/2020 Visit Plan: Chronic [...] home health. 09/10/2020 Appointment: Shantal Mac WPtel: [facility] [place] (15 min) Moderate 09/10/2020 Patient [...] to be done to be drawn by [employer]. 09/10/2020 Will set up with [facility] pt is to consider moving to assisted [...]
--- OUTSIDE RECORDS SUMMARY | 2021-11-29 16:01 | XMS REPORT | CCD ---
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 Name Role Phone Shantal Mac PP Unavailable CCM Unavailable Summary Purpose Interface Exchange Insurance Providers Payer name Policy type / Coverage type Covered green party ID Effective Begin Date Effective End Date WPS Medicare Part B Medicare Part B [id number] Unknown Unkno wn [facility] Medicare Part B [id number] Unkno wn Unknown Family history Sister Diagnosis [...] Unknown Retired 08/26/[address]: 1887735 Quit over 10 years a go 199908/26/[address]: 903393787 Never drinks alcohol 2019 Allergies, Adverse Reactions, [...] B-12) 1,000 mcg/mL injection solution Rx Norm: 900218 1 Milliliter(s) Injection monthly 10/27/2021 11/25/2021 Active will need syringe/needle for monthly injection dx b12 deficiency cyanocobalamin (vit B-12) 1,000 mcg/mL injection solution Rx Norm: 266174 1 Milliliter(s) Injection monthly 10/27/2021 10/27/2021 Inactive will need syringe/needle for monthly injection dx b12 deficiency levothyroxine 112 mcg tablet RxNorm: 704608 1 Tablet(s) Oral ev 10/27/2021 01/24/2022 Active hydrocodone 5 mg-acetaminophen 325 mg tablet RxNorm: 008299 Take 1 Tablet(s) Oral three times a day as needed for pain 09/20/2021 No Stop Date Active albuterol sulfate 2.5 mg/3 mL (0.083 %) solution for n ebulization RxNorm: 437035 USE 1 VIAL IN NEBULIZER TWICE DAILY 09/14/2021 11/04/2021 Activ e albuterol sulfate 2.5 mg/3 mL (0.083 %) solution for n ebulization RxNorm: 307389 USE 1 VIAL IN NEBULIZER TWICE DAILY 09/14/2021 09/14/2021 Inact césar levothyroxine 112 mcg tablet RxNorm: 157200 1 Tablet(s) Oral ev vinny day 09/02/2021 09/02/2021 Inactive levothyroxine 112 mcg tablet RxNorm: 584744 1 Tablet(s) Oral ev vinny day 09/02/2021 09/02/2021 Inactive levothyroxine 112 mcg tablet RxNorm: 018733 1 Tablet(s) Oral ev vinny day 08/20/2021 09/02/2021 Inactive cyanocobalamin (vit B-12) 1,000 mcg/mL injection solution Rx Norm: 545281 Take Milliliter(s) Injection 08/10/2021 08/10/2021 Inactive cyanocobalamin (vit B-12) 1,000 mcg/mL injection solution Rx Norm: 049528 Take Milliliter(s) Injection 06/30/2021 06/30/2021 Inactive albuterol sulfate 2.5 mg/3 mL (0.083 %) solution for n ebulization RxNorm: 376012 1 Unit Dose Inhalation two times a day DX J43.1 04/19/20212020 Inactive losartan 50 mg tablet RxNorm: 467535 1 Tablet(s) Oral two times a day 03/22/2021 03/17/2022 Active albuterol sulfate 2.5 mg/3 mL (0.083 %) solution for n ebulization RxNorm: 508244 1 Unit Dose Inhalation two times a day DX J43.1 03/22/20212020 Inactive albuterol sulfate 2.5 mg/3 mL (0.083 %) solution for n ebulization RxNorm: 805480 1 Unit Dose Inhalation two times a day 03/17/2021 03/16/2021 In active albuterol sulfate 2.5 mg/3 mL (0.083 %) solution for n ebulization RxNorm: 896791 1 Unit Dose Inhalation two times a day 03/17/2021 03/21/2021 In active Norvasc 5 mg tablet RxNorm: 226787 1 Tablet(s) Oral every day 12/3112/26/2021 Active Norvasc 5 mg tablet RxNorm: 628063 1 Tablet(s) Oral every day 12/3112/30/2020 Inactive metoprolol succinate ER 25 mg tablet,extended release 24 hr RxNorm: 922395 1 Tablet(s) Oral every day 12/28/2020 No Stop Date Active Ventolin HFA 90 mcg/actuation aerosol inhaler RxNorm: 857905 1-2 Puff(s) Inhalation Every 4 hrs as needed 12/28/2020 No Stop Date Active furosemide 20 mg tablet RxNorm: 815955 1 Tablet(s) Oral every day 0 12/28/2020 No Stop Date Active furosemide 40 mg tablet RxNorm: 601670 1 Tablet(s) Oral as directed 40mg BID x 5 days then 40mg in am and 20mg afternoon thereafter 11/18/2020 Inactive give qty sufficient potassium chloride ER 10 mEq tablet,extended release RxNorm: 240015 1 Tablet(s) Oral as directed 1 tab bid x 5 days then resume daily 11/18/20202020 Inactive qty sufficient potassium bicarbonate-citric acid 10 mEq effervescent tablet RxNorm: 1870762 1 Tablet(s) Oral every day 09/10/2020 11/17/2020 Inactive levothyroxine 125 mcg tablet RxNorm: 477163 1 Tablet(s) Oral ev vinny day 09/10/2020 08/19/2021 Inactive losartan 50 mg tablet RxNorm: 576726 1 Tablet(s) Oral two times a day 09/10/2020 12/27/2020 Inactive furosemide 40 mg tablet RxNorm: 107747 1 Tablet(s) Oral every day 1 11/17/2020 Inactive Zyrtec 10 mg tablet RxNorm: 2472616 1 Tablet(s) Oral every day 03/202012/28/2020 Inactive levothyroxine 125 mcg tablet RxNorm: 201817 1 Tablet(s) Oral ev vinny day 08/31/2020 09/09/2020 Inactive Zyrtec 10 mg tablet RxNorm: 9132029 1 Tablet(s) Oral every day 03/202008/30/2020 Inactive aspirin 81 mg tablet,delayed release RxNorm: 639010 1 Tablet(s) Oral every day 08/26/2020 No Stop Date Active Vitamin C 250 mg tablet RxNorm: 019984 1 Tablet(s) Oral every day 0 08/26/2020 No Stop Date Active Vitamin D3 50 mcg (2,000 unit) tablet RxNorm: 737254 1 Tablet(s ) Oral every day 08/26/2020 No Stop Date Active levothyroxine 88 mcg tablet RxNorm: 307221 1 Tablet(s) Oral micheal ry day 08/26/2020 08/30/2020 Inactive losartan 50 mg tablet RxNorm: 539180 1 Tablet(s) Oral every day 09/09/2020 Inactive furosemide 40 mg tablet RxNorm: 707089 1 Tablet(s) Oral every day 0 08/26/2020 09/09/2020 Inactive potassium bicarbonate-citric acid 10 mEq effervescent tablet RxNorm: 3123123 1 Tablet(s) Oral every day 08/26/2020 09/09/2020 Inactive Women's Multivitamin oral RxNorm: oral 08/26/2020 Act césar Calcium 600 oral RxNorm: 1897 oral 08/26/2020 Active albuterol sulfate inhalation RxNorm: 175138 inhalation 08/26/2020 Active Medication Administered Medication Codes Instructions Start Date Status cyanocobalamin (vit B-12) 1,000 mcg/mL injection solution Rx Norm: 628284 Milliliter 08/10/2021 No longer Active cyanocobalamin (vit B-12) 1,000 mcg/mL injection solution Rx Norm: 144178 Milliliter 06/30/2021 No longer Active Immunizations Vaccine Codes Date Status Covid-19 CVX: 207 03/06/2021 Covid-19 CVX: 207 02/06/2021 Pneumococcal (Adult) Unknown 05/27/2019 Zoster CVX: 121 05/27/2017 Results Observation Observation Code Item Item Code Result Date S [facility] Location Cbc With Differential Ord2 WBC 8.64 [...] 08/10/20 21 Unknown Cbc With Differential Ord2 [place]% 8.0 % 08/10/20 21 Unknown Cbc With [...] K/ul 021 Unknown Cbc With Differential Ord2 [place] ABS# 0.7 K/ul 08/10/20 21 Unknown Cbc With Differential Ord2 Eos ABS# 0.2 K/ul 08/10/20 21 Unknown Cbc With Differential Ord2 Baso ABS# 0.0 K/ul 08/10/20 21 Unknown Tsh Ord6 TSH (3rd IS) 0.21 uIU/mL 08/10/2021 Unkn own Comp Metabolic Msx300 NA 141 mEq/L 08/10/2021 Unkn own Comp Metabolic Xqc297 K 4.1 mEq/L 08/10/2021 Unkn own Comp Metabolic Bah373 CL 104 mEq/L 08/10/2021 Unkn own Comp Metabolic Xzr116 CO2 28.0 mEq/L 08/10/2021 Unk nown Comp Metabolic Eeb772 ANION GAP 13 08/10/2021 Unkn own Comp Metabolic Drs595 GLUCOSE 78 mg/dL 08/10/2021 Unkn own Comp Metabolic Cep490 Creat 0.8 mg/dL 08/10/2021 Unkn own Comp Metabolic Igt723 eGFR 71 ml/min/1.73m2 08/10/20 21 Unknown Comp Metabolic Ymp548 BUN 25 mg/dL 08/10/2021 Unkn own Comp Metabolic Yyr535 B/C Ratio 30.9 Ratio 08/10/2021 Unk nown Comp Metabolic Fji528 CALCIUM 8.7 mg/dL 08/10/2021 Unkn own Comp Metabolic Igo860 ALK PHOS 61 U/L 08/10/2021 Unkn own Comp Metabolic Sne593 AST(SGOT) 17 U/L 08/10/2021 Unkn own Comp Metabolic Ikg451 ALT(SGPT) 10 U/L 08/10/2021 Unkn own Comp Metabolic Fdr595 BILI T 0.6 mg/dL 08/10/2021 Unkn own Comp Metabolic Hgw567 ALBUMIN 3.7 g/dL 08/10/2021 Unkn own Comp Metabolic Aqj088 TPRO 6.1 g/dL 08/10/2021 Unkn own Comp Metabolic Cjj082 GLOB 2.4 g/dL 08/10/2021 Unkn own Comp Metabolic Lxu741 A/G Ratio 1.6 Ratio 08/10/2021 Unkn own Comp Metabolic Arx359 Osmo 285 mOsmo 08/10/2021 Unkn own B12 Zbv364 B12 >1500.00 pg/ml 08/10/2021 Unkn own Free T4 Zdp668 FREE T4 1.23 ng/dL 08/10/2021 Unknown Tibc Ord40 Iron 32 ug/dl 12/29/2020 Unknown Tibc Ord40 UIBC 402 ug/dL 12/29/2020 Unknown Tibc Ord40 TIBC 434 ug/dL 12/29/2020 Unknown Tibc Ord40 Fe-%Sat 7.4 % 12/29/2020 Unknown Ferritin Ord22 FERRITIN 27.6 ng/mL 12/29/2020 Unknown B12 Oyw905 B12 187.00 pg/ml 12/29/2020 Unknow n Comp Metabolic Lxo199 NA 139 mEq/L 12/28/2020 Unkn own Comp Metabolic Snp466 K 4.1 mEq/L 12/28/2020 Unkn own Comp Metabolic Yhs981 CL 103 mEq/L 12/28/2020 Unkn own Comp Metabolic Hqy110 CO2 27.0 mEq/L 12/28/2020 Unk nown Comp Metabolic Qio548 ANION GAP 13 12/28/2020 Unkn own Comp Metabolic Ykj724 GLUCOSE 79 mg/dL 12/28/2020 Unkn own Comp Metabolic Ckc301 Creat 0.7 mg/dL 12/28/2020 Unkn own Comp Metabolic Uod779 eGFR 80 ml/min/1.73m2 12/28/19 21 Unknown Comp Metabolic Esz896 BUN 21 mg/dL 12/28/2020 Unkn own Comp Metabolic Sjo604 B/C Ratio 28.8 Ratio 12/28/2020 Unk nown Comp Metabolic Pwq272 CALCIUM 8.7 mg/dL 12/28/2020 Unkn own Comp Metabolic Fjr342 ALK PHOS 74 U/L 12/28/2020 Unkn own Comp Metabolic Wwi134 AST(SGOT) 15 U/L 12/28/2020 Unkn own Comp Metabolic Pde384 ALT(SGPT) 17 U/L 12/28/2020 Unkn own Comp Metabolic Dgk487 BILI T 0.4 mg/dL 12/28/2020 Unkn own Comp Metabolic Khf731 ALBUMIN 3.5 g/dL 12/28/2020 Unkn own Comp Metabolic Yip686 TPRO 5.9 g/dL 12/28/2020 Unkn own Comp Metabolic Ptx397 GLOB 2.4 g/dL 12/28/2020 Unkn own Comp Metabolic Yap570 A/G Ratio 1.4 Ratio 12/28/2020 Unkn own Comp Metabolic Krz179 Osmo 279 mOsmo 12/28/2020 Unkn own Cbc [...] 12/28/19 21 Unknown Cbc With Differential Ord2 [place]% 7.9 % 12/28/19 21 Unknown Cbc With [...] K/ul 021 Unknown Cbc With Differential Ord2 [place] ABS# 0.6 K/ul 12/28/19 21 Unknown Cbc With Differential Ord2 Eos ABS# 0.4 K/ul 12/28/19 21 Unknown Cbc With Differential Ord2 Baso ABS# 0.0 K/ul 12/28/19 21 Unknown Procedures Procedure Codes Date THER/PROPH/DIAG INJ SC/IM CPT-4: 25016 08/10/2021 VITAMIN B12 INJECTION 1000 mcg CPT-4: J3420 THER/PROPH/DIAG INJ SC/IM CPT-4: 85989 06/30/2021 Vital Signs Date Vital 08/23/2021 SpO2: 96% SpO2: 87% SpO2: 94% 08/10/2021 Blood Pressure 1: 138/82 Code: 8480-6 BMI: 33.5 Code: 98159-0 Heart Rate 1: 74 bpm Height: 5'3" Code: 8302-2 SpO2: 98% Temperature: 3 6.2 (C) / 97.1 (F) Weight: 189 lbs Code: 29993-3 05/11/2021 Blood Pressure 1: 134/80 Code: 8480-6 Heart Rate 1: 77 bpm Height: 5'3" Code: 8302-2 SpO2: 93% Temperature: 36.3 (C) / 97.3 (F) 01/25/2021 Blood Pressure 1: 136/88 Code: 8480-6 Heart Rate 1: 60 bpm Height: Code: 8302-2 SpO2: 93% Temperature: 36.3 (C) / 97.3 (F) Weight: 174 lbs Code: 86828-0 12/28/2020 Blood Pressure 1: 164/92 Code: 8480-6 BMI: 31.4 Code: 77372-9 Heart Rate 1: 67 bpm Height: 5'3" Code: 8302-2 SpO2: 94% Temperature: 3 6.2 (C) / 97.1 (F) Weight: 177 lbs Code: 78569-4 12/10/2020 Blood Pressure 1: 134/72 Code: 8480-6 BMI: 30.8 Code: 64579-4 Heart Rate 1: 74 bpm Height: 5'3" Code: 8302-2 Respiratory Rate: 18 bpm SpO2: 95% Temperature: 36.3 (C) / 97.4 (F) Weight: 174 lbs Code: 98875-2 09/10/2020 Blood Pressure 1: 202/94 Code: 8480-6 BMI: 30.6 Code: 60237-1 Heart Rate 1: 73 bpm Height: 5'3" Code: 8302-2 Respiratory Rate: 17 bpm SpO2: 91% Temperature: 36.8 (C) / 98.2 (F) Weight: 173 lbs Code: 16127-1 08/26/2020 Blood Pressure 1: 144/90 Code: 8480-6 BMI: 29.4 Code: 25474-5 Heart Rate 1: 72 bpm Height: 5'3" Code: 8302-2 SpO2: 98% Temperature: 3 6.7 (C) / 98.0 (F) Weight: 166 lbs Code: 53672-0 Functional Status No Functional Status data Reason [...] Diagnosis: Panlobular emphysema[ICD10: J43.1] Shantal tran MD, [facility] CPT-4: 10428 08/23/2021 [id number]) [id number] EST. PATIENT, LEVEL IV Diagnosis: Vitamin B12 deficiency (dietary) anemia[ICD10: D51.8] Diagnosis: Essential (primary) hypertension[ICD10: I10] Diagnosis: Atrophy of thyroid (acquired)[ICD10: E03.4] Rena Mac MD, [facility] CPT-4: 13464 08/10/2021 [id number]) 43229 EST. PATIENT, LEVEL IV Diagnosis: Essential (primary) hypertension[ICD10: I10] Diagnosis: Vitamin B12 deficiency (dietary) anemia[ICD10: D51.8] Diagnosis: Atrophy of thyroid (acquired)[ICD10: E03.4] Diagnosis: Localized edema[ICD10: R60.0] Rena white MD, [facility] CPT-4: 37640 05/11/2021 ([id number]) 35649 EST. PATIENT, LEVEL IV Diagnosis: CHF (congestive heart failure)[ICD10: I50.9] Diagnosis: Essential (primary) hypertension[ICD10: I10] Diagnosis: Vitamin B12 deficiency (dietary) anemia[ICD10: D51.8] Rena Mac MD, [facility] CPT-4: 40965 01/25/2021 ([id number]) 88151 EST. PATIENT, LEVEL IV Diagnosis: Acute on chronic diastolic congestive heart failure[ICD10: I50.33] Diagnosis: Anemia[ICD10: D64.9] Diagnosis: Essential (primary) hypertension[ICD10: I10] Rena Mac MD, [facility] CPT-4: 22550 12/28/2020 ([id number]) 55656 EST. PATIENT, LEVEL IV Diagnosis: Essential (primary) hypertension[ICD10: I10] Diagnosis: CHF (congestive heart failure)[ICD10: I50.9] Diagnosis: Atrophy of thyroid (acquired)[ICD10: E03.4] Shantal Mac MD, [facility] CPT-4: 37565 12/10/2020 ([id number]) 15426 EST. PATIENT, LEVEL IV Diagnosis: Essential (primary) hypertension[ICD10: I10] Diagnosis: CHF (congestive heart failure)[ICD10: I50.9] Diagnosis: On supplemental oxygen therapy[ICD10: Z99.81] Diagnosis: Atrophy of thyroid (acquired)[ICD10: E03.4] Shantal Mac MD, [facility] CPT-4: 54479 09/10/2020 OFFICE VISIT, NEW - LEVEL 3 Diagnosis: CHF (congestive heart failure)[ICD10: I50.9] Diagnosis: Dementia without behavioral disturbance, unspecified dementia type[ICD10: F03.90] Gabriela Mac MD, [facility] CPT-4: 75345 08/26 Plan of Care Planned Activity Notes [...] today 08/10/2021 Appointment: Rena Livingston WPtel: [phone] [phone] [place] (30 min) Complex 08/10/2021 Patient Education: [...] next labs 05/11/2021 Appointment: Rena Livingston WPtel: [phone] [phone] [place] (30 min) Complex 05/11/2021 Patient Education: Patient Medication Summary Completed 05/11/2021 Appointment: Rena Livingston WPtel: [phone] [phone] [place] (30 min) Complex 04/27/2021 [phone] (15 min) Moderate 03/11/2021 Visit Plan: [...] injections per 01/25/2021 Appointment: Rena Livingston WPtel: [phone] [phone] (30 min) Complex 01/25/2021 Patient Education: Patient [...] today 12/28/2020 Appointment: Rena Livingston WPtel: [phone] [phone] (30 min) Complex 12/28/2020 Patient Education: Patient [...] Summary Completed 12/10/2020 [facility] [phone] [phone] ([facility] min) Complex 11/03/2020 Visit Plan: [...] to be done to be drawn by [facility]. 09/10/2020 Appointment: Shantal Mac [facility]el[facility] [place] (15 min) Moderate 09/10/2020 Patient [...] to be done to be drawn by [facility]. Will set up with [facility] pt is to consider moving to assisted [...]
--- OUTSIDE RECORDS SUMMARY | 2021-11-29 16:01 | XMS REPORT | CCD ---
Author Author Flakita Andino Organization Shantal Mac MD, [facility] Address [address] [place] [address] Phone Care Team Providers Care Gear Nicker Name Role Phone Shantal Mac PP Unavailable CCM Unavailable Summary Purpose Interface Exchange Insurance Providers Payer name Policy type / Coverage type Covered constitution party ID Effective Begin Date Effective End Date WPS Medicare Part B Medicare Part B [id number] Unknown Unkno wn [facility] Medicare Part B [id number] Unkno wn Unknown Family history Sister Diagnosis [...] Unknown Retired 08/26/[address]: 0078463 Quit over 10 years a go 199908/26/[address]: 076356569 Never drinks alcohol 2019 Allergies, Adverse Reactions, [...] B-12) 1,000 mcg/mL injection solution Rx Norm: 347336 1 Milliliter(s) Injection monthly 10/27/2021 11/25/2021 Active will need syringe/needle for monthly injection dx b12 deficiency cyanocobalamin (vit B-12) 1,000 mcg/mL injection solution Rx Norm: 533585 1 Milliliter(s) Injection monthly 10/27/2021 10/27/2021 Inactive will need syringe/needle for monthly injection dx b12 deficiency hydrocodone 5 mg-acetaminophen 325 mg tablet RxNorm: 116814 Take 1 Tablet(s) Oral three times a day as needed for pain 09/20/2021 No Stop Date Active albuterol sulfate 2.5 mg/3 mL (0.083 %) solution for n ebulization RxNorm: 216992 USE 1 VIAL IN NEBULIZER TWICE DAILY 09/14/2021 11/04/2021 Activ e albuterol sulfate 2.5 mg/3 mL (0.083 %) solution for n ebulization RxNorm: 301498 USE 1 VIAL IN NEBULIZER TWICE DAILY 09/14/2021 09/14/2021 Inact césar levothyroxine 112 mcg tablet RxNorm: 629784 1 Tablet(s) Oral ev vinny day 09/02/2021 02/28/2022 Active levothyroxine 112 mcg tablet RxNorm: 031800 1 Tablet(s) Oral ev vinny day 09/02/2021 09/02/2021 Inactive levothyroxine 112 mcg tablet RxNorm: 377246 1 Tablet(s) Oral ev vinny day 08/20/2021 09/02/2021 Inactive cyanocobalamin (vit B-12) 1,000 mcg/mL injection solution Rx Norm: 106573 Take Milliliter(s) Injection 08/10/2021 08/10/2021 Inactive cyanocobalamin (vit B-12) 1,000 mcg/mL injection solution Rx Norm: 799926 Take Milliliter(s) Injection 06/30/2021 06/30/2021 Inactive albuterol sulfate 2.5 mg/3 mL (0.083 %) solution for n ebulization RxNorm: 402371 1 Unit Dose Inhalation two times a day DX J43.1 04/19/20212020 Inactive losartan 50 mg tablet RxNorm: 810487 1 Tablet(s) Oral two times a day 03/22/2021 03/17/2022 Active albuterol sulfate 2.5 mg/3 mL (0.083 %) solution for n ebulization RxNorm: 226980 1 Unit Dose Inhalation two times a day DX J43.1 03/22/20212020 Inactive albuterol sulfate 2.5 mg/3 mL (0.083 %) solution for n ebulization RxNorm: 509624 1 Unit Dose Inhalation two times a day 03/17/2021 03/16/2021 In active albuterol sulfate 2.5 mg/3 mL (0.083 %) solution for n ebulization RxNorm: 642907 1 Unit Dose Inhalation two times a day 03/17/2021 03/21/2021 In active Norvasc 5 mg tablet RxNorm: 911998 1 Tablet(s) Oral every day 12/3112/26/2021 Active Norvasc 5 mg tablet RxNorm: 008435 1 Tablet(s) Oral every day 12/3112/30/2020 Inactive metoprolol succinate ER 25 mg tablet,extended release 24 hr RxNorm: 147619 1 Tablet(s) Oral every day 12/28/2020 No Stop Date Active Ventolin HFA 90 mcg/actuation aerosol inhaler RxNorm: 067661 1-2 Puff(s) Inhalation Every 4 hrs as needed 12/28/2020 No Stop Date Active furosemide 20 mg tablet RxNorm: 888799 1 Tablet(s) Oral every day 0 12/28/2020 No Stop Date Active furosemide 40 mg tablet RxNorm: 552136 1 Tablet(s) Oral as directed 40mg BID x 5 days then 40mg in am and 20mg afternoon thereafter 11/18/2020 Inactive give qty sufficient potassium chloride ER 10 mEq tablet,extended release RxNorm: 420261 1 Tablet(s) Oral as directed 1 tab bid x 5 days then resume daily 11/18/20202020 Inactive qty sufficient potassium bicarbonate-citric acid 10 mEq effervescent tablet RxNorm: 9973105 1 Tablet(s) Oral every day 09/10/2020 11/17/2020 Inactive levothyroxine 125 mcg tablet RxNorm: 299628 1 Tablet(s) Oral ev vinny day 09/10/2020 08/19/2021 Inactive losartan 50 mg tablet RxNorm: 897943 1 Tablet(s) Oral two times a day 09/10/2020 12/27/2020 Inactive furosemide 40 mg tablet RxNorm: 498810 1 Tablet(s) Oral every day 1 11/17/2020 Inactive Zyrtec 10 mg tablet RxNorm: 7877918 1 Tablet(s) Oral every day 03/202012/28/2020 Inactive levothyroxine 125 mcg tablet RxNorm: 820189 1 Tablet(s) Oral ev vinny day 08/31/2020 09/09/2020 Inactive Zyrtec 10 mg tablet RxNorm: 6792527 1 Tablet(s) Oral every day 03/202008/30/2020 Inactive aspirin 81 mg tablet,delayed release RxNorm: 797314 1 Tablet(s) Oral every day 08/26/2020 No Stop Date Active Vitamin C 250 mg tablet RxNorm: 543514 1 Tablet(s) Oral every day 0 08/26/2020 No Stop Date Active Vitamin D3 50 mcg (2,000 unit) tablet RxNorm: 027750 1 Tablet(s ) Oral every day 08/26/2020 No Stop Date Active levothyroxine 88 mcg tablet RxNorm: 971893 1 Tablet(s) Oral micheal ry day 08/26/2020 08/30/2020 Inactive losartan 50 mg tablet RxNorm: 979175 1 Tablet(s) Oral every day 09/09/2020 Inactive furosemide 40 mg tablet RxNorm: 035437 1 Tablet(s) Oral every day 0 08/26/2020 09/09/2020 Inactive potassium bicarbonate-citric acid 10 mEq effervescent tablet RxNorm: 9598878 1 Tablet(s) Oral every day 08/26/2020 09/09/2020 Inactive Women's Multivitamin oral RxNorm: oral 08/26/2020 Act césar Calcium 600 oral RxNorm: 1897 oral 08/26/2020 Active albuterol sulfate inhalation RxNorm: 829902 inhalation 08/26/2020 Active Medication Administered Medication Codes Instructions Start Date Status cyanocobalamin (vit B-12) 1,000 mcg/mL injection solution Rx Norm: 359212 Milliliter 08/10/2021 No longer Active cyanocobalamin (vit B-12) 1,000 mcg/mL injection solution Rx Norm: 324298 Milliliter 06/30/2021 No longer Active Immunizations Vaccine Codes Date Status Covid-19 CVX: 207 03/06/2021 Covid-19 CVX: 207 02/06/2021 Pneumococcal (Adult) Unknown 05/27/2019 Zoster CVX: 121 05/27/2017 Results Observation Observation Code Item Item Code Result Date S [facility] Location Cbc With Differential Ord2 [...] 08/10/20 21 Unknown Cbc With Differential Ord2 [place]% 8.0 % 08/10/20 21 Unknown Cbc With [...] K/ul 021 Unknown Cbc With Differential Ord2 [place] ABS# 0.7 K/ul 08/10/20 21 Unknown Cbc With Differential Ord2 Eos ABS# 0.2 K/ul 08/10/20 21 Unknown Cbc With Differential Ord2 Baso ABS# 0.0 K/ul 08/10/20 21 Unknown Tsh Ord6 TSH (3rd IS) 0.21 uIU/mL 08/10/2021 Unkn own Comp Metabolic Bdk449 NA 141 mEq/L 08/10/2021 Unkn own Comp Metabolic Mre909 K 4.1 mEq/L 08/10/2021 Unkn own Comp Metabolic Ats546 CL 104 mEq/L 08/10/2021 Unkn own Comp Metabolic Klw353 CO2 28.0 mEq/L 08/10/2021 Unk nown Comp Metabolic Imy084 ANION GAP 13 08/10/2021 Unkn own Comp Metabolic Cvj460 GLUCOSE 78 mg/dL 08/10/2021 Unkn own Comp Metabolic Czf446 Creat 0.8 mg/dL 08/10/2021 Unkn own Comp Metabolic Qdx249 eGFR 71 ml/min/1.73m2 08/10/20 21 Unknown Comp Metabolic Ckr040 BUN 25 mg/dL 08/10/2021 Unkn own Comp Metabolic Fwe037 B/C Ratio 30.9 Ratio 08/10/2021 Unk nown Comp Metabolic Vdc214 CALCIUM 8.7 mg/dL 08/10/2021 Unkn own Comp Metabolic Sqy768 ALK PHOS 61 U/L 08/10/2021 Unkn own Comp Metabolic Fkh716 AST(SGOT) 17 U/L 08/10/2021 Unkn own Comp Metabolic Xdd158 ALT(SGPT) 10 U/L 08/10/2021 Unkn own Comp Metabolic Kcq034 BILI T 0.6 mg/dL 08/10/2021 Unkn own Comp Metabolic Azv208 ALBUMIN 3.7 g/dL 08/10/2021 Unkn own Comp Metabolic Yss940 TPRO 6.1 g/dL 08/10/2021 Unkn own Comp Metabolic Dvf030 GLOB 2.4 g/dL 08/10/2021 Unkn own Comp Metabolic Nal289 A/G Ratio 1.6 Ratio 08/10/2021 Unkn own Comp Metabolic Nnz889 Osmo 285 mOsmo 08/10/2021 Unkn own B12 Aik109 B12 >1500.00 pg/ml 08/10/2021 Unkn own Free T4 Dzc950 FREE T4 1.23 ng/dL 08/10/2021 Unknown Tibc Ord40 Iron 32 ug/dl 12/29/2020 Unknown Tibc Ord40 UIBC 402 ug/dL 12/29/2020 Unknown Tibc Ord40 TIBC 434 ug/dL 12/29/2020 Unknown Tibc Ord40 Fe-%Sat 7.4 % 12/29/2020 Unknown Ferritin Ord22 FERRITIN 27.6 ng/mL 12/29/2020 Unknown B12 Vdd487 B12 187.00 pg/ml 12/29/2020 Unknow n Comp Metabolic Mwt945 NA 139 mEq/L 12/28/2020 Unkn own Comp Metabolic Nno121 K 4.1 mEq/L 12/28/2020 Unkn own Comp Metabolic Soh132 CL 103 mEq/L 12/28/2020 Unkn own Comp Metabolic Gkh261 CO2 27.0 mEq/L 12/28/2020 Unk nown Comp Metabolic Kcj335 ANION GAP 13 12/28/2020 Unkn own Comp Metabolic Ulg903 GLUCOSE 79 mg/dL 12/28/2020 Unkn own Comp Metabolic Ycg889 Creat 0.7 mg/dL 12/28/2020 Unkn own Comp Metabolic Umo396 eGFR 80 ml/min/1.73m2 12/28/19 21 Unknown Comp Metabolic Odu992 BUN 21 mg/dL 12/28/2020 Unkn own Comp Metabolic Qdo941 B/C Ratio 28.8 Ratio 12/28/2020 Unk nown Comp Metabolic Orc622 CALCIUM 8.7 mg/dL 12/28/2020 Unkn own Comp Metabolic Qka319 ALK PHOS 74 U/L 12/28/2020 Unkn own Comp Metabolic Bsg373 AST(SGOT) 15 U/L 12/28/2020 Unkn own Comp Metabolic Tll927 ALT(SGPT) 17 U/L 12/28/2020 Unkn own Comp Metabolic Yig202 BILI T 0.4 mg/dL 12/28/2020 Unkn own Comp Metabolic Mej134 ALBUMIN 3.5 g/dL 12/28/2020 Unkn own Comp Metabolic Ykl189 TPRO 5.9 g/dL 12/28/2020 Unkn own Comp Metabolic Rhg996 GLOB 2.4 g/dL 12/28/2020 Unkn own Comp Metabolic Ikx991 A/G Ratio 1.4 Ratio 12/28/2020 Unkn own Comp Metabolic Fvx528 Osmo 279 mOsmo 12/28/2020 Unkn own Cbc [...] 12/28/19 21 Unknown Cbc With Differential Ord2 [place]% 7.9 % 12/28/19 21 Unknown Cbc With [...] K/ul 021 Unknown Cbc With Differential Ord2 [place] ABS# 0.6 K/ul 12/28/19 21 Unknown Cbc With Differential Ord2 Eos ABS# 0.4 K/ul 12/28/19 21 Unknown Cbc With Differential Ord2 Baso ABS# 0.0 K/ul 12/28/19 21 Unknown Procedures Procedure Codes Date THER/PROPH/DIAG INJ SC/IM CPT-4: 06215 08/10/2021 VITAMIN B12 INJECTION 1000 mcg CPT-4: J3420 THER/PROPH/DIAG INJ SC/IM CPT-4: 79084 06/30/2021 Vital Signs Date Vital 08/23/2021 SpO2: 96% SpO2: 87% SpO2: 94% 08/10/2021 Blood Pressure 1: 138/82 Code: 8480-6 BMI: 33.5 Code: 22214-0 Heart Rate 1: 74 bpm Height: 5'3" Code: 8302-2 SpO2: 98% Temperature: 3 6.2 (C) / 97.1 (F) Weight: 189 lbs Code: 66600-3 05/11/2021 Blood Pressure 1: 134/80 Code: 8480-6 Heart Rate 1: 77 bpm Height: 5'3" Code: 8302-2 SpO2: 93% Temperature: 36.3 (C) / 97.3 (F) 01/25/2021 Blood Pressure 1: 136/88 Code: 8480-6 Heart Rate 1: 60 bpm Height: Code: 8302-2 SpO2: 93% Temperature: 36.3 (C) / 97.3 (F) Weight: 174 lbs Code: 02750-3 12/28/2020 Blood Pressure 1: 164/92 Code: 8480-6 BMI: 31.4 Code: 94350-4 Heart Rate 1: 67 bpm Height: 5'3" Code: 8302-2 SpO2: 94% Temperature: 3 6.2 (C) / 97.1 (F) Weight: 177 lbs Code: 06051-7 12/10/2020 Blood Pressure 1: 134/72 Code: 8480-6 BMI: 30.8 Code: 41477-5 Heart Rate 1: 74 bpm Height: 5'3" Code: 8302-2 Respiratory Rate: 18 bpm SpO2: 95% Temperature: 36.3 (C) / 97.4 (F) Weight: 174 lbs Code: 99940-4 09/10/2020 Blood Pressure 1: 202/94 Code: 8480-6 BMI: 30.6 Code: 98422-1 Heart Rate 1: 73 bpm Height: 5'3" Code: 8302-2 Respiratory Rate: 17 bpm SpO2: 91% Temperature: 36.8 (C) / 98.2 (F) Weight: 173 lbs Code: 78703-6 08/26/2020 Blood Pressure 1: 144/90 Code: 8480-6 BMI: 29.4 Code: 24057-9 Heart Rate 1: 72 bpm Height: 5'3" Code: 8302-2 SpO2: 98% Temperature: 3 6.7 (C) / 98.0 (F) Weight: 166 lbs Code: 32636-7 Functional Status No Functional Status data Reason [...] Diagnosis: Panlobular emphysema[ICD10: J43.1] Shantal tran MD, [facility] CPT-4: 62520 08/23/2021 ([id number]) [id number] EST. PATIENT, LEVEL IV Diagnosis: Vitamin B12 deficiency (dietary) anemia[ICD10: D51.8] Diagnosis: Essential (primary) hypertension[ICD10: I10] Diagnosis: Atrophy of thyroid (acquired)[ICD10: E03.4] Rena Mac MD, [facility] CPT-4: 59791 08/10/2021 [id number] EST. PATIENT, LEVEL IV Diagnosis: Essential (primary) hypertension[ICD10: I10] Diagnosis: Vitamin B12 deficiency (dietary) anemia[ICD10: D51.8] Diagnosis: Atrophy of thyroid (acquired)[ICD10: E03.4] Diagnosis: Localized edema[ICD10: R60.0] Rena white MD, [facility] CPT-4: 41025 05/11/2021 ([id number]) 13030 EST. PATIENT, LEVEL IV Diagnosis: CHF (congestive heart failure)[ICD10: I50.9] Diagnosis: Essential (primary) hypertension[ICD10: I10] Diagnosis: Vitamin B12 deficiency (dietary) anemia[ICD10: D51.8] Rena Mac MD, [facility] CPT-4: 39032 01/25/2021 ([id number]) 43368 EST. PATIENT, LEVEL IV Diagnosis: Acute on chronic diastolic congestive heart failure[ICD10: I50.33] Diagnosis: Anemia[ICD10: D64.9] Diagnosis: Essential (primary) hypertension[ICD10: I10] [facility] CPT-4: 86328 12/28/2020 [id number]) 39291 EST. PATIENT, LEVEL IV Diagnosis: Essential (primary) hypertension[ICD10: I10] Diagnosis: CHF (congestive heart failure)[ICD10: I50.9] Diagnosis: Atrophy of thyroid (acquired)[ICD10: E03.4] Shantal Mac MD, [facility] CPT-4: 87810 12/10/2020 [id number]) 77046 EST. PATIENT, LEVEL IV Diagnosis: Essential (primary) hypertension[ICD10: I10] Diagnosis: CHF (congestive heart failure)[ICD10: I50.9] Diagnosis: On supplemental oxygen therapy[ICD10: Z99.81] Diagnosis: Atrophy of thyroid (acquired)[ICD10: E03.4] Shnatal Mac MD, [facility] CPT-4: 40351 09/10/2020 OFFICE VISIT, NEW - LEVEL 3 Diagnosis: CHF (congestive heart failure)[ICD10: I50.9] Diagnosis: Dementia without behavioral disturbance, unspecified dementia type[ICD10: F03.90] [facility] CPT-4: 18222 08/26 Plan of Care Planned Activity Notes [...] [phone] [phone] [place] (30 min) Complex 05/11/2021 Patient Education: Patient Medication Summary Completed 05/11/2021 Appointment: Rena Livingston [phone] [facility] [phone] [place] (30 min) Complex 04/27/2021 Appointment: Shantal Mac WPtel: [phone] [phone] (15 min) Moderate 03/11/2021 Visit Plan: Hypertension [...] per 01/25/2021 Appointment: Rena Livingston WPtel: [phone] [phone] (30 min) Complex [...] medications today 12/28/2020 Appointment: Rena Livingston WPtel: [phone] (30 min) Complex [...] Summary Completed 12/10/2020 [phone] [place] ([facility] min) Complex 11/03/2020 Visit Plan: [...] home health. 09/10/2020 App[facility]ment: [phone] [facility] [place] (15 min) Moderate 09/10/2020 Patient [...] to be done to be drawn by [employer]. Will set up with [employer] pt is to consider moving to assisted [...]
--- OUTSIDE RECORDS SUMMARY | 2021-11-29 16:01 | XMS REPORT | CCD ---
Author Author Flakita Andino Organization Shantal Mac MD, [facility] Address [address] [place] [address] Phone Care Team Providers Care Theater Education Teacher Name Role Phone Shantal Mac PP Unavailable CCM Unavailable Summary Purpose Interface Exchange Insurance Providers Payer name Policy type / Coverage type Covered republican ID Effective Begin Date Effective End Date WPS Medicare Part B Medicare Part B [id number] Unknown Unkno wn [facility] Medicare Part B [id number] Unkno wn Unknown Family history Sister Diagnosis [...] Unknown Retired 08/26/[address]: 2054009 Quit over 10 years a go 199908/26/[address]: 590948889 Never drinks alcohol 2019 Allergies, Adverse Reactions, [...] Fill Instructions losartan 50 mg tablet RxNorm: 075790 Take 1 Tablet(s) Oral two times a day 11/05/2021 10/30/2022 Active cyanocobalamin (vit B-12) 1,000 mcg/mL injection solution Rx Norm: 835402 1 Milliliter(s) Injection monthly 11/02/2021 12/01/2021 Active will need syringe/needle for monthly injection dx b12 deficiency levothyroxine 112 mcg tablet RxNorm: 552362 Take 1 Tablet(s) Or al every day 11/02/2021 01/30/2022 Active hydrocodone 5 mg-acetaminophen 325 mg tablet RxNorm: 338695 Take 1 Tablet(s) Oral three times a day as needed for pain 11/02/2021 12/01/2021 Active cyanocobalamin (vit B-12) 1,000 mcg/mL injection solution Rx Norm: 177750 1 Milliliter(s) Injection monthly 10/27/2021 10/27/2021 Inactive will need syringe/needle for monthly injection dx b12 deficiency cyanocobalamin (vit B-12) 1,000 mcg/mL injection solution Rx Norm: 171457 1 Milliliter(s) Injection monthly 10/27/2021 10/27/2021 Inactive will need syringe/needle for monthly injection dx b12 deficiency levothyroxine 112 mcg tablet RxNorm: 222923 1 Tablet(s) Oral ev vinny day 10/27/2021 10/27/2021 Inactive hydrocodone 5 mg-acetaminophen 325 mg tablet RxNorm: 542773 Take 1 Tablet(s) Oral three times a day as needed for pain 09/20/2021 09/20/2021 Inacti ve albuterol sulfate 2.5 mg/3 mL (0.083 %) solution for n ebulization RxNorm: 132670 USE 1 VIAL IN NEBULIZER TWICE DAILY 09/14/2021 11/04/2021 Inact césar albuterol sulfate 2.5 mg/3 mL (0.083 %) solution for n ebulization RxNorm: 814755 USE 1 VIAL IN NEBULIZER TWICE DAILY 09/14/2021 09/14/2021 Inact césar levothyroxine 112 mcg tablet RxNorm: 907553 1 Tablet(s) Oral ev vinny day 09/02/2021 09/02/2021 Inactive levothyroxine 112 mcg tablet RxNorm: 110881 1 Tablet(s) Oral ev vinny day 09/02/2021 09/02/2021 Inactive levothyroxine 112 mcg tablet RxNorm: 603297 1 Tablet(s) Oral ev vinny day 08/20/2021 09/02/2021 Inactive cyanocobalamin (vit B-12) 1,000 mcg/mL injection solution Rx Norm: 803582 Take Milliliter(s) Injection 08/10/2021 08/10/2021 Inactive cyanocobalamin (vit B-12) 1,000 mcg/mL injection solution Rx Norm: 321252 Take Milliliter(s) Injection 06/30/2021 06/30/2021 Inactive albuterol sulfate 2.5 mg/3 mL (0.083 %) solution for n ebulization RxNorm: 329370 1 Unit Dose Inhalation two times a day DX J43.1 04/19/20212020 Inactive losartan 50 mg tablet RxNorm: 174429 1 Tablet(s) Oral two times a day 03/22/2021 03/22/2021 Inactive albuterol sulfate 2.5 mg/3 mL (0.083 %) solution for n ebulization RxNorm: 364880 1 Unit Dose Inhalation two times a day DX J43.1 03/22/20212020 Inactive albuterol sulfate 2.5 mg/3 mL (0.083 %) solution for n ebulization RxNorm: 419761 1 Unit Dose Inhalation two times a day 03/17/2021 03/16/2021 In active albuterol sulfate 2.5 mg/3 mL (0.083 %) solution for n ebulization RxNorm: 457898 1 Unit Dose Inhalation two times a day 03/17/2021 03/21/2021 In active Norvasc 5 mg tablet RxNorm: 325778 1 Tablet(s) Oral every day 12/3112/26/2021 Active Norvasc 5 mg tablet RxNorm: 366159 1 Tablet(s) Oral every day 12/3112/30/2020 Inactive metoprolol succinate ER 25 mg tablet,extended release 24 hr RxNorm: 005073 1 Tablet(s) Oral every day 12/28/2020 No Stop Date Active Ventolin HFA 90 mcg/actuation aerosol inhaler RxNorm: 682123 1-2 Puff(s) Inhalation Every 4 hrs as needed 12/28/2020 No Stop Date Active furosemide 20 mg tablet RxNorm: 246822 1 Tablet(s) Oral every day 0 12/28/2020 No Stop Date Active furosemide 40 mg tablet RxNorm: 575993 1 Tablet(s) Oral as directed 40mg BID x 5 days then 40mg in am and 20mg afternoon thereafter 11/18/2020 Inactive give qty sufficient potassium chloride ER 10 mEq tablet,extended release RxNorm: 783036 1 Tablet(s) Oral as directed 1 tab bid x 5 days then resume daily 11/18/20202020 Inactive qty sufficient potassium bicarbonate-citric acid 10 mEq effervescent tablet RxNorm: 1800474 1 Tablet(s) Oral every day 09/10/2020 11/17/2020 Inactive levothyroxine 125 mcg tablet RxNorm: 169924 1 Tablet(s) Oral ev vinny day 09/10/2020 08/19/2021 Inactive losartan 50 mg tablet RxNorm: 722245 1 Tablet(s) Oral two times a day 09/10/2020 12/27/2020 Inactive furosemide 40 mg tablet RxNorm: 084142 1 Tablet(s) Oral every day 1 11/17/2020 Inactive Zyrtec 10 mg tablet RxNorm: 9595936 1 Tablet(s) Oral every day 03/202012/28/2020 Inactive levothyroxine 125 mcg tablet RxNorm: 896103 1 Tablet(s) Oral ev vinny day 08/31/2020 09/09/2020 Inactive Zyrtec 10 mg tablet RxNorm: 3577526 1 Tablet(s) Oral every day 03/202008/30/2020 Inactive aspirin 81 mg tablet,delayed release RxNorm: 416246 1 Tablet(s) Oral every day 08/26/2020 No Stop Date Active Vitamin C 250 mg tablet RxNorm: 930000 1 Tablet(s) Oral every day 0 08/26/2020 No Stop Date Active Vitamin D3 50 mcg (2,000 unit) tablet RxNorm: 670502 1 Tablet(s ) Oral every day 08/26/2020 No Stop Date Active levothyroxine 88 mcg tablet RxNorm: 185362 1 Tablet(s) Oral micheal ry day 08/26/2020 08/30/2020 Inactive losartan 50 mg tablet RxNorm: 136213 1 Tablet(s) Oral every day 09/09/2020 Inactive furosemide 40 mg tablet RxNorm: 819710 1 Tablet(s) Oral every day 0 08/26/2020 09/09/2020 Inactive potassium bicarbonate-citric acid 10 mEq effervescent tablet RxNorm: 7982391 1 Tablet(s) Oral every day 08/26/2020 09/09/2020 Inactive Women's Multivitamin oral RxNorm: oral 08/26/2020 Act césar Calcium 600 oral RxNorm: 1897 oral 08/26/2020 Active albuterol sulfate inhalation RxNorm: 863139 inhalation 08/26/2020 Active Medication Administered Medication Codes Instructions Start Date Status cyanocobalamin (vit B-12) 1,000 mcg/mL injection solution Rx Norm: 908536 Milliliter 08/10/2021 No longer Active cyanocobalamin (vit B-12) 1,000 mcg/mL injection solution Rx Norm: 661062 Milliliter 06/30/2021 No longer Active Immunizations Vaccine [...] 08/10/20 21 Unknown Cbc With Differential Ord2 [place]% 8.0 % 08/10/20 21 Unknown Cbc With [...] K/ul 021 Unknown Cbc With Differential Ord2 [place] ABS# 0.7 K/ul 08/10/20 21 Unknown Cbc With Differential Ord2 Eos ABS# 0.2 K/ul 08/10/20 21 Unknown Cbc With Differential Ord2 Baso ABS# 0.0 K/ul 08/10/20 21 Unknown Tsh Ord6 TSH (3rd IS) 0.21 uIU/mL 08/10/2021 Unkn own Comp Metabolic Uga992 NA 141 mEq/L 08/10/2021 Unkn own Comp Metabolic Mlq469 K 4.1 mEq/L 08/10/2021 Unkn own Comp Metabolic Xda256 CL 104 mEq/L 08/10/2021 Unkn own Comp Metabolic Gnu543 CO2 28.0 mEq/L 08/10/2021 Unk nown Comp Metabolic Sid868 ANION GAP 13 08/10/2021 Unkn own Comp Metabolic Qly534 GLUCOSE 78 mg/dL 08/10/2021 Unkn own Comp Metabolic Zxi177 Creat 0.8 mg/dL 08/10/2021 Unkn own Comp Metabolic Syv115 eGFR 71 ml/min/1.73m2 08/10/20 21 Unknown Comp Metabolic Kpp227 BUN 25 mg/dL 08/10/2021 Unkn own Comp Metabolic Ygg190 B/C Ratio 30.9 Ratio 08/10/2021 Unk nown Comp Metabolic Sba323 CALCIUM 8.7 mg/dL 08/10/2021 Unkn own Comp Metabolic Bnm028 ALK PHOS 61 U/L 08/10/2021 Unkn own Comp Metabolic Wps590 AST(SGOT) 17 U/L 08/10/2021 Unkn own Comp Metabolic Ykc180 ALT(SGPT) 10 U/L 08/10/2021 Unkn own Comp Metabolic Eko317 BILI T 0.6 mg/dL 08/10/2021 Unkn own Comp Metabolic Qdy467 ALBUMIN 3.7 g/dL 08/10/2021 Unkn own Comp Metabolic Xth172 TPRO 6.1 g/dL 08/10/2021 Unkn own Comp Metabolic Iwg437 GLOB 2.4 g/dL 08/10/2021 Unkn own Comp Metabolic Gmu921 A/G Ratio 1.6 Ratio 08/10/2021 Unkn own Comp Metabolic Psd847 Osmo 285 mOsmo 08/10/2021 Unkn own B12 Rqm278 B12 >1500.00 pg/ml 08/10/2021 Unkn own Free T4 Twk524 FREE T4 1.23 ng/dL 08/10/2021 Unknown Tibc Ord40 Iron 32 ug/dl 12/29/2020 Unknown Tibc Ord40 UIBC 402 ug/dL 12/29/2020 Unknown Tibc Ord40 TIBC 434 ug/dL 12/29/2020 Unknown Tibc Ord40 Fe-%Sat 7.4 % 12/29/2020 Unknown Ferritin Ord22 FERRITIN 27.6 ng/mL 12/29/2020 Unknown B12 Jkw796 B12 187.00 pg/ml 12/29/2020 Unknow n Comp Metabolic Etg469 NA 139 mEq/L 12/28/2020 Unkn own Comp Metabolic Iyn506 K 4.1 mEq/L 12/28/2020 Unkn own Comp Metabolic Itz606 CL 103 mEq/L 12/28/2020 Unkn own Comp Metabolic Yei669 CO2 27.0 mEq/L 12/28/2020 Unk nown Comp Metabolic Rit508 ANION GAP 13 12/28/2020 Unkn own Comp Metabolic Kyg300 GLUCOSE 79 mg/dL 12/28/2020 Unkn own Comp Metabolic Szw762 Creat 0.7 mg/dL 12/28/2020 Unkn own Comp Metabolic Ahs720 eGFR 80 ml/min/1.73m2 12/28/19 21 Unknown Comp Metabolic Sup951 BUN 21 mg/dL 12/28/2020 Unkn own Comp Metabolic Qsu685 B/C Ratio 28.8 Ratio 12/28/2020 Unk nown Comp Metabolic Cxg552 CALCIUM 8.7 mg/dL 12/28/2020 Unkn own Comp Metabolic Zhv340 ALK PHOS 74 U/L 12/28/2020 Unkn own Comp Metabolic Fvp493 AST(SGOT) 15 U/L 12/28/2020 Unkn own Comp Metabolic Jak190 ALT(SGPT) 17 U/L 12/28/2020 Unkn own Comp Metabolic Evm519 BILI T 0.4 mg/dL 12/28/2020 Unkn own Comp Metabolic Vib447 ALBUMIN 3.5 g/dL 12/28/2020 Unkn own Comp Metabolic Sfw579 TPRO 5.9 g/dL 12/28/2020 Unkn own Comp Metabolic Jno195 GLOB 2.4 g/dL 12/28/2020 Unkn own Comp Metabolic Tiv589 A/G Ratio 1.4 Ratio 12/28/2020 Unkn own Comp Metabolic Vyu200 Osmo 279 mOsmo 12/28/2020 Unkn own Cbc [...] 12/28/19 21 Unknown Cbc With Differential Ord2 [place]% 7.9 % 12/28/19 21 Unknown Cbc With [...] K/ul 021 Unknown Cbc With Differential Ord2 [place] ABS# 0.6 K/ul 12/28/19 21 Unknown Cbc With Differential Ord2 Eos ABS# 0.4 K/ul 12/28/19 21 Unknown Cbc With Differential Ord2 Baso ABS# 0.0 K/ul 12/28/19 21 Unknown Procedures Procedure Codes Date THER/PROPH/DIAG INJ SC/IM CPT-4: 32213 08/10/2021 VITAMIN B12 INJECTION 1000 mcg CPT-4: J3420 THER/PROPH/DIAG INJ SC/IM CPT-4: 85768 06/30/2021 Vital Signs Date Vital 08/23/2021 SpO2: 96% SpO2: 87% SpO2: 94% 08/10/2021 Blood Pressure 1: 138/82 Code: 8480-6 BMI: 33.5 Code: 56911-2 Heart Rate 1: 74 bpm Height: 5'3" Code: 8302-2 SpO2: 98% Temperature: 3 6.2 (C) / 97.1 (F) Weight: 189 lbs Code: 48283-4 05/11/2021 Blood Pressure 1: 134/80 Code: 8480-6 Heart Rate 1: 77 bpm Height: 5'3" Code: 8302-2 SpO2: 93% Temperature: 36.3 (C) / 97.3 (F) 01/25/2021 Blood Pressure 1: 136/88 Code: 8480-6 Heart Rate 1: 60 bpm Height: Code: 8302-2 SpO2: 93% Temperature: 36.3 (C) / 97.3 (F) Weight: 174 lbs Code: 20335-7 12/28/2020 Blood Pressure 1: 164/92 Code: 8480-6 BMI: 31.4 Code: 52004-1 Heart Rate 1: 67 bpm Height: 5'3" Code: 8302-2 SpO2: 94% Temperature: 3 6.2 (C) / 97.1 (F) Weight: 177 lbs Code: 55779-8 12/10/2020 Blood Pressure 1: 134/72 Code: 8480-6 BMI: 30.8 Code: 88463-2 Heart Rate 1: 74 bpm Height: 5'3" Code: 8302-2 Respiratory Rate: 18 bpm SpO2: 95% Temperature: 36.3 (C) / 97.4 (F) Weight: 174 lbs Code: 57831-1 09/10/2020 Blood Pressure 1: 202/94 Code: 8480-6 BMI: 30.6 Code: 13576-2 Heart Rate 1: 73 bpm Height: 5'3" Code: 8302-2 Respiratory Rate: 17 bpm SpO2: 91% Temperature: 36.8 (C) / 98.2 (F) Weight: 173 lbs Code: 49110-7 08/26/2020 Blood Pressure 1: 144/90 Code: 8480-6 BMI: 29.4 Code: 73228-9 Heart Rate 1: 72 bpm Height: 5'3" Code: 8302-2 SpO2: 98% Temperature: 3 6.7 (C) / 98.0 (F) Weight: 166 lbs Code: 78758-1 Functional Status No Functional Status data Reason For Visit Reason For Visit Effective Dates Notes hypertension 08/10/2021 hypertension 05/11/2021 hypertension 01/25/2021 Hospital Follow Up 12/28/2020 shortness of breath 12/10/2020 shortness of breath 09/10/2020 Hospital Follow Up 08/26/2020 Encounters Encounter Performer Location Codes Date () EST. 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 PATIENT, LEVEL IV Diagnosis: Vitamin B12 deficiency (dietary) anemia[ICD10: D51.8] Diagnosis: Essential (primary) hypertension[ICD10: I10] Diagnosis: Atrophy of thyroid (acquired)[ICD10: E03.4] Rena Mac MD, [facility] CPT-4: 71313 08/10/2021 ([id number]) 61196 EST. PATIENT, LEVEL IV Diagnosis: Essential (primary) hypertension[ICD10: I10] Diagnosis: Vitamin B12 deficiency (dietary) anemia[ICD10: D51.8] Diagnosis: Atrophy of thyroid (acquired)[ICD10: E03.4] Diagnosis: Localized edema[ICD10: R60.0] Rena white MD, [facility] CPT-4: 39624 05/11/2021 ([id number]) 22503 EST. PATIENT, LEVEL IV Diagnosis: CHF (congestive heart failure)[ICD10: I50.9] Diagnosis: Essential (primary) hypertension[ICD10: I10] Diagnosis: Vitamin B12 deficiency (dietary) anemia[ICD10: D51.8] Rena Mac MD, [facility] CPT-4: 92727 01/25/2021 ([id number]) 26309 EST. PATIENT, LEVEL IV Diagnosis: Acute on chronic diastolic congestive heart failure[ICD10: I50.33] Diagnosis: Anemia[ICD10: D64.9] Diagnosis: Essential (primary) hypertension[ICD10: I10] Rena Mac MD, [facility] CPT-4: 02402 12/28/2020 ([id number]) 43734 EST. PATIENT, LEVEL IV Diagnosis: Essential (primary) hypertension[ICD10: I10] Diagnosis: CHF (congestive heart failure)[ICD10: I50.9] Diagnosis: Atrophy of thyroid (acquired)[ICD10: E03.4] Shantal Mac MD, [facility] CPT-4: 97824 12/10/2020 ([id number]) 86925 EST. PATIENT, LEVEL IV Diagnosis: Essential (primary) hypertension[ICD10: I10] Diagnosis: CHF (congestive heart failure)[ICD10: I50.9] Diagnosis: On supplemental oxygen therapy[ICD10: Z99.81] Diagnosis: Atrophy of thyroid (acquired)[ICD10: E03.4] [facility] CPT-4: 32271 09/10/2020 OFFICE VISIT, NEW - LEVEL 3 Diagnosis: CHF (congestive heart failure)[ICD10: I50.9] Diagnosis: Dementia without behavioral disturbance, unspecified dementia type[ICD10: F03.90] [facility] CPT-4: 97744 08/26 Plan of Care Planned Activity Notes [...] -injection today 08/10/2021 Appointment: Rena Livingston WPtel: [address] [place], [place] [phone] (30 min) [facility] 08/10/2021 Patient Education: Patient Medication Summary [...] labs 05/11/2021 Appointment: Rena Livingston WPtel: [phone] [phone] (30 min) Complex 05/11/2021 Patient Education: Patient Medication Summary Completed 05/11/2021 Appointment: Rena Livingston WPtel: [phone] [phone] [place] (30 min) Complex 04/27/2021 Appointment: Shantal Mac WPtel: [phone] [facility] [place] (15 min) Moderate 03/11/2021 Visit [...] injections per 01/25/2021 Appointment: Rena Livingston WPtel: [phone] [phone] [place] (30 min) Complex 01/25/2021 [...] today 12/28/2020 Appointment: Rena Livingston [facility]el: [phone] [...] Completed 12/10/2020 [phone] ([facility] 11/03/2020 Visit Plan: [...] home health. 09/10/2020 Appointment: Shantal Mac WPtel: [address] [place], [place] [phone] (15 min) Moderate 09/10/2020 Patient Education: Patient [...] to be done to be drawn by solo [place]. 09/10/2020 Will set up with [facility] pt is to consider moving to [...]
--- OUTSIDE RECORDS SUMMARY | 2021-11-29 16:01 | XMS REPORT | CCD ---
Author Author Flakita Andino Organization Shantal Mac MD, [facility] Address [address] [place] [address] Phone Care Team Providers Care Groundhand Name Role Phone Shantal Mac PP Unavailable CCM Unavailable Summary Purpose Interface Exchange Insurance Providers Payer name Policy type / Coverage type Covered green party ID Effective Begin Date Effective End Date WPS Medicare Part B Medicare Part B [id number] Unknown Unkno wn [facility] Medicare Part B [id number] Unkno wn Unknown Family history Sister Diagnosis [...] Unknown Retired 08/26/[address]: 4983268 Quit over 10 years a go 199908/26/[address]: 171311928 Never drinks alcohol 2019 Allergies, Adverse Reactions, [...] B-12) 1,000 mcg/mL injection solution Rx Norm: 628231 1 Milliliter(s) Injection monthly 11/02/2021 12/01/2021 Active will need syringe/needle for monthly injection dx b12 deficiency levothyroxine 112 mcg tablet RxNorm: 945554 Take 1 Tablet(s) Or al every day 11/02/2021 01/30/2022 Active hydrocodone 5 mg-acetaminophen 325 mg tablet RxNorm: 201574 Take 1 Tablet(s) Oral three times a day as needed for pain 11/02/2021 12/01/2021 Active cyanocobalamin (vit B-12) 1,000 mcg/mL injection solution Rx Norm: 668125 1 Milliliter(s) Injection monthly 10/27/2021 10/27/2021 Inactive will need syringe/needle for monthly injection dx b12 deficiency cyanocobalamin (vit B-12) 1,000 mcg/mL injection solution Rx Norm: 451196 1 Milliliter(s) Injection monthly 10/27/2021 10/27/2021 Inactive will need syringe/needle for monthly injection dx b12 deficiency levothyroxine 112 mcg tablet RxNorm: 756656 1 Tablet(s) Oral ev vinny day 10/27/2021 10/27/2021 Inactive hydrocodone 5 mg-acetaminophen 325 mg tablet RxNorm: 624018 Take 1 Tablet(s) Oral three times a day as needed for pain 09/20/2021 09/20/2021 Inacti ve albuterol sulfate 2.5 mg/3 mL (0.083 %) solution for n ebulization RxNorm: 616289 USE 1 VIAL IN NEBULIZER TWICE DAILY 09/14/2021 11/04/2021 Activ e albuterol sulfate 2.5 mg/3 mL (0.083 %) solution for n ebulization RxNorm: 550102 USE 1 VIAL IN NEBULIZER TWICE DAILY 09/14/2021 09/14/2021 Inact césar levothyroxine 112 mcg tablet RxNorm: 698735 1 Tablet(s) Oral ev vinny day 09/02/2021 09/02/2021 Inactive levothyroxine 112 mcg tablet RxNorm: 520256 1 Tablet(s) Oral ev vinny day 09/02/2021 09/02/2021 Inactive levothyroxine 112 mcg tablet RxNorm: 293143 1 Tablet(s) Oral ev vinny day 08/20/2021 09/02/2021 Inactive cyanocobalamin (vit B-12) 1,000 mcg/mL injection solution Rx Norm: 047500 Take Milliliter(s) Injection 08/10/2021 08/10/2021 Inactive cyanocobalamin (vit B-12) 1,000 mcg/mL injection solution Rx Norm: 950746 Take Milliliter(s) Injection 06/30/2021 06/30/2021 Inactive albuterol sulfate 2.5 mg/3 mL (0.083 %) solution for n ebulization RxNorm: 956656 1 Unit Dose Inhalation two times a day DX J43.1 04/19/20212020 Inactive losartan 50 mg tablet RxNorm: 103220 1 Tablet(s) Oral two times a day 03/22/2021 03/17/2022 Active albuterol sulfate 2.5 mg/3 mL (0.083 %) solution for n ebulization RxNorm: 686704 1 Unit Dose Inhalation two times a day DX J43.1 03/22/20212020 Inactive albuterol sulfate 2.5 mg/3 mL (0.083 %) solution for n ebulization RxNorm: 365537 1 Unit Dose Inhalation two times a day 03/17/2021 03/16/2021 In active albuterol sulfate 2.5 mg/3 mL (0.083 %) solution for n ebulization RxNorm: 418816 1 Unit Dose Inhalation two times a day 03/17/2021 03/21/2021 In active Norvasc 5 mg tablet RxNorm: 808891 1 Tablet(s) Oral every day 12/3112/26/2021 Active Norvasc 5 mg tablet RxNorm: 023405 1 Tablet(s) Oral every day 12/3112/30/2020 Inactive metoprolol succinate ER 25 mg tablet,extended release 24 hr RxNorm: 488209 1 Tablet(s) Oral every day 12/28/2020 No Stop Date Active Ventolin HFA 90 mcg/actuation aerosol inhaler RxNorm: 789450 1-2 Puff(s) Inhalation Every 4 hrs as needed 12/28/2020 No Stop Date Active furosemide 20 mg tablet RxNorm: 499795 1 Tablet(s) Oral every day 0 12/28/2020 No Stop Date Active furosemide 40 mg tablet RxNorm: 405138 1 Tablet(s) Oral as directed 40mg BID x 5 days then 40mg in am and 20mg afternoon thereafter 11/18/2020 Inactive give qty sufficient potassium chloride ER 10 mEq tablet,extended release RxNorm: 437187 1 Tablet(s) Oral as directed 1 tab bid x 5 days then resume daily 11/18/20202020 Inactive qty sufficient potassium bicarbonate-citric acid 10 mEq effervescent tablet RxNorm: 9385179 1 Tablet(s) Oral every day 09/10/2020 11/17/2020 Inactive levothyroxine 125 mcg tablet RxNorm: 427437 1 Tablet(s) Oral ev vinny day 09/10/2020 08/19/2021 Inactive losartan 50 mg tablet RxNorm: 918431 1 Tablet(s) Oral two times a day 09/10/2020 12/27/2020 Inactive furosemide 40 mg tablet RxNorm: 567619 1 Tablet(s) Oral every day 1 11/17/2020 Inactive Zyrtec 10 mg tablet RxNorm: 7632358 1 Tablet(s) Oral every day 03/202012/28/2020 Inactive levothyroxine 125 mcg tablet RxNorm: 451298 1 Tablet(s) Oral ev vinny day 08/31/2020 09/09/2020 Inactive Zyrtec 10 mg tablet RxNorm: 5773609 1 Tablet(s) Oral every day 03/202008/30/2020 Inactive aspirin 81 mg tablet,delayed release RxNorm: 865687 1 Tablet(s) Oral every day 08/26/2020 No Stop Date Active Vitamin C 250 mg tablet RxNorm: 219838 1 Tablet(s) Oral every day 0 08/26/2020 No Stop Date Active Vitamin D3 50 mcg (2,000 unit) tablet RxNorm: 619477 1 Tablet(s ) Oral every day 08/26/2020 No Stop Date Active levothyroxine 88 mcg tablet RxNorm: 361394 1 Tablet(s) Oral micheal ry day 08/26/2020 08/30/2020 Inactive losartan 50 mg tablet RxNorm: 641321 1 Tablet(s) Oral every day 09/09/2020 Inactive furosemide 40 mg tablet RxNorm: 171003 1 Tablet(s) Oral every day 0 08/26/2020 09/09/2020 Inactive potassium bicarbonate-citric acid 10 mEq effervescent tablet RxNorm: 4290552 1 Tablet(s) Oral every day 08/26/2020 09/09/2020 Inactive Women's Multivitamin oral RxNorm: oral 08/26/2020 Act césar Calcium 600 oral RxNorm: 1897 oral 08/26/2020 Active albuterol sulfate inhalation RxNorm: 991942 inhalation 08/26/2020 Active Medication Administered Medication Codes Instructions Start Date Status cyanocobalamin (vit B-12) 1,000 mcg/mL injection solution Rx Norm: 833636 Milliliter 08/10/2021 No longer Active cyanocobalamin (vit B-12) 1,000 mcg/mL injection solution Rx Norm: 059680 Milliliter 06/30/2021 No longer Active Immunizations Vaccine [...] 08/10/20 21 Unknown Cbc With Differential Ord2 [place]% 8.0 % 08/10/20 21 Unknown Cbc With [...] K/ul 021 Unknown Cbc With Differential Ord2 [place] ABS# 0.7 K/ul 08/10/20 21 Unknown Cbc With Differential Ord2 Eos ABS# 0.2 K/ul 08/10/20 21 Unknown Cbc With Differential Ord2 Baso ABS# 0.0 K/ul 08/10/20 21 Unknown Tsh Ord6 TSH (3rd IS) 0.21 uIU/mL 08/10/2021 Unkn own Comp Metabolic Umi509 NA 141 mEq/L 08/10/2021 Unkn own Comp Metabolic Pib056 K 4.1 mEq/L 08/10/2021 Unkn own Comp Metabolic Zge797 CL 104 mEq/L 08/10/2021 Unkn own Comp Metabolic Aqv685 CO2 28.0 mEq/L 08/10/2021 Unk nown Comp Metabolic Mlb039 ANION GAP 13 08/10/2021 Unkn own Comp Metabolic Lll577 GLUCOSE 78 mg/dL 08/10/2021 Unkn own Comp Metabolic Bsa143 Creat 0.8 mg/dL 08/10/2021 Unkn own Comp Metabolic Flb002 eGFR 71 ml/min/1.73m2 08/10/20 21 Unknown Comp Metabolic Ixw940 BUN 25 mg/dL 08/10/2021 Unkn own Comp Metabolic Dcj456 B/C Ratio 30.9 Ratio 08/10/2021 Unk nown Comp Metabolic Spj276 CALCIUM 8.7 mg/dL 08/10/2021 Unkn own Comp Metabolic Csp464 ALK PHOS 61 U/L 08/10/2021 Unkn own Comp Metabolic Swq136 AST(SGOT) 17 U/L 08/10/2021 Unkn own Comp Metabolic Skt580 ALT(SGPT) 10 U/L 08/10/2021 Unkn own Comp Metabolic Jyc450 BILI T 0.6 mg/dL 08/10/2021 Unkn own Comp Metabolic Hoa227 ALBUMIN 3.7 g/dL 08/10/2021 Unkn own Comp Metabolic Qmb638 TPRO 6.1 g/dL 08/10/2021 Unkn own Comp Metabolic Fnp831 GLOB 2.4 g/dL 08/10/2021 Unkn own Comp Metabolic Qwl619 A/G Ratio 1.6 Ratio 08/10/2021 Unkn own Comp Metabolic Wqm687 Osmo 285 mOsmo 08/10/2021 Unkn own B12 Mro315 B12 >1500.00 pg/ml 08/10/2021 Unkn own Free T4 Loq836 FREE T4 1.23 ng/dL 08/10/2021 Unknown Tibc Ord40 Iron 32 ug/dl 12/29/2020 Unknown Tibc Ord40 UIBC 402 ug/dL 12/29/2020 Unknown Tibc Ord40 TIBC 434 ug/dL 12/29/2020 Unknown Tibc Ord40 Fe-%Sat 7.4 % 12/29/2020 Unknown Ferritin Ord22 FERRITIN 27.6 ng/mL 12/29/2020 Unknown B12 Alq322 B12 187.00 pg/ml 12/29/2020 Unknow n Comp Metabolic Whe667 NA 139 mEq/L 12/28/2020 Unkn own Comp Metabolic Pig590 K 4.1 mEq/L 12/28/2020 Unkn own Comp Metabolic Ydv233 CL 103 mEq/L 12/28/2020 Unkn own Comp Metabolic Zae453 CO2 27.0 mEq/L 12/28/2020 Unk nown Comp Metabolic Nmb108 ANION GAP 13 12/28/2020 Unkn own Comp Metabolic Pth007 GLUCOSE 79 mg/dL 12/28/2020 Unkn own Comp Metabolic Apv328 Creat 0.7 mg/dL 12/28/2020 Unkn own Comp Metabolic Hoi931 eGFR 80 ml/min/1.73m2 12/28/19 21 Unknown Comp Metabolic Trk862 BUN 21 mg/dL 12/28/2020 Unkn own Comp Metabolic Dxo614 B/C Ratio 28.8 Ratio 12/28/2020 Unk nown Comp Metabolic Myp301 CALCIUM 8.7 mg/dL 12/28/2020 Unkn own Comp Metabolic Uqp340 ALK PHOS 74 U/L 12/28/2020 Unkn own Comp Metabolic Twj145 AST(SGOT) 15 U/L 12/28/2020 Unkn own Comp Metabolic Sqa507 ALT(SGPT) 17 U/L 12/28/2020 Unkn own Comp Metabolic Rjp940 BILI T 0.4 mg/dL 12/28/2020 Unkn own Comp Metabolic Pvl592 ALBUMIN 3.5 g/dL 12/28/2020 Unkn own Comp Metabolic Gtm420 TPRO 5.9 g/dL 12/28/2020 Unkn own Comp Metabolic Axj429 GLOB 2.4 g/dL 12/28/2020 Unkn own Comp Metabolic Tho321 A/G Ratio 1.4 Ratio 12/28/2020 Unkn own Comp Metabolic Dfd600 Osmo 279 mOsmo 12/28/2020 Unkn own Cbc [...] 12/28/19 21 Unknown Cbc With Differential Ord2 [place]% 7.9 % 12/28/19 21 Unknown Cbc With [...] K/ul 021 Unknown Cbc With Differential Ord2 [place] ABS# 0.6 K/ul 12/28/19 21 Unknown Cbc With Differential Ord2 Eos ABS# 0.4 K/ul 12/28/19 21 Unknown Cbc With Differential Ord2 Baso ABS# 0.0 K/ul 12/28/19 21 Unknown Procedures Procedure Codes Date THER/PROPH/DIAG INJ SC/IM CPT-4: 56008 08/10/2021 VITAMIN B12 INJECTION 1000 mcg CPT-4: J3420 THER/PROPH/DIAG INJ SC/IM CPT-4: 45709 06/30/2021 Vital Signs Date Vital 08/23/2021 SpO2: 96% SpO2: 94% SpO2: 87% 08/10/2021 Blood Pressure 1: 138/82 Code: 8480-6 BMI: 33.5 Code: 76075-6 Heart Rate 1: 74 bpm Height: 5'3" Code: 8302-2 SpO2: 98% Temperature: 3 6.2 (C) / 97.1 (F) Weight: 189 lbs Code: 95897-1 05/11/2021 Blood Pressure 1: 134/80 Code: 8480-6 Heart Rate 1: 77 bpm Height: 5'3" Code: 8302-2 SpO2: 93% Temperature: 36.3 (C) / 97.3 (F) 01/25/2021 Blood Pressure 1: 136/88 Code: 8480-6 Heart Rate 1: 60 bpm Height: Code: 8302-2 SpO2: 93% Temperature: 36.3 (C) / 97.3 (F) Weight: 174 lbs Code: 18766-3 12/28/2020 Blood Pressure 1: 164/92 Code: 8480-6 BMI: 31.4 Code: 79993-8 Heart Rate 1: 67 bpm Height: 5'3" Code: 8302-2 SpO2: 94% Temperature: 3 6.2 (C) / 97.1 (F) Weight: 177 lbs Code: 91672-1 12/10/2020 Blood Pressure 1: 134/72 Code: 8480-6 BMI: 30.8 Code: 81206-8 Heart Rate 1: 74 bpm Height: 5'3" Code: 8302-2 Respiratory Rate: 18 bpm SpO2: 95% Temperature: 36.3 (C) / 97.4 (F) Weight: 174 lbs Code: 72868-4 09/10/2020 Blood Pressure 1: 202/94 Code: 8480-6 BMI: 30.6 Code: 42837-3 Heart Rate 1: 73 bpm Height: 5'3" Code: 8302-2 Respiratory Rate: 17 bpm SpO2: 91% Temperature: 36.8 (C) / 98.2 (F) Weight: 173 lbs Code: 09723-5 08/26/2020 Blood Pressure 1: 144/90 Code: 8480-6 BMI: 29.4 Code: 57548-3 Heart Rate 1: 72 bpm Height: 5'3" Code: 8302-2 SpO2: 98% Temperature: 3 6.7 (C) / 98.0 (F) Weight: 166 lbs Code: 25526-5 Functional Status No Functional Status data Reason For Visit Reason For Visit Effective Dates Notes hypertension 08/10/2021 hypertension 05/11/2021 hypertension 01/25/2021 Hospital Follow Up 12/28/2020 shortness of breath 12/10/2020 shortness of breath 09/10/2020 Hospital Follow Up 08/26/2020 Encounters Encounter Performer Location Codes Date ([id number]) [id number] EST. 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 PATIENT, LEVEL IV Diagnosis: Vitamin B12 deficiency (dietary) anemia[ICD10: D51.8] Diagnosis: Essential (primary) hypertension[ICD10: I10] Diagnosis: Atrophy of thyroid (acquired)[ICD10: E03.4] Rena Mac MD, [facility] CPT-4: 92732 08/10/2021 ([id number]) 81997 EST. PATIENT, LEVEL IV Diagnosis: Essential (primary) hypertension[ICD10: I10] Diagnosis: Vitamin B12 deficiency (dietary) anemia[ICD10: D51.8] Diagnosis: Atrophy of thyroid (acquired)[ICD10: E03.4] Diagnosis: Localized edema[ICD10: R60.0] Rena white MD, [facility] CPT-4: 66153 05/11/2021 ([id number]) 28427 EST. PATIENT, LEVEL IV Diagnosis: CHF (congestive heart failure)[ICD10: I50.9] Diagnosis: Essential (primary) hypertension[ICD10: I10] Diagnosis: Vitamin B12 deficiency (dietary) anemia[ICD10: D51.8] Rena Mac MD, [facility] CPT-4: 57708 01/25/2021 ([id number]) 58406 EST. PATIENT, LEVEL IV Diagnosis: Acute on chronic diastolic congestive heart failure[ICD10: I50.33] Diagnosis: Anemia[ICD10: D64.9] Diagnosis: Essential (primary) hypertension[ICD10: I10] Rena Mac MD, [facility] CPT-4: 53760 12/28/2020 ([id number]) 69044 EST. PATIENT, LEVEL IV Diagnosis: Essential (primary) hypertension[ICD10: I10] Diagnosis: CHF (congestive heart failure)[ICD10: I50.9] Diagnosis: Atrophy of thyroid (acquired)[ICD10: E03.4] Shantal Mac MD, [facility] CPT-4: 08549 12/10/2020 ([id number]) 95096 EST. PATIENT, LEVEL IV Diagnosis: Essential (primary) hypertension[ICD10: I10] Diagnosis: CHF (congestive heart failure)[ICD10: I50.9] Diagnosis: On supplemental oxygen therapy[ICD10: Z99.81] Diagnosis: Atrophy of thyroid (acquired)[ICD10: E03.4] [facility] CPT-4: 92631 09/10/2020 OFFICE VISIT, NEW - LEVEL 3 Diagnosis: CHF (congestive heart failure)[ICD10: I50.9] Diagnosis: Dementia without behavioral disturbance, unspecified dementia type[ICD10: F03.90] [facility] CPT-4: 03598 08/26 Plan of Care Planned Activity Notes [...] -injection today 08/10/2021 Appointment: Rena Livingston WPtel[phone] ([facility] min[facility] 08/10/2021 Patient Education: Patient Medication Summary [...] labs 05/11/2021 Appointment: Rena Livingston WPtel: [phone] [phone] (30 min) Complex 05/11/2021 Patient Education: Patient Medication Summary Completed 05/11/2021 Appointment: Rena Livingston WPtel: [phone] [phone] [place] (30 min) Complex 04/27/2021 Appointment: Shantal Mac WPtel: [phone] (15 min) Moderate 03/11/2021 Visit Plan: Hypertension [...] per HH 01/25/2021 Appointment: Rena Livingston WPtel: [phone] [phone] [place] (30 min) Complex 01/25/2021 Patient Education: [...] today 12/28/2020 [facility]: [facility] [phone] [phone] (30 min) Complex 12/28/2020 Patient Education: [...] Completed 12/10/2020 [phone] [facility] [place] ([facility] min) Complex 11/03/2020 [...] health. 09/10/2020 [facility] [phone] [facility] (15 min) Moderate 09/10/2020 Patient Education: Patient [...] to be done to be drawn by [employer]. 09/10/2020 Will set up with [facility] pt is to consider moving to assisted [...]
--- OUTSIDE RECORDS SUMMARY | 2021-11-29 16:01 | XMS REPORT | CCD ---
Author Author Flakita Andino Organization Shantal Mac MD, [facility] Address [address] [place] [address] Phone Care Team Providers Care Special Needs Nanny Name Role Phone Shantal Mac PP Unavailable CCM Unavailable Summary Purpose Interface Exchange Insurance Providers Payer name Policy type / Coverage type Covered democrat ID Effective Begin Date Effective End Date WPS Medicare Part B Medicare Part B [id number] Unknown Unkno wn [facility] Medicare Part B [id number] Unkno wn Unknown Family history Sister Diagnosis [...] Unknown Retired 08/26/[address]: 1730267 Quit over 10 years a go 199908/26/[address]: 390472630 Never drinks alcohol 2019 Allergies, Adverse Reactions, [...] Start Date Stop Date Status Fill Instructions hydrocodone 5 mg-acetaminophen 325 mg tablet RxNorm: 953874 Take 1 Tablet(s) Oral three times a day as needed for pain 11/02/2021 12/01/2021 Active cyanocobalamin (vit B-12) 1,000 mcg/mL injection solution Rx Norm: 325286 1 Milliliter(s) Injection monthly 10/27/2021 11/25/2021 Active will need syringe/needle for monthly injection dx b12 deficiency levothyroxine 112 mcg tablet RxNorm: 936644 1 Tablet(s) Oral 10/27/2021 01/24/2022 Active cyanocobalamin (vit B-12) 1,000 mcg/mL injection solution Rx Norm: 577388 1 Milliliter(s) Injection monthly 10/27/2021 10/27/2021 Inactive will need syringe/needle for monthly injection dx b12 deficiency hydrocodone 5 mg-acetaminophen 325 mg tablet RxNorm: 423076 Take 1 Tablet(s) Oral three times a day as needed for pain 09/20/2021 09/20/2021 Inacti ve albuterol sulfate 2.5 mg/3 mL (0.083 %) solution for n ebulization RxNorm: 773933 USE 1 VIAL IN NEBULIZER TWICE DAILY 09/14/2021 11/04/2021 Activ e albuterol sulfate 2.5 mg/3 mL (0.083 %) solution for n ebulization RxNorm: 594694 USE 1 VIAL IN NEBULIZER TWICE DAILY 09/14/2021 09/14/2021 Inact césar levothyroxine 112 mcg tablet RxNorm: 711787 1 Tablet(s) Oral ev vinny day 09/02/2021 09/02/2021 Inactive levothyroxine 112 mcg tablet RxNorm: 843646 1 Tablet(s) Oral ev vinny day 09/02/2021 09/02/2021 Inactive levothyroxine 112 mcg tablet RxNorm: 103551 1 Tablet(s) Oral ev vinny day 08/20/2021 09/02/2021 Inactive cyanocobalamin (vit B-12) 1,000 mcg/mL injection solution Rx Norm: 654198 Take Milliliter(s) Injection 08/10/2021 08/10/2021 Inactive cyanocobalamin (vit B-12) 1,000 mcg/mL injection solution Rx Norm: 185531 Take Milliliter(s) Injection 06/30/2021 06/30/2021 Inactive albuterol sulfate 2.5 mg/3 mL (0.083 %) solution for n ebulization RxNorm: 849128 1 Unit Dose Inhalation two times a day DX J43.1 04/19/20212020 Inactive losartan 50 mg tablet RxNorm: 774912 1 Tablet(s) Oral two times a day 03/22/2021 03/17/2022 Active albuterol sulfate 2.5 mg/3 mL (0.083 %) solution for n ebulization RxNorm: 199905 1 Unit Dose Inhalation two times a day DX J43.1 03/22/20212020 Inactive albuterol sulfate 2.5 mg/3 mL (0.083 %) solution for n ebulization RxNorm: 492216 1 Unit Dose Inhalation two times a day 03/17/2021 03/16/2021 In active albuterol sulfate 2.5 mg/3 mL (0.083 %) solution for n ebulization RxNorm: 843206 1 Unit Dose Inhalation two times a day 03/17/2021 03/21/2021 In active Norvasc 5 mg tablet RxNorm: 368963 1 Tablet(s) Oral every day 12/3112/26/2021 Active Norvasc 5 mg tablet RxNorm: 607269 1 Tablet(s) Oral every day 12/3112/30/2020 Inactive metoprolol succinate ER 25 mg tablet,extended release 24 hr RxNorm: 293789 1 Tablet(s) Oral every day 12/28/2020 No Stop Date Active Ventolin HFA 90 mcg/actuation aerosol inhaler RxNorm: 668581 1-2 Puff(s) Inhalation Every 4 hrs as needed 12/28/2020 No Stop Date Active furosemide 20 mg tablet RxNorm: 320685 1 Tablet(s) Oral every day 0 12/28/2020 No Stop Date Active furosemide 40 mg tablet RxNorm: 407336 1 Tablet(s) Oral as directed 40mg BID x 5 days then 40mg in am and 20mg afternoon thereafter 11/18/2020 Inactive give qty sufficient potassium chloride ER 10 mEq tablet,extended release RxNorm: 684344 1 Tablet(s) Oral as directed 1 tab bid x 5 days then resume daily 11/18/20202020 Inactive qty sufficient potassium bicarbonate-citric acid 10 mEq effervescent tablet RxNorm: 4587418 1 Tablet(s) Oral every day 09/10/2020 11/17/2020 Inactive levothyroxine 125 mcg tablet RxNorm: 789206 1 Tablet(s) Oral ev vinny day 09/10/2020 08/19/2021 Inactive losartan 50 mg tablet RxNorm: 790216 1 Tablet(s) Oral two times a day 09/10/2020 12/27/2020 Inactive furosemide 40 mg tablet RxNorm: 438930 1 Tablet(s) Oral every day 1 11/17/2020 Inactive Zyrtec 10 mg tablet RxNorm: 5911639 1 Tablet(s) Oral every day 03/202012/28/2020 Inactive levothyroxine 125 mcg tablet RxNorm: 544654 1 Tablet(s) Oral ev vinny day 08/31/2020 09/09/2020 Inactive Zyrtec 10 mg tablet RxNorm: 6761636 1 Tablet(s) Oral every day 03/202008/30/2020 Inactive aspirin 81 mg tablet,delayed release RxNorm: 535075 1 Tablet(s) Oral every day 08/26/2020 No Stop Date Active Vitamin C 250 mg tablet RxNorm: 006399 1 Tablet(s) Oral every day 0 08/26/2020 No Stop Date Active Vitamin D3 50 mcg (2,000 unit) tablet RxNorm: 715259 1 Tablet(s ) Oral every day 08/26/2020 No Stop Date Active levothyroxine 88 mcg tablet RxNorm: 204199 1 Tablet(s) Oral micheal ry day 08/26/2020 08/30/2020 Inactive losartan 50 mg tablet RxNorm: 673950 1 Tablet(s) Oral every day 09/09/2020 Inactive furosemide 40 mg tablet RxNorm: 863855 1 Tablet(s) Oral every day 0 08/26/2020 09/09/2020 Inactive potassium bicarbonate-citric acid 10 mEq effervescent tablet RxNorm: 8928802 1 Tablet(s) Oral every day 08/26/2020 09/09/2020 Inactive Women's Multivitamin oral RxNorm: oral 08/26/2020 Act césar Calcium 600 oral RxNorm: 1897 oral 08/26/2020 Active albuterol sulfate inhalation RxNorm: 793219 inhalation 08/26/2020 Active Medication Administered Medication Codes Instructions Start Date Status cyanocobalamin (vit B-12) 1,000 mcg/mL injection solution Rx Norm: 617941 Milliliter 08/10/2021 No longer Active cyanocobalamin (vit B-12) 1,000 mcg/mL injection solution Rx Norm: 574206 Milliliter 06/30/2021 No longer Active Immunizations Vaccine [...] 08/10/20 21 Unknown Cbc With Differential Ord2 [place]% 8.0 % 08/10/20 21 Unknown Cbc With [...] K/ul 021 Unknown Cbc With Differential Ord2 [place] ABS# 0.7 K/ul 08/10/20 21 Unknown Cbc With Differential Ord2 Eos ABS# 0.2 K/ul 08/10/20 21 Unknown Cbc With Differential Ord2 Baso ABS# 0.0 K/ul 08/10/20 21 Unknown Tsh Ord6 TSH (3rd IS) 0.21 uIU/mL 08/10/2021 Unkn own Comp Metabolic Sab461 NA 141 mEq/L 08/10/2021 Unkn own Comp Metabolic Dvq149 K 4.1 mEq/L 08/10/2021 Unkn own Comp Metabolic Ijv313 CL 104 mEq/L 08/10/2021 Unkn own Comp Metabolic Qfu200 CO2 28.0 mEq/L 08/10/2021 Unk nown Comp Metabolic Ugy245 ANION GAP 13 08/10/2021 Unkn own Comp Metabolic Nxy731 GLUCOSE 78 mg/dL 08/10/2021 Unkn own Comp Metabolic Gnk113 Creat 0.8 mg/dL 08/10/2021 Unkn own Comp Metabolic Txu078 eGFR 71 ml/min/1.73m2 08/10/20 21 Unknown Comp Metabolic Awg691 BUN 25 mg/dL 08/10/2021 Unkn own Comp Metabolic Jzk441 B/C Ratio 30.9 Ratio 08/10/2021 Unk nown Comp Metabolic Xev154 CALCIUM 8.7 mg/dL 08/10/2021 Unkn own Comp Metabolic Lib335 ALK PHOS 61 U/L 08/10/2021 Unkn own Comp Metabolic Qrq441 AST(SGOT) 17 U/L 08/10/2021 Unkn own Comp Metabolic Wdz086 ALT(SGPT) 10 U/L 08/10/2021 Unkn own Comp Metabolic Mvt711 BILI T 0.6 mg/dL 08/10/2021 Unkn own Comp Metabolic Gjr053 ALBUMIN 3.7 g/dL 08/10/2021 Unkn own Comp Metabolic Lox740 TPRO 6.1 g/dL 08/10/2021 Unkn own Comp Metabolic Acf725 GLOB 2.4 g/dL 08/10/2021 Unkn own Comp Metabolic Vrl801 A/G Ratio 1.6 Ratio 08/10/2021 Unkn own Comp Metabolic Zye165 Osmo 285 mOsmo 08/10/2021 Unkn own B12 Ypu127 B12 >1500.00 pg/ml 08/10/2021 Unkn own Free T4 Hxk647 FREE T4 1.23 ng/dL 08/10/2021 Unknown Tibc Ord40 Iron 32 ug/dl 12/29/2020 Unknown Tibc Ord40 UIBC 402 ug/dL 12/29/2020 Unknown Tibc Ord40 TIBC 434 ug/dL 12/29/2020 Unknown Tibc Ord40 Fe-%Sat 7.4 % 12/29/2020 Unknown Ferritin Ord22 FERRITIN 27.6 ng/mL 12/29/2020 Unknown B12 Cal838 B12 187.00 pg/ml 12/29/2020 Unknow n Comp Metabolic Jdj791 NA 139 mEq/L 12/28/2020 Unkn own Comp Metabolic Pos614 K 4.1 mEq/L 12/28/2020 Unkn own Comp Metabolic Dpt098 CL 103 mEq/L 12/28/2020 Unkn own Comp Metabolic Wan129 CO2 27.0 mEq/L 12/28/2020 Unk nown Comp Metabolic Tza145 ANION GAP 13 12/28/2020 Unkn own Comp Metabolic Qzn759 GLUCOSE 79 mg/dL 12/28/2020 Unkn own Comp Metabolic Itm456 Creat 0.7 mg/dL 12/28/2020 Unkn own Comp Metabolic Kwq168 eGFR 80 ml/min/1.73m2 12/28/19 21 Unknown Comp Metabolic Aoy037 BUN 21 mg/dL 12/28/2020 Unkn own Comp Metabolic Sil538 B/C Ratio 28.8 Ratio 12/28/2020 Unk nown Comp Metabolic Prv222 CALCIUM 8.7 mg/dL 12/28/2020 Unkn own Comp Metabolic Vfo394 ALK PHOS 74 U/L 12/28/2020 Unkn own Comp Metabolic Rbn151 AST(SGOT) 15 U/L 12/28/2020 Unkn own Comp Metabolic Afj767 ALT(SGPT) 17 U/L 12/28/2020 Unkn own Comp Metabolic Wnw950 BILI T 0.4 mg/dL 12/28/2020 Unkn own Comp Metabolic Cld122 ALBUMIN 3.5 g/dL 12/28/2020 Unkn own Comp Metabolic Lmt559 TPRO 5.9 g/dL 12/28/2020 Unkn own Comp Metabolic Dto618 GLOB 2.4 g/dL 12/28/2020 Unkn own Comp Metabolic Erl610 A/G Ratio 1.4 Ratio 12/28/2020 Unkn own Comp Metabolic Muf405 Osmo 279 mOsmo 12/28/2020 Unkn own Cbc [...] 12/28/19 21 Unknown Cbc With Differential Ord2 [place]% 7.9 % 12/28/19 21 Unknown Cbc With [...] K/ul 021 Unknown Cbc With Differential Ord2 [place] ABS# 0.6 K/ul 12/28/19 21 Unknown Cbc With Differential Ord2 Eos ABS# 0.4 K/ul 12/28/19 21 Unknown Cbc With Differential Ord2 Baso ABS# 0.0 K/ul 12/28/19 21 Unknown Procedures Procedure Codes Date THER/PROPH/DIAG INJ SC/IM CPT-4: 12202 08/10/2021 VITAMIN B12 INJECTION 1000 mcg CPT-4: J3420 THER/PROPH/DIAG INJ SC/IM CPT-4: 33589 06/30/2021 Vital Signs Date Vital 08/23/2021 SpO2: 96% SpO2: 94% SpO2: 87% 08/10/2021 Blood Pressure 1: 138/82 Code: 8480-6 BMI: 33.5 Code: 08768-1 Heart Rate 1: 74 bpm Height: 5'3" Code: 8302-2 SpO2: 98% Temperature: 3 6.2 (C) / 97.1 (F) Weight: 189 lbs Code: 16691-3 05/11/2021 Blood Pressure 1: 134/80 Code: 8480-6 Heart Rate 1: 77 bpm Height: 5'3" Code: 8302-2 SpO2: 93% Temperature: 36.3 (C) / 97.3 (F) 01/25/2021 Blood Pressure 1: 136/88 Code: 8480-6 Heart Rate 1: 60 bpm Height: Code: 8302-2 SpO2: 93% Temperature: 36.3 (C) / 97.3 (F) Weight: 174 lbs Code: 79011-1 12/28/2020 Blood Pressure 1: 164/92 Code: 8480-6 BMI: 31.4 Code: 89521-4 Heart Rate 1: 67 bpm Height: 5'3" Code: 8302-2 SpO2: 94% Temperature: 3 6.2 (C) / 97.1 (F) Weight: 177 lbs Code: 69831-7 12/10/2020 Blood Pressure 1: 134/72 Code: 8480-6 BMI: 30.8 Code: 37695-4 Heart Rate 1: 74 bpm Height: 5'3" Code: 8302-2 Respiratory Rate: 18 bpm SpO2: 95% Temperature: 36.3 (C) / 97.4 (F) Weight: 174 lbs Code: 22242-7 09/10/2020 Blood Pressure 1: 202/94 Code: 8480-6 BMI: 30.6 Code: 32760-9 Heart Rate 1: 73 bpm Height: 5'3" Code: 8302-2 Respiratory Rate: 17 bpm SpO2: 91% Temperature: 36.8 (C) / 98.2 (F) Weight: 173 lbs Code: 46681-3 08/26/2020 Blood Pressure 1: 144/90 Code: 8480-6 BMI: 29.4 Code: 44871-4 Heart Rate 1: 72 bpm Height: 5'3" Code: 8302-2 SpO2: 98% Temperature: 3 6.7 (C) / 98.0 (F) Weight: 166 lbs Code: 84135-8 Functional Status No Functional Status data Reason [...] Diagnosis: Panlobular emphysema[ICD10: J43.1] Shantal tran MD, [facility] CPT-4: 72616 08/23/2021 ([id number]) 38416 EST. PATIENT, LEVEL IV Diagnosis: Vitamin B12 deficiency (dietary) anemia[ICD10: D51.8] Diagnosis: Essential (primary) hypertension[ICD10: I10] Diagnosis: Atrophy of thyroid (acquired)[ICD10: E03.4] [facility] CPT-4: 23753 08/10/2021 ([id number]) 17278 EST. PATIENT, LEVEL IV Diagnosis: Essential (primary) hypertension[ICD10: I10] Diagnosis: Vitamin B12 deficiency (dietary) anemia[ICD10: D51.8] Diagnosis: Atrophy of thyroid (acquired)[ICD10: E03.4] Diagnosis: Localized edema[ICD10: R60.0] Rena white MD, [facility] CPT-4: 82945 05/11/2021 ([id number]) 02415 EST. PATIENT, LEVEL IV Diagnosis: CHF (congestive heart failure)[ICD10: I50.9] Diagnosis: Essential (primary) hypertension[ICD10: I10] Diagnosis: Vitamin B12 deficiency (dietary) anemia[ICD10: D51.8] Rena Mac MD, [facility] CPT-4: 13866 01/25/2021 ([id number]) 32480 EST. PATIENT, LEVEL IV Diagnosis: Acute on chronic diastolic congestive heart failure[ICD10: I50.33] Diagnosis: Anemia[ICD10: D64.9] Diagnosis: Essential (primary) hypertension[ICD10: I10] Rena Mac MD, [facility] CPT-4: 60602 12/28/2020 ([id number]) 81781 EST. PATIENT, LEVEL IV Diagnosis: Essential (primary) hypertension[ICD10: I10] Diagnosis: CHF (congestive heart failure)[ICD10: I50.9] Diagnosis: Atrophy of thyroid (acquired)[ICD10: E03.4] Shantal Mac MD, [facility] CPT-4: 12794 12/10/2020 ([id number]) 40769 EST. PATIENT, LEVEL IV Diagnosis: Essential (primary) hypertension[ICD10: I10] Diagnosis: CHF (congestive heart failure)[ICD10: I50.9] Diagnosis: On supplemental oxygen therapy[ICD10: Z99.81] Diagnosis: Atrophy of thyroid (acquired)[ICD10: E03.4] Shantal Mac MD, [facility] CPT-4: 74578 09/10/2020 OFFICE VISIT, NEW - LEVEL 3 Diagnosis: CHF (congestive heart failure)[ICD10: I50.9] Diagnosis: Dementia without behavioral disturbance, unspecified dementia type[ICD10: F03.90] Gabriela Mac MD, [facility] CPT-4: 86467 08/26 Plan of Care Planned Activity Notes [...] -injection today 08/10/2021 Appointment: Rena Livingston WPtel: [phone] [phone] (30 min) Complex 08/10/2021 Patient Education: Patient [...] labs 05/11/2021 Appointment: Rena Livingston WPtel: [phone] [phone] (30 min) Complex 05/11/2021 Patient Education: Patient Medication Summary Completed 05/11/2021 Appointment: Rena Livingston WPtel: [phone] [phone] (30 min) Complex 04/27/2021 Appointment: BubbaLauray WPtel: [phone] [facility] (15 min) Moderate 03/11/2021 Visit Plan: Hypertension [...] injections per 01/25/2021 [phone] [facility] Complex 01/25/2021 Patient Education: [...] today 12/28/2020 [phone] ([facility] min[facility] Complex 12/28/2020 Patient [...] Summary Completed 12/10/2020 Appointment: Shantal Mac WPtel: [facility] ([place] min) Complex 11/03/2020 Visit Plan: Chronic [...] home health. 09/10/2020 Appointment: Shantal Mac WPtel: [facility] [place] (15 min) Moderate 09/10/2020 Patient Education: [...] to be done to be drawn by [facility]. 09/10/2020 Will set up with [facility] pt is to consider moving to assisted [...]
[2021-11-29] MEDS ORDERED: CYCLOBENZAPRINE 10 MG (FLEXERIL) TAB PO STA (17:11)
--- NOTE | 2021-11-29 17:17 | ED Back Pain ---
General Chief Complaint: General Problems/Pain Stated Complaint: L BACK PAIN, FALL,BACK SURGERY 2 YRS AGO Nursing Triage Note: TO ED PER W/C REPORTS FELL 2 WEEKS AGO CON'T TO HAVE PAIN WITH PAIN MEDS IS HERE BECAUSE SHE ONLY WANT'S ONLY A CT History of Present Illness Date Seen by Provider: Nov 29, 2021 Time Seen by Provider: 16:20 Initial Comments 86-year-old female presents for low lumbar back pain that is been present for approximately 2 weeks. She reports coming to the hospital to get a CT scan but she failed to see her primary care provider prior to that to have it ordered. She denies any symptoms radiating to her legs, she has no bowel or bladder incontinence or retention. She ambulates with a walker at times. Her steztznx-wk-xvi is present with her and is concerned because she lives in a two- story house and refuses to have assistance or consider assisted living. She had kyphoplasty done in the past at L2. Location: Lumbar Spine Timing/Duration: Other (2 weeks) Severity: Moderate Pain/Injury Location: Back Associated Symptoms: muscle spasms; No numbness in legs/feet, No tingling in legs/feet, No sensory/motor loss; lower back pain; No loss of bladder control, No loss of bowel control Allergies and Home Medications Allergies Coded Allergies: Tetracyclines (Verified Allergy, Unknown, 08/21/20) Uncoded Allergies: PCN (Allergy, Unknown, 08/21/20) Patient Home Medication List Home Medication List Reviewed: Yes Albuterol Sulfate (Albuterol Sulfate) 1.25 Mg/3 Ml Vial.neb, 1.25 MG INH Q4H PRN for SHORTNESS OF BREATH, (Reported) Entered as Reported by: CONSTANTINE CHURCH on 08/24/20 1102 Albuterol Sulfate (Ventolin Hfa) 18 Gm Hfa.aer.ad, 1 PUFF IH QID Prescribed by: RACHID MAC on 12/21/20 0912 Ascorbic Acid/Ascorbate Sodium (Vitamin C 250 mg Tablet Chew) 250 Mg Tab.chew, 250 MG PO DAILY, (Reported) Entered as Reported by: CONSTANTINE CHURCH on 08/24/20 1103 Aspirin (Aspirin) 81 Mg Tab.chew, 81 MG PO DAILY, (Reported) Entered as Reported by: CONSTANTINE CHURCH on 08/24/20 1103 Calcitonin [place] (Miacalcin) 400 Intlu/2 Ml Soln, 1 SPR NSEACH DAILY Prescribed by: CHRISSY MAHONEY on 11/29/21 182 Calcium Phosphate Trib/Vit D3 (Calcium Gummies) 1 Each Tab.chew, 1 EACH PO DAILY, (Reported) Entered as Reported by: CONSTANTINE CHURCH on 08/24/20 110 Cefdinir (Cefdinir) 300 Mg Capsule, 300 MG PO BID Prescribed by: RACHID MAC on 12/21/20 0912 Cetirizine HCl (Cetirizine HCl) 10 Mg Tablet, 10 MG PO DAILY, (Reported) Entered as Reported by: CONSTANTINE CHURCH on 10/26/20 101 Cholecalciferol (Vitamin D3) (Vitamin D3) 125 Mcg Tablet, 125 MCG PO DAILY, (Reported) Entered as Reported by: CONSTANTINE CHURCH on 08/24/20 110 Cyclobenzaprine HCl (Cyclobenzaprine HCl) 10 Mg Tablet, 10 MG PO Q8H PRN for SPASMS Prescribed by: CHRISSY MAHONEY on 11/29/211825 Docusate Sodium (Colace) 100 Mg Capsule, 100 MG PO DAILY Prescribed by: COLIN DUMAS on 09/13/21 164 Folic Acid/Multivit-Minerals (Women's Multivitamin Gummies) 200 Mcg Tab.chew, 200 MCG PO DAILY, (Reported) Entered as Reported by: CONSTANTINE CHURCH on 08/24/20 110 Furosemide (Lasix) 20 Mg Tablet, 20 MG PO DAILY Prescribed by: RACHID MAC on 12/21/20 0912 Hydrocodone/Acetaminophen (Hydrocodone-Acetamin 5-325 mg) 1 Each Tablet, 1 TAB PO Q4H PRN for PAIN-MODERATE (5-7) Prescribed by: COLIN DUMAS on 09/13/21 1644 Levothyroxine Sodium (Levothyroxine Sodium) 125 Mcg Tablet, 125 MCG PO DAILY, (Reported) Entered as Reported by: CONSTANTINE CHURCH on 10/26/20 101 Melatonin (Melatonin) 5 Mg Tablet, 5 MG PO HS PRN for SLEEP, (Reported) Entered as Reported by: CONSTANTINE CHURCH on 08/24/20 110 Metoprolol Succinate (Metoprolol Succinate) 25 Mg Tab.er.24h, 25 MG PO DAILY Prescribed by: RACHID MAC on 12/21/20 0912 Potassium Bicarbonate/Cit AC (Effer-K 10 Meq Tablet Eff) 10 Meq Tablet.eff, 10 MEQ PO DAILY, (Reported) Entered as Reported by: PAIGE FUENTES on 12/18/20 1534 Tramadol HCl (Tramadol HCl) 50 Mg Tablet, 50 MG PO Q6H PRN for PAIN Prescribed by: CHRISSY MAHONEY on 11/29/21 1826 Review of Systems Constitutional: no symptoms reported, see HPI Musculoskeletal: see HPI, back pain All Other Systems Reviewed Negative Unless Noted: Yes Past Vvskavf-Rdfzoi-Hryclr Hx Patient Social History Tobacco Use?: Yes Smoking Status: Former Smoker Substance use?: No Alcohol Use?: No Immunizations Up To Date Tetanus Booster (TDap): Unknown First/Initial COVID19 Vaccinat: UNKNOW DATE. Second COVID19 Vaccination Fly: UNKNOW DATE. COVID19 Vaccine Clinical Quality Manager: ? 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 Sexually Transmitted Disease: No HIV/AIDS: No Genitourinary: No Gastrointestinal: No Musculoskeletal: No Arthritis Endocrine: Yes Hypothyroidsim HEENT: Yes Macular Degeneration Loss of Vision: Denies Hearing Impairment: Hard of Hearing Cancer: No Psychosocial: No Integumentary: No Blood Disorders: No Family Medical History Reviewed Nursing Family Hx Heart Disease, Cancer, Diabetes, Hypertension Physical Exam Vital Signs Vital Signs - First Documented 11/29/21 16:01 Temp 36.4 Pulse 95 Resp 18 B/P (MAP) 227/115 (152) Pulse Ox 93 O2 Delivery Room Air Capillary Refill : Less Than 3 Seconds Height, Weight, BMI Height: '" Weight: lbs. oz. kg; 33.00 BMI Method: General Appearance: No Apparent Distress, WD/WN Neck: Full Range of Motion, Normal Inspection, Non Tender, Supple Cardiovascular: Regular Rate, Rhythm, No Edema, Normal Peripheral Pulses Respiratory: Chest Non Tender, Lungs Clear, Normal Breath Sounds Gastrointestinal: Normal Bowel Sounds, Non Tender, Soft Back: Normal Inspection, Decreased Range of Motion, Vertebral Tenderness (Lower lumbar spine.), Other (Ambulates with a steady gait, able to rise onto her toes and heels. Power 5/5 L4-S1. Pain with straight leg raise bilaterally.) Extremity: Normal Capillary Refill, Normal Inspection, Normal Range of Motion, No Pedal Edema Neurologic/Psychiatric: Alert, Oriented x3, No Motor/Sensory Deficits, Normal Mood/Affect Progress/Results/Core Measures Results/Orders My Orders Orders - CHRISSY MAHONEY Cyclobenzaprine Tablet (Flexeril Tablet) (11/29/21 17:11) Tramadol Tablet (Ultram Tablet) (11/29/21 17:11) Ct Lumbar Spine Wo (11/29/21 17:11) Hydralazine Tablet (Apresoline Tablet) (11/29/21 17:18) Vital Signs/I&O 11/29/21 11/29/21 16:01 19:07 Temp 36.4 Pulse 95 82 Resp 18 18 B/P (MAP) 227/115 (152) 167/94 Pulse Ox 93 94 O2 Delivery Room Air Blood Pressure Mean: 152 Progress Progress Note : Time: 16:20 Progress Note Patient seen and evaluated, will give tramadol 50 mg for pain, Flexeril 10 mg for muscle spasm and obtain a CT of the lumbar spine. 1700 blood pressure has continued to be elevated, patient is anxious and in pain, she reports taking her medication today as prescribed. Will give hydralazine and monitor. 1800 CT shows compression fracture at L5. This was discussed with the patient and her asieawtd-us-ozv. She does report improvement in her symptoms and blood pressure has come down. She wishes to pursue having a kyphoplasty again, and this will be discussed with Dr. Mac. Discharge instructions and return precautions reviewed with her. Diagnostic Imaging Diagonstic Imaging: CT Plain Films/CT/US/NM/MRI: other (back) Comments NAME: JOEL LOW [facility] REC#: [id number] PT STATUS: REG ER : [id number] PHYSICIAN: CHRISSY MAHONEY ADMIT DATE: 11/29/21/ER Draft Date of Exam:11/29/21 CT LUMBAR SPINE WO PROCEDURE: CT lumbar spine without contrast. TECHNIQUE: Multiple contiguous axial images were obtained through the lumbar spine without the use of intravenous contrast. Sagittal and coronal reformations were then performed. Auto Exposure Controls were utilized during the CT exam to meet ALARA standards for radiation dose reduction. INDICATION: Fall with back pain. COMPARISON: 09/13/2021. FINDINGS: There has been development of compression fracture deformity involving the superior endplate of L5. There is stable appearance of the treated L2 vertebral body with associated posterior cortex retropulsion. There is extensive disc bulging of the L4-L5 disc with associated ligamentum flavum hypertrophy resulting in high-grade trefoil-type spinal stenosis. There is also disc bulging and endplate spurring, greater toward the right at L5-S1 causing moderate right neuroforaminal stenosis. There is mild amount of right pleural fluid. IMPRESSION: 1. New dvhq-py-rjvhjawk compression fracture of L5 vertebral body since 09/13/2021. Correlation with site of fall and development of pain would be useful. 2. 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 Dictated on workstation # [id number] Dict: 11/29/21 1732 Trans: 11/29/21 1744 [id number] Interpreted by: MARANDA HAJI MD Electronically signed by: Reviewed: Reviewed by Me Departure Impression Primary Impression: Back pain Qualified Codes: M54.50 - Low back pain, unspecified; G89.29 - Other chronic pain Additional Impression: Compression fracture of L5 vertebra Qualified Codes: S32.050A - Wedge compression fracture of fifth lumbar vertebra, initial encounter for closed fracture Disposition: HOME, SELF-CARE Condition: Improved Departure-Patient Inst. Decision time for Depature: 18:00 Referrals: RACHID MAC MD (PCP/Family) Primary Care Physician Patient Instructions: Low Back Pain (DC), Vertebral Compression Fracture (DC) Add. Discharge Instructions: Take medication as prescribed. Follow-up with Dr. Mac's office if you desire to have kyphoplasty and this can be arranged at [place]. Use walker at all times for ambulating. Return to the emergency department for new problems. All discharge instructions reviewed with patient and/or family. Voiced understanding. Scripts Calcitonin [place] (Miacalcin) 400 Intlu/2 Ml Soln 1 SPR NSEACH DAILY, #1 EA 2 Refills Prov: CHRISSY MAHONEY 11/29/21 Tramadol HCl (Tramadol HCl) 50 Mg Tablet 50 MG PO Q6H PRN for PAIN, #20 TAB 0 Refills Prov: CHRISSY MAHONEY 11/29/21 Cyclobenzaprine HCl (Cyclobenzaprine HCl) 10 Mg Tablet 10 MG PO Q8H PRN for SPASMS, #15 TAB 0 Refills Prov: CHRISSY MAHONEY 11/29/21 Copy Copies To 1: RACHID MAC MD, AMY ARNP Nov 29, 2021 17:17
[2021-11-29] MEDS ORDERED: hydrALAZINE (APRESOLINE) 25 MG TAB PO STA (17:18)
--- NOTE | 2021-11-29 17:45 | Diagnostic Imaging Report ---
PROCEDURE: CT lumbar spine without contrast. TECHNIQUE: Multiple contiguous axial images were obtained through the lumbar spine without the use of intravenous contrast. Sagittal and coronal reformations were then performed. Auto Exposure Controls were utilized during the CT exam to meet ALARA standards for radiation dose reduction. INDICATION: Fall with back pain. COMPARISON: 09/13/2021. FINDINGS: There has been development of compression fracture deformity involving the superior endplate of L5. There is stable appearance of the treated L2 vertebral body with associated posterior cortex retropulsion. There is extensive disc bulging of the L4-L5 disc with associated ligamentum flavum hypertrophy resulting in high-grade trefoil-type spinal stenosis. There is also disc bulging and endplate spurring, greater toward the right at L5-S1 causing moderate right neuroforaminal stenosis. There is mild amount of right pleural fluid. IMPRESSION: 1. New wfhs-gy-qjprkuoc compression fracture of L5 vertebral body since 09/13/2021. Correlation with site of fall and development of pain would be useful. 2. 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 Dictated by: Dictated on workstation # [id number]
[2021-11-29] MEDS ORDERED: CLC200V2 NSEACH (18:26)
[2021-11-29] MEDS ORDERED: TRM50T PO (18:26)
[2021-11-29] MEDS ORDERED: CYCL10TA25 PO (18:26)
[2021-11-29 19:07] VITALS: BP 167/94
== END 2021-11-29 18:28 | disposition home or self-care (01) ==
LOC: EDUNIT# 15:47 → ER 15:54
DX: S32.050A Wedge compression fracture of fifth lumbar vertebra, initial encounter for closed fracture (principal); J44.9 Chronic obstructive pulmonary disease, unspecified; I11.0 Hypertensive heart disease with heart failure; I50.9 Heart failure, unspecified; E03.9 Hypothyroidism, unspecified; Z79.890 Hormone replacement therapy; Z79.82 Long term (current) use of aspirin; Z79.899 Other long term (current) drug therapy; W19.XXXA Unspecified fall, initial encounter
CPT/HCPCS: 72131

== ENCOUNTER → 2021-12-28 | Outpatient (CLI) | payer MEDICARE ==
[~2021-12-28] MED LIST changes: +CLC200V2 NSEACH; +CYCL10TA25 PO; +TRM50T PO
--- NOTE | 2021-12-28 13:10 | Diagnostic Imaging Report ---
INDICATION: 86-year-old postmenopausal female with osteopenia. COMPARISON: None. FINDINGS: AP Spine L1-L4: [BMD (g/cm2): 1.216] [T-Score: 0.1] [Z-Score: 1.3] [BMD Previous: NA] [BMD % Change: NA] LT Hip Neck: [BMD (g/cm2): 0.641] [T-Score: -2.9] [Z-Score: -0.9] LT Hip Total: [BMD (g/cm2):0.762] [T-Score:-2.0] [Z-Score: -0.1] [BMD Previous: NA] [BMD % Change: NA] RT Hip Neck: [BMD (g/cm2):0.674] [T-Score:-2.6] [Z-Score:-0.6] RT Hip Total: [BMD (g/cm2):0.703] [T-score:-2.4] [Z-Score:-0.6] [BMD Previous:NA] [BMD % Change:NA] World Health Organization criteria for BMD interpretation classify patients as Normal (T-score at or above -1.0), Osteopenic (T-score between -1.0 and -2.5) or Osteoporotic (T-score at or below -2.5). LIMITATIONS AND MODIFICATION: None. FRACTURE RISK (FRAX SCORE): The ten year probability of (%): Major Osteoporotic Fracture: [25.2] Hip Fracture: [8.9] IMPRESSION: 1. Osteopenia (Low bone mass). 2. Baseline examination. 3. See below National Osteoporosis Foundation guidelines on when to potentially initiate pharmacologic therapy. Based on the National Osteoporosis Foundation Guidelines, pharmacologic treatment should be initiated in any of the following, unless clinical conditions suggest otherwise: * Any patient with prior fragility fracture of the hip or vertebrae. A spine fracture indicates 5X risk for subsequent spine fracture and 2X risk for subsequent hip fracture. * Osteoporosis (T-score <-2.5). * Postmenopausal women and men age 50 and older with low bone mass/osteopenia (T-score between -1.0 and -2.5) by DXA and 10-year major osteoporotic fracture greater than 20% or a 10-year probability of hip fracture greater than 3%. These fracture risks are supplied above in the FRAX score, if applicable. * Clinician judgement and/or patient preferences may indicate treatment for people with 10-year fracture probabilities above or below these levels. Dictated by: Dictated on workstation # [id number]
== END ==
LOC: RAD 11:00
PROVIDERS: ATTEND Nurse Practitioner Family
DX: M85.80 Other specified disorders of bone density and structure, unspecified site (principal); Z78.0 Asymptomatic menopausal state
CPT/HCPCS: 77080

== ENCOUNTER 2022-01-03 12:12 | Emergency (ER) | payer MEDICARE ==
[~2022-01-03] VITALS: Ht 160 cm; Wt 90.7 kg
--- NOTE | 2022-01-03 12:39 | ED General ---
General Stated Complaint: SOA LEGS SWELLING/UNABLE TO WALK Source of Information: Patient, Family Exam Limitations: No Limitations History of Present Illness Date Seen by Provider: Jan 03, 2022 Time Seen by Provider: 12:29 Initial Comments This is a well-appearing 86-year-old female who presented to the ER via POV with concerns of increasing shortness of breath and bilateral lower extremity swelling. States that she has been having persistent swelling of her lower extremity for several months, she is scheduled to have outpatient venous ultrasound on as well as MRI of her cervical and lumbar spine. However the persistent swelling and pain is making it difficult for her to ambulate. No trauma/falls. No fever, chills, cough, shortness of breath, nausea, vomiting, diarrhea. Allergies and Home Medications Allergies Coded Allergies: Tetracyclines (Verified Allergy, Unknown, 08/21/20) Uncoded Allergies: PCN (Allergy, Unknown, 08/21/20) Patient Home Medication List Home Medication List Reviewed: Yes Albuterol Sulfate (Albuterol Sulfate) 1.25 Mg/3 Ml Vial.neb, 1.25 MG INH Q4H PRN for SHORTNESS OF BREATH, (Reported) Entered as Reported by: CONSTANTINE CHURCH on 08/24/20 1102 Albuterol Sulfate (Ventolin Hfa) 18 Gm Hfa.aer.ad, 1 PUFF IH QID Prescribed by: RACHID MAC on 12/21/20 0912 Ascorbic Acid/Ascorbate Sodium (Vitamin C 250 mg Tablet Chew) 250 Mg Tab.chew, 250 MG PO DAILY, (Reported) Entered as Reported by: CONSTANTINE CHURCH on 08/24/20 1103 Aspirin (Aspirin) 81 Mg Tab.chew, 81 MG PO DAILY, (Reported) Entered as Reported by: CONSTANTINE CHURCH on 08/24/20 1103 Calcitonin [place] (Miacalcin) 400 Intlu/2 Ml Soln, 1 SPR NSEACH DAILY Prescribed by: CHRISSY MAHONEY on 11/29/21 1826 Calcium Phosphate Trib/Vit D3 (Calcium Gummies) 1 Each Tab.chew, 1 EACH PO DAILY, (Reported) Entered as Reported by: CONSTANTINE CHURCH on 08/24/20 1103 Cefdinir (Cefdinir) 300 Mg Capsule, 300 MG PO BID Prescribed by: RACHID MAC on 12/21/20 0912 Cetirizine HCl (Cetirizine HCl) 10 Mg Tablet, 10 MG PO DAILY, (Reported) Entered as Reported by: CONSTANTINE CHURCH on 10/26/20 1013 Cholecalciferol (Vitamin D3) (Vitamin D3) 125 Mcg Tablet, 125 MCG PO DAILY, (Reported) Entered as Reported by: CONSTANTINE CHURCH on 08/24/20 1103 Cyclobenzaprine HCl (Cyclobenzaprine HCl) 10 Mg Tablet, 10 MG PO Q8H PRN for SPASMS Prescribed by: CHRISSY MAHONEY on 11/29/211825 Docusate Sodium (Colace) 100 Mg Capsule, 100 MG PO DAILY Prescribed by: COLIN DUMAS on 09/13/21 164 Folic Acid/Multivit-Minerals (Women's Multivitamin Gummies) 200 Mcg Tab.chew, 200 MCG PO DAILY, (Reported) Entered as Reported by: CONSTANTINE CHURCH on 08/24/20 110 Furosemide (Lasix) 20 Mg Tablet, 20 MG PO DAILY Prescribed by: RACHID MAC on 12/21/20 0912 Hydrocodone/Acetaminophen (Hydrocodone-Acetamin 5-325 mg) 1 Each Tablet, 1 TAB PO Q4H PRN for PAIN-MODERATE (5-7) Prescribed by: COLIN DUMAS on 09/13/21 164 Levothyroxine Sodium (Levothyroxine Sodium) 125 Mcg Tablet, 125 MCG PO DAILY, (Reported) Entered as Reported by: CONSTANTINE CHURCH on 10/26/20 1013 Melatonin (Melatonin) 5 Mg Tablet, 5 MG PO HS PRN for SLEEP, (Reported) Entered as Reported by: CONSTANTINE CHURCH on 08/24/20 1103 Metoprolol Succinate (Metoprolol Succinate) 25 Mg Tab.er.24h, 25 MG PO DAILY Prescribed by: RACHID MAC on 12/21/20 0912 Potassium Bicarbonate/Cit AC (Effer-K 10 Meq Tablet Eff) 10 Meq Tablet.eff, 10 MEQ PO DAILY, (Reported) Entered as Reported by: PAIGE FUENTES on 12/18/20 153 Tramadol HCl (Tramadol HCl) 50 Mg Tablet, 50 MG PO Q6H PRN for PAIN Prescribed by: CHRISSY MAHONEY on 11/29/211825 Review of Systems Review of Systems Constitutional: no symptoms reported EENTM: no symptoms reported Respiratory: No cough; dyspnea on exertion; No hemoptysis, No phlegm; short of breath Gastrointestinal: no symptoms reported Genitourinary: no symptoms reported Musculoskeletal: back pain Skin: see HPI Psychiatric/Neurological: No Symptoms Reported Hematologic/Lymphatic: No Symptoms Reported Immunological/Allergic: no symptoms reported Past Kcsxueo-Cncsvr-Lcnyag Hx Immunizations Up To Date Tetanus Booster (TDap): Unknown First/Initial COVID19 Vaccinat: UNKNOW DATE. Second COVID19 Vaccination Fly: UNKNOW DATE. 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 Sexually Transmitted Disease: No HIV/AIDS: No Genitourinary: No Gastrointestinal: No Musculoskeletal: No Arthritis Endocrine: Yes Hypothyroidsim HEENT: Yes Macular Degeneration Loss of Vision: Denies Hearing Impairment: Hard of Hearing Cancer: No Psychosocial: No Integumentary: No Blood Disorders: No Family Medical History Heart Disease, Cancer, Diabetes, Hypertension Physical Exam Vital Signs Vital Signs - First Documented 01/03/22 12:20 Temp 36.3 Pulse 82 Resp 23 B/P (MAP) 183/95 (124) Pulse Ox 98 O2 Delivery Nasal Cannula O2 Flow Rate 4.00 Capillary Refill : Height, Weight, BMI Height: '" Weight: lbs. oz. kg; 33.00 BMI Method: General Appearance: No Apparent Distress, WD/WN Eyes: Bilateral Eye Normal Inspection, Bilateral Eye PERRL, Bilateral Eye EOMI HEENT: PERRL/EOMI, TMs Normal, Normal ENT Inspection Neck: Normal Inspection, Supple Respiratory: Lungs Clear, Normal Breath Sounds, No Accessory Muscle Use Cardiovascular: Regular Rate, Rhythm, No Murmur Gastrointestinal: Normal Bowel Sounds, Non Tender, Soft Extremity: Normal Capillary Refill, Calf Tenderness, Inflammation (left mid- calf ), Swelling (BLE distal to knee ) Neurologic/Psychiatric: Alert, Oriented x3, No Motor/Sensory Deficits, Normal Mood/Affect Skin: Warm/Dry, Erythema (Left lateral lower extremity. ) Lymphatic: No Adenopathy Progress/Results/Core Measures Suspected Sepsis SIRS Temperature: Pulse: Respiratory Rate: Laboratory Tests 01/03/22 12:40: White Blood Count 9.2 Blood Pressure / Mean: Laboratory Tests 01/03/22 12:40: Creatinine 0.80, Platelet Count 409H, Total Bilirubin 0.5 Results/Orders Lab Results Laboratory Tests Test 01/03/22 12:40 Range/Units White Blood Count 9.2 4.3-11.0 10^3/uL Red Blood Count 2.89 L 3.80-5.11 10^6/uL Hemoglobin 7.3 L 11.5-16.0 g/dL Hematocrit 25 L 35-52 % Mean Corpuscular Volume 87 80-99 fL Mean Corpuscular Hemoglobin 25 25-34 pg Mean Corpuscular Hemoglobin Concent 29 L 32-36 g/dL Red Cell Distribution Width 16.4 H 10.0-14.5 % Platelet Count 409 H 130-400 10^3/uL Mean Platelet Volume 9.4 9.0-12.2 fL Immature Granulocyte % (Auto) 1 % Neutrophils (%) (Auto) 68 42-75 % Lymphocytes (%) (Auto) 18 12-44 % Monocytes (%) (Auto) 8 0-12 % Eosinophils (%) (Auto) 5 0-10 % Basophils (%) (Auto) 0 0-10 % Neutrophils # (Auto) 6.2 1.8-7.8 10^3/uL Lymphocytes # (Auto) 1.6 1.0-4.0 10^3/uL Monocytes # (Auto) 0.8 0.0-1.0 10^3/uL Eosinophils # (Auto) 0.5 H 0.0-0.3 10^3/uL Basophils # (Auto) 0.0 0.0-0.1 10^3/uL Immature Granulocyte # (Auto) 0.1 0.0-0.1 10^3/uL D-Dimer 2.27 H 0.00-0.49 UG/ML Sodium Level 142 135-145 MMOL/L Potassium Level 3.3 L 3.6-5.0 MMOL/L Chloride Level 103 98-107 MMOL/L Carbon Dioxide Level 28 21-32 MMOL/L Anion Gap 11 5-14 MMOL/L Blood Urea Nitrogen 17 7-18 MG/DL Creatinine 0.80 0.60-1.30 MG/DL Estimat Glomerular Filtration Rate 71 BUN/Creatinine Ratio 21 Glucose Level 100 70-105 MG/DL Calcium Level 8.5 8.5-10.1 MG/DL Corrected Calcium 8.9 8.5-10.1 MG/DL Total Bilirubin 0.5 0.1-1.0 MG/DL Aspartate Amino Transf (AST/SGOT) 23 5-34 U/L Alanine Aminotransferase (ALT/SGPT) 17 0-55 U/L Alkaline Phosphatase 78 40-136 U/L Creatine Kinase MB 1.8 <6.6 NG/ML Myoglobin 74.3 10.0-92.0 NG/ML Troponin I < 0.028 <0.028 NG/ML C-Reactive Protein High Sensitivity 0.64 H 0.00-0.50 MG/DL B-Type Natriuretic Peptide 531.7 H <100.0 PG/ML Total Protein 6.4 6.4-8.2 GM/DL Albumin 3.5 3.2-4.5 GM/DL My Orders Orders - MICKIE REDMOND ARTS ADMINISTRATOR Cbc With Automated Diff (01/03/22 12:39) Comprehensive Metabolic Panel (01/03/22 12:39) Fibrin Degradation Products (01/03/22 12:39) Us Venous Lower Ext Abodul (01/03/22 12:39) Bnp Ata (01/03/22 12:39) Chest 1 View, Ap/Pa Only (01/03/22 12:39) Ekg Tracing (01/03/22 12:39) Troponin I [place] (01/03/22 12:39) Myoglobin Serum (01/03/22 12:39) Creatine Kinase Mb (01/03/22 12:39) Hs C Reactive Protein (01/03/22 12:39) Iron Sucrose Injection (Venofer Injectio (01/03/22 14:45) Vital Signs/I&O 01/03/22 12:20 Temp 36.3 Pulse 82 Resp 23 B/P (MAP) 183/95 (124) Pulse Ox 98 O2 Delivery Nasal Cannula O2 Flow Rate 4.00 Capillary Refill : Departure Impression Primary Impression: Swelling of both lower extremities Additional Impressions: Anemia Positive fecal occult blood test Disposition: HOME, SELF-CARE Condition: Improved Departure-Patient Inst. Decision time for Depature: 14:40 Referrals: RACHID MAC MD (PCP/Family) Primary Care Physician Patient Instructions: Anemia Caused by Low Iron, Adult (DC) Add. Discharge Instructions: Plan: 1. Follow up with Dr. Mac later this week or next week. 2. Return to hospital as scheduled for your outpatient MRI. 3. Avoid using Ibuprofen as this can cause you to have increased blood loss. 4. Return to ER for any new, concerning, or worsening symptoms. MICKIE REDMOND APRN Jan 03, 2022 12:39
[2022-01-03 12:53] LABS: BASOPHILS % (AUTO) 0 % (0-10); EOSINOPHILS # (AUTO) 0.5 10^3/uL (0.0-0.3); EOSINOPHILS % (AUTO) 5 % (0-10); HEMATOCRIT 25 % (35-52); HEMOGLOBIN 7.3 g/dL (11.5-16.0); LYMPHOCYTES # (AUTO) 1.6 10^3/uL (1.0-4.0); LYMPHOCYTES % (AUTO) 18 % (12-44); MEAN CORPUSCULAR HEMOGLOBIN 25 pg (25-34); MEAN CORPUSCULAR HGB CONC 29 g/dL (32-36); MEAN CORPUSCULAR VOLUME 87 fL (80-99); MEAN PLATELET VOLUME 9.4 fL (9.0-12.2); MONOCYTES # (AUTO) 0.8 10^3/uL (0.0-1.0); MONOCYTES % (AUTO) 8 % (0-12); NEUTROPHILS # (AUTO) 6.2 10^3/uL (1.8-7.8); NEUTROPHILS % (AUTO) 68 % (42-75); PLATELET COUNT 409 10^3/uL (130-400); WHITE BLOOD COUNT 9.2 10^3/uL (4.3-11.0)
[2022-01-03 13:19] LABS: ALBUMIN 3.5 GM/DL (3.2-4.5); CHLORIDE 103 MMOL/L (98-107); CREATINE KINASE MB 1.8 NG/ML (<6.6); POTASSIUM 3.3 MMOL/L (3.6-5.0); SODIUM 142 MMOL/L (135-145)
[2022-01-03 13:20] LABS: CALCIUM 8.5 MG/DL (8.5-10.1)
[2022-01-03 13:21] LABS: GLUCOSE 100 MG/DL (70-105); TOTAL PROTEIN 6.4 GM/DL (6.4-8.2)
[2022-01-03 13:22] LABS: CARBON DIOXIDE 28 MMOL/L (21-32)
[2022-01-03 13:23] LABS: BILIRUBIN,TOTAL 0.5 MG/DL (0.1-1.0)
[2022-01-03 13:25] LABS: ALKALINE PHOSPHATASE 78 U/L (40-136); GFR ESTIMATED 71
[2022-01-03 13:26] LABS: BUN/CREATININE RATIO 21
[2022-01-03 13:28] LABS: ALANINE AMINOTRANSFERASE 17 U/L (0-55)
--- NOTE | 2022-01-03 13:46 | Diagnostic Imaging Report ---
HISTORY: Shortness of breath. COMPARISON: 12/21/2020. TECHNIQUE: Frontal view of the chest. FINDINGS: There are stable small bilateral pleural effusions, right greater than left, with associated airspace opacities. Right basilar airspace opacity appears significantly increased since the prior exam. There is stable cardiomegaly with mild central vascular congestion. No pneumothorax is seen. There is diffuse osteopenia. IMPRESSION: 1. Stable small bilateral pleural effusions, right greater than left, with associated atelectasis. 2. Right basilar airspace opacity may represent atelectasis or infiltrate. 3. Stable cardiomegaly with mild central vascular congestion. Dictated by: Dictated on workstation # [id number]
[2022-01-03] MEDS ORDERED: IRON SUCROSE 200 MG/10 ML (VENOFER) VIAL IV ONE (14:45)
--- NOTE | 2022-01-03 15:00 | Diagnostic Imaging Report ---
PROCEDURE: US Venous Lower Ext Abdoul. TECHNIQUE: Multiple real-time grayscale images were obtained over the lower extremities in various projections, bilaterally. Additional duplex Doppler and color Doppler images were also obtained. INDICATION: Leg swelling. FINDINGS: There is no evidence of right or left lower extremity DVT. Both lower extremity deep venous systems demonstrate normal compressibility with normal response to augmentation and Valsalva. No fluid collection or mass is detected. IMPRESSION: No evidence of right or left lower extremity DVT. Dictated by: Dictated on workstation # [id number]
[2022-01-03] MEDS ORDERED: HYDROcodone/APAP 5 MG/325 MG (LORTAB) TAB PO ONE (15:30)
[2022-01-03 16:18] VITALS: BP 180/86
== END 2022-01-03 16:33 | disposition home or self-care (01) ==
LOC: EDUNIT# 12:12 → ER 12:16
DX: M79.89 Other specified soft tissue disorders (principal); D64.9 Anemia, unspecified; R19.5 Other fecal abnormalities; I11.0 Hypertensive heart disease with heart failure; I50.9 Heart failure, unspecified; I48.91 Unspecified atrial fibrillation; J44.9 Chronic obstructive pulmonary disease, unspecified; E03.9 Hypothyroidism, unspecified; Z79.82 Long term (current) use of aspirin; Z79.890 Hormone replacement therapy; Z79.899 Other long term (current) drug therapy
CPT/HCPCS: 36415; 71045; 80053; 82553; 83874; 83880; 84484; 85025; 85379; 86141; 93005; 93970

== ENCOUNTER → 2022-01-06 | Outpatient (CLI) | payer MEDICARE | LOC: RAD 13:00 | PROVIDERS: ATTEND Nurse Practitioner Family | DX: M79.604 Pain in right leg (principal); M79.605 Pain in left leg; M62.3 Immobility syndrome (paraplegic); R60.0 Localized edema ==